=== PATIENT | male | born 1990 ===

== ENCOUNTER 2024-09-23 20:23 | Emergency (ER) | payer MEDICAID, SELFPAY ==
--- NOTE | ~2024-09-23 | CT_ITS ---
EXAMINATION: CT abdomen pelvis w con DATE: 09/24/2024 01:42 INDICATION: Abdominal pain. Nausea and vomiting. TECHNIQUE: Computed tomography (CT) of the abdomen and pelvis was performed with 100 mL Omnipaque 350 intravenous contrast. Automated exposure control and iterative reconstruction technique were employe d. The dose-length product was 392.67 mGy-cm. COMPARISON: None. FINDINGS: The visualized portions of lung bases demonstrate mild atelectasis. No pleural effusion. Th e heart size is normal. No pericardial effusion. There is a small sliding hiatal hernia. The liver, g allbladder, spleen, pancreas, adrenal glands, and kidneys are normal. There are no dilated loops of b owel. The appendix is not visualized. The bones are unremarkable. IMPRESSION: 1. Small sliding hiatal hernia. Reviewed, dictated and finalized at location A. [employer]
[2024-09-23 20:25] VITALS: BP 139/81; PULSE 117; RESP 20; TEMP 36.8; O2SAT 98
--- NOTE | 2024-09-23 23:38 | ED.ABDPAIN ---
HPI - Abdominal Pain General Chief Complaint: Abdominal Pain <DANIEL Morales Last Filed: 09/24/24 02:50> Stated Complaint: abdominal pain, N/V <DANIEL Morales Last Filed: 09/24/24 02:50> Time Seen by Provider: 09/23/24 23:26 <DANIEL Morales Last Filed: 09/24/24 02:50> History of Present Illness HPI narrative: 33-year-old male with reported history of ?cyclic vomiting syndrome? presents to the emergency department for nausea, vomiting and diffuse abdominal pain for 2 days. Patient denies any aggravating or alleviating factors other than ?pain medication. He denies drug use but admits to using marijuana intermittently. Denies alcohol use. No prior abdominal surgeries. Denies diarrhea, dysuria or hematuria. <DANIEL Morales Last Filed: 09/24/24 02:50> Related Data Allergies/Adverse Reactions: Allergies Allergy/AdvReac Type Severity Reaction Status Date / Time No Known Allergies Allergy Verified 09/24/24 00:31 <DANIEL Morales Last Filed: 09/24/24 02:50> Review of Systems Review of Systems: All systems reviewed & are unremarkable except as noted in HPI and below <DANIEL Morales Last Filed: 09/24/24 02:50> Exam Narrative: GENERAL: Tearful, moaning HEAD: Normocephalic, atraumatic. EYES:EOMI. ENT: Nares clear, no rhinorrhea or epistaxis. Mucous membranes moist. NECK: Supple. CHEST: Clear to auscultation. No respiratory distress. HEART: Regular rate and rhythm. No murmur heard. Normal peripheral pulses. ABDOMEN: Soft, nontender, nondistended, normal active bowel sounds. No rebound, guarding rigidity. EXTREMITIES: Normal range of motion. No edema. SKIN: Warm, dry, no rash. NEURO: No focal deficits. Alert and oriented x3 <DANIEL Morales Last Filed: 09/24/24 02:50> Course Vital Signs Vital signs: Vital Signs Temperature 98.2 F 09/23/24 20:25 Pulse Rate 117 H 09/23/24 20:25 Respiratory Rate 20 09/23/24 20:25 Blood Pressure 139/81 09/23/24 20:25 Pulse Oximetry 98 09/23/24 20:25 Temperature 98.4 F 09/23/24 23:41 Pulse Rate 84 09/24/24 05:30 Respiratory Rate 16 09/24/24 05:30 Blood Pressure 126/76 09/24/24 05:15 Pulse Oximetry 96 09/24/24 05:30 <Laura Prabhakar PA-C - Last Filed: 09/24/24 02:50> Vital Signs Temperature 98.2 F 09/23/24 20:25 Pulse Rate 117 H 09/23/24 20:25 Respiratory Rate 20 09/23/24 20:25 Blood Pressure 139/81 09/23/24 20:25 Pulse Oximetry 98 09/23/24 20:25 Temperature 98.4 F 09/23/24 23:41 Pulse Rate 84 09/24/24 05:30 Respiratory Rate 16 09/24/24 05:30 Blood Pressure 126/76 09/24/24 05:15 Pulse Oximetry 96 09/24/24 05:30 <Warren Hernández MD - Last Filed: 09/24/24 05:49> MDM - Abdominal Pain MDM Narrative Medical decision making narrative: 33-year-old male with reported history of cyclic vomiting syndrome presents to the emergency department for nausea, vomiting and diffuse abdominal pain for 2 days. Triage vitals with tachycardia 17 which has since resolved. He is afebrile. Exam is significant for the above. Lab work shows leukocytosis of 15.3. Chemistries with mild elevation in BUN of 25, stable creatinine. Keep magnesium mildly elevated 2.4, likely hemoconcentration. IV fluids ongoing. Urinalysis with 1+ ketones and mildly elevated specific gravity. UDS is positive for cocaine and cannabinoids. Lipase normal at 112. Pending CT abdomen pelvis results at time of sign-out to Dr. Hernández. Patient received IV fluids, Toradol and Haldol in the ED for cyclical vomiting and upon re-evaluation is resting comfortably in the exam bed. <Laura Prabhakar PA-C - Last Filed: 09/24/24 02:50> 33-year-old male with reported history of cyclic vomiting syndrome presents to the emergency department for nausea, vomiting and diffuse abdominal pain for 2 days. Triage vitals with tachycardia 17 which has since resolved. He is afebrile. Exam is significant for the above. Lab work shows leukocytosis of 15.3. Chemistries with mild elevation in BUN of 25, stable creatinine. Keep magnesium mildly elevated 2.4, likely hemoconcentration. IV fluids ongoing. Urinalysis with 1+ ketones and mildly elevated specific gravity. UDS is positive for cocaine and cannabinoids. Lipase normal at 112. Pending CT abdomen pelvis results at time of sign-out to Dr. Hernández. Patient received IV fluids, Toradol and Haldol in the ED for cyclical vomiting and upon re-evaluation is resting comfortably in the exam bed. Edgar: Patient was signed out to me pending CT abdomen pelvis results. CT was obtained and independently interpreted by me revealing questionable thickening of the distal wall of the stomach which is likely infectious/inflammatory, otherwise no acute process. Patient was informed of these findings at bedside. Patient is now resting comfortably and is no longer vomiting. He was instructed that he needs to follow up with his primary care physician within the next 3-5 days and to return to the ED if any new or worsening symptoms develop. A script for Zofran was sent to his pharmacy to use as needed for nausea/vomiting. He was discharged in stable condition. <Warren Hernández MD - Last Filed: 09/24/24 05:49> Lab Data Result diagrams: 09/24/24 00:46 09/24/24 00:46 <Laura Prabhakar PA-C - Last Filed: 09/24/24 02:50> Labs: Lab Results 09/24/24 Range/Units 00:46 WBC 15.3 H (4.5-10.0) K/mm3 RBC 5.70 (4.6-6.20) M/mm3 Hgb 16.9 (14.0-18.0) g/dL Hct 47.8 (42.0-52.0) % MCV 83.9 (80-100) fl MCH 29.6 (26-34) pg MCHC 35.4 (32-36) g/dl RDW 12.6 (11.5-14.5) % Plt Count 362 (150-375) k/mm3 MPV 9.5 (7.4-10.4) fl Immature Gran % (Auto) 0.3 (0-0.5) % Neut % (Auto) 75.2 H (45.5-73.1) % Lymph % (Auto) 15.5 L (18.3-44.2) % [place] % (Auto) 8.7 H (2.6-8.5) % Eos % (Auto) 0.0 (0-4.4) % Baso % (Auto) 0.3 (0.2-1.2) % Lymph # (Auto) 2.37 (0.9-3.2) K/mm3 [place] # (Auto) 1.3 H (0.1-0.6) K/mm3 Eos # (Auto) 0.0 (0-0.3) K/mm3 Baso # (Auto) 0.0 (0.0-0.1) K/mm3 Abs Immat Gran (auto) 0.05 H (0.00-0.031) K/mm3 Absolute Neuts (auto) 11.5 H (1.3-6.7) K/mm3 Absolute Nucleated RBC 0.000 (0.0-0.012) K/mm3 Nucleated RBC % 0.0 (0.0-0.2) % Sodium 136 L (137-145) mmol/L Potassium 3.4 (3.4-5.0) mmol/L Chloride 97 L (98-107) mmol/L Carbon Dioxide 28 (22-30) mmol/L Anion Gap 11 (4-12) mmol/L BUN 25 H (9-20) mg/dL Creatinine 1.00 (0.7-1.3) mg/dL Estim Creat Clear Calc 88 ml/min Estimated GFR > 60 (59 - ) Glucose 100 (65-110) mg/dL Calcium 10.0 (8.4-10.2) mg/dL Magnesium 2.4 H (1.6-2.3) mg/dL Total Bilirubin 1.1 (0.2-1.3) mg/dL AST 33 (17-59) U/L ALT 15 (6-50) U/L Alkaline Phosphatase 75 (38-126) U/L Total Protein 9.0 H (6.3-8.2) g/dL Albumin 5.2 H (3.5-5.1) g/dL Lipase 112 (23-300) U/L Urine Color Dark yellow (Yellow) Urine Appearance Clear (Clear) Urine pH 5.5 (5.0-9.0) Ur Specific [place] 1.036 H (1.001-1.035) Urine Protein 2+ H (Negative) mg/dL Urine Glucose (UA) Negative (Negative) mg/dL Urine Ketones 1+ H (Negative) mg/dL Ur Blood (Man) Trace (Negative) Urine Nitrate Negative (Negative) Urine Bilirubin Negative (Negative) Urine Urobilinogen 1.0 (<2.0) mg/dL Leukocyte Esterase Rfl Negative (Negative) HEBERT/UL Urine RBC 0-2 (0-2) /hpf Urine WBC 0-5 (0-3) /hpf Ur Squamous Epith Cells None seen (Few) /hpf Urine Bacteria None seen /hpf Urine Casts 3-5 Urine Opiates Screen Negative (Negative) Urine Methadone Screen Negative (Negative) Ur Barbiturates Screen Negative (Negative) Ur Phencyclidine Scrn Negative (Negative) Ur Amphetamine Screen Negative (Negative) U Benzodiazepines Scrn Negative (Negative) Urine Cocaine Screen Positive A (Negative) U Cannabinoids Screen Positive A (Negative) <Laura Prabhakar PA-C - Last Filed: 09/24/24 02:50> Lab Results 09/24/24 Range/Units 00:46 WBC 15.3 H (4.5-10.0) K/mm3 RBC 5.70 (4.6-6.20) M/mm3 Hgb 16.9 (14.0-18.0) g/dL Hct 47.8 (42.0-52.0) % MCV 83.9 (80-100) fl MCH 29.6 (26-34) pg MCHC 35.4 (32-36) g/dl RDW 12.6 (11.5-14.5) % Plt Count 362 (150-375) k/mm3 MPV 9.5 (7.4-10.4) fl Immature Gran % (Auto) 0.3 (0-0.5) % Neut % (Auto) 75.2 H (45.5-73.1) % Lymph % (Auto) 15.5 L (18.3-44.2) % [place] % (Auto) 8.7 H (2.6-8.5) % Eos % (Auto) 0.0 (0-4.4) % Baso % (Auto) 0.3 (0.2-1.2) % Lymph # (Auto) 2.37 (0.9-3.2) K/mm3 [place] # (Auto) 1.3 H (0.1-0.6) K/mm3 Eos # (Auto) 0.0 (0-0.3) K/mm3 Baso # (Auto) 0.0 (0.0-0.1) K/mm3 Abs Immat Gran (auto) 0.05 H (0.00-0.031) K/mm3 Absolute Neuts (auto) 11.5 H (1.3-6.7) K/mm3 Absolute Nucleated RBC 0.000 (0.0-0.012) K/mm3 Nucleated RBC % 0.0 (0.0-0.2) % Sodium 136 L (137-145) mmol/L Potassium 3.4 (3.4-5.0) mmol/L Chloride 97 L (98-107) mmol/L Carbon Dioxide 28 (22-30) mmol/L Anion Gap 11 (4-12) mmol/L BUN 25 H (9-20) mg/dL Creatinine 1.00 (0.7-1.3) mg/dL Estim Creat Clear Calc 88 ml/min Estimated GFR > 60 (59 - ) Glucose 100 (65-110) mg/dL Calcium 10.0 (8.4-10.2) mg/dL Magnesium 2.4 H (1.6-2.3) mg/dL Total Bilirubin 1.1 (0.2-1.3) mg/dL AST 33 (17-59) U/L ALT 15 (6-50) U/L Alkaline Phosphatase 75 (38-126) U/L Total Protein 9.0 H (6.3-8.2) g/dL Albumin 5.2 H (3.5-5.1) g/dL Lipase 112 (23-300) U/L Urine Color Dark yellow (Yellow) Urine Appearance Clear (Clear) Urine pH 5.5 (5.0-9.0) Ur Specific [place] 1.036 H (1.001-1.035) Urine Protein 2+ H (Negative) mg/dL Urine Glucose (UA) Negative (Negative) mg/dL Urine Ketones 1+ H (Negative) mg/dL Ur Blood (Man) Trace (Negative) Urine Nitrate Negative (Negative) Urine Bilirubin Negative (Negative) Urine Urobilinogen 1.0 (<2.0) mg/dL Leukocyte Esterase Rfl Negative (Negative) HEBERT/UL Urine RBC 0-2 (0-2) /hpf Urine WBC 0-5 (0-3) /hpf Ur Squamous Epith Cells None seen (Few) /hpf Urine Bacteria None seen /hpf Urine Casts 3-5 Urine Opiates Screen Negative (Negative) Urine Methadone Screen Negative (Negative) Ur Barbiturates Screen Negative (Negative) Ur Phencyclidine Scrn Negative (Negative) Ur Amphetamine Screen Negative (Negative) U Benzodiazepines Scrn Negative (Negative) Urine Cocaine Screen Positive A (Negative) U Cannabinoids Screen Positive A (Negative) <Warren Hernández MD - Last Filed: 09/24/24 05:49> Discharge Plan Discharge Clinical Impression: Cyclical vomiting syndrome, Nausea & vomiting, Polysubstance abuse <Laura Prabhakar PA-C - Last Filed: 09/24/24 02:50> Patient Disposition: Home, Self-Care <DANIEL Morales Last Filed: 09/24/24 02:50> Condition: Improved <DANIEL Morales Last Filed: 09/24/24 02:50> Instructions: Antibiotic Form, Acute Nausea and Vomiting (DC), Abdominal Pain (ED), Cyclic Vomiting Syndrome (ED) <DANIEL Morales Last Filed: 09/24/24 02:50> Additional Instructions: Please follow-up with your family doctor within the next 3-5 days. Return to the emergency department if any new or worsening symptoms develop. Use the prescribed Zofran as needed for nausea/vomiting. <DANIEL Morales Last Filed: 09/24/24 02:50> Patient Language: Brazilian <DANIEL Morales Last Filed: 09/24/24 02:50> Prescriptions: New ondansetron 4 mg tablet,disintegrating 4 mg PO Q8H PRN (Reason: nausea and vomiting) Qty: 10 0RF <Laura Prabhakar PA-C - Last Filed: 09/24/24 02:50> Follow-up/Referrals: Noemí Marino DO [Physician] - 3 Days PHYSICIAN,DIRECTOR OF RESTAURANT OPERATIONS [Primary Care Provider] - <Laura Prabhakar PA-C - Last Filed: 09/24/24 02:50> Time of Disposition: 05:48 <Laura Prabhakar PA-C - Last Filed: 09/24/24 02:50> 05:48 <Warren Hernández MD - Last Filed: 09/24/24 05:49>
[2024-09-23 23:40] VITALS: PULSE 95; RESP 20
[2024-09-23 23:41] VITALS: BP 129/94; BP 130/94; PULSE 105; PULSE 98; RESP 18; RESP 20; TEMP 36.9; O2SAT 100; O2SAT 98
--- NOTE | 2024-09-23 23:42 | ECG_ITS ---
Test Date: 2024-09-23 23:52:32 Measurements Intervals [place] Rate: 85 P: 67 AL: 135 QRS: 58 QRSD: 100 T: 59 QT: 343 QTc: 408 Interpretive Statements SINUS RHYTHM POSSIBLE RIGHT ATRIAL ENLARGEMENT [0.25mV P WAVE] POSSIBLE LEFT ATRIAL ENLARGEMENT [-0.1mV P WAVE IN V1/V2] INDETERMINATE AXIS INCOMPLETE RIGHT BUNDLE BRANCH BLOCK [90+ ms QRS DURATION, TERMINAL R IN V1/V2, 40+ ms S IN I/aVL/V4/V5/V6] No previous ECG available for comparison Electronically Signed On 09-24-2024 14:53:52 PROOFER PREPRESS by Ruth Brizuela M.D.
[2024-09-23 23:45] VITALS: PULSE 97; RESP 26; O2SAT 96
[2024-09-23 23:46] VITALS: BP 124/72; PULSE 96; RESP 26; O2SAT 97
[2024-09-24] VITALS (21 sets, daily range): BP systolic 113–131; BP diastolic 70–79; PULSE 75–107; RESP 13–30; O2SAT 94–97
[2024-09-24] MEDS: HALOPERIDOL LACTATE 5 MG/ML VIAL IM (00:32)
[2024-09-24] MEDS: SODIUM CHLORIDE 0.9% IV 1,000 ML 999 ML IV CONT (00:53)
[2024-09-24] MEDS: Please add drug allergy info to patient profile. 1 EACH XX ×2 (00:53→00:54)
[2024-09-24 01:00] LABS: Basophils Percent Auto 0.3 % (0.2-1.2); Hematocrit 47.8 % (42.0-52.0); Hemoglobin 16.9 g/dL (14.0-18.0); Immature Granulocyte Absolute 0.05 K/mm3 (0.00-0.031); Immature Granulocyte Percent A 0.3 % (0-0.5); Lymphocytes Absolute Auto 2.37 K/mm3 (0.9-3.2); Lymphocytes Percent Auto 15.5 % (18.3-44.2); Mean Corpuscular HGB Conc 35.4 g/dl (32-36); Mean Corpuscular Hemoglobin 29.6 pg (26-34); Mean Corpuscular Volume 83.9 fl (80-100); Mean Platelet Volume 9.5 fl (7.4-10.4); Monocytes Absolute Auto 1.3 K/mm3 (0.1-0.6); Monocytes Percent Auto 8.7 % (2.6-8.5); Neutrophils Absolute Auto 11.5 K/mm3 (1.3-6.7); Neutrophils Percent Auto 75.2 % (45.5-73.1); Platelet Count Result 362 k/mm3 (150-375); Red Cell Distribution Width 12.6 % (11.5-14.5); White Blood Count 15.3 K/mm3 (4.5-10.0)
[2024-09-24 01:06] LABS: Add Urine Microscopic? YES; Appearance Urine Clear (Clear); Bacteria Urine None Seen /hpf; Bilirubin Urine Negative (Negative); Blood Urine Trace (Negative); Color Urine Dark Yellow (Yellow); Glucose Urine UA Negative (Negative); Ketones Urine 1+ mg/dL (Negative); Leukocyte Esterase Ur Negative LEU/UL (Negative); Nitrate Urine Negative (Negative); Protein Urine 2+ mg/dL (Negative); RBC Urine 0-2 /hpf (0-2); Specific Grav Ur 1.036 (1.001-1.035); Squamous Epithelial Cell Urine None Seen /hpf (Few); WBC Urine 0-5 /hpf (0-3); pH Urine 5.5 (5.0-9.0)
[2024-09-24] MEDS: KETOROLAC 15 MG/ML VIAL (*BKC) IV PUSH (01:21)
[2024-09-24 01:22] LABS: Alanine Aminotransferase 15 U/L (6-50); Albumin Level 5.2 g/dL (3.5-5.1); Alkaline Phosphatase 75 U/L (38-126); Anion Gap 11 mmol/L (4-12); Aspartate Amino Transferase 33 U/L (17-59); Bilirubin,Total 1.1 mg/dL (0.2-1.3); Blood Urea Nitrogen 25 mg/dL (9-20); Carbon Dioxide 28 mmol/L (22-30); Chloride 97 mmol/L (98-107); Estimated CRCL calculation 88 ml/min; Estimated Glomerular Filt Rate > 60; Glucose 100 mg/dL (65-110); Lipase 112 U/L (23-300); Magnesium 2.4 mg/dL (1.6-2.3); Potassium 3.4 mmol/L (3.4-5.0); Sodium 136 mmol/L (137-145)
[2024-09-24 01:25] LABS: Amphetamine Screen Urine Negative (Negative); Barbiturate Screen Urine Negative (Negative); Benzodiazepines Screen Urine Negative (Negative); Cannabinoid Screen Urine Positive (Negative); Cocaine Screen Urine Positive (Negative); Methadone Screen Urine Negative (Negative); Opiate Screen Urine Negative (Negative); Phencyclidine Screen Urine Negative (Negative)
== END 2024-09-24 05:58 | disposition home or self-care (01) ==
PROVIDERS: Physician Assistant; Emergency Provider Emergency Medicine
DX: R11.15 Cyclical vomiting syndrome unrelated to migraine (principal); F19.10 Other psychoactive substance abuse, uncomplicated; R94.31 Abnormal electrocardiogram [ECG] [EKG]
CPT/HCPCS: 36415; 74177; 80053; 80307; 81001; 83690; 83735; 85025; 93005; 96361; 96372; 96374; 99284; J1630; J1885; J7030; Q9967

== ENCOUNTER 2024-10-15 17:50 | Emergency (ER) | payer OTHER, SELFPAY ==
[2024-10-15 18:05] VITALS: BP 164/102; PULSE 90; RESP 20; TEMP 36.3; O2SAT 99
--- NOTE | 2024-10-15 20:18 | ED_ITS ---
HPI - Nausea/Vomiting/Diarrhea General Chief complaint: Nausea/Vomiting/Diarrhea Stated complaint: cyclic vomiting Time Seen by Provider: 10/15/24 19:49 Source: patient Mode of arrival: ambulatory Limitations: no limitations History of Present Illness HPI Narrative: Patient presents with report of cyclic vomiting starting today. States he has a history of this occuring every few weeks. Does use marijuana daily including earlier today. History of extensive work up with GI including EGD. States this has been going on for years though. Notes that Haldol and Benadryl sometimes work, with IV fluids. Related Data Allergies Allergy/AdvReac Type Severity Reaction Status Date / Time No Known Allergies Allergy Verified 10/15/24 17:52 PMFSH Past Medical History Medical History Cyclical vomiting Social History Social History (Updated 10/16/24 @ 12:58 by Neli Morin MD) Substance use type: marijuana Other substance usage details: daily Exam 2 Narrative: GENERAL: well-nourished, in mild acute distress; groaning and with emesis bag in lap HEAD: Normocephalic, atraumatic. EYES: Non injected, non icteric, slightly sunken ENT: Nares clear, no rhinorrhea or epistaxis. NECK: Supple. CHEST: Speaking in full sentences. No respiratory distress. HEART: Regular rate and rhythm. . ABDOMEN: Soft, nondistended. EXTREMITIES: Normal range of motion. No lower extremity edema. SKIN: Warm, dry, no rash. NEURO: No focal deficits. Alert and oriented x3. PSYCH: Normal mood and affect. Course Vital Signs Vital signs: Vital Signs Temperature 97.4 F L 10/15/24 18:05 Pulse Rate 90 10/15/24 18:05 Respiratory Rate 20 10/15/24 18:05 Blood Pressure 164/102 H 10/15/24 18:05 Pulse Oximetry 99 10/15/24 18:05 Oxygen Delivery Room Air 10/15/24 18:05 Temperature 97.4 F L 10/15/24 18:05 Pulse Rate 81 10/15/24 22:42 Respiratory Rate 19 10/15/24 22:42 Blood Pressure 157/90 H 10/15/24 22:42 Pulse Oximetry 99 10/15/24 22:42 Oxygen Delivery Room Air 10/15/24 18:05 MDM - Nausea/Vomiting/Diarrhea MDM Narrative Medical decision making narrative: Patient presents with reported cyclic vomiting which he states is chronic. Has previously been worked up by GI including EGD. Does use marijuana daily. In the emergency department he is afebrile with vital signs notable for hypertension. Leukocytosis and thrombocytosis. Possible acute phase / stress response. Mild hyperglycemia with an anion gap; I suspect this to be due to starvation. Patient is symptomatically treated with haloperidol 2.5 mg IV and diphenhydramine 25 mg IV in addition to 1L IV fluids. Patient reassessed at 9:20 p.m.. He is resting comfortably, sleeping. Upon awakening, he states that his symptoms are improving but still present. Re-dosed with additional 2.5 mg. IV haloperidol and 25 mg IV diphenhydramine. Patient reassessed at 22:20. He is sleeping, very somnolent but otherwise protecting his airway. When awoken, he is able to state that his symptoms are resolve. Stable for discharge. Patient is advised and encouraged to attempt cannaibis cessation for resolution of symptoms although he states he has dealt with this his entire life and did trial not using marijuana for awhile. He states he has Zofran at home. Differential Diagnosis Differential diagnosis: Likely food poisoning, drug-induced nausea and vomiting, dehydration and other (cyclic vomiting, hyperemesis cannabinoid syndrome) Lab Data Attestation: I reviewed the patient's lab results. 10/15/24 20:06 10/15/24 20:06 Labs: Lab Results 10/15/24 Range/Units 20:06 WBC 15.4 H (4.5-10.0) K/mm3 RBC 5.60 (4.6-6.20) M/mm3 Hgb 16.5 (14.0-18.0) g/dL Hct 47.4 (42.0-52.0) % MCV 84.6 (80-100) fl MCH 29.5 (26-34) pg MCHC 34.8 (32-36) g/dl RDW 12.2 (11.5-14.5) % Plt Count 378 H (150-375) k/mm3 MPV 9.6 (7.4-10.4) fl Immature Gran % (Auto) 0.4 (0-0.5) % Neut % (Auto) 92.6 H (45.5-73.1) % Lymph % (Auto) 4.4 L (18.3-44.2) % [place] % (Auto) 2.5 L (2.6-8.5) % Eos % (Auto) 0.0 (0-4.4) % Baso % (Auto) 0.1 L (0.2-1.2) % Lymph # (Auto) 0.68 L (0.9-3.2) K/mm3 [place] # (Auto) 0.4 (0.1-0.6) K/mm3 Eos # (Auto) 0.0 (0-0.3) K/mm3 Baso # (Auto) 0.0 (0.0-0.1) K/mm3 Abs Immat Gran (auto) 0.06 H (0.00-0.031) K/mm3 Absolute Neuts (auto) 14.3 H (1.3-6.7) K/mm3 Absolute Nucleated RBC 0.000 (0.0-0.012) K/mm3 Nucleated RBC % 0.0 (0.0-0.2) % Sodium 139 (137-145) mmol/L Potassium 3.8 (3.4-5.0) mmol/L Chloride 98 (98-107) mmol/L Carbon Dioxide 26 (22-30) mmol/L Anion Gap 15 H (4-12) mmol/L BUN 14 D (9-20) mg/dL Creatinine 0.78 (0.7-1.3) mg/dL Estim Creat Clear Calc 126 ml/min Estimated GFR > 60 (59 - ) Glucose 137 H (65-110) mg/dL Calcium 10.0 (8.4-10.2) mg/dL Magnesium 1.8 (1.6-2.3) mg/dL Total Bilirubin 0.7 (0.2-1.3) mg/dL AST 37 (17-59) U/L ALT 20 (6-50) U/L Alkaline Phosphatase 80 (38-126) U/L Total Protein 9.0 H (6.3-8.2) g/dL Albumin 5.2 H (3.5-5.1) g/dL Lipase 134 (23-300) U/L Influenza A (RT-PCR) Negative (Negative) Influenza B (RT-PCR) Negative (Negative) SARS-CoV-2 RNA (RT-PCR) Negative (Negative) Discharge Plan Discharge Clinical Impression: Leukocytosis, Thrombocytosis, Hyperglycemia, Cyclical vomiting, Marijuana use Patient Disposition: Home, Self-Care Condition: Stable Instructions: Antibiotic Form, Leukocytosis (ED), Cannabis Use Disorder (ED), Nondiabetic Hyperglycemia (ED), Cyclic Vomiting Syndrome (ED) Additional Instructions: Follow-up with primary care physician. If you do not have 1 the name of the doctors listed below. As we discussed, trial another period of marijuana cessation to see if your symptoms improve/subside. Cannabinoid hyperemesis syndrome is a real diagnosis and I encourage you to read about it to learn more. Patient Language: New Zealander Prescriptions: No Action ondansetron 4 mg tablet,disintegrating 4 mg PO Q8H PRN (Reason: nausea and vomiting) Qty: 10 0RF Follow-up/Referrals: PHYSICIAN,SWITCHBOARD OPERATOR SUPERVISOR [Primary Care Provider] - Danny Eddy MD [Physician] - (Family practice/internal medicine) Stand Alone Forms: Work/School Release IP Time of Disposition: 22:24
[2024-10-15 20:21] LABS: Basophils Percent Auto 0.1 % (0.2-1.2); Hematocrit 47.4 % (42.0-52.0); Hemoglobin 16.5 g/dL (14.0-18.0); Immature Granulocyte Absolute 0.06 K/mm3 (0.00-0.031); Immature Granulocyte Percent A 0.4 % (0-0.5); Lymphocytes Absolute Auto 0.68 K/mm3 (0.9-3.2); Lymphocytes Percent Auto 4.4 % (18.3-44.2); Mean Corpuscular HGB Conc 34.8 g/dl (32-36); Mean Corpuscular Hemoglobin 29.5 pg (26-34); Mean Corpuscular Volume 84.6 fl (80-100); Mean Platelet Volume 9.6 fl (7.4-10.4); Monocytes Absolute Auto 0.4 K/mm3 (0.1-0.6); Monocytes Percent Auto 2.5 % (2.6-8.5); Neutrophils Absolute Auto 14.3 K/mm3 (1.3-6.7); Neutrophils Percent Auto 92.6 % (45.5-73.1); Platelet Count Result 378 k/mm3 (150-375); Red Cell Distribution Width 12.2 % (11.5-14.5); White Blood Count 15.4 K/mm3 (4.5-10.0)
[2024-10-15] MEDS: SODIUM CHLORIDE 0.9% IV 1,000 ML 999 ML IV CONT (20:46)
[2024-10-15] MEDS: diphenhydrAMINE HCl INJ 50 MG/ML VIAL 25 MG IV PUSH ×2 (20:46→21:34)
[2024-10-15] MEDS: HALOPERIDOL LACTATE 5 MG/ML VIAL 2.5 MG IV PUSH ×2 (20:46→21:33)
[2024-10-15 20:57] LABS: Influenza A QL RT-PCR Negative (Negative); Influenza B QL RT-PCR Negative (Negative); SARS-CoV-2 RNA PCR Negative (Negative)
[2024-10-15 20:59] LABS: Alanine Aminotransferase 20 U/L (6-50); Albumin Level 5.2 g/dL (3.5-5.1); Alkaline Phosphatase 80 U/L (38-126); Anion Gap 15 mmol/L (4-12); Aspartate Amino Transferase 37 U/L (17-59); Bilirubin,Total 0.7 mg/dL (0.2-1.3); Blood Urea Nitrogen 14 mg/dL (9-20); Carbon Dioxide 26 mmol/L (22-30); Chloride 98 mmol/L (98-107); Estimated CRCL calculation 126 ml/min; Estimated Glomerular Filt Rate > 60; Glucose 137 mg/dL (65-110); Potassium 3.8 mmol/L (3.4-5.0); Sodium 139 mmol/L (137-145)
[2024-10-15 21:18] LABS: Lipase 134 U/L (23-300); Magnesium 1.8 mg/dL (1.6-2.3)
[2024-10-15 22:42] VITALS: BP 157/90; PULSE 81; RESP 19; O2SAT 99
== END 2024-10-15 22:42 | disposition home or self-care (01) ==
PROVIDERS: Emergency Provider Student in an Organized Health Care Education/Training Program
DX: D72.829 Elevated white blood cell count, unspecified (principal); D75.839 Thrombocytosis, unspecified; R11.15 Cyclical vomiting syndrome unrelated to migraine; F12.90 Cannabis use, unspecified, uncomplicated; R73.9 Hyperglycemia, unspecified; Z20.822 Contact with and (suspected) exposure to COVID-19
CPT/HCPCS: 36415; 80053; 83690; 83735; 85025; 87636; 96361; 96374; 96375; 96376; 99284; J1200; J1630; J7030

== ENCOUNTER 2024-11-27 18:40 | Emergency (ER) | payer OTHER, SELFPAY ==
--- OUTSIDE RECORDS SUMMARY | 2024-11-27 18:58 | XMS_ITS | Encounter Summary ---
Author Organization [facility] Address [facility] [place] [address] Care Team Providers Care Supervisor Fruit Grading Name Role Phone Rocío Lombardi MD Primary Care Provider + None, Provider Primary Care Provider Claudine schwartz Encounter Details Date Type Department Care Team (Late st Contact Info) Description 10/31/2023 [employer] Message [facility] Family and Sports Medicine - [place] [id number] [place], [facility] Provider Schedule Appointment: Annual Physical Social History Tobacco Use Types Packs/Day Years Used Date Smoking Tobacco: Former Cigarettes Smokeless Tobacco: Never Comments:USED MARIJUANA IN P AST. Cigs off and on. Alcohol Use Standard Drinks/Week Comments Yes 0 (1 standard drink = 0.6 oz pur e alcohol) occassional [facility] Utilities Answer Date Recorded In the past 12 months has e [employer], gas, oil, or water [employer] threatened to shut off services in your home? No 10/03/2023 Humiliation, Afraid, Rape, and Kick questionnair e Answer Date Recorded Within the last year, have y ou been afraid of your partner or ex-partner? No 10/03/2023 Within the last year, have y ou been humiliated or emotionally abused in other ways by your partner or ex-partner? No Within the last year, have y ou been kicked, hit, slapped, or otherwise physically hurt by your partner or ex-partner? No 10/03/2023 Within the last year, have y ou been raped or forced to have any kind of sexual activity by your partner or ex-partner? No 10/03/2023 Overall Financial Resource Strain (CARDIA) Answe r Date Recorded How hard is it for you to pa y for the very basics like food, housing, medical care, and heating? Very hard 10/03/2023 PHQ-2 Answer Date Recorded Patient Health Questionnaire-2 Score 0 10/06/2022 Hunger Vital Sign Answer Date Recorded Within the past 12 months, y ou worried that your food would run out before you got the money to buy more. Never true 10/03/19 24 Within the past 12 months, t he food you bought just didn't last and you didn't have money to get more. Never true 10/03/2023 PRAPARE - Transportation Answer Date Re corded In the past 12 months, has l ack of transportation kept you from medical appointments or from getting medications? No 11/2023 In the past 12 months, has l ack of transportation kept you from meetings, work, or from getting things needed for daily living? No 10/03/2023 Housing Stability Vital Sign Answer Leonardo e Recorded In the last 12 months, was t here a time when you were not able to pay the mortgage or rent on time? Yes 10/03/2023 In the last 12 months, how many places have you lived? 1 10/03/2023 In the last 12 months, was t here a time when you did not have a steady place to sleep or slept in a assisted (including now)? No 10/03/2023 Sex and Gender Information Value Date Recorded Sex Assigned at Male 10/21/2024 2:48 PM OCTAVE BOARD ASSEMBLER Legal Sex Male 7:32 AM CDT Gender Identity Male 09/29/2022 5:25 PM OCTAVE BOARD ASSEMBLER Sexual Orientation Straight 09/29/2022 5: 25 PM OCTAVE BOARD ASSEMBLER documented as of this encounter Functional Status * Are you deaf or do you have serious difficulty hearing Answer Date of Assessment Author Status No 10/03/2023 12:42 PM Effie Tena RN Active * Are you blind or do you have serious difficulty seeing, even when wearing glasses? Answer Date of Assessment Author Status No 10/03/2023 12:42 PM Effie Tena RN Active * Do you have serious difficulty walking or climbing stairs? Answer Date of Assessment Author Status No 10/03/2023 12:42 PM Effie Tena RN Active * Do you have difficulty dressing or bathing? Answer Date of Assessment Author Status No 10/03/2023 12:42 PM Effie Tena RN Active * Because of a physical, mental, or emotional condition, do you have difficulty doing errands alone such as visiting a doctor's office or shopping? Answer Date of Assessment Author Status No 10/03/2023 12:42 PM Effie Tena RN Active documented as of this encounter Mental Status * Because of a physical, mental, or emotional condition, do you have serious difficulty concentrating, remembering, or making decisions? Answer Entry Date Author Status No 10/03/2023 12:42 PM Effie Tena RN Active documented in this encounter Plan of Treatment Not on file documented as of this encounter Goals Goal Patient Goal Type Associated Problems Recent Progress Patient-Stated? Author Patient will return to prior living situation and remain independent in ADLs upon discharge from hospital General No Betty Zelaya, SAVANNA documented as of this encounter Visit Diagnoses Not on filedocumented in this encounter Additional Health Concerns Infection Onset Date Last Indicated Resolved Time COVID-19 Rule Out 04/09/2024 04/09/2024 04/09/2024 11:06 PM CDT Assessment Noted Time PHQ-9 Depression Total Score: 0 09/30/20 22 10:11 AM OCTAVE BOARD ASSEMBLER documented as of this encounter Care Teams Supervisor Fruit Grading Relationship Specialty Start Date End Date Rocío Lombardi MD PCP - General FAMILY PRACTICE 04/08/20 04/09/24 None, Provider, PCP - General UNKNOWN PHYSICIAN SPECIALTY 04/24/24 documented as of this encounter
--- OUTSIDE RECORDS SUMMARY | 2024-11-27 18:58 | XMS_ITS | Encounter Summary ---
Author Organization [facility] Address [facility] [place] [address] Care Team Providers Care Golf Course Designer Name Role Phone Rocío Lombradi MD Primary Care Provider + None, Provider Primary Care Provider Claudine schwartz Encounter Details Date Type Department Care Team (Late st Contact Info) Description 08/29/2022 [place] Message [facility] Family and Sports Medicine - [place] [address] [place], [facility] Provider Schedule Appointment: Annual Physical Due Social History Tobacco Use Types Packs/Day Years Used Date Smoking Tobacco: Never Smokeless Tobacco: Never Comments:USED MARIJUANA IN P AST Alcohol Use Standard Drinks/Week Comments Yes 0 (1 standard drink = 0.6 oz pur e alcohol) occassional Sex and Gender Information Value Date Recorded Sex Assigned at Male 10/21/2024 2:48 PM DIRECTOR LIFE SCIENCES Legal Sex Male 7:32 AM CDT Gender Identity Male 09/29/2022 5:25 PM DIRECTOR LIFE SCIENCES Sexual Orientation Straight 09/29/2022 5: 25 PM DIRECTOR LIFE SCIENCES documented as of this encounter Functional Status * RETIRED Are you deaf or do you have serious difficulty hearing Answer Date of Assessment Author Status No 04/04/2021 4:00 PM CDT Activ e * RETIRED Are you blind or do you have serious difficulty seeing, even when wearing glasses? Answer Date of Assessment Author Status No 04/04/2021 4:00 PM CDT Activ e * Do you have serious difficulty walking or climbing stairs? Answer Date of Assessment Author Status No 04/04/2021 4:00 PM CDT Karlie Burger RN Active * Do you have difficulty dressing or bathing? Answer Date of Assessment Author Status No 04/04/2021 4:00 PM CDT Karlie Burger RN Active * Because of a physical, mental, or emotional condition, do you have difficulty doing errands alone such as visiting a doctor's office or shopping? Answer Date of Assessment Author Status No 04/04/2021 4:00 PM CDT Karlie Burger RN Active documented as of this encounter Mental Status * Because of a physical, mental, or emotional condition, do you have serious difficulty concentrating, remembering, or making decisions? Answer Entry Date Author Status No 04/04/2021 4:00 PM CDT Karlie Burger RN Active documented in this encounter Plan of Treatment Not on file documented as of this encounter Goals Goal Patient Goal Type Associated Problems Recent Progress Patient-Stated? Author Patient will return to prior living situation and remain independent in ADLs upon discharge from hospital [facility] No Betty Zelaya, MANAGER OF ORGANIZATIONAL DEVELOPMENT documented as of this encounter Visit Diagnoses Not on filedocumented in this encounter Additional Health Concerns Infection Onset Date Last Indicated Resolved Time COVID-19 Rule Out 04/09/2024 04/09/2024 04/09/2024 11:06 PM CDT documented as of this encounter Care Teams Golf Course Designer Relationship Specialty Start Date End Date Rocío Lombardi MD PCP - General FAMILY PRACTICE 04/08/20 04/09/24 None, Provider, PCP - General UNKNOWN PHYSICIAN SPECIALTY 04/24/24 documented as of this encounter
--- OUTSIDE RECORDS SUMMARY | 2024-11-27 18:58 | XMS_ITS | CONTINUITY OF CARE DOCUMENT ---
Author Name erin khan Address Unknown Organization [facility] Address [address] [place] [address] Phone [phone] Care Team Providers Care Director Of Services Name Role Phone Slime Garber MD Unavailable [phone] Slime Garber MD Unavailable [phone] INSURANCE PROVIDERS Payer name Policy type / Coverage type [place] red democrat [employer] [facility] Medicaid 3 [id number]
--- OUTSIDE RECORDS SUMMARY | 2024-11-27 18:58 | XMS_ITS | Clinical Summary ---
Author Organization [facility] Address [facility] [place] [address] Care Team Providers Care Floor Layer Tile Name Role Phone None, Provider MD Primary Care Provider Unavaila ble Allergies Active Allergy Reactions Criticality Noted Date Comments Marijuana (Cannabis Sativa) Nausea and Vomiting Low 01/17/2022 Medications DULoxetine (CYMBALTA) 30 MG capsuleIndications: Panic anxiety syndrome Take 1 capsule (30 mg total) by mouth daily. 60 capsule 4 2 Active famotidine (PEPCID) 20 MG tabletIndications:C yclical vomiting, intractable,Superio r mesenteric artery syndrome (CMS/HCC HHS/HCC),Gastroesop hageal reflux disease, unspecified whether esophagitis present Take 1 tablet (20 mg total) by mouth 2 (two) times daily. 180 tablet 3 3 Active dicyclomine (BENTYL) 20 MG tablet Take 1 tablet (20 mg total) by mouth every 6 (six) hours. 120 tablet 3 Active pantoprazole EC (PROTONIX) 40 MG tablet Take 1 tablet (40 mg total) by mouth daily. 3 Active HYDROcodone-acetami nophen (NORCO) 5-325 MG tabletIndications:A cute Pain < 7 Day Supply Take 1 tablet by mouth every 6 (six) hours as needed for Pain. Indications : Acute Pain < 7 Day Supply 12 tablet 4 Active scopolamine (TRANSDERM-SCOP) 1 MG/3DAYS patch Place 1 patch onto the skin every third day. 5 patch 4 Active ondansetron (ZOFRAN-ODT) 4 MG disintegrating tablet Take 1 tablet (4 mg total) by mouth every 8 (eight) hours as needed for Nausea. 20 tablet 4 Active pantoprazole EC (PROTONIX) 40 MG tablet Take 1 tablet (40 mg total) by mouth daily. 30 tablet 4 Active pantoprazole EC (PROTONIX) 40 MG tablet Take 1 tablet (40 mg total) by mouth daily. 30 tablet 5 Active metoclopramide (REGLAN) 5 MG tablet Take 1 tablet (5 mg total) by mouth 4 (four) times daily for 10 days. 40 tablet 5 10/31/19 25 potassium chloride CR (KLOR-CON M) 20 MEQ tablet Take 1 tablet (20 mEq total) by mouth 2 (two) times daily for 7 days. 14 tablet 5 10/28/19 25 Active Problems Problem Noted Date Diagnosed Date Abdominal pain 04/10/2024 Intractable abdominal pain 04/09/2024 Financial difficulty 04/09/2024 Persistent vomiting 10/04/2023 Cyclical vomiting 10/03/2023 Generalized abdominal pain 10/30/2020 Overview (10/30/2020): Added automatically from request for surgery [id number] Panic anxiety syndrome 07/07/2020 Cyclical vomiting, intractable 11/03/2019 Resolved Problems Problem Noted Date Diagnosed Date Resolved Date Intractable nausea and vomiting 05/03/2021 09/30/2022 MARINA (acute kidney injury) 04/04/2021 Nausea and vomiting, intract ability of vomiting not specified, unspecified vomiting type 10/30/2020 09/30/2022 Overview (10/30/2020): Added automatically from request for surgery [id number] Abnormal CT scan, gastrointestinal tract 10/30/2020 09/30/2022 Overview (10/30/2020): Added automatically from request for surgery [id number] Hyponatremia 06/07/2020 09/30/2022 Cyclic vomiting syndrome 03/19/201905/2021 Elevated BP without diagnosis of hypertension 03/22/20 18 09/30/2022 Assessment & Plan (03/22/2018 8:27 AM CDT): Patient with elevated BP since fluid resuscitation Improved overnight but present this AM - giving BB x1 for migraine and BP - Need to check BP when patient sitting upright for 5 minutes as each bp taken either prone and waking patient or immediately after sitting up - possibly new HTN vs 2/2 pain, will continue to monitor Dehydration 03/22/2018 09/30/2022 Hypovolemia dehydration 03/20/2018/ Assessment & Plan (03/22/2018 8:15 AM CDT): Acute, POA resolved Evident by dry membranes, MARINA, lactate 2.1, sinus Tach per EKG which improved with fluids - 2L NS bolus in ER - started D5/LR, resolved after received 3L MARINA (acute kidney injury) 03/20/2018 Assessment & Plan (03/21/2018 8:41 AM CDT): Acute, POA, resolved, Cr near baseline today - baseline Cr < 1, admitted with cr >1.6 - will fluid resuscitate with IV while note tolerating PO - recheck BMP in AM Cyclical vomiting 01/25/2018 10/09/2020 Assessment & Plan (03/24/2018 10:45 AM CDT): Chronic, POA Patient with known history of cyclical vomiting 2/2 cannabis hyperemesis with poor outpatient follow up presented with decreased PO intake over prior 5 days, N,V, abdominal pain. Had reportedly not used marijuana in 2 months, since last discharge, and UDS as negative. Patient was noted to have MARINA and was hypovoluemic. CT abdomen w/contrast (14th on radiology record) was WNL He was fluid resuscitated and provided with antiemetics while admitted including Tigan, zofran, reglan. Patient was also given individual doses of sumatriptan and propranolol with some improvement in headaches but minimal improvements in abdominal pain. On day of discharge, patient had no emesis, but had some mild abdominal pain. - Hx of cannabinoid hyperemesis syndrome - CT abdomen in ER WNL, no sign of gallbladder inflammation, lipase WNL - consider N/V from recent Binge drinking possible exacerbating factor - Exam w/o rebound - stopped cannabis use 2 months prior after last discharge - UDS negative - continue zofran PRN for nausea, Tigan PRN, will add compazine if needed - change to D5 NS @ 100 cc/hr - will likely benefit from elavil but given patient has poor f/u outpatient (after last discharge) will not start - try BB for possible HTN and abdominal migraine as well as sumatriptan today - low fat, reg diet Depression 02/27/2014 09/30/2022 Encounters Date Type Department Care Team Description 10/25/2024 Scan [facility] Scanned, Doc Med Group CT (SCAN) 10/21/2024 2:59 PM HOIST OPERATOR - 10/21/2024 5:16 PM HOIST OPERATOR Emergency [facility] [place] [address] Joe Velasquez PA Vomiting Discharge Disposition: Home or Self Care (Routine Discharge) 10/21/2024 Travel from Last 3 Months Immunizations Name Administration Dates Next Due Fluzone 6 Months+ Quad (0.5 mL Prefilled Syringe ) 10/05/2023 Hepatitis A (Havrix 1440 [address].U) 06/01/2020 Influenza Adult (Generic) 11/08/2017 Family History Medical History Relation Comments No Known Problems Father Cancer Mother Relation Status Comments Father Alive Mother Alive Social History Tobacco Use Types Packs/Day Years Used Date Smoking Tobacco: Some Days Cigarettes Smokeless Tobacco: Never Tobacco Cessation:Ready to Q uit: Not Asked; Counseling Given: Not Answered Comments:USED MARIJUANA IN PAST. Cigs off and on. Alcohol Use Standard Drinks/Week Comments Not Currently 0 (1 standard drink = 0.6 oz pur e alcohol) occassional [facility] Utilities Answer Date Recorded In the past 12 months has e electric, gas, oil, or water company threatened to shut off services in your home? No 04/09/2024 Humiliation, Afraid, Rape, and Kick questionnair e Answer Date Recorded Within the last year, have y ou been afraid of your partner or ex-partner? No 04/09/2024 Within the last year, have y ou been humiliated or emotionally abused in other ways by your partner or ex-partner? No Within the last year, have y ou been kicked, hit, slapped, or otherwise physically hurt by your partner or ex-partner? No 04/09/2024 Within the last year, have y ou been raped or forced to have any kind of sexual activity by your partner or ex-partner? No 04/09/2024 Overall Financial Resource Strain (CARDIA) Answe r Date Recorded How hard is it for you to pa y for the very basics like food, housing, medical care, and heating? Not hard at all 04/09/2024 PHQ-2 Answer Date Recorded Patient Health Questionnaire-2 Score 0 10/06/2022 Hunger Vital Sign Answer Date Recorded Within the past 12 months, y ou worried that your food would run out before you got the money to buy more. Never true 04/09/20 24 Within the past 12 months, t he food you bought just didn't last and you didn't have money to get more. Never true 04/09/2024 PRAPARE - Transportation Answer Date Re corded In the past 12 months, has l ack of transportation kept you from medical appointments or from getting medications? No 06/2024 In the past 12 months, has l ack of transportation kept you from meetings, work, or from getting things needed for daily living? No 04/09/2024 Housing Stability Vital Sign Answer Leonardo e [...] place to sleep or slept in a snf (including now)? No 10/03/2023 Housing Stability Vital Sign Answer Leonardo e Recorded In the last 12 months, was t here a time when you were not able to pay the mortgage or rent on time? No 04/09/2024 In the past 12 months, how m any times have you moved where you were living? 1 04/09/2024 At any time in the past 12 m [facility], were you homeless or living in a snf (including now)? No 04/09/2024 Sex and Gender Information Value Date Recorded Sex Assigned at Male 10/21/2024 2:48 PM HOIST OPERATOR Legal Sex Male 7:32 AM CDT Gender Identity Male 09/29/2022 5:25 PM HOIST OPERATOR Sexual Orientation Straight 09/29/2022 5: 25 PM HOIST OPERATOR Last Filed Vital Signs Vital Sign Reading Time Taken Comments Blood Pressure 168/99 10/21/2024 5:00 PM HOIST OPERATOR Pulse 98 10/21/2024 5:00 PM HOIST OPERATOR Temperature 36.4 C (97.5 F) 10/21/2024 2:41 PM HOIST OPERATOR Respiratory Rate 22 10/21/2024 2:41 PM HOIST OPERATOR Oxygen Saturation 98% 10/21/2024 5:00 PM HOIST OPERATOR Inhaled Oxygen Concentration - - Weight 72.6 kg (160 lb) 10/21/2024 2:41 PM HOIST OPERATOR Height 182.9 cm (6') 10/21/2024 2:41 PM HOIST OPERATOR Body Mass Index 21.7 10/21/2024 2:41 PM HOIST OPERATOR Plan of Treatment Health Maintenance Due Date Last Done Comments Pneumococcal Vaccine: Pediatrics (0 to 5 Years) and At-Risk Patients (6 to 64 Years) (1 of 2 - PCV) 1994 PHQ-2 (Physician [place]) 2000 Hepatitis C 2006 DTaP, Tdap and Td Vaccines ( 1 - Tdap) 12/21/2007 Hepatitis B Vaccines (1 of 3 - 19+ 3-dose series) 12/21/2007 Annual Physical 09/30/2023 09/30/2022 COVID-19 Vaccine (1 - 2023-2 5 season) 2024 Influenza Adult (#1) 2024 10/05/2023, 11/08/2017 PHQ-2 (Physician [employer]) 10/02/2024 HPV Vaccines Aged Out No longer eligi ble based on patient's age to complete this topic Meningococcal B Vaccine Aged Out No l onger eligible based on patient's age to complete this topic Meningococcal Vaccine Aged Out No maria esther kadi eligible based on patient's age to complete this topic RSV Immunizations Under 20 Months Aged Out No longer eligible b ased on patient's age to complete this topic Goals Goal Patient Goal Type Associated Problems Recent Progress Patient-Stated? Author Patient will return to prior living situation and remain independent in ADLs upon discharge from hospital General No Betty Zelaya, TRANSPORT MEDIC Family - family caregiver with be involved in care transitions and discharge planning Lifestyle No Maria R Campos, insulation applicator Procedure Name Priority Date/Time Associated Diagnosis Comments CT GENERIC 10/25/2024 LIPASE STAT 10/21/2024 3:06 PM HOIST OPERATOR COMPREHENSIVE METABOLIC PANEL STAT 10/21/2024 3:06 PM HOIST OPERATOR CBC W/DIFF AUTOMATED STAT 10/21/2024 3:06 PM HOIST OPERATOR from Last 3 Months Results * CT GENERIC (10/25/2024) Anatomical Region Laterality Modality Other 10/25/2024 us [facility] Scanned SCANNING Final Resu lt * (ABNORMAL) COMPREHENSIVE METABOLIC PANEL (10/21/2024 3:06 PM HOIST OPERATOR) GLUCOSE 111(H) 70 - 99 MG/DL 10/21/2024 3:45 PM HOIST OPERATOR [facility] BUN 17 7 - 18 MG/DL 10/21/2024 3:45 PM HOIST OPERATOR [facility] CREATININE S/P/B 1.02 0.7 - 1.3 MG/DL 10/21/2024 3:45 PM HOIST OPERATOR [facility] SODIUM S/P/B 127(L) 136 - 145 MMOL/L 10/21/2024 3:45 PM HOIST OPERATOR [facility] POTASSIUM S/P/B 2.8(LL) 3.5 - 5.1 MMOL/L 10/21/2024 3:45 PM HOIST OPERATOR [facility] Comment: Critical Result(s) Called at: 15:44:29 on 10/21/2024 by: DOMINIK CAMPBELL to and read back by:DORITA DE SANTIAGO CHLORIDE S/P/B 85(L) 97 - 115 MMOL/L 10/21/2024 3:45 PM HOIST OPERATOR [facility] CO2 30.6 21 - 32 MMOL/L 10/21/2024 3:45 PM [facility] CALCIUM S/P/B 10.1 8.5 - 10.1 MG/DL 10/21/2024 3:45 PM [facility] BILIRUBIN TOTAL S/P/B 1.1 0.2 - 1.2 MG/DL 10/21/2024 3:45 PM [facility] Comment: THIS ASSAY IS NOT RECOMMENDED FOR PATIENTS UNDERGOING TREATMENT WITH ELTROMBOPAG DUE TO THE POTENTIAL FOR FALSELY ELEVATED RESULTS. TOTAL PROTEIN S/P/B 8.1 6.4 - 8.2 G/DL 10/21/2024 3:45 PM [facility] ALBUMIN S/P/B 4.1 3.4 - 5.0 G/DL 10/21/2024 3:45 PM [facility] AST 20 15 - 37 U/L 10/21/2024 3:45 PM [facility] ALT 14(L) 16 - 60 U/L 10/21/2024 3:45 PM [facility] ALKALINE PHOSPHATASE S/P/B 62 50 - 136 U/L 10/21/2024 3:45 PM [facility] ANION GAP 11.4(H) 2 - 10 MMOL/L 10/21/2024 3:45 PM [facility] BUN CREATININE RATIO 16.7 6 - 26 10/21/2024 3:45 PM [facility] A/G RATIO 1.0 1.0 - 2.0 RATIO 10/21/2024 3:45 PM [facility] GFR ESTIMATE >90 >90 ML/MIN/1.7 3 M2 10/21/2024 3:45 PM [facility] Comment: NOTE: eGFR is not calculated for patients <18 years of age or gender unknown. This is an estimated GFR calculation using the new CKD EPI creatinine equation without race and so does not require a correction factor for race. This estimated GFR should not be used for calculating drug doses. 10/21/2024 3:06 PM HOIST OPERATOR Tony Chamorro PA-C LABORATORY Final Resul t [facility] [address] [place] [address], * (ABNORMAL) CBC W/DIFF AUTOMATED (10/21/2024 3:06 PM HOIST OPERATOR) WBC 13.70(H) 4.5 - 11.0 x10'3/uL 10/21/2024 3:17 PM HOIST OPERATOR [facility] RBC 5.83 4.70 - 6.10 x10'6/uL 10/21/2024 3:17 PM HOIST OPERATOR [facility] HGB 17.1 14.0 - 18.0 G/DL 10/21/2024 3:17 PM HOIST OPERATOR [facility] HCT 47.0 43.0 - 54.0 % 10/21/2024 3:17 PM [facility] MCV 80.6 80.0 - 94.0 FL 10/21/2024 3:17 PM HOIST OPERATOR [facility] MCH 29.3 27.0 - 31.0 PG 10/21/2024 3:17 PM HOIST OPERATOR [facility] MCHC 36.4(H) 32.0 - 36.0 G/DL 10/21/2024 3:17 PM [facility] RDW 11.7 11.5 - 14.5 % 10/21/2024 3:17 PM HOIST OPERATOR [facility] PLT 378 130 - 400 x10'3/uL 10/21/2024 3:17 PM HOIST OPERATOR [facility] MPV 9.5 9.3 - 12.2 FL 10/21/2024 3:17 PM [facility] DIFFERENTIAL TYPE MANUAL DIFFERENTIAL 10/21/2024 4:32 PM [facility] SEG NEUTROPHILS 92 % 4:32 PM [facility] LYMPHOCYTES 7 % 10/21/2024 4:32 PM [facility] MONOCYTES 1 % 10/21/2024 4:32 PM [facility] ABS. NEUTROPHILS 12.60(H) 1.80 - 7.70 x10'3/uL 10/21/2024 4:32 PM [facility] ABS. LYMPHOCYTES 0.96(L) 1.00 - 4.80 x10'3/uL 10/21/2024 4:32 PM [facility] ABS. MONOCYTES 0.14(L) 0.30 - 0.82 x10'3/uL 10/21/2024 4:32 PM [facility] RBC MORPHOLOGY RBC MORPHOLOGY APPEARS NORMAL. SLIDE REVIEWED. 10/21/2024 4:32 PM [facility] PLT EST. ADEQUATE 10/21/2024 4:32 PM [facility] 10/21/2024 3:06 PM HOIST OPERATOR us Tony Chamorro PA-C LABORATORY Final Resul t [facility] [address] [place] [address], * LIPASE (10/21/2024 3:06 PM HOIST OPERATOR) LIPASE 39 13 - 75 UNITS/L 10/21/2024 3:45 PM [facility] 10/21/2024 3:06 PM HOIST OPERATOR Tony Chamorro PA-C LABORATORY Final Resul t [facility] [address] [place] [address], [place] [phone] from Last 3 Months Insurance [employer] Advance Directives * Full Code (Latest Code Status on File) Date Activated Date Inactivated Comments 04/09/2024 4:22 PM 04/12/2024 3:21 PM * Full Code Date Activated Date Inactivated Comments 10/03/2023 11:17 AM 10/05/2023 3:55 PM * Full Code Date Activated Date Inactivated Comments 05/03/2021 2:54 AM 05/03/2021 6:33 PM * Full Code Date Activated Date Inactivated Comments 04/04/2021 12:39 PM 04/07/2021 12:58 PM * Full Code Date Activated Date Inactivated Comments 06/07/2020 11:15 PM 06/08/2020 9:16 PM Care Teams Floor Layer Tile Relationship Specialty Start Date End Date None, Provider, MD PCP - General UNKNOWN PHYSICIAN SPECIALTY 04/24/24
--- OUTSIDE RECORDS SUMMARY | 2024-11-27 18:58 | XMS_ITS | Referral Summary ---
Author Organization [facility] al Address [address] [place] [address] Care Team Providers Care Reinforced Ironworker Name Role Phone Rocío Lombardi MD Primary Care Provider [phone] Encounters Date Type Department Care Team Description 10/25/2024 1:14 PM HEMODIALYSIS LAB TECHNICIAN - 10/25/2024 3:37 PM [facility] Emergency [facility] Emergency Department [address] [place] [address] Nausea and vomiting, unspecified vomiting type (Primary Dx); Lower abdominal pain, unspecified; Cannabinoid hyperemesis syndrome; Hypokalemia Discharge Disposition: Discharge to home or self care from Last 3 Months Allergies Active Allergy Reactions Criticality Noted Date Comments Marijuana (Cannabis) Nausea & Vomiting Low 01/18/20 22 Medications amitriptyline (ELAVIL) 25 mg tablet Take 1 tablet (25 mg total) by mouth nightly 30 tablet [address] (PROTONIX) 40 mg EC tabletIndications:T reatment of Non-Bleeding Gastric Disorder Take 1 tablet (40 mg total) by mouth nightly 30 tablet 2 Active ondansetron (ZOFRAN) 4 mg tablet Take 1 tablet (4 mg total) by mouth every 4 (four) hours as needed for nausea or vomiting 20 tablet 2 Active scopolamine 1 mg over 3 days patch [address] 1 patch on the skin every third day 3 patch [address] (PROTONIX) 40 mg EC tablet Take 1 tablet (40 mg total) by mouth daily 30 tablet 4 Active ondansetron ODT (ZOFRAN-ODT) 4 mg disintegrating tablet Take 1 tablet (4 mg total) by mouth every 4 (four) hours as needed for nausea or vomiting 30 tablet 5 Active Active Problems Problem Noted Date Diagnosed Date Cyclical vomiting syndrome not associated with m igraine 01/17/2022 Intractable vomiting 01/17/2022 Hx of migraine headaches 01/17/2022 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 01/17/2022 Overview (01/17/2022): Insomnia, depressed mood, loss of motivation and energy Generalized abdominal pain 01/17/2022 Dehydration 01/17/2022 MARINA (acute kidney injury) 01/17/2022 Lactic acidosis 01/17/2022 Hypokalemia due to excessive gastrointestinal loss of potassium Social History Tobacco Use Types Packs/Day Years Used Date Smoking Tobacco: Never Smokeless Tobacco: Never Alcohol Use Standard Drinks/Week Comments Not Currently 0 (1 standard drink = 0.6 oz pur e alcohol) Personal Safety Answer Date Recorded Have you ever been in or are you currently in a harmful physical or emotional relationship or is someone making you feel afraid or unsafe? Denies 10/25/2024 Sex and Gender Information Value Date Recorded Sex Assigned at Not on file Legal Sex Male 4:18 PM HEMODIALYSIS LAB TECHNICIAN Gender Identity Male 07/12/2021 12:07 AM CDT Sexual Orientation Not on file Last Filed Vital Signs Vital Sign Reading Time Taken Comments Blood Pressure 148/90 10/25/2024 3:37 PM HEMODIALYSIS LAB TECHNICIAN Pulse 94 10/25/2024 3:37 PM HEMODIALYSIS LAB TECHNICIAN Temperature 36.7 C (98 F) 10/25/2024 3:37 PM HEMODIALYSIS LAB TECHNICIAN Respiratory Rate 18 10/25/2024 3:37 PM HEMODIALYSIS LAB TECHNICIAN Oxygen Saturation 98% 10/25/2024 3:37 PM HEMODIALYSIS LAB TECHNICIAN Inhaled Oxygen Concentration - - Weight 71.7 kg (158 lb) 10/25/2024 11:07 AM HEMODIALYSIS LAB TECHNICIAN Height 182.9 cm (6') 10/25/2024 11:07 AM HEMODIALYSIS LAB TECHNICIAN Body Mass Index 21.43 10/25/2024 11:07 AM HEMODIALYSIS LAB TECHNICIAN Plan of Treatment Not on file Procedures Procedure Name Priority Date/Time Associated Diagnosis Comments URINALYSIS, MICROSCOPIC ONLY STAT 10/25/2024 2:06 PM HEMODIALYSIS LAB TECHNICIAN DRUGS OF ABUSE SCREEN, URINE WITHOUT CONFIRMATION STAT 10/25/2024 2:06 PM HEMODIALYSIS LAB TECHNICIAN URINALYSIS AND REFLEX TO MICROSCOPIC AND CULTURE STAT 10/25/2024 2:[address] ABDOMEN PELVIS W CONTRAST ED 10/25/2024 1:50 PM HEMODIALYSIS LAB TECHNICIAN EGFR STAT 10/25/2024 11:13 AM HEMODIALYSIS LAB TECHNICIAN DIFFERENTIAL AUTO STAT 10/25/2024 11: 13 AM HEMODIALYSIS LAB TECHNICIAN LIPASE STAT 10/25/2024 11:13 AM HEMODIALYSIS LAB TECHNICIAN COMPREHENSIVE METABOLIC PANEL STAT 10/25/2024 11:13 AM HEMODIALYSIS LAB TECHNICIAN CBC WITH AUTO DIFFERENTIAL STAT 10/25/2024 11:13 AM HEMODIALYSIS LAB TECHNICIAN from Last 3 Months Results * (ABNORMAL) Urinalysis reflex to microscopic and culture Urine (10/25/2024 2:06 PM HEMODIALYSIS LAB TECHNICIAN) Color, ur Yellow Yellow Clarity, ur Clear Clear [facility] Specific gravity, ur >1.030(H) 1.003 - 1.030 [facility] pH, urine 8.5 [facility] Comment: Interpretive Data U rine pH is affected by diet, medications, systemic acid-base disturbances, and renal tubular function. pH may affect urinary stone formation. For example, urine pH below 6.0 may help reduce the tendency for calcium phosphate stones and pH greater than 6.0 may reduce the tendency for uric acid stone formation. Source: [facility] Pure [employer]erals Current Interpretive Data was last revised on 2017 Protein, ur ql 2+(A) Negative [facility] Glucose, ur ql Negative Negative [facility] Ketones, ur Negative Negative [facility] Bilirubin, ur Negative Negative [facility] Blood, ur Negative Negative [facility] Urobilinogen, ur <2.0 <2.0 mg/dL [facility] Nitrite, ur Negative Negative [facility] Leukocyte esterase, ur Negative Negative [facility] UA reflex comment Reflex to microscopic UA will be performed. [facility] Urine 10/25/2024 2:06 PM HEMODIALYSIS LAB TECHNICIAN 10/25/2024 2:20 PM HEMODIALYSIS LAB TECHNICIAN us Ten Cole MD LAB MICROBIOLOGY - GENERAL ORDERABLES Final Result [facility] [address] [facility] Department [place] [address] * (ABNORMAL) Drugs of Abuse Screen, Urine without Confirmation (10/25/2024 2:06 PM HEMODIALYSIS LAB TECHNICIAN) Amphetamine, ur Not Detected [facility] 500ng/mL Comment: Interpretive Data - Amphetamines: Samples containing greater than 500 ng/mL d-methamphetamine or other cross-reacting amphetamine compounds are reported as positive. Amphetamine immunoassays are subject to significant false positive rates due to cross-reactivity of non-amphetamine drugs. Confirmatory testing required for definitive results. Current Interpretive Data was last reviewed 2023. Barbiturates, ur Not Detected CutOff 200ng/mL [facility] Comment: Interpretive Data - Barbiturates: Samples containing greater than 200 ng/mL secobarbital or other cross-reacting barbiturate compounds are reported as positive. False positive and false negative results are possible. Confirmatory testing required for definitive results. Current Interpretive Data was last reviewed 2023. Benzodiazepines, ur Not Detected CutOff 100ng/mL [facility] Comment: Interpretive Data - Benzodiazepines: Samples containing greater than 100 ng/mL nordiazepam or other cross-reacting compounds are reported as positive. False positive and false negative results are possible. Confirmatory testing required for definitive results. Current Interpretive Data was last reviewed 2023. Cannabinoids, ur Screen Positive, presumptive (A) CutOff 50 ng/mL [facility] Comment: Interpretive Data - Cannabinoids: Samples containing greater than 50 ng/mL delta-9 THC -COOH or other cross- reacting compounds are reported as positive. False positive and false negative results are possible. Confirmatory testing required for definitive results. Current Interpretive Data was last reviewed 2023. Cocaine, ur Screen Positive, presumptive (A) CutOff 150ng/mL [facility] Comment: Interpretive Data - Cocaine: Samples containing greater than 150 ng/mL benzoylecgonine or other cross- reacting compounds are reported as positive. False positive and false negative results are possible. Confirmatory testing required for definitive results. Current Interpretive Data was last reviewed 2023. Fentanyl, Ur Not Detected Cutoff 1 ng/mL [facility] Comment: Interpretive Data - Fentanyl: Samples containing greater than 1 ng/mL fentanyl or other cross-reacting fentanyl compounds are reported as positive. False positive and false negative results are possible. Confirmatory testing required for definitive results. Current Interpretive Data was last reviewed 2023. Methadone, ur Not Detected CutOff 300ng/mL [facility] Comment: Interpretive Data - Methadone: Samples containing greater than 300 ng/mL d,l-methadone or other cross-reacting compounds are reported as positive. False positive and false negative results are possible. Confirmatory testing required for definitive results. Current Interpretive Data was last reviewed 2023. Opiates, ur Not Detected CutOff 300ng/mL [facility] Comment: Interpretive Data - Opiates: Samples containing greater than 300 ng/mL morphine or other cross-reacting compounds are reported as positive. False positive and false negative results are possible. Confirmatory testing required for definitive results. Current Interpretive Data was last reviewed 2023. Oxycodone, ur Not Detected CutOff 100ng/mL [facility] Comment: Interpretive Data - Oxycodone: Samples containing greater than 100 ng/mL oxycodone or other cross-reacting compounds are reported as positive. False positive and false negative results are possible. Confirmatory testing required for definitive results. Current Interpretive Data was last reviewed 2023. Phencyclidine, ur Not Detected CutOff 25 ng/mL [facility] Comment: Interpretive Data - Phencyclidine: Samples containing greater than 25 ng/mL phencyclidine or other cross-reacting compounds are reported as positive. False positive and false negative results are possible. Confirmatory testing required for definitive results. Current Interpretive Data was last reviewed 2023. Urine Creatinine 192 mg/dL [facility] Comment: Interpretive Data Urine Creatinine: < 10 mg/dL is extremely dilute = or > 10 but < 20 mg/dL is dilute = or > 20 mg/dL is normal Current Interpretive Data was last revised on 2017. Urine 10/25/2024 2:06 PM HEMODIALYSIS LAB TECHNICIAN 10/25/2024 2:20 PM HEMODIALYSIS LAB TECHNICIAN Narrative [facility] - 10/25/2024 3:46 PM HEMODIALYSIS LAB TECHNICIAN Drug of Abuse screening is performed by immunoassay for medical purposes only. This is not to be used for Pain Management purposes. us [place] [facility] URINE ORDERABLE S Final Result Performing Organization Address [facility] Co de Phone Number [address] [place] [address] * (ABNORMAL) Urinalysis, microscopic only (10/25/2024 2:06 PM HEMODIALYSIS LAB TECHNICIAN) WBC, ur 0-5 0 - 5 /HPF RBC, ur 11-20(A) 0 - 2 /HPF [facility] Epithelial cells, squamous, ur 1-5 0 - 5 /HPF [facility] Mucous, ur Present(A) [facility] Culture Reflex Comment Reflex conditions for urine culture (WBC >10) not met. [facility] Urine 10/25/2024 2:06 PM HEMODIALYSIS LAB TECHNICIAN 10/25/2024 2:20 PM HEMODIALYSIS LAB TECHNICIAN us Ten Cole MD LAB URINE ORDERABLES Final Result Performing Organization Address [facility] de Phone Number [address] [place] [address] * CT Abdomen Pelvis W Contrast (10/25/2024 1:50 PM HEMODIALYSIS LAB TECHNICIAN) Anatomical Region Laterality Modality Body N/A Computed Tomogra phy 10/25/2024 2:05 PM HEMODIALYSIS LAB TECHNICIAN Impressions 10/25/2024 2:05 PM HEMODIALYSIS LAB TECHNICIAN 1. There is a suggestion of a 4 cm lesion in segment 4 of the liver. This may be related to focal sparing with underlying diffuse hepatic steatosis. This could be further characterized in the nonemergent outpatient setting with liver protocol MRI if clinically indicated. 2. There is thickening of the distal esophageal wall. Correlate for esophagitis and consider endoscopy. 3. Urinary bladder is mildly distended. Electronically signed by: Krys Han M.D. Narrative 10/25/2024 2:05 PM HEMODIALYSIS LAB TECHNICIAN EXAMINATION: Computed Tomography of the Abdomen and Pelvis with contrast ER DATE: 10/25/2024 1:30 PM HISTORY: abdominal pain. Abdominal pain for 1.5 weeks. Patient states he smoked marijuana to a few hours ago but states he does not think that this is the cause of vomiting episodes today. COMPARISON: CT of the abdomen and pelvis 02/09/2024 TECHNIQUE: Standard computed tomography of the abdomen and pelvis after 75 mL of Optiray 350 intravenous contrast. FINDINGS: The visualized lung bases and inferior heart are within normal limits. Focal fatty infiltration of the liver adjacent to the falciform ligament. There is a suggestion of a 4 cm lesion in segment 4 of the liver on series 3 image 126. This may be related diffuse hepatic steatosis with focal sparing involving segment 4. No biliary dilatation. The gallbladder, spleen, pancreas, adrenal glands, and kidneys are within normal limits. The abdominal aorta is normal in course and caliber. No periaortic adenopathy. No free air within the abdomen or abnormal fluid collections. There is thickening of the distal esophageal wall. Correlate for esophagitis and consider endoscopy. No bowel obstruction. The appendix was not optimally visualized but appears to be within normal limits. No CT evidence of acute appendicitis. Urinary bladder is distended. The prostate, seminal vesicles, and rectum are within normal limits. Small fat-containing umbilical hernia. No acute suspicious osseous abnormality. Procedure Note Krys Han MD - 10/25/2024 EXAMINATION: Computed Tomography of the Abdomen and Pelvis with contrast ER DATE: 10/25/2024 1:30 PM HISTORY: abdominal pain. Abdominal pain for 1.5 weeks. Patient states he smoked marijuana to a few hours ago but states he does not think that this is the cause of vomiting episodes today. COMPARISON: CT of the abdomen and pelvis 02/09/2024 TECHNIQUE: Standard computed tomography of the abdomen and pelvis after 75 mL of Optiray 350 intravenous contrast. FINDINGS: The visualized lung bases and inferior heart are within normal limits. Focal fatty infiltration of the liver adjacent to the falciform ligament. There is a suggestion of a 4 cm lesion in segment 4 of the liver on series 3 image 126. This may be related diffuse hepatic steatosis with focal sparing involving segment 4. No biliary dilatation. The gallbladder, spleen, pancreas, adrenal glands, and kidneys are within normal limits. The abdominal aorta is normal in course and caliber. No periaortic adenopathy. No free air within the abdomen or abnormal fluid collections. There is thickening of the distal esophageal wall. Correlate for esophagitis and consider endoscopy. No bowel obstruction. The appendix was not optimally visualized but appears to be within normal limits. No CT evidence of acute appendicitis. Urinary bladder is distended. The prostate, seminal vesicles, and rectum are within normal limits. Small fat-containing umbilical hernia. No acute suspicious osseous abnormality. IMPRESSION: 1. There is a suggestion of a 4 cm lesion in segment 4 of the liver. This may be related to focal sparing with underlying diffuse hepatic steatosis. This could be further characterized in the nonemergent outpatient setting with liver protocol MRI if clinically indicated. 2. There is thickening of the distal esophageal wall. Correlate for esophagitis and consider endoscopy. 3. Urinary bladder is mildly distended. Electronically signed by: Krys Han M.D. [place] [facility] PROCEDURES F inal Result * eGFR (10/25/2024 11:13 AM HEMODIALYSIS LAB TECHNICIAN) eGFR >90 >=60 mL/min/1. 73 m2 Comment: Interpretive Data Reference Interval Normal >/= 90 mL/min/1.73m2 Mildly decreased* 60 - 89 mL/min/1.73m2 Mildly to moderately decreased 45 - 59 mL/min/1.73m2 Moderately to severely decreased 30 - 44 mL/min/1.73m2 Severely decreased 15 - 29 mL/min/1.73m2 Kidney Failure < 15 mL/min/1.73m2 *Relative to young adult level Estimated glomerular filtration rate is determined by the 2020 CKD-EPI equation recommended by the National Kidney Foundation (A Unifying Approach to GFR Estimation: Recommendations of the NKF-ASK Task Force on Reassessing the Inclusion of Race in Diagnosing Kidney Disease, JASN 2020). The CKD-EPI equation should not be used for patients with unstable renal function and has not been validated in children and those over 70. Current interpretive data was last reviewed 2021. Blood 10/25/2024 11:1 3 AM HEMODIALYSIS LAB TECHNICIAN 10/25/2024 11:18 AM HEMODIALYSIS LAB TECHNICIAN us Ten Cole MD LAB BLOOD ORDERABLES Final Result [address] Department [place] [address] * (ABNORMAL) Differential, auto (10/25/2024 11:13 AM HEMODIALYSIS LAB TECHNICIAN) Neutrophil abs 8.4(H) 1.5 - 6.5 K/cumm Imm gran abs 0.0 0.0 - 0.1 K/cumm [facility] Lymphocyte abs 1.8 0.8 - 3.3 K/cumm [facility] Monocyte abs 0.9(H) 0.2 - 0.8 K/cumm [facility] Eosinophil abs 0.1 0.0 - 0.5 K/cumm [facility] Basophil abs 0.1 0.0 - 0.1 K/cumm [facility] Neutrophil pct 74.8 % [facility] Comment: Interpretive Data Percent cell count reference ranges are not reported, since discordance with absolute values may lead to misinterpretation of CBC data. Current Interpretive Data was last revised on 2018. Imm gran pct 0.3 % [facility] Comment: Interpretive Data Percent cell count reference ranges are not reported, since discordance with absolute values may lead to misinterpretation of CBC data. Current Interpretive Data was last revised on 2018. Lymphocyte pct 16.1 % [facility] Comment: Interpretive Data Percent cell count reference ranges are not reported, since discordance with absolute values may lead to misinterpretation of CBC data. Current Interpretive Data was last revised on 2018. Monocyte pct 7.9 % [facility] Comment: Interpretive Data Percent cell count reference ranges are not reported, since discordance with absolute values may lead to misinterpretation of CBC data. Current Interpretive Data was last revised on 2018. Eosinophil pct 0.4 % [facility] Comment: Interpretive Data Percent cell count reference ranges are not reported, since discordance with absolute values may lead to misinterpretation of CBC data. Current Interpretive Data was last revised on 2018. Basophil pct 0.5 % [facility] Comment: Interpretive Data Percent cell count reference ranges are not reported, since discordance with absolute values may lead to misinterpretation of CBC data. Current Interpretive Data was last revised on 2018. Blood 10/25/2024 11:1 3 AM HEMODIALYSIS LAB TECHNICIAN 10/25/2024 11:18 AM HEMODIALYSIS LAB TECHNICIAN Ten Cole MD LAB BLOOD ORDERABLES Final Result [facility] [address] [facility] Department [place] [address] * (ABNORMAL) CBC with auto differential (10/25/2024 11:13 AM HEMODIALYSIS LAB TECHNICIAN) WBC 11.2(H) 3.8 - 9.9 K/cumm Hgb 16.0 13.0 - 17.5 g/dL [facility] Hct 44.9 38.9 - 50.3 % [facility] Plt 398 150 - 400 K/cumm [facility] MPV 9.2 9.1 - 12.3 fL [facility] RBC 5.37 4.30 - 5.80 M/cumm [facility] MCV 83.6 81.3 - 96.4 fL [facility] MCH 29.8 27.1 - 33.3 pg [facility] MCHC 35.6 32.3 - 35.7 g/dL [facility] RDW CV 11.7 11.1 - 14.9 % [facility] RDW SD 35.1(L) 35.7 - 48.1 fL [facility] NRBC abs 0.00 0.00 - 0.01 K/cumm [facility] Blood (Blood, Venous) 10/25/2024 11:13 AM HEMODIALYSIS LAB TECHNICIAN 10/25/2024 11:18 AM HEMODIALYSIS LAB TECHNICIAN Ten Cole MD LAB BLOOD ORDERABLES Final Result Performing Organization Address [facility] Co de Phone Number MONICA [address] Department [place] [address] * (ABNORMAL) Lipase (10/25/2024 11:13 AM HEMODIALYSIS LAB TECHNICIAN) Pathologist [facility] Lipase 138(H) 10 - 99 Units/L Blood 10/25/2024 11:1 3 AM HEMODIALYSIS LAB TECHNICIAN 10/25/2024 11:18 AM HEMODIALYSIS LAB TECHNICIAN Ten Cole MD LAB BLOOD ORDERABLES Final Result Performing Organization Address [facility] Phone Number MONICA [address] [place] [address] * (ABNORMAL) Comprehensive metabolic panel (10/25/2024 11:13 AM HEMODIALYSIS LAB TECHNICIAN) Pathologist [facility] Sodium 130(L) 135 - 145 mmol/L Potassium, pl 3.1(L) 3.3 - 4.9 mmol/L [facility] Chloride 84(L) 97 - 110 mmol/L [facility] CO2 35(H) 22 - 32 mmol/L [facility] Anion gap 11 2 - 15 mmol/L [facility] BUN 9 6 - 25 mg/dL [facility] Creatinine 0.98 0.80 - 1.30 mg/dL [facility] Glucose 136 70 - 199 mg/dL [facility] Comment: Interpretive Data Fasting glucose >/= 126 mg/dl is diagnostic for diabetes. Fasting is defined as no caloric intake for at least 8 hours. Fasting glucose between 100 mg/dl to 125 mg/dl is diagnostic of prediabetes. In a patient with classic symptoms of hyperglycemia or hyperglycemic crisis, a random glucose >/= 200 mg/dl is diagnostic for diabetes. In the absence of unequivocal hyperglycemia, results should be confirmed by repeat testing. The classification and Diagnosis of Diabetes Diabetes Care 2021; 46: S19-S40. Current interpretive data was last revised 2022. Calcium 10.3 8.5 - 10.3 mg/dL [facility] Bilirubin, total 0.5 0.1 - 1.2 mg/dL [facility] Protein, pl 7.9 6.5 - 8.5 g/dL [facility] Albumin 4.9 3.5 - 5.0 g/dL [facility] Alk phos 64 40 - 130 Units/L [facility] ALT 10 7 - 55 Units/L [facility] AST 25 10 - 50 Units/L [facility] Blood (Blood, Venous) 10/25/2024 11:13 AM HEMODIALYSIS LAB TECHNICIAN 10/25/2024 11:18 AM HEMODIALYSIS LAB TECHNICIAN us Ten Cole MD LAB BLOOD ORDERABLES Final Result [facility] [address] [facility] Department [place] [address] from Last 3 [place] [address] [facility] Advance Directives For more information, please contact: [phone] * Full Code (Latest Code Status on File) Date Activated Date Inactivated Comments 01/17/2022 10:36 AM 01/19/2022 10:32 PM Care Teams Reinforced Ironworker Relationship Specialty Start Date End Date Rocío Lombardi MD [address] [facility] [address] [place] [address] PCP - General 11/22/19
--- OUTSIDE RECORDS SUMMARY | 2024-11-27 18:58 | XMS_ITS | Encounter Summary ---
Author Organization [facility] Address [facility] [place] [address] Care Team Providers Care Shore Worker Name Role Phone Rocío Lombardi MD Primary Care Provider [phone] None, Provider Primary Care Provider Unavaila ble Encounter Details Date Type Department Care Team (Late st Contact Info) Description 11/09/2020 Prep for Procedure [facility] [place], [place] [id number] Ten Flynn MD 3 [facility] [address] [place], [place] [id number] Social History Tobacco Use Types Packs/Day Years Used Date Smoking Tobacco: Never Smokeless Tobacco: Never Comments:USED MARIJUANA IN P AST Alcohol Use Standard Drinks/Week Comments Yes 0 (1 standard drink = 0.6 oz pur e alcohol) occassional Sex and Gender Information Value Date Recorded Sex Assigned at Male 10/21/2024 2:48 PM DIRECTOR OF STRATEGIC SOURCING Legal Sex Male 7:32 AM CDT Gender Identity Male 09/29/2022 5:25 PM DIRECTOR OF STRATEGIC SOURCING Sexual Orientation Straight 09/29/2022 5: 25 PM DIRECTOR OF STRATEGIC SOURCING COVID-19 Exposure Response Date Recorded In the last month, have you been in contact with someone who was confirmed or suspected to have Coronavirus / COVID-19? No / Unsure 11/06/2020 1:13 PM DIRECTOR OF STRATEGIC SOURCING documented as of this encounter Functional Status * RETIRED Are you deaf or do you have serious difficulty hearing Answer Date of Assessment Author Status No 06/07/2020 9:00 PM CDT Activ e * RETIRED Are you blind or do you have serious difficulty seeing, even when wearing glasses? Answer Date of Assessment Author Status No 06/07/2020 9:00 PM CDT Activ e * Do you have serious difficulty walking or climbing stairs? Answer Date of Assessment Author Status No 06/07/2020 9:00 PM Rajni Price RN Active * Do you have difficulty dressing or bathing? Answer Date of Assessment Author Status No 06/07/2020 9:00 PM Rajni Price RN Active * Because of a physical, mental, or emotional condition, do you have difficulty doing errands alone such as visiting a doctor's office or shopping? Answer Date of Assessment Author Status No 06/07/2020 9:00 PM Rajni Price RN Active documented as of this encounter Mental Status * Because of a physical, mental, or emotional condition, do you have serious difficulty concentrating, remembering, or making decisions? Answer Entry Date Author Status No 06/07/2020 9:00 PM Rajni Price RN Active documented in this encounter Plan of Treatment Not on file documented as of this encounter Results * PRE-SURGICAL/PRE-PROCEDURE CORONAVIRUS (COVID 19) (11/09/2020 11:48 AM DIRECTOR OF STRATEGIC SOURCING) Pathologist [facility] CORONAVIRUS SARS COV 2 PCR (RESP) NOT DETECTED NOT DETECTED 11/10/2020 6:15 PM DIRECTOR OF STRATEGIC SOURCING [facility] Comment: A Not Detected (negative) test result for this test means that SARS- CoV-2 RNA was not present in the specimen above the limit of detection. A negative result does not rule out the possibility of COVID-19 and should not be used as the sole basis for treatment or patient management decisions. If COVID-19 is still suspected, based on exposure history together with other clinical findings, re-testing should be considered in consultation with public health authorities. Laboratory test results should always be considered in the context of clinical observations and epidemiological data in making a final diagnosis and patient management decisions. Please review the Fact Sheets and FDA authorized labeling available for health care providers and patients using the following websites: https://[email or web address]/home/Covid-19/HCP/NAAT/fact-sheet2 https://www.[employer]com/home/Covid-19/Patients/NAAT/ fact-sheet2 This test has been authorized by the FDA under an Emergency Use Authorization (EUA) for use by authorized laboratories. Due to the current public health emergency, [facility] is receiving a high volume of samples from a wide variety of swabs and media for COVID-19 testing. In order to serve patients during this public health crisis, samples from appropriate clinical sources are being tested. Negative test results derived from specimens received in non-commercially manufactured viral collection and transport media, or in media and sample collection kits not yet authorized by FDA for COVID-19 testing should be cautiously evaluated and the patient potentially subjected to extra precautions such as additional clinical monitoring, including collection of an additional specimen. Methodology: Nucleic Acid Amplification Test (NAAT) includes RT-PCR or TMA Additional information about COVID-19 can be found at the [facility] website: www.[employer] [facility]/Covid19. Test performed at [facility] [address] [id number] Director: BAM SMITH DO,MPH FIRST TEST NO 11/09/2020 12:26 PM [facility] EMPLOYED IN HEALTHCARE NO 11/09/2020 12:26 PM [facility] SYMPTOMATIC DEFINED BY CDC NO 11/09/2020 12:26 PM [facility] DATE OF SYMPTOM ONSET NO 11/09/2020 12:34 PM [facility] HOSPITALIZATION STATUS NO 11/09/2020 12:26 PM [facility] PATIENT IN ICU NO 11/09/2020 12:26 PM [facility] RESIDENT OF [facility] NO 11/09/2020 12:26 PM [facility] NO 11/09/2020 12:34 PM [facility] PATIENT'S RACE WHITE OR 11/09/2020 12:26 PM [facility] ETHNICITY NONHISPANIC 11/09/2020 12:26 PM [facility] SOURCE (QST) NASOPHARYNGEAL SWAB 11/09/2020 12:26 PM DIRECTOR OF STRATEGIC SOURCING [facility] NASOPHARYNGEAL SWAB / Unknown 11/09/2020 11:48 AM DIRECTOR OF STRATEGIC SOURCING us Ten Flynn MD MICROBIOLOGY - GENERAL ORDERABLE S Final Result [facility] [address] [facility] [place] [address], [facility] [address] [place] [address], documented in this encounter Visit Diagnoses Diagnosis Abdominal pain- Primary Abdominal pain, unspecified site documented in this encounter Additional Health Concerns Infection Onset Date Last Indicated Resolved Time COVID-19 Rule Out 11/09/2020 11/09/2020 11/10/2020 6:16 PM DIRECTOR OF STRATEGIC SOURCING COVID-19 Rule Out 11/23/2020 11/23/2020 11/24/2020 5:51 PM DIRECTOR OF STRATEGIC SOURCING COVID-19 Rule Out 12/29/2020 12/29/2020 12/29/2020 7:08 PM CDT COVID-19 Rule Out 04/09/2024 04/09/2024 04/09/2024 11:06 PM CDT documented as of this encounter Care Teams Shore Worker Relationship Specialty Start Date End Date Rocío Lombardi MD PCP - General FAMILY PRACTICE 04/08/20 04/09/24 None, Provider, PCP - General UNKNOWN PHYSICIAN SPECIALTY 04/24/24 documented as of this encounter
--- OUTSIDE RECORDS SUMMARY | 2024-11-27 18:58 | XMS_ITS | Encounter Summary ---
Author Organization [facility] Address [facility] [place] [address] Care Team Providers Care Information Security Analyst Name Role Phone None, Provider Primary Care Provider Unavaila ble None, Provider Primary Care Provider Unavaila ble Rocío Lombardi MD Primary Care Provider [phone] None, Provider Primary Care Provider Unavaila ble Encounter Details Date Type Department Care Team (Late st Contact Info) Description 03/09/2019 Abstract [facility] [address] [place] [address] , Generic Conversion, Social History Tobacco Use Types Packs/Day Years Used Date Smoking Tobacco: Never Smokeless Tobacco: Never Comments:USED MARIJUANA IN P AST Alcohol Use Standard Drinks/Week Comments Yes 0 (1 standard drink = 0.6 oz pur e alcohol) occassional Sex and Gender Information Value Date Recorded Sex Assigned at Male 10/21/2024 2:48 PM NAIL PULLER Legal Sex Male 7:32 AM CDT Gender Identity Male 09/29/2022 5:25 PM NAIL PULLER Sexual Orientation Straight 09/29/2022 5: 25 PM NAIL PULLER documented as of this encounter Plan of Treatment Not on file documented as of this encounter Visit Diagnoses Not on filedocumented in this encounter Additional Health Concerns Infection Onset Date Last Indicated Resolved Time COVID-19 Rule Out Comment:TESTED 7.04/13/2020 04/13/2020 04/13/2020 9:19 A M CDT COVID-19 Rule Out 10/02/2020 10/02/2020 10/02/2020 7:28 PM NAIL PULLER COVID-19 Rule Out 11/09/2020 11/09/2020 11/10/2020 6:16 PM NAIL PULLER COVID-19 Rule Out 11/23/2020 11/23/2020 11/24/2020 5:51 PM NAIL PULLER COVID-19 Rule Out 12/29/2020 12/29/2020 12/29/2020 7:08 PM CDT COVID-19 Rule Out 04/09/2024 04/09/2024 04/09/2024 11:06 PM CDT documented as of this encounter Care Teams Information Security Analyst Relationship Specialty Start Date End Date None, Provider, PCP - General 01/16/19 03/18/19 None, ProviderMD PCP - General 03/19/19 04/07/20 Rocío Lombardi MD PCP - General FAMILY PRACTICE 04/08/20 04/09/24 None, ProviderMD PCP - General UNKNOWN PHYSICIAN SPECIALTY 04/24/24 documented as of this encounter
--- OUTSIDE RECORDS SUMMARY | 2024-11-27 18:58 | XMS_ITS | Clinical Summary ---
Author Organization [facility] Address [address] [place] [address] Care Team Providers Care Tip Puncher Name Role Phone Rocío Lombardi MD Primary Care Provider [phone] Allergies Active Allergy Reactions Criticality Noted Date [...] due to excessive gastrointestinal loss of potassium Encounters Date Type Department Care Team Description 10/25/2024 1:14 PM WASTE REDUCTION COORDINATOR - 10/25/2024 3:37 PM WASTE REDUCTION COORDINATOR Emergency [facility] Emergency Department [address] [place] [id number] Nausea and vomiting, unspecified vomiting type (Primary Dx); Lower abdominal pain, unspecified; Cannabinoid hyperemesis syndrome; Hypokalemia Discharge Disposition: Discharge to home or self care from Last 3 Months Medical History Medical History Date Comments Seizures (HCC) Cyclical vomiting Social History Tobacco Use Types Packs/Day Years [...] on file Legal Sex Male 4:18 PM WASTE REDUCTION COORDINATOR Gender Identity Male 07/12/2021 12:07 AM CDT Sexual Orientation Not on file Obstetrics History Last Filed Vital Signs Vital Sign Reading Time Taken Comments Blood Pressure 148/90 10/25/2024 3:37 PM WASTE REDUCTION COORDINATOR Pulse 94 10/25/2024 3:37 PM WASTE REDUCTION COORDINATOR Temperature 36.7 C (98 F) 10/25/2024 3:37 PM WASTE REDUCTION COORDINATOR Respiratory Rate 18 10/25/2024 3:37 PM WASTE REDUCTION COORDINATOR Oxygen Saturation 98% 10/25/2024 3:37 PM WASTE REDUCTION COORDINATOR Inhaled Oxygen Concentration - - Weight 71.7 kg (158 lb) 10/25/2024 11:07 AM WASTE REDUCTION COORDINATOR Height 182.9 cm (6') 10/25/2024 11:07 AM WASTE REDUCTION COORDINATOR Body Mass Index 21.43 10/25/2024 11:07 AM WASTE REDUCTION COORDINATOR Plan of Treatment Health Maintenance Due Date Last Done Comments Depression Screening 1988 Hepatitis C Screening 1988 DTaP/Tdap/Td Vaccine (3 - Tdap) 12/21/1999 03/09/1993, 04/17/1990 Varicella Vaccines (1 of 2 - 13+ 2-dose series) 2001 Hepatitis B Screening 2006 Regular Well Visit/Exam 18-64 2006 Covid-19 Vaccine (3 - 2023- season) 2024 05/24/2021, 04/26/2021 Influenza Vaccine (#1) 2024 , 11/08/2017, 10/29/2016, Additional history exists HPV Vaccines Aged Out No longer eligi ble based on patient's age to complete this topic Pneumococcal vaccine <65 Aged Out No longer eligible based on patient's age to complete this topic Procedures Procedure Name Priority Date/Time Associated Diagnosis Comments URINALYSIS, MICROSCOPIC ONLY STAT 10/25/2024 2:06 PM WASTE REDUCTION COORDINATOR DRUGS OF ABUSE SCREEN, URINE WITHOUT CONFIRMATION STAT 10/25/2024 2:06 PM WASTE REDUCTION COORDINATOR URINALYSIS AND REFLEX TO MICROSCOPIC AND CULTURE STAT 10/25/2024 2:06 [address] ABDOMEN PELVIS W CONTRAST ED 10/25/2024 1:50 PM WASTE REDUCTION COORDINATOR EGFR STAT 10/25/2024 11:13 AM WASTE REDUCTION COORDINATOR DIFFERENTIAL AUTO STAT 10/25/2024 11: 13 AM WASTE REDUCTION COORDINATOR LIPASE STAT 10/25/2024 11:13 AM WASTE REDUCTION COORDINATOR COMPREHENSIVE METABOLIC PANEL STAT 10/25/2024 11:13 AM WASTE REDUCTION COORDINATOR CBC WITH AUTO DIFFERENTIAL STAT 10/25/2024 11:13 AM WASTE REDUCTION COORDINATOR from Last 3 Months Results * (ABNORMAL) Urinalysis reflex to microscopic and culture Urine (10/25/2024 2:06 PM WASTE REDUCTION COORDINATOR) Color, ur Yellow Yellow Clarity, ur Clear Clear [facility] Specific gravity, ur >1.030(H) 1.003 - 1.030 [facility] pH, urine 8.5 [facility] Comment: Interpretive Data U rine pH is affected by diet, medications, systemic acid-base disturbances, and renal tubular function. pH may affect urinary stone formation. For example, urine pH below 6.0 may help reduce the tendency for calcium phosphate stones and pH greater than 6.0 may reduce the tendency for uric acid stone formation. Source: [facility] Current Interpretive Data was last revised on 2017 Protein, ur ql 2+(A) Negative [facility] Glucose, ur ql Negative Negative [facility] Ketones, ur Negative Negative [facility] Bilirubin, ur Negative Negative [facility] Blood, ur Negative Negative [facility] Urobilinogen, ur <2.0 <2.0 mg/dL [facility] Nitrite, ur Negative Negative [facility] Leukocyte esterase, ur Negative Negative [facility] UA reflex comment Reflex to microscopic UA will be performed. [facility] Urine 10/25/2024 2:06 PM WASTE REDUCTION COORDINATOR 10/25/2024 2:20 PM WASTE REDUCTION COORDINATOR Ten Cole MD LAB MICROBIOLOGY - GENERAL ORDERABLES Final Result [facility] [address] [facility] [place] [address] * (ABNORMAL) Drugs of Abuse Screen, Urine without Confirmation (10/25/2024 2:06 PM WASTE REDUCTION COORDINATOR) Amphetamine, ur Not Detected [facility] 500ng/mL Comment: Interpretive Data - Amphetamines: Samples containing greater than 500 ng/mL d-methamphetamine or other cross-reacting amphetamine compounds are reported as positive. Amphetamine immunoassays are subject to significant false positive rates due to cross-reactivity of non-amphetamine drugs. Confirmatory testing required for definitive results. Current Interpretive Data was last reviewed 2023. Barbiturates, ur Not Detected CutOff 200ng/mL [facility] Comment: Interpretive Data - Barbiturates: Samples containing greater than 200 ng/mL secobarbital or other cross-reacting barbiturate compounds are reported as positive. False positive and false negative results are possible. Confirmatory testing required for definitive results. Current Interpretive Data was last reviewed 2023. Benzodiazepines, ur Not Detected CutOff 100ng/mL [facility] Comment: Interpretive Data - Benzodiazepines: Samples containing greater than 100 ng/mL nordiazepam or other cross-reacting compounds are reported as positive. False positive and false negative results are possible. Confirmatory testing required for definitive results. Current Interpretive Data was last reviewed 2023. Cannabinoids, ur Screen Positive, presumptive (A) CutOff 50 ng/mL [facility] Comment: Interpretive Data - Cannabinoids: Samples containing greater than 50 ng/mL delta-9 THC -COOH or other cross- reacting compounds are reported as positive. False positive and false negative results are possible. Confirmatory testing required for definitive results. Current Interpretive Data was last reviewed 2023. Cocaine, ur Screen Positive, presumptive (A) CutOff 150ng/mL [facility] Comment: Interpretive Data - Cocaine: Samples containing greater than 150 ng/mL benzoylecgonine or other cross- reacting compounds are reported as positive. False positive and false negative results are possible. Confirmatory testing required for definitive results. Current Interpretive Data was last reviewed 2023. Fentanyl, Ur Not Detected Cutoff 1 ng/mL [facility] Comment: Interpretive Data - Fentanyl: Samples containing greater than 1 ng/mL fentanyl or other cross-reacting fentanyl compounds are reported as positive. False positive and false negative results are possible. Confirmatory testing required for definitive results. Current Interpretive Data was last reviewed 2023. Methadone, ur Not Detected CutOff 300ng/mL [facility] Comment: Interpretive Data - Methadone: Samples containing greater than 300 ng/mL d,l-methadone or other cross-reacting compounds are reported as positive. False positive and false negative results are possible. Confirmatory testing required for definitive results. Current Interpretive Data was last reviewed 2023. Opiates, ur Not Detected CutOff 300ng/mL [facility] Comment: Interpretive Data - Opiates: Samples containing greater than 300 ng/mL morphine or other cross-reacting compounds are reported as positive. False positive and false negative results are possible. Confirmatory testing required for definitive results. Current Interpretive Data was last reviewed 2023. Oxycodone, ur Not Detected CutOff 100ng/mL [facility] Comment: Interpretive Data - Oxycodone: Samples containing greater than 100 ng/mL oxycodone or other cross-reacting compounds are reported as positive. False positive and false negative results are possible. Confirmatory testing required for definitive results. Current Interpretive Data was last reviewed 2023. Phencyclidine, ur Not Detected CutOff 25 ng/mL [facility] Comment: Interpretive Data - Phencyclidine: Samples containing greater than 25 ng/mL phencyclidine or other cross-reacting compounds are reported as positive. False positive and false negative results are possible. Confirmatory testing required for definitive results. Current Interpretive Data was last reviewed 2023. Urine Creatinine 192 mg/dL [facility] Comment: Interpretive Data Urine Creatinine: < 10 mg/dL is extremely dilute = or > 10 but < 20 mg/dL is dilute = or > 20 mg/dL is normal Current Interpretive Data was last revised on 2017. Urine 10/25/2024 2:06 PM WASTE REDUCTION COORDINATOR 10/25/2024 2:20 PM WASTE REDUCTION COORDINATOR Narrative [facility] - 10/25/2024 3:46 PM WASTE REDUCTION COORDINATOR Drug of Abuse screening is performed by immunoassay for medical purposes only. This is not to be used for Pain Management purposes. us [place] [facility] URINE ORDERABLE S Final Result [address] [place] [address] * (ABNORMAL) Urinalysis, microscopic only (10/25/2024 2:06 PM WASTE REDUCTION COORDINATOR) WBC, ur 0-5 0 - 5 /HPF RBC, ur 11-20(A) 0 - 2 /HPF [facility] Epithelial cells, squamous, ur 1-5 0 - 5 /HPF [facility] Mucous, ur Present(A) [facility] Culture Reflex Comment Reflex conditions for urine culture (WBC >10) not met. [facility] Urine 10/25/2024 2:06 PM WASTE REDUCTION COORDINATOR 10/25/2024 2:20 PM WASTE REDUCTION COORDINATOR us Ten Cole MD LAB URINE ORDERABLES Final Result [facility] [place] [address] * CT Abdomen Pelvis W Contrast (10/25/2024 1:50 PM WASTE REDUCTION COORDINATOR) Anatomical Region Laterality Modality Body N/A Computed Tomogra phy 10/25/2024 2:05 PM WASTE REDUCTION COORDINATOR Impressions 10/25/2024 2:05 PM WASTE REDUCTION COORDINATOR 1. There is a suggestion of a [...] Krys Han M.D. Narrative 10/25/2024 2:05 PM WASTE REDUCTION COORDINATOR EXAMINATION: Computed Tomography of the Abdomen and [...] signed by: Krys Han M.D. [place] [facility] IMG CT PROCEDURES F inal Result * eGFR (10/25/2024 11:13 AM WASTE REDUCTION COORDINATOR) [facility] eGFR >90 >=60 mL/min/1. 73 m2 Comment: [...] reviewed 2021. Blood 10/25/2024 11:1 3 AM WASTE REDUCTION COORDINATOR 10/25/2024 11:18 AM WASTE REDUCTION COORDINATOR Ten Cole MD LAB BLOOD ORDERABLES Final Result [address] Department [place] [address] * (ABNORMAL) Differential, auto (10/25/2024 11:13 AM WASTE REDUCTION COORDINATOR) Pathologist [facility] Neutrophil abs 8.4(H) 1.5 - 6.5 K/cumm Imm gran abs 0.0 0.0 - 0.1 K/cumm [facility] Lymphocyte abs 1.8 0.8 - 3.3 K/cumm [facility] Monocyte abs 0.9(H) 0.2 - 0.8 K/cumm [facility] Eosinophil abs 0.1 0.0 - 0.5 K/cumm [facility] Basophil abs 0.1 0.0 - 0.1 K/cumm [facility] Neutrophil pct 74.8 % [facility] Comment: Interpretive Data Percent cell count reference ranges are not reported, since discordance with absolute values may lead to misinterpretation of CBC data. Current Interpretive Data was last revised on 2018. Imm gran pct 0.3 % [facility] Comment: Interpretive Data Percent cell count reference ranges are not reported, since discordance with absolute values may lead to misinterpretation of CBC data. Current Interpretive Data was last revised on 2018. Lymphocyte pct 16.1 % [facility] Comment: Interpretive Data Percent cell count reference ranges are not reported, since discordance with absolute values may lead to misinterpretation of CBC data. Current Interpretive Data was last revised on 2018. Monocyte pct 7.9 % [facility] Comment: Interpretive Data Percent cell count reference ranges are not reported, since discordance with absolute values may lead to misinterpretation of CBC data. Current Interpretive Data was last revised on 2018. Eosinophil pct 0.4 % [facility] Comment: Interpretive Data Percent cell count reference ranges are not reported, since discordance with absolute values may lead to misinterpretation of CBC data. Current Interpretive Data was last revised on 2018. Basophil pct 0.5 % [facility] Comment: Interpretive Data Percent cell count reference ranges are not reported, since discordance with absolute values may lead to misinterpretation of CBC data. Current Interpretive Data was last revised on 2018. Blood 10/25/2024 11:1 3 AM WASTE REDUCTION COORDINATOR 10/25/2024 11:18 AM WASTE REDUCTION COORDINATOR us Ten Cole MD LAB BLOOD ORDERABLES Final Result [facility] [address] [facility] Department [place] [address] * (ABNORMAL) CBC with auto differential (10/25/2024 11:13 AM WASTE REDUCTION COORDINATOR) WBC 11.2(H) 3.8 - 9.9 K/cumm Hgb 16.0 13.0 - 17.5 g/dL [facility] Hct 44.9 38.9 - 50.3 % [facility] Plt 398 150 - 400 K/cumm [facility] MPV 9.2 9.1 - 12.3 fL [facility] RBC 5.37 4.30 - 5.80 M/cumm [facility] MCV 83.6 81.3 - 96.4 fL [facility] MCH 29.8 27.1 - 33.3 pg [facility] MCHC 35.6 32.3 - 35.7 g/dL [facility] RDW CV 11.7 11.1 - 14.9 % [facility] RDW SD 35.1(L) 35.7 - 48.1 fL [facility] NRBC abs 0.00 0.00 - 0.01 K/cumm [facility] Blood (Blood, Venous) 10/25/2024 11:13 AM WASTE REDUCTION COORDINATOR 10/25/2024 11:18 AM WASTE REDUCTION COORDINATOR Ten Cole MD LAB BLOOD ORDERABLES Final Result Performing Organization Address [facility]/ZIP Co de Phone Number [address] of Laboratories [place], [place] [id number] * (ABNORMAL) Lipase (10/25/2024 11:13 AM WASTE REDUCTION COORDINATOR) [facility] Lipase 138(H) 10 - 99 Units/L Blood 10/25/2024 11:1 3 AM WASTE REDUCTION COORDINATOR 10/25/2024 11:18 AM WASTE REDUCTION COORDINATOR Ten Cole MD LAB BLOOD ORDERABLES Final Result Performing Organization Address City/[facility]/ZIP Co de Phone Number [address] [place] [address] * (ABNORMAL) Comprehensive metabolic panel (10/25/2024 11:13 AM WASTE REDUCTION COORDINATOR) [facility] Sodium 130(L) 135 - 145 mmol/L Potassium, pl 3.1(L) 3.3 - 4.9 mmol/L [facility] Chloride 84(L) 97 - 110 mmol/L [facility] CO2 35(H) 22 - 32 mmol/L [facility] Anion gap 11 2 - 15 mmol/L [facility] BUN 9 6 - 25 mg/dL [facility] Creatinine 0.98 0.80 - 1.30 mg/dL [facility] Glucose 136 70 - 199 mg/dL [facility] Comment: Interpretive Data Fasting glucose >/= 126 [...] classification and Diagnosis of Diabetes Diabetes Care 202; 46: S19-S40. Current interpretive data was last revised 2022. Calcium 10.3 8.5 - 10.3 mg/dL [facility] Bilirubin, total 0.5 0.1 - 1.2 mg/dL [facility] Protein, pl 7.9 6.5 - 8.5 g/dL [facility] Albumin 4.9 3.5 - 5.0 g/dL [facility] Alk phos 64 40 - 130 Units/L [facility] ALT 10 7 - 55 Units/L [facility] AST 25 10 - 50 Units/L [facility] Blood (Blood, Venous) 10/25/2024 11:13 AM WASTE REDUCTION COORDINATOR 10/25/2024 11:18 AM WASTE REDUCTION COORDINATOR us Ten Cole MD LAB BLOOD ORDERABLES Final Result [facility] [address] [facility] [place] [address] from Last 3 Months Insurance IDPA Advance Directives For more information, please contact: [phone] * Full Code (Latest Code Status on File) Date Activated Date Inactivated Comments 01/17/2022 10:36 AM 01/19/2022 10:32 PM Care Teams Tip Puncher Relationship Specialty Start Date End Date Rocío Lombardi MD [address] [facility] [address] [place] [address] PCP - General 11/22/19
--- OUTSIDE RECORDS SUMMARY | 2024-11-27 18:58 | XMS_ITS | Encounter Summary ---
Author Organization [facility] Address [facility] [place] [address] Care Team Providers Care Show Design Supervisor Name Role Phone Rocío Lombardi MD Primary Care Provider [phone] None, Provider Primary Care Provider Unavaila ble Encounter Details Date Type Department Care Team (Late st Contact Info) Description 11/18/2020 Prep for Procedure [facility] [place], [place] [id number] Ten Flynn MD [address] [facility] [address] [place], [place] [id number] Social History Tobacco Use Types Packs/Day Years Used Date Smoking Tobacco: Never Smokeless Tobacco: Never Comments:USED MARIJUANA IN P AST Alcohol Use Standard Drinks/Week Comments Yes 0 (1 standard drink = 0.6 oz pur e alcohol) occassional Sex and Gender Information Value Date Recorded Sex Assigned at Male 10/21/2024 2:48 PM MACHINE HOOP MAKER HELPER Legal Sex Male 7:32 AM CDT Gender Identity Male 09/29/2022 5:25 PM MACHINE HOOP MAKER HELPER Sexual Orientation Straight 09/29/2022 5: 25 PM MACHINE HOOP MAKER HELPER COVID-19 Exposure Response Date Recorded In the last month, have you been in contact with someone who was confirmed or suspected to have Coronavirus / COVID-19? No / Unsure 11/06/2020 1:13 PM MACHINE HOOP MAKER HELPER documented as of this encounter Functional Status [...] encounter Results * PRE-SURGICAL/PRE-PROCEDURE CORONAVIRUS (COVID 19) (11/23/2020 10:45 AM MACHINE HOOP MAKER HELPER) Pathologist [facility] CORONAVIRUS SARS COV 2 PCR (RESP) NOT DETECTED NOT DETECTED 11/24/2020 5:51 PM MACHINE HOOP MAKER HELPER [facility] Comment: A Not Detected (negative) test result [...] providers and patients using the following websites: https://www.[employer].com/home/Covid-19/HCP/[facility]/fact- sheet.html https://www.[employer].com/home/Covid-19/Patients/ [facility]/fact-sheet.html This test has been authorized by the FDA under an Emergency Use Authorization (EUA) for use by authorized laboratories. Due to the current public health emergency, [facility] is receiving a high volume of samples [...] about COVID-19 can be found at the [facility] website: www.[employer]/Covid19. Test performed at [facility] [place] [address] [place] [address] Director: BAM SMITH DO,MPH FIRST TEST NO 11/23/2020 12:30 PM MACHINE HOOP MAKER HELPER [facility] EMPLOYED IN HEALTHCARE NO 11/23/2020 12:30 PM [facility] SYMPTOMATIC DEFINED BY CDC NO 11/23/2020 12:30 PM MACHINE HOOP MAKER HELPER [facility] DATE OF SYMPTOM ONSET NO 11/23/2020 12:43 PM MACHINE HOOP MAKER HELPER [facility] HOSPITALIZATION STATUS NO 11/23/2020 12:30 PM MACHINE HOOP MAKER HELPER [facility] PATIENT IN ICU NO 11/23/2020 12:30 PM MACHINE HOOP MAKER HELPER [facility] RESIDENT OF [facility] CARE NO 11/23/2020 12:30 PM MACHINE HOOP MAKER HELPER [facility] NO 11/23/2020 12:43 PM MACHINE HOOP MAKER HELPER [facility] PATIENT'S RACE WHITE OR 11/23/2020 12:30 PM [facility] ETHNICITY NONHISPANIC 11/23/2020 12:30 PM MACHINE HOOP MAKER HELPER [facility] SOURCE (QST) NASOPHARYNGEAL SWAB 11/23/2020 12:30 PM MACHINE HOOP MAKER HELPER [facility] NASOPHARYNGEAL SWAB / Unknown 11/23/2020 10:45 AM MACHINE HOOP MAKER HELPER us Ten Flynn MD MICROBIOLOGY - GENERAL ORDERABLE S Final Result [facility] [address] [place] [address], [facility] [address] [place] [address], documented in this encounter Visit Diagnoses Diagnosis Vomiting- Primary Vomiting alone documented in this encounter Additional Health Concerns Infection Onset Date Last Indicated Resolved Time COVID-19 Rule Out 11/23/2020 11/23/2020 11/24/2020 5:51 PM MACHINE HOOP MAKER HELPER COVID-19 Rule Out 12/29/2020 12/29/2020 12/29/2020 7:08 PM CDT COVID-19 Rule Out 04/09/2024 04/09/2024 04/09/2024 11:06 PM CDT documented as of this encounter Care Teams Show Design Supervisor Relationship Specialty Start Date End Date Rocío Lombardi MD PCP - General FAMILY PRACTICE 04/08/20 04/09/24 None, Provider, PCP - General UNKNOWN PHYSICIAN SPECIALTY 04/24/24 documented as of this encounter
[2024-11-27 19:32] VITALS: BP 124/87; PULSE 128; RESP 18; TEMP 36.5; O2SAT 97
--- NOTE | 2024-11-27 23:46 | ED.NAVMDI ---
HPI - Nausea/Vomiting/Diarrhea General Chief complaint: Nausea/Vomiting/Diarrhea Stated complaint: i have cyclic vomiting syndrome Time Seen by Provider: 11/27/24 23:40 History of Present Illness HPI Narrative: 33-year-old male with a well-documented history of cyclic vomiting syndrome. Patient is a daily marijuana smoker and continues to smoke even today. He states he has been nauseous and vomiting since Monday. Feels like he has had relief with symptoms before including treatments with Haldol and Benadryl and Zofran. Feels dehydrated with minimal p.o. intake. Endorses no diarrhea. No fever, chills, injuries. States it feels identical to last time he had cyclic vomiting and October. No abdominal surgical history. Related Data Allergies Allergy/AdvReac Type Severity Reaction Status Date / Time No Known Allergies Allergy Verified 10/15/24 17:52 Review of Systems Review of Systems: As reviewed above in HPI PMFSH Past Medical History Medical History Cyclical vomiting Social History Social History Substance use type: marijuana Other substance usage details: daily Exam Narrative: GENERAL: [Well-appearing, well-nourished, and in no acute distress.] HEAD: [Normocephalic, atraumatic.] EYES: [PERRLA and EOMI.] ENT: Nares clear, no rhinorrhea or epistaxis. Mucous membranes dry. NECK: Supple. CHEST: [Clear to auscultation. No respiratory distress.] HEART: Mildly tachycardic heart rate but regular rhythm. No murmur heard. [Normal peripheral pulses.] ABDOMEN: [Soft, nondistended], [nontender], [No rigidity or guarding] EXTREMITIES: Normal range of motion. [No edema.] SKIN: Warm, dry, no rash. NEURO: [No focal deficits]. Alert and oriented [x3.] PSYCH: [Normal mood and affect.] Course Vital Signs Vital signs: Vital Signs Temperature 36.5 C 11/27/24 19:32 Pulse Rate 128 H 11/27/24 19:32 Respiratory Rate 18 11/27/24 19:32 Blood Pressure 124/87 11/27/24 19:32 Pulse Oximetry 97 11/27/24 19:32 Temperature 36.6 C 11/28/24 06:08 Pulse Rate 103 H 11/28/24 06:08 Respiratory Rate 16 11/28/24 06:08 Blood Pressure 163/99 H 11/28/24 06:08 Pulse Oximetry 99 11/28/24 06:08 MDM - Nausea/Vomiting/Diarrhea MDM Narrative Medical decision making narrative: 33-year-old male with a past medical history including cyclic vomiting syndrome presenting to the emergency room with chief complaint of nauseousness and vomiting and feeling dehydrated. Feels identical to last time he had CVS. Still endorses daily marijuana use even though he is counseled on the effects. Denies any abdominal surgical history. Has a soft nontender nondistended abdomen. Mildly tachycardic but no tachypnea, fever or hypoxia. Normal blood pressure. Slightly dry mucous membranes. Considerations presently are for cyclic vomiting syndrome, electrolyte deficiencies, dehydration, low suspicion for other intra-abdominal process causing this such as pancreatitis or appendicitis. No indications for imaging at this time we will treat him symptomatically and re-evaluated. CBC, CMP, and lipase ordered. He was given a fluid bolus, Haldol and Benadryl and re-evaluated after. Patient was re-evaluated improvement. Vital signs are stable. No longer as tachycardic. No fever, hypoxia. Slight leukocytosis of 12.6 which is likely secondary to his vomiting. Initial electrolytes show some hypokalemia which was repleted. Mild anion gap likely secondary to starvation ketosis. Normal renal function. Normal LFTs. Mildly elevated lipase. Repeat BMP was given after D5 drip and fluid boluses. Improved and potassium improved as well as his anion gap closing. Patient is safe and stable for discharge home at this time with prescriptions for Reglan as needed. Medical Records Attestation: I reviewed the patient's medical records. Lab Data Attestation: I reviewed the patient's lab results. 11/28/24 00:18 11/28/24 05:43 Labs: Lab Results 11/28/24 11/28/24 Range/Units 00:18 05:43 WBC 12.6 H (4.5-10.0) K/mm3 RBC 6.04 (4.6-6.20) M/mm3 Hgb 17.6 (14.0-18.0) g/dL Hct 49.2 (42.0-52.0) % MCV 81.5 (80-100) fl MCH 29.1 (26-34) pg MCHC 35.8 (32-36) g/dl RDW 11.6 (11.5-14.5) % Plt Count 427 H (150-375) k/mm3 MPV 9.3 (7.4-10.4) fl Immature Gran % (Auto) 0.4 (0-0.5) % Neut % (Auto) 68.1 (45.5-73.1) % Lymph % (Auto) 16.6 L (18.3-44.2) % [place] % (Auto) 14.5 H (2.6-8.5) % Eos % (Auto) 0.2 (0-4.4) % Baso % (Auto) 0.2 (0.2-1.2) % Lymph # (Auto) 2.10 (0.9-3.2) K/mm3 [place] # (Auto) 1.8 H (0.1-0.6) K/mm3 Eos # (Auto) 0.0 (0-0.3) K/mm3 Baso # (Auto) 0.0 (0.0-0.1) K/mm3 Abs Immat Gran (auto) 0.05 H (0.00-0.031) K/mm3 Absolute Neuts (auto) 8.6 H (1.3-6.7) K/mm3 Absolute Nucleated RBC 0.000 (0.0-0.012) K/mm3 Nucleated RBC % 0.0 (0.0-0.2) % Sodium 124 L 131 L (137-145) mmol/L Potassium 2.9 L 3.3 L (3.4-5.0) mmol/L Chloride 71 L 82 L (98-107) mmol/L Carbon Dioxide 38 H 39 H (22-30) mmol/L Anion Gap 15 H 10 (4-12) mmol/L BUN 31 H D 25 H (9-20) mg/dL Creatinine 1.06 1.01 (0.7-1.3) mg/dL Estim Creat Clear Calc Not Reportable Not Reportable Estimated GFR > 60 > 60 (59 - ) Glucose 101 87 (65-110) mg/dL Calcium 9.8 9.5 (8.4-10.2) mg/dL Total Bilirubin 1.5 H (0.2-1.3) mg/dL AST 31 (17-59) U/L ALT 16 (6-50) U/L Alkaline Phosphatase 73 (38-126) U/L Total Protein 9.0 H (6.3-8.2) g/dL Albumin 5.1 (3.5-5.1) g/dL Lipase 362 H (23-300) U/L Discharge Plan Discharge Clinical Impression: Cyclic vomiting syndrome Patient Disposition: Home, Self-Care Condition: Stable Instructions: Antibiotic Form, Cyclic Vomiting Syndrome (ED) Additional Instructions: Refrain from any marijuana use and your symptoms will improve with time. We will send you with Reglan for nausea and vomiting control. Follow-up with regular doctor. Patient Language: Thai Prescriptions: New metoclopramide HCl [Reglan] 10 mg tablet 10 mg PO Q6H PRN (Reason: nausea and vomiting) Qty: 14 0RF No Action ondansetron 4 mg tablet,disintegrating 4 mg PO Q8H PRN (Reason: nausea and vomiting) Qty: 10 0RF Follow-up/Referrals: PHYSICIAN,VP OF DIGITAL MARKETING [Primary Care Provider] - Time of Disposition: 06:22
[2024-11-27 23:47] VITALS: BP 129/86; PULSE 90; RESP 18; O2SAT 97
--- OUTSIDE RECORDS SUMMARY | 2024-11-27 23:54 | XMS_ITS | Encounter Summary ---
Author Organization [facility] Address formerly [facility] [place] [address] Care Team Providers Care Talend Etl Developer Name Role Phone Rocío Lombardi MD Primary Care Provider + None, Provider Primary Care Provider Claudine schwartz Encounter Details Date Type Department Care Team (Late st Contact Info) Description 10/31/2023 Verified Identity Pass Message [facility]ly [facility] Family and Sports Medicine - [place] [id number] [place], [facility] Provider Schedule Appointment: Annual Physical Social History Tobacco Use Types Packs/Day Years Used Date Smoking Tobacco: Former Cigarettes Smokeless Tobacco: Never Comments:USED MARIJUANA IN P AST. Cigs off and on. Alcohol Use Standard Drinks/Week Comments Yes 0 (1 standard drink = 0.6 oz pur e alcohol) occassional [facility] Utilities Answer Date Recorded In the past 12 months has e [employer], gas, oil, or water [place] threatened to shut off services in your [...] place to sleep or slept in a skilled nursing (including now)? No 10/03/2023 Sex and Gender Information Value Date Recorded Sex Assigned at Male 10/21/2024 2:48 PM SYSTEMS NAVIGATOR Legal Sex Male 7:32 AM CDT Gender Identity Male 09/29/2022 5:25 PM SYSTEMS NAVIGATOR Sexual Orientation Straight 09/29/2022 5: 25 PM SYSTEMS NAVIGATOR documented as of this encounter Functional Status [...] Total Score: 0 09/30/20 22 10:11 AM SYSTEMS NAVIGATOR documented as of this encounter Care Teams Talend Etl Developer Relationship Specialty Start Date End Date Rocío Lombardi MD PCP - General FAMILY PRACTICE 04/08/20 04/09/24 None, Provider, PCP - General UNKNOWN PHYSICIAN SPECIALTY 04/24/24 documented as of this encounter
--- OUTSIDE RECORDS SUMMARY | 2024-11-27 23:54 | XMS_ITS | Clinical Summary ---
Author Organization [facility] Address [facility] [place] [address] Care Team Providers Care Filbert Grower Name Role Phone None, Provider MD Primary [...] (10/30/2020): Added automatically from request for surgery [id number] Panic anxiety syndrome 07/07/2020 Cyclical vomiting, intractable 11/03/2019 Resolved Problems Problem Noted Date Diagnosed Date Resolved Date Intractable nausea and vomiting 05/03/2021 09/30/2022 MARINA (acute kidney injury) 04/04/2021 Nausea and vomiting, intract ability of vomiting not specified, unspecified vomiting type 10/30/2020 09/30/2022 Overview (10/30/2020): Added automatically from request for surgery [id number] Abnormal CT scan, gastrointestinal tract 10/30/2020 09/30/2022 Overview (10/30/2020): Added automatically from request for surgery [id number] Hyponatremia 06/07/2020 09/30/2022 Cyclic vomiting syndrome 03/19/201905/2021 [...] Med Group CT (SCAN) 10/21/2024 2:59 PM NURSING UNIT CLERK - 10/21/2024 5:16 PM NURSING UNIT CLERK Emergency [facility] [place] [address] Joe Velasquez PA Vomiting Discharge Disposition: Home [...] oz pur e alcohol) occassional [facility] Utilities Answer Date Recorded In [...] place to sleep or slept in a long term (including now)? No 10/03/2023 Housing Stability Vital Sign Answer Leonardo e Recorded In the last 12 months, was t here a time when you were not able to pay the mortgage or rent on time? No 04/09/2024 In the past 12 months, how m any times have you moved where you were living? 1 04/09/2024 At any time in the past 12 m [facility], were you homeless or living in a long term (including now)? No 04/09/2024 Sex and Gender Information Value Date Recorded Sex Assigned at Male 10/21/2024 2:48 PM NURSING UNIT CLERK Legal Sex Male 7:32 AM CDT Gender Identity Male 09/29/2022 5:25 PM NURSING UNIT CLERK Sexual Orientation Straight 09/29/2022 5: 25 PM NURSING UNIT CLERK Last Filed Vital Signs Vital Sign Reading Time Taken Comments Blood Pressure 168/99 10/21/2024 5:00 PM NURSING UNIT CLERK Pulse 98 10/21/2024 5:00 PM NURSING UNIT CLERK Temperature 36.4 C (97.5 F) 10/21/2024 2:41 PM NURSING UNIT CLERK Respiratory Rate 22 10/21/2024 2:41 PM NURSING UNIT CLERK Oxygen Saturation 98% 10/21/2024 5:00 PM NURSING UNIT CLERK Inhaled Oxygen Concentration - - Weight 72.6 kg (160 lb) 10/21/2024 2:41 PM NURSING UNIT CLERK Height 182.9 cm (6') 10/21/2024 2:41 PM NURSING UNIT CLERK Body Mass Index 21.7 10/21/2024 2:41 PM NURSING UNIT CLERK Plan of Treatment Health Maintenance Due Date Last Done Comments Pneumococcal Vaccine: Pediatrics (0 to 5 Years) and At-Risk Patients (6 to 64 Years) (1 of 2 - PCV) 1994 PHQ-2 (Physician [place]) 2000 Hepatitis C 2006 DTaP, Tdap and Td Vaccines ( 1 - Tdap) 12/21/2007 Hepatitis B Vaccines (1 of 3 - 19+ 3-dose series) 12/21/2007 Annual Physical 09/30/2023 09/30/2022 COVID-19 Vaccine (1 - 2023-2 5 season) 2024 Influenza Adult (#1) 2024 10/05/2023, 11/08/2017 PHQ-2 (Physician ICONOGRAFICO) 10/02/2024 HPV Vaccines Aged Out No longer [...] discharge from hospital General No Betty Zelaya, SLATE SPLITTER Family - family caregiver with be involved in care transitions and discharge planning Lifestyle No Maria R Campos, bicycle assembler Procedure Name Priority Date/Time Associated Diagnosis Comments CT GENERIC 10/25/2024 LIPASE STAT 10/21/2024 3:06 PM NURSING UNIT CLERK COMPREHENSIVE METABOLIC PANEL STAT 10/21/2024 3:06 PM NURSING UNIT CLERK CBC W/DIFF AUTOMATED STAT 10/21/2024 3:06 PM NURSING UNIT CLERK from Last 3 Months Results * CT GENERIC (10/25/2024) Anatomical Region Laterality Modality Other 10/25/2024 us [facility] Scanned SCANNING Final Resu lt * (ABNORMAL) COMPREHENSIVE METABOLIC PANEL (10/21/2024 3:06 PM NURSING UNIT CLERK) GLUCOSE 111(H) 70 - 99 MG/DL 10/21/2024 3:45 PM NURSING UNIT CLERK [facility] BUN 17 7 - 18 MG/DL 10/21/2024 3:45 PM NURSING UNIT CLERK [facility] CREATININE S/P/B 1.02 0.7 - 1.3 MG/DL 10/21/2024 3:45 PM NURSING UNIT CLERK [facility] SODIUM S/P/B 127(L) 136 - 145 MMOL/L 10/21/2024 3:45 PM NURSING UNIT CLERK [facility] POTASSIUM S/P/B 2.8(LL) 3.5 - 5.1 MMOL/L 10/21/2024 3:45 PM NURSING UNIT CLERK [facility] Comment: Critical Result(s) Called at: 15:44:29 on 10/21/2024 by: DOMINIK CAMPBELL to and read back by:DORITA DE SANTIAGO CHLORIDE S/P/B 85(L) 97 - 115 MMOL/L 10/21/2024 3:45 PM NURSING UNIT CLERK [facility] CO2 30.6 21 - 32 MMOL/L 10/21/2024 3:45 PM [facility] CALCIUM S/P/B 10.1 8.5 - 10.1 MG/DL 10/21/2024 3:45 PM [facility] BILIRUBIN TOTAL S/P/B 1.1 0.2 - 1.2 MG/DL 10/21/2024 3:45 PM [facility] Comment: THIS ASSAY IS NOT RECOMMENDED FOR PATIENTS UNDERGOING TREATMENT WITH ELTROMBOPAG DUE TO THE POTENTIAL FOR FALSELY ELEVATED RESULTS. TOTAL PROTEIN S/P/B 8.1 6.4 - 8.2 G/DL 10/21/2024 3:45 PM [facility] ALBUMIN S/P/B 4.1 3.4 - 5.0 G/DL 10/21/2024 3:45 PM [facility] AST 20 15 - 37 U/L 10/21/2024 3:45 PM [facility] ALT 14(L) 16 - 60 U/L 10/21/2024 3:45 PM [facility] ALKALINE PHOSPHATASE S/P/B 62 50 - 136 U/L 10/21/2024 3:45 PM [facility] ANION GAP 11.4(H) 2 - 10 MMOL/L 10/21/2024 3:45 PM [facility] BUN CREATININE RATIO 16.7 6 - 26 10/21/2024 3:45 PM [facility] A/G RATIO 1.0 1.0 - 2.0 RATIO 10/21/2024 3:45 PM [facility] GFR ESTIMATE >90 >90 ML/MIN/1.7 3 M2 10/21/2024 3:45 PM [facility] Comment: NOTE: eGFR is not calculated for patients <18 years of age or gender unknown. This is an estimated GFR calculation using the new CKD EPI creatinine equation without race and so does not require a correction factor for race. This estimated GFR should not be used for calculating drug doses. 10/21/2024 3:06 PM NURSING UNIT CLERK Tnoy Chamorro PA-C LABORATORY Final Resul t [facility] [address] [place] [address], * (ABNORMAL) CBC W/DIFF AUTOMATED (10/21/2024 3:06 PM NURSING UNIT CLERK) WBC 13.70(H) 4.5 - 11.0 x10'3/uL 10/21/2024 3:17 PM NURSING UNIT CLERK [facility] RBC 5.83 4.70 - 6.10 x10'6/uL 10/21/2024 3:17 PM NURSING UNIT CLERK [facility] HGB 17.1 14.0 - 18.0 G/DL 10/21/2024 3:17 PM NURSING UNIT CLERK [facility] HCT 47.0 43.0 - 54.0 % 10/21/2024 3:17 PM [facility] MCV 80.6 80.0 - 94.0 FL 10/21/2024 3:17 PM NURSING UNIT CLERK [facility] MCH 29.3 27.0 - 31.0 PG 10/21/2024 3:17 PM NURSING UNIT CLERK [facility] MCHC 36.4(H) 32.0 - 36.0 G/DL 10/21/2024 3:17 PM [facility] RDW 11.7 11.5 - 14.5 % 10/21/2024 3:17 PM NURSING UNIT CLERK [facility] PLT 378 130 - 400 x10'3/uL 10/21/2024 3:17 PM NURSING UNIT CLERK [facility] MPV 9.5 9.3 - 12.2 FL 10/21/2024 3:17 PM [facility] DIFFERENTIAL TYPE MANUAL DIFFERENTIAL 10/21/2024 4:32 PM [facility] SEG NEUTROPHILS 92 % 4:32 PM [facility] LYMPHOCYTES 7 % 10/21/2024 4:32 PM [facility] MONOCYTES 1 % 10/21/2024 4:32 PM [facility] ABS. NEUTROPHILS 12.60(H) 1.80 - 7.70 x10'3/uL 10/21/2024 4:32 PM [facility] ABS. LYMPHOCYTES 0.96(L) 1.00 - 4.80 x10'3/uL 10/21/2024 4:32 PM [facility] ABS. MONOCYTES 0.14(L) 0.30 - 0.82 x10'3/uL 10/21/2024 4:32 PM [facility] RBC MORPHOLOGY RBC MORPHOLOGY APPEARS NORMAL. SLIDE REVIEWED. 10/21/2024 4:32 PM [facility] PLT EST. ADEQUATE 10/21/2024 4:32 PM [facility] 10/21/2024 3:06 PM NURSING UNIT CLERK us Tony Chamorro PA-C LABORATORY Final Resul t [facility] [address] [place] [address], * LIPASE (10/21/2024 3:06 PM NURSING UNIT CLERK) LIPASE 39 13 - 75 UNITS/L 10/21/2024 3:45 PM [facility] 10/21/2024 3:06 PM NURSING UNIT CLERK Tony Chamorro PA-C LABORATORY Final Resul t [facility] [address] [place] [address], [place] [phone] from Last 3 Months Insurance [employer] Advance [...] 11:15 PM 06/08/2020 9:16 PM Care Teams Filbert Grower Relationship Specialty Start Date End Date None, Provider, MD PCP - General UNKNOWN PHYSICIAN SPECIALTY 04/24/24
--- OUTSIDE RECORDS SUMMARY | 2024-11-27 23:54 | XMS_ITS | Encounter Summary ---
Author Organization [facility] Address [facility] [place] [address] Care Team Providers Care Optical Laboratory Mechanic Name Role Phone None, Provider Primary Care Provider Unavaila ble None, Provider Primary Care Provider Unavaila ble Rocío Lombardi MD Primary Care Provider [phone] None, Provider Primary Care Provider Unavaila ble Encounter Details Date Type Department Care Team (Late st Contact Info) Description 03/09/2019 Abstract [facility] CONVERSION [address] [place] [address] , Generic Conversion, Social History Tobacco Use Types Packs/Day Years Used Date Smoking Tobacco: Never Smokeless Tobacco: Never Comments:USED MARIJUANA IN P AST Alcohol Use Standard Drinks/Week Comments Yes 0 (1 standard drink = 0.6 oz pur e alcohol) occassional Sex and Gender Information Value Date Recorded Sex Assigned at Male 10/21/2024 2:48 PM IMPROVEMENT ENGINEER Legal Sex Male 7:32 AM CDT Gender Identity Male 09/29/2022 5:25 PM IMPROVEMENT ENGINEER Sexual Orientation Straight 09/29/2022 5: 25 PM IMPROVEMENT ENGINEER documented as of this encounter Plan of Treatment Not on file documented as of this encounter Visit Diagnoses Not on filedocumented in this encounter Additional Health Concerns Infection Onset Date Last Indicated Resolved Time COVID-19 Rule Out Comment:TESTED 7.04/13/2020 04/13/2020 04/13/2020 9:19 A M CDT COVID-19 Rule Out 10/02/2020 10/02/2020 10/02/2020 7:28 PM IMPROVEMENT ENGINEER COVID-19 Rule Out 11/09/2020 11/09/2020 11/10/2020 6:16 PM IMPROVEMENT ENGINEER COVID-19 Rule Out 11/23/2020 11/23/2020 11/24/2020 5:51 PM IMPROVEMENT ENGINEER COVID-19 Rule Out 12/29/2020 12/29/2020 12/29/2020 7:08 PM CDT COVID-19 Rule Out 04/09/2024 04/09/2024 04/09/2024 11:06 PM CDT documented as of this encounter Care Teams Optical Laboratory Mechanic Relationship Specialty Start Date End Date None, Provider, PCP - General 01/16/19 03/18/19 None, ProviderMD PCP - General 03/19/19 04/07/20 Rocío Lombardi MD PCP - General FAMILY PRACTICE 04/08/20 04/09/24 None, ProviderMD PCP - General UNKNOWN PHYSICIAN SPECIALTY 04/24/24 documented as of this encounter
--- OUTSIDE RECORDS SUMMARY | 2024-11-27 23:54 | XMS_ITS | Referral Summary ---
Author Organization [facility] al Address [address] [place] [address] Care Team Providers Care Gas Turbine Powerplant Mechanic Name Role Phone Rocío Lombardi MD Primary Care Provider [phone] Encounters Date Type Department Care Team Description 10/25/2024 1:14 PM REINSURANCE CLERK - 10/25/2024 3:[address] [facility] Emergency [facility] Emergency Department [address] [place] [address] Nausea and vomiting, unspecified vomiting type (Primary [...] on file Legal Sex Male 4:18 PM REINSURANCE CLERK Gender Identity Male 07/12/2021 12:07 AM CDT Sexual Orientation Not on file Last Filed Vital Signs Vital Sign Reading Time Taken Comments Blood Pressure 148/90 10/25/2024 3:37 PM REINSURANCE CLERK Pulse 94 10/25/2024 3:37 PM REINSURANCE CLERK Temperature 36.7 C (98 F) 10/25/2024 3:37 PM REINSURANCE CLERK Respiratory Rate 18 10/25/2024 3:37 PM REINSURANCE CLERK Oxygen Saturation 98% 10/25/2024 3:37 PM REINSURANCE CLERK Inhaled Oxygen Concentration - - Weight 71.7 kg (158 lb) 10/25/2024 11:07 AM REINSURANCE CLERK Height 182.9 cm (6') 10/25/2024 11:07 AM REINSURANCE CLERK Body Mass Index 21.43 10/25/2024 11:07 AM REINSURANCE CLERK Plan of Treatment Not on file Procedures Procedure Name Priority Date/Time Associated Diagnosis Comments URINALYSIS, MICROSCOPIC ONLY STAT 10/25/2024 2:06 PM REINSURANCE CLERK DRUGS OF ABUSE SCREEN, URINE WITHOUT CONFIRMATION STAT 10/25/2024 2:06 PM REINSURANCE CLERK URINALYSIS AND REFLEX TO MICROSCOPIC AND CULTURE STAT 10/25/2024 2:[address] ABDOMEN PELVIS W CONTRAST ED 10/25/2024 1:50 PM REINSURANCE CLERK EGFR STAT 10/25/2024 11:13 AM REINSURANCE CLERK DIFFERENTIAL AUTO STAT 10/25/2024 11: 13 AM REINSURANCE CLERK LIPASE STAT 10/25/2024 11:13 AM REINSURANCE CLERK COMPREHENSIVE METABOLIC PANEL STAT 10/25/2024 11:13 AM REINSURANCE CLERK CBC WITH AUTO DIFFERENTIAL STAT 10/25/2024 11:13 AM REINSURANCE CLERK from Last 3 Months Results * (ABNORMAL) Urinalysis reflex to microscopic and culture Urine (10/25/2024 2:06 PM REINSURANCE CLERK) Color, ur Yellow Yellow Clarity, ur Clear [...] tendency for uric acid stone formation. Source: [facility] Current Interpretive Data was last revised on 2017 Protein, ur ql 2+(A) Negative [facility] Glucose, ur ql Negative Negative [facility] Ketones, ur Negative Negative [facility] Bilirubin, ur Negative Negative [facility] Blood, ur Negative Negative [facility] Urobilinogen, ur <2.0 <2.0 mg/dL [facility] Nitrite, ur Negative Negative [facility] Leukocyte esterase, ur Negative Negative [facility] UA reflex comment Reflex to microscopic UA will be performed. [facility] Urine 10/25/2024 2:06 PM REINSURANCE CLERK 10/25/2024 2:20 PM REINSURANCE CLERK us Ten Cole MD LAB MICROBIOLOGY - GENERAL ORDERABLES Final Result [facility] [address] [facility] Department [place] [address] * (ABNORMAL) Drugs of Abuse Screen, Urine without Confirmation (10/25/2024 2:06 PM REINSURANCE CLERK) Amphetamine, ur Not Detected CutOff 500ng/mL Comment: Interpretive Data - Amphetamines: Samples containing greater than 500 ng/mL d-methamphetamine or other cross-reacting amphetamine compounds are reported as positive. Amphetamine immunoassays are subject to significant false positive rates due to cross-reactivity of non-amphetamine drugs. Confirmatory testing required for definitive results. Current Interpretive Data was last reviewed 2023. Barbiturates, ur Not Detected CutOff 200ng/mL [facility] Comment: Interpretive Data - Barbiturates: Samples containing greater than 200 ng/mL secobarbital or other cross-reacting barbiturate compounds are reported as positive. False positive and false negative results are possible. Confirmatory testing required for definitive results. Current Interpretive Data was last reviewed 2023. Benzodiazepines, ur Not Detected CutOff 100ng/mL [facility] Comment: Interpretive Data - Benzodiazepines: Samples containing greater than 100 ng/mL nordiazepam or other cross-reacting compounds are reported as positive. False positive and false negative results are possible. Confirmatory testing required for definitive results. Current Interpretive Data was last reviewed 2023. Cannabinoids, ur Screen Positive, presumptive (A) CutOff 50 ng/mL [facility] Comment: Interpretive Data - Cannabinoids: Samples containing greater than 50 ng/mL delta-9 THC -COOH or other cross- reacting compounds are reported as positive. False positive and false negative results are possible. Confirmatory testing required for definitive results. Current Interpretive Data was last reviewed 2023. Cocaine, ur Screen Positive, presumptive (A) CutOff 150ng/mL [facility] Comment: Interpretive Data - Cocaine: Samples containing greater than 150 ng/mL benzoylecgonine or other cross- reacting compounds are reported as positive. False positive and false negative results are possible. Confirmatory testing required for definitive results. Current Interpretive Data was last reviewed 2023. Fentanyl, Ur Not Detected Cutoff 1 ng/mL [facility] Comment: Interpretive Data - Fentanyl: Samples containing greater than 1 ng/mL fentanyl or other cross-reacting fentanyl compounds are reported as positive. False positive and false negative results are possible. Confirmatory testing required for definitive results. Current Interpretive Data was last reviewed 2023. Methadone, ur Not Detected CutOff 300ng/mL [facility] Comment: Interpretive Data - Methadone: Samples containing greater than 300 ng/mL d,l-methadone or other cross-reacting compounds are reported as positive. False positive and false negative results are possible. Confirmatory testing required for definitive results. Current Interpretive Data was last reviewed 2023. Opiates, ur Not Detected CutOff 300ng/mL [facility] Comment: Interpretive Data - Opiates: Samples containing greater than 300 ng/mL morphine or other cross-reacting compounds are reported as positive. False positive and false negative results are possible. Confirmatory testing required for definitive results. Current Interpretive Data was last reviewed 2023. Oxycodone, ur Not Detected CutOff 100ng/mL [facility] Comment: Interpretive Data - Oxycodone: Samples containing greater than 100 ng/mL oxycodone or other cross-reacting compounds are reported as positive. False positive and false negative results are possible. Confirmatory testing required for definitive results. Current Interpretive Data was last reviewed 2023. Phencyclidine, ur Not Detected CutOff 25 ng/mL [facility] Comment: Interpretive Data - Phencyclidine: Samples containing greater than 25 ng/mL phencyclidine or other cross-reacting compounds are reported as positive. False positive and false negative results are possible. Confirmatory testing required for definitive results. Current Interpretive Data was last reviewed 2023. Urine Creatinine 192 mg/dL [facility] Comment: Interpretive Data Urine Creatinine: < 10 mg/dL is extremely dilute = or > 10 but < 20 mg/dL is dilute = or > 20 mg/dL is normal Current Interpretive Data was last revised on 2017. Urine 10/25/2024 2:06 PM REINSURANCE CLERK 10/25/2024 2:20 PM REINSURANCE CLERK Narrative [facility] - 10/25/2024 3:46 PM REINSURANCE CLERK Drug of Abuse screening is performed by immunoassay for medical purposes only. This is not to be used for Pain Management purposes. us [place] [facility] URINE ORDERABLE S Final Result Performing Organization Address [facility] Co de Phone Number [address] [place] [address] * (ABNORMAL) Urinalysis, microscopic only (10/25/2024 2:06 PM REINSURANCE CLERK) WBC, ur 0-5 0 - 5 /HPF RBC, ur 11-20(A) 0 - 2 /HPF [facility] Epithelial cells, squamous, ur 1-5 0 - 5 /HPF [facility] Mucous, ur Present(A) [facility] Culture Reflex Comment Reflex conditions for urine culture (WBC >10) not met. [facility] Urine 10/25/2024 2:06 PM REINSURANCE CLERK 10/25/2024 2:20 PM REINSURANCE CLERK us Ten Cole MD LAB URINE ORDERABLES Final Result Performing Organization Address [facility] de Phone Number [address] [place] [address] * CT Abdomen Pelvis W Contrast (10/25/2024 1:50 PM REINSURANCE CLERK) Anatomical Region Laterality Modality Body N/A Computed Tomogra phy 10/25/2024 2:05 PM REINSURANCE CLERK Impressions 10/25/2024 2:05 PM REINSURANCE CLERK 1. There is a suggestion of a [...] Krys Han M.D. Narrative 10/25/2024 2:05 PM REINSURANCE CLERK EXAMINATION: Computed Tomography of the Abdomen and [...] signed by: Krys Han M.D. [place] [facility] CT PROCEDURES F inal Result * eGFR (10/25/2024 11:13 AM REINSURANCE CLERK) eGFR >90 >=60 mL/min/1. 73 m2 Comment: [...] reviewed 2021. Blood 10/25/2024 11:1 3 AM REINSURANCE CLERK 10/25/2024 11:18 AM REINSURANCE CLERK us Ten Cole MD LAB BLOOD ORDERABLES Final Result [address] Department [place] [address] * (ABNORMAL) Differential, auto (10/25/2024 11:13 AM REINSURANCE CLERK) Neutrophil abs 8.4(H) 1.5 - 6.5 K/cumm Imm gran abs 0.0 0.0 - 0.1 K/cumm [facility] Lymphocyte abs 1.8 0.8 - 3.3 K/cumm [facility] Monocyte abs 0.9(H) 0.2 - 0.8 K/cumm [facility] Eosinophil abs 0.1 0.0 - 0.5 K/cumm [facility] Basophil abs 0.1 0.0 - 0.1 K/cumm [facility] Neutrophil pct 74.8 % [facility] Comment: Interpretive Data Percent cell count reference ranges are not reported, since discordance with absolute values may lead to misinterpretation of CBC data. Current Interpretive Data was last revised on 2018. Imm gran pct 0.3 % [facility] Comment: Interpretive Data Percent cell count reference ranges are not reported, since discordance with absolute values may lead to misinterpretation of CBC data. Current Interpretive Data was last revised on 2018. Lymphocyte pct 16.1 % [facility] Comment: Interpretive Data Percent cell count reference ranges are not reported, since discordance with absolute values may lead to misinterpretation of CBC data. Current Interpretive Data was last revised on 2018. Monocyte pct 7.9 % [facility] Comment: Interpretive Data Percent cell count reference ranges are not reported, since discordance with absolute values may lead to misinterpretation of CBC data. Current Interpretive Data was last revised on 2018. Eosinophil pct 0.4 % [facility] Comment: Interpretive Data Percent cell count reference ranges are not reported, since discordance with absolute values may lead to misinterpretation of CBC data. Current Interpretive Data was last revised on 2018. Basophil pct 0.5 % [facility] Comment: Interpretive Data Percent cell count reference ranges are not reported, since discordance with absolute values may lead to misinterpretation of CBC data. Current Interpretive Data was last revised on 2018. Blood 10/25/2024 11:1 3 AM REINSURANCE CLERK 10/25/2024 11:18 AM REINSURANCE CLERK Ten Cole MD LAB BLOOD ORDERABLES Final Result [facility] [address] [facility] Department [place] [address] * (ABNORMAL) CBC with auto differential (10/25/2024 11:13 AM REINSURANCE CLERK) WBC 11.2(H) 3.8 - 9.9 K/cumm Hgb 16.0 13.0 - 17.5 g/dL [facility] Hct 44.9 38.9 - 50.3 % [facility] Plt 398 150 - 400 K/cumm [facility] MPV 9.2 9.1 - 12.3 fL [facility] RBC 5.37 4.30 - 5.80 M/cumm [facility] MCV 83.6 81.3 - 96.4 fL [facility] MCH 29.8 27.1 - 33.3 pg [facility] MCHC 35.6 32.3 - 35.7 g/dL [facility] RDW CV 11.7 11.1 - 14.9 % [facility] RDW SD 35.1(L) 35.7 - 48.1 fL [facility] NRBC abs 0.00 0.00 - 0.01 K/cumm [facility] Blood (Blood, Venous) 10/25/2024 11:13 AM REINSURANCE CLERK 10/25/2024 11:18 AM REINSURANCE CLERK Ten Cole MD LAB BLOOD ORDERABLES Final Result Performing Organization Address [facility] Co de Phone Number MONICA [address] Department [place] [address] * (ABNORMAL) Lipase (10/25/2024 11:13 AM REINSURANCE CLERK) Pathologist [facility] Lipase 138(H) 10 - 99 Units/L Blood 10/25/2024 11:1 3 AM REINSURANCE CLERK 10/25/2024 11:18 AM REINSURANCE CLERK Ten Cole MD LAB BLOOD ORDERABLES Final Result Performing Organization Address [facility] Phone Number MONICA [address] [place] [address] * (ABNORMAL) Comprehensive metabolic panel (10/25/2024 11:13 AM REINSURANCE CLERK) Pathologist [facility] Sodium 130(L) 135 - 145 mmol/L Potassium, pl 3.1(L) 3.3 - 4.9 mmol/L [facility] Chloride 84(L) 97 - 110 mmol/L [facility] CO2 35(H) 22 - 32 mmol/L [facility] Anion gap 11 2 - 15 mmol/L [facility] BUN 9 6 - 25 mg/dL [facility] Creatinine 0.98 0.80 - 1.30 mg/dL [facility] Glucose 136 70 - 199 mg/dL [facility] Comment: Interpretive Data Fasting glucose >/= [...] [facility] Blood (Blood, Venous) 10/25/2024 11:13 AM REINSURANCE CLERK 10/25/2024 11:18 AM REINSURANCE CLERK us Ten Cole MD LAB BLOOD ORDERABLES Final Result [facility] [address] [facility] Department [place] [address] from Last 3 Months Insurance [facility] Advance Directives For more information, please contact: [phone] * Full Code (Latest Code Status on File) Date Activated Date Inactivated Comments 01/17/2022 10:36 AM 01/19/2022 10:32 PM Care Teams Gas Turbine Powerplant Mechanic Relationship Specialty Start Date End Date Rocío Lombardi MD [address] [facility] [address] [place] [address] PCP - General 11/22/19
--- OUTSIDE RECORDS SUMMARY | 2024-11-27 23:54 | XMS_ITS | Encounter Summary ---
Author Organization [facility] Address [facility] [place] [address] Care Team Providers Care Manager Country Name Role Phone Rocío Lombardi MD Primary Care Provider [phone] None, Provider Primary Care Provider Unavaila ble Encounter Details Date Type Department Care Team (Late st Contact Info) Description 11/18/[address] [facility] One Day Services [place], [place] [id number] Ten Flynn MD 3 [facility] [address] [place], [place] [id number] Social History Tobacco Use Types Packs/Day Years Used Date Smoking Tobacco: Never Smokeless Tobacco: Never Comments:USED MARIJUANA IN P AST Alcohol Use Standard Drinks/Week Comments Yes 0 (1 standard drink = 0.6 oz pur e alcohol) occassional Sex and Gender Information Value Date Recorded Sex Assigned at Male 10/21/2024 2:48 PM BRICKLAYER Legal Sex Male 7:32 AM CDT Gender Identity Male 09/29/2022 5:25 PM BRICKLAYER Sexual Orientation Straight 09/29/2022 5: 25 PM BRICKLAYER COVID-19 Exposure Response Date Recorded In the last month, have you been in contact with someone who was confirmed or suspected to have Coronavirus / COVID-19? No / Unsure 11/06/2020 1:13 PM BRICKLAYER documented as of this encounter Functional Status [...] PRE-SURGICAL/PRE-PROCEDURE CORONAVIRUS (COVID 19) (11/23/2020 10:45 AM BRICKLAYER) Pathologist [facility] CORONAVIRUS SARS COV 2 PCR (RESP) NOT DETECTED NOT DETECTED 11/24/2020 5:51 PM BRICKLAYER [facility] Comment: A Not Detected (negative) test [...] providers and patients using the following websites: https://www.[employer].com/home/Covid-19/HCP/QuestIVD/fact- sheet.html https://www.[employer].com/home/Covid-19/Patients/ Quest[employer]/fact-sheet.html This test has been authorized by the FDA under an Emergency Use Authorization (EUA) for use by authorized laboratories. Due to the current public health emergency, [employer] is receiving a high volume of samples [...] about COVID-19 can be found at the [employer] website: www.[employer].Tindie/Covid19. Test performed at [facility] [address] [place] [address] Director: BAM SMITH DO,MPH FIRST TEST NO 11/23/2020 12:30 PM BRICKLAYER [facility] EMPLOYED IN HEALTHCARE NO 11/23/2020 12:30 PM [facility] SYMPTOMATIC DEFINED BY CDC NO 11/23/2020 12:30 PM BRICKLAYER [facility] DATE OF SYMPTOM ONSET NO 11/23/2020 12:43 PM BRICKLAYER [facility] HOSPITALIZATION STATUS NO 11/23/2020 12:30 PM BRICKLAYER [facility] PATIENT IN ICU NO 11/23/2020 12:30 PM BRICKLAYER [facility] RESIDENT OF [facility] NO 11/23/2020 12:30 PM BRICKLAYER [facility] NO 11/23/2020 12:43 PM BRICKLAYER [facility] PATIENT'S RACE WHITE OR 11/23/2020 12:30 PM [facility] ETHNICITY NONHISPANIC 11/23/2020 12:30 PM BRICKLAYER [facility] SOURCE (QST) NASOPHARYNGEAL SWAB 11/23/2020 12:30 PM BRICKLAYER [facility] NASOPHARYNGEAL SWAB / Unknown 11/23/2020 10:45 AM BRICKLAYER us Ten Flynn MD MICROBIOLOGY - GENERAL ORDERABLE S Final Result [facility] [address] [place] [address], [facility] [address] [place] [address], documented in this encounter Visit Diagnoses Diagnosis Vomiting- Primary Vomiting alone documented in this encounter Additional Health Concerns Infection Onset Date Last Indicated Resolved Time COVID-19 Rule Out 11/23/2020 11/23/2020 11/24/2020 5:51 PM BRICKLAYER COVID-19 Rule Out 12/29/2020 12/29/2020 12/29/2020 7:08 PM CDT COVID-19 Rule Out 04/09/2024 04/09/2024 04/09/2024 11:06 PM CDT documented as of this encounter Care Teams Manager Country Relationship Specialty Start Date End Date Rocío Lombardi MD PCP - General FAMILY PRACTICE 04/08/20 04/09/24 None, Provider, PCP - General UNKNOWN PHYSICIAN SPECIALTY 04/24/24 documented as of this encounter
--- OUTSIDE RECORDS SUMMARY | 2024-11-27 23:54 | XMS_ITS | Encounter Summary ---
Author Organization [facility] Address [facility] [place] [address] Care Team Providers Care Logging Operations Inspector Name Role Phone Rocío Lombardi MD Primary Care Provider [phone] None, Provider Primary Care Provider Unavaila ble Encounter Details Date Type Department Care Team (Late st Contact Info) Description 11/09/2020 Prep for Procedure [facility] One Day Services [place], [place] [phone] Ten Flynn MD 3 [facility] [address] [place], [place] [phone] Social History Tobacco Use Types Packs/Day Years Used Date Smoking Tobacco: Never Smokeless Tobacco: Never Comments:USED MARIJUANA IN P AST Alcohol Use Standard Drinks/Week Comments Yes 0 (1 standard drink = 0.6 oz pur e alcohol) occassional Sex and Gender Information Value Date Recorded Sex Assigned at Male 10/21/2024 2:48 PM COST CONSULTANT Legal Sex Male 7:32 AM CDT Gender Identity Male 09/29/2022 5:25 PM COST CONSULTANT Sexual Orientation Straight 09/29/2022 5: 25 PM COST CONSULTANT COVID-19 Exposure Response Date Recorded In the last month, have you been in contact with someone who was confirmed or suspected to have Coronavirus / COVID-19? No / Unsure 11/06/2020 1:13 PM COST CONSULTANT documented as of this encounter Functional Status [...] PRE-SURGICAL/PRE-PROCEDURE CORONAVIRUS (COVID 19) (11/09/2020 11:48 AM COST CONSULTANT) Pathologist [facility] CORONAVIRUS SARS COV 2 PCR (RESP) NOT DETECTED NOT DETECTED 11/10/2020 6:15 PM COST CONSULTANT [facility] Comment: A Not Detected (negative) test result [...] providers and patients using the following websites: https://www.[employer].com/home/Covid-19/HCP/NAAT/fact-sheet2 https://www.[employer].com/home/Covid-19/Patients/NAAT/ fact-sheet2 This test has been authorized by the FDA under an Emergency Use Authorization (EUA) for use by authorized laboratories. Due to the current public health emergency, [employer] is receiving a high volume of samples [...] about COVID-19 can be found at the [employer] website: www.[employer].Hithru/Covid19. Test performed at [facility] [address] [address] Director: BAM SMITH DO,MPH FIRST TEST NO 11/09/2020 12:26 PM [facility] EMPLOYED IN HEALTHCARE NO 11/09/2020 12:26 PM [facility] SYMPTOMATIC DEFINED BY CDC NO 11/09/2020 12:26 PM [facility] DATE OF SYMPTOM ONSET NO 11/09/2020 12:34 PM [facility] HOSPITALIZATION STATUS NO 11/09/2020 12:26 PM [facility] PATIENT IN ICU NO 11/09/2020 12:26 PM [facility] RESIDENT OF [facility] NO 11/09/2020 12:26 PM [facility] NO 11/09/2020 12:34 PM [facility] PATIENT'S RACE WHITE OR 11/09/2020 12:26 PM [facility] ETHNICITY NONHISPANIC 11/09/2020 12:26 PM [facility] SOURCE (QST) NASOPHARYNGEAL SWAB 11/09/2020 12:26 PM COST CONSULTANT [facility] NASOPHARYNGEAL SWAB / Unknown 11/09/2020 11:48 AM COST CONSULTANT us Ten Flynn MD MICROBIOLOGY - GENERAL ORDERABLE S Final Result [facility] [address] [facility] [place] [address], [facility] [address] [place] [address], documented in this encounter Visit Diagnoses Diagnosis Abdominal pain- Primary Abdominal pain, unspecified site documented in this encounter Additional Health Concerns Infection Onset Date Last Indicated Resolved Time COVID-19 Rule Out 11/09/2020 11/09/2020 11/10/2020 6:16 PM COST CONSULTANT COVID-19 Rule Out 11/23/2020 11/23/2020 11/24/2020 5:51 PM COST CONSULTANT COVID-19 Rule Out 12/29/2020 12/29/2020 12/29/2020 7:08 PM CDT COVID-19 Rule Out 04/09/2024 04/09/2024 04/09/2024 11:06 PM CDT documented as of this encounter Care Teams Logging Operations Inspector Relationship Specialty Start Date End Date Rocío Lombardi MD PCP - General FAMILY PRACTICE 04/08/20 04/09/24 None, Provider, PCP - General UNKNOWN PHYSICIAN SPECIALTY 04/24/24 documented as of this encounter
--- OUTSIDE RECORDS SUMMARY | 2024-11-27 23:54 | XMS_ITS | Encounter Summary ---
Author Organization [facility] Address [facility] [place] [address] Care Team Providers Care Shipper And Receiving Name Role Phone Rocío Lombardi MD Primary Care Provider + None, Provider Primary Care Provider Claudine schwartz Encounter Details Date Type Department Care Team (Late st Contact Info) Description 08/29/2022 [employer] Message [facility] Family and Sports Medicine - [place] [address] [place], [facility] Provider Schedule Appointment: Annual Physical Due Social History Tobacco Use Types Packs/Day Years Used Date Smoking Tobacco: Never Smokeless Tobacco: Never Comments:USED MARIJUANA IN P AST Alcohol Use Standard Drinks/Week Comments Yes 0 (1 standard drink = 0.6 oz pur e alcohol) occassional Sex and Gender Information Value Date Recorded Sex Assigned at Male 10/21/2024 2:48 PM BUFFING LINE SET UP WORKER Legal Sex Male 7:32 AM CDT Gender Identity Male 09/29/2022 5:25 PM BUFFING LINE SET UP WORKER Sexual Orientation Straight 09/29/2022 5: 25 PM BUFFING LINE SET UP WORKER documented as of this encounter Functional Status [...] independent in ADLs upon discharge from hospital [facility] No Betty Zelaya, ORGANIZATIONAL CONSULTANT documented as of this encounter Visit Diagnoses Not on filedocumented in this encounter Additional Health Concerns Infection Onset Date Last Indicated Resolved Time COVID-19 Rule Out 04/09/2024 04/09/2024 04/09/2024 11:06 PM CDT documented as of this encounter Care Teams Shipper And Receiving Relationship Specialty Start Date End Date Rocío Lombardi MD PCP - General FAMILY PRACTICE 04/08/20 04/09/24 None, Provider, PCP - General UNKNOWN PHYSICIAN SPECIALTY 04/24/24 documented as of this encounter
--- OUTSIDE RECORDS SUMMARY | 2024-11-27 23:54 | XMS_ITS | Clinical Summary ---
Author Organization [facility] al Address [address] [place] [address] Care Team Providers Care Segment Producer Name Role Phone Rocío Lombardi MD Primary Care Provider [phone] Allergies Active Allergy Reactions Criticality Noted Date [...] Department Care Team Description 10/25/2024 1:14 PM RIVET TESTER - 10/25/2024 3:37 PM RIVET TESTER Emergency [facility] Emergency Department [address] [place] [id number] Nausea and vomiting, unspecified vomiting type (Primary [...] on file Legal Sex Male 4:18 PM RIVET TESTER Gender Identity Male 07/12/2021 12:07 AM CDT Sexual Orientation Not on file Obstetrics History Last Filed Vital Signs Vital Sign Reading Time Taken Comments Blood Pressure 148/90 10/25/2024 3:37 PM RIVET TESTER Pulse 94 10/25/2024 3:37 PM RIVET TESTER Temperature 36.7 C (98 F) 10/25/2024 3:37 PM RIVET TESTER Respiratory Rate 18 10/25/2024 3:37 PM RIVET TESTER Oxygen Saturation 98% 10/25/2024 3:37 PM RIVET TESTER Inhaled Oxygen Concentration - - Weight 71.7 kg (158 lb) 10/25/2024 11:07 AM RIVET TESTER Height 182.9 cm (6') 10/25/2024 11:07 AM RIVET TESTER Body Mass Index 21.43 10/25/2024 11:07 AM RIVET TESTER Plan of Treatment Health Maintenance Due Date [...] URINALYSIS, MICROSCOPIC ONLY STAT 10/25/2024 2:06 PM RIVET TESTER DRUGS OF ABUSE SCREEN, URINE WITHOUT CONFIRMATION STAT 10/25/2024 2:06 PM RIVET TESTER URINALYSIS AND REFLEX TO MICROSCOPIC AND CULTURE STAT 10/25/2024 2:[address] ABDOMEN PELVIS W CONTRAST ED 10/25/2024 1:50 PM RIVET TESTER EGFR STAT 10/25/2024 11:13 AM RIVET TESTER DIFFERENTIAL AUTO STAT 10/25/2024 11: 13 AM RIVET TESTER LIPASE STAT 10/25/2024 11:13 AM RIVET TESTER COMPREHENSIVE METABOLIC PANEL STAT 10/25/2024 11:13 AM RIVET TESTER CBC WITH AUTO DIFFERENTIAL STAT 10/25/2024 11:13 AM RIVET TESTER from Last 3 Months Results * (ABNORMAL) Urinalysis reflex to microscopic and culture Urine (10/25/2024 2:06 PM RIVET TESTER) Color, ur Yellow Yellow Clarity, ur Clear Clear [facility] Specific gravity, ur >1.030(H) 1.003 - 1.030 [facility] pH, urine 8.5 [facility] Comment: Interpretive Data U rine pH is affected by diet, medications, systemic acid-base disturbances, and renal tubular function. pH may affect urinary stone formation. For example, urine pH below 6.0 may help reduce the tendency for calcium phosphate stones and pH greater than 6.0 may reduce the tendency for uric acid stone formation. Source: [facility] Current Interpretive Data was last revised on 2017 Protein, ur ql 2+(A) Negative [facility] Glucose, ur ql Negative Negative [facility] Ketones, ur Negative Negative [facility] Bilirubin, ur Negative Negative [facility] Blood, ur Negative Negative [facility] Urobilinogen, ur <2.0 <2.0 mg/dL [facility] Nitrite, ur Negative Negative [facility] Leukocyte esterase, ur Negative Negative [facility] UA reflex comment Reflex to microscopic UA will be performed. [facility] Urine 10/25/2024 2:06 PM RIVET TESTER 10/25/2024 2:20 PM RIVET TESTER Ten Cole MD LAB MICROBIOLOGY - GENERAL ORDERABLES Final Result [facility] [address] [facility] Department [place] [address] * (ABNORMAL) Drugs of Abuse Screen, Urine without Confirmation (10/25/2024 2:06 PM RIVET TESTER) Amphetamine, ur Not Detected CutOff 500ng/mL Comment: Interpretive Data - Amphetamines: Samples containing greater than 500 ng/mL d-methamphetamine or other cross-reacting amphetamine compounds are reported as positive. Amphetamine immunoassays are subject to significant false positive rates due to cross-reactivity of non-amphetamine drugs. Confirmatory testing required for definitive results. Current Interpretive Data was last reviewed 2023. Barbiturates, ur Not Detected CutOff 200ng/mL [facility] Comment: Interpretive Data - Barbiturates: Samples containing greater than 200 ng/mL secobarbital or other cross-reacting barbiturate compounds are reported as positive. False positive and false negative results are possible. Confirmatory testing required for definitive results. Current Interpretive Data was last reviewed 2023. Benzodiazepines, ur Not Detected CutOff 100ng/mL [facility] Comment: Interpretive Data - Benzodiazepines: Samples [...] Screen Positive, presumptive (A) CutOff 150ng/mL [facility] Comment: Interpretive Data - Cocaine: Samples containing greater than 150 ng/mL benzoylecgonine or other cross- reacting compounds are reported as positive. False positive and false negative results are possible. Confirmatory testing required for definitive results. Current Interpretive Data was last reviewed 2023. Fentanyl, Ur Not Detected Cutoff 1 ng/mL [facility] Comment: Interpretive Data - Fentanyl: Samples containing greater than 1 ng/mL fentanyl or other cross-reacting fentanyl compounds are reported as positive. False positive and false negative results are possible. Confirmatory testing required for definitive results. Current Interpretive Data was last reviewed 2023. Methadone, ur Not Detected CutOff 300ng/mL [facility] Comment: Interpretive Data - Methadone: Samples containing [...] 2023. Oxycodone, ur Not Detected CutOff 100ng/mL [facility] Comment: Interpretive Data - Oxycodone: Samples containing greater than 100 ng/mL oxycodone or other cross-reacting compounds are reported as positive. False positive and false negative results are possible. Confirmatory testing required for definitive results. Current Interpretive Data was last reviewed 2023. Phencyclidine, ur Not Detected CutOff 25 ng/mL [facility] Comment: Interpretive Data - Phencyclidine: Samples containing greater than 25 ng/mL phencyclidine or other cross-reacting compounds are reported as positive. False positive and false negative results are possible. Confirmatory testing required for definitive results. Current Interpretive Data was last reviewed 2023. Urine Creatinine 192 mg/dL [facility] Comment: Interpretive Data Urine Creatinine: < 10 mg/dL is extremely dilute = or > 10 but < 20 mg/dL is dilute = or > 20 mg/dL is normal Current Interpretive Data was last revised on 2017. Urine 10/25/2024 2:06 PM RIVET TESTER 10/25/2024 2:20 PM RIVET TESTER Narrative [facility] - 10/25/2024 3:46 PM RIVET TESTER Drug of Abuse screening is performed by immunoassay for medical purposes only. This is not to be used for Pain Management purposes. us [place] [facility] URINE ORDERABLE S Final Result [address] [place] [address] * (ABNORMAL) Urinalysis, microscopic only (10/25/2024 2:06 PM RIVET TESTER) WBC, ur 0-5 0 - 5 /HPF RBC, ur 11-20(A) 0 - 2 /HPF [facility] Epithelial cells, squamous, ur 1-5 0 - 5 /HPF [facility] Mucous, ur Present(A) [facility] Culture Reflex Comment Reflex conditions for urine culture (WBC >10) not met. [facility] Urine 10/25/2024 2:06 PM RIVET TESTER 10/25/2024 2:20 PM RIVET TESTER us Ten Cole MD LAB URINE ORDERABLES Final Result [facility] [place] [address] * CT Abdomen Pelvis W Contrast (10/25/2024 1:50 PM RIVET TESTER) Anatomical Region Laterality Modality Body N/A Computed Tomogra phy 10/25/2024 2:05 PM RIVET TESTER Impressions 10/25/2024 2:05 PM RIVET TESTER 1. There is a suggestion of a [...] Krys Han M.D. Narrative 10/25/2024 2:05 PM RIVET TESTER EXAMINATION: Computed Tomography of the Abdomen and [...] inal Result * eGFR (10/25/2024 11:13 AM RIVET TESTER) [facility] eGFR >90 >=60 mL/min/1. 73 m2 Comment: [...] reviewed 2021. Blood 10/25/2024 11:1 3 AM RIVET TESTER 10/25/2024 11:18 AM RIVET TESTER Ten Cole MD LAB BLOOD ORDERABLES Final Result [address] [place] [address] * (ABNORMAL) Differential, auto (10/25/2024 11:13 AM RIVET TESTER) Pathologist [facility] Neutrophil abs 8.4(H) 1.5 - 6.5 K/cumm Imm gran abs 0.0 0.0 - 0.1 K/cumm [facility] Lymphocyte abs 1.8 0.8 - 3.3 K/cumm [facility] Monocyte abs 0.9(H) 0.2 - 0.8 K/cumm [facility] Eosinophil abs 0.1 0.0 - 0.5 K/cumm [facility] Basophil abs 0.1 0.0 - 0.1 K/cumm [facility] Neutrophil pct 74.8 % [facility] Comment: Interpretive Data Percent cell count reference ranges are not reported, since discordance with absolute values may lead to misinterpretation of CBC data. Current Interpretive Data was last revised on 2018. Imm gran pct 0.3 % [facility] Comment: Interpretive Data Percent cell count reference ranges are not reported, since discordance with absolute values may lead to misinterpretation of CBC data. Current Interpretive Data was last revised on 2018. Lymphocyte pct 16.1 % [facility] Comment: Interpretive Data Percent cell count reference ranges are not reported, since discordance with absolute values may lead to misinterpretation of CBC data. Current Interpretive Data was last revised on 2018. Monocyte pct 7.9 % [facility] Comment: Interpretive Data Percent cell count reference ranges are not reported, since discordance with absolute values may lead to misinterpretation of CBC data. Current Interpretive Data was last revised on 2018. Eosinophil pct 0.4 % [facility] Comment: Interpretive Data Percent cell count reference ranges are not reported, since discordance with absolute values may lead to misinterpretation of CBC data. Current Interpretive Data was last revised on 2018. Basophil pct 0.5 % [facility] Comment: Interpretive Data Percent cell count reference ranges are not reported, since discordance with absolute values may lead to misinterpretation of CBC data. Current Interpretive Data was last revised on 2018. Blood 10/25/2024 11:1 3 AM RIVET TESTER 10/25/2024 11:18 AM RIVET TESTER us Ten Cole MD LAB BLOOD ORDERABLES Final Result [facility] [address] [facility] Department [place] [address] * (ABNORMAL) CBC with auto differential (10/25/2024 11:13 AM RIVET TESTER) WBC 11.2(H) 3.8 - 9.9 K/cumm Hgb 16.0 13.0 - 17.5 g/dL [facility] Hct 44.9 38.9 - 50.3 % [facility] Plt 398 150 - 400 K/cumm [facility] MPV 9.2 9.1 - 12.3 fL [facility] RBC 5.37 4.30 - 5.80 M/cumm [facility] MCV 83.6 81.3 - 96.4 fL [facility] MCH 29.8 27.1 - 33.3 pg [facility] MCHC 35.6 32.3 - 35.7 g/dL [facility] RDW CV 11.7 11.1 - 14.9 % [facility] RDW SD 35.1(L) 35.7 - 48.1 fL [facility] NRBC abs 0.00 0.00 - 0.01 K/cumm [facility] Blood (Blood, Venous) 10/25/2024 11:13 AM RIVET TESTER 10/25/2024 11:18 AM RIVET TESTER Ten Cole MD LAB BLOOD ORDERABLES Final Result Performing Organization Address [facility]/ZIP Co de Phone Number [address] of Laboratories [place], [place] [id number] * (ABNORMAL) Lipase (10/25/2024 11:13 AM RIVET TESTER) [facility] Lipase 138(H) 10 - 99 Units/L Blood 10/25/2024 11:1 3 AM RIVET TESTER 10/25/2024 11:18 AM RIVET TESTER Ten Cole MD LAB BLOOD ORDERABLES Final Result Performing Organization Address City/[facility]/ZIP Co de Phone Number [address] [place] [address] * (ABNORMAL) Comprehensive metabolic panel (10/25/2024 11:13 AM RIVET TESTER) [facility] Sodium 130(L) 135 - 145 mmol/L Potassium, pl 3.1(L) 3.3 - 4.9 mmol/L [facility] Chloride 84(L) 97 - 110 mmol/L [facility] CO2 35(H) 22 - 32 mmol/L [facility] Anion gap 11 2 - 15 mmol/L [facility] BUN 9 6 - 25 mg/dL [facility] Creatinine 0.98 0.80 - 1.30 mg/dL [facility] Glucose 136 70 - 199 mg/dL [facility] Comment: Interpretive Data Fasting glucose >/= [...] 2022. Calcium 10.3 8.5 - 10.3 mg/dL [facility] Bilirubin, total 0.5 0.1 - 1.2 mg/dL [facility] Protein, pl 7.9 6.5 - 8.5 g/dL [facility] Albumin 4.9 3.5 - 5.0 g/dL [facility] Alk phos 64 40 - 130 Units/L [facility] ALT 10 7 - 55 Units/L [facility] AST 25 10 - 50 Units/L [facility] Blood (Blood, Venous) 10/25/2024 11:13 AM RIVET TESTER 10/25/2024 11:18 AM RIVET TESTER us Ten Cole MD LAB BLOOD ORDERABLES Final Result [facility] [address] [facility] [place] [address] from Last 3 Months Insurance IDPA Advance Directives For more information, please contact: [phone] * Full Code (Latest Code Status on File) Date Activated Date Inactivated Comments 01/17/2022 10:36 AM 01/19/2022 10:32 PM Care Teams Segment Producer Relationship Specialty Start Date End Date Rocío Lombardi MD [address] [facility] [address] [place] [address] PCP - General 11/22/19
--- OUTSIDE RECORDS SUMMARY | 2024-11-27 23:54 | XMS_ITS | CONTINUITY OF CARE DOCUMENT ---
Author Name erin khan Address Unknown Organization [facility] Address [address] [place] [address] Phone [phone] Care Team Providers Care Sewer Maintenance Supervisor Name Role Phone Slime Garber MD Unavailable [phone] Slime Garber MD Unavailable [phone] INSURANCE PROVIDERS Payer name Policy type / Coverage type [employer] HE[employer] AND FAMILY SERVICES Medicaid 3 [id number]
[2024-11-28] MEDS: SODIUM CHLORIDE 0.9% IV 1,000 ML 999 ML IV CONT (00:20)
[2024-11-28] MEDS: diphenhydrAMINE HCl INJ 50 MG/ML VIAL 25 MG IV PUSH (00:20)
[2024-11-28 00:22] VITALS: BP 128/98; PULSE 94; RESP 18; O2SAT 100
[2024-11-28] MEDS: HALOPERIDOL LACTATE 5 MG/ML VIAL IV PUSH (00:22)
[2024-11-28 00:32] LABS: Basophils Percent Auto 0.2 % (0.2-1.2); Eosinophils Percent Auto 0.2 % (0-4.4); Hematocrit 49.2 % (42.0-52.0); Hemoglobin 17.6 g/dL (14.0-18.0); Immature Granulocyte Absolute 0.05 K/mm3 (0.00-0.031); Immature Granulocyte Percent A 0.4 % (0-0.5); Lymphocytes Percent Auto 16.6 % (18.3-44.2); Mean Corpuscular HGB Conc 35.8 g/dl (32-36); Mean Corpuscular Hemoglobin 29.1 pg (26-34); Mean Corpuscular Volume 81.5 fl (80-100); Mean Platelet Volume 9.3 fl (7.4-10.4); Monocytes Absolute Auto 1.8 K/mm3 (0.1-0.6); Monocytes Percent Auto 14.5 % (2.6-8.5); Neutrophils Absolute Auto 8.6 K/mm3 (1.3-6.7); Neutrophils Percent Auto 68.1 % (45.5-73.1); Platelet Count Result 427 k/mm3 (150-375); Red Blood Count 6.04 M/mm3 (4.6-6.20); Red Cell Distribution Width 11.6 % (11.5-14.5); White Blood Count 12.6 K/mm3 (4.5-10.0)
[2024-11-28 00:40] LABS: Alanine Aminotransferase 16 U/L (6-50); Albumin Level 5.1 g/dL (3.5-5.1); Alkaline Phosphatase 73 U/L (38-126); Anion Gap 15 mmol/L (4-12); Aspartate Amino Transferase 31 U/L (17-59); Bilirubin,Total 1.5 mg/dL (0.2-1.3); Blood Urea Nitrogen 31 mg/dL (9-20); Calcium 9.8 mg/dL (8.4-10.2); Carbon Dioxide 38 mmol/L (22-30); Chloride 71 mmol/L (98-107); Estimated Glomerular Filt Rate > 60; Glucose 101 mg/dL (65-110); Lipase 362 U/L (23-300); Potassium 2.9 mmol/L (3.4-5.0); Sodium 124 mmol/L (137-145)
[2024-11-28] MEDS: KCL 20 MEQ/SW 100 ML 100 ML 50 MEQ IVPB (02:25)
[2024-11-28] MEDS: POTASSIUM CHLORIDE 20 MEQ ER TABLET 40 MEQ PO (02:27)
[2024-11-28] MEDS: DEXTROSE 5%/LACTATED RINGERS 1,000 ML 999 ML IV CONT (02:27)
[2024-11-28 02:28] VITALS: BP 120/84; PULSE 112; RESP 18; O2SAT 98
[2024-11-28 03:45] VITALS: BP 129/92; PULSE 97; RESP 15; TEMP 36.8; O2SAT 99
[2024-11-28 06:01] LABS: Anion Gap 10 mmol/L (4-12); Blood Urea Nitrogen 25 mg/dL (9-20); Calcium 9.5 mg/dL (8.4-10.2); Carbon Dioxide 39 mmol/L (22-30); Chloride 82 mmol/L (98-107); Estimated Glomerular Filt Rate > 60; Glucose 87 mg/dL (65-110); Potassium 3.3 mmol/L (3.4-5.0); Sodium 131 mmol/L (137-145)
[2024-11-28 06:08] VITALS: BP 163/99; PULSE 103; RESP 16; TEMP 36.6; O2SAT 99
== END 2024-11-28 06:27 | disposition home or self-care (01) ==
PROVIDERS: Emergency Provider Student in an Organized Health Care Education/Training Program
DX: R11.15 Cyclical vomiting syndrome unrelated to migraine (principal); F12.929 Cannabis use, unspecified with intoxication, unspecified
CPT/HCPCS: 36415; 80048; 80053; 83690; 85025; 96361; 96365; 96366; 96374; 96375; 99284; A9270; J1200; J1630; J3480; J7030; J7121

== ENCOUNTER 2024-12-04 21:24 | Emergency (ER) | payer OTHER, SELFPAY ==
--- OUTSIDE RECORDS SUMMARY | 2024-12-04 21:27 | XMS_ITS | Encounter Summary ---
Author Organization [facility] Address [facility] [place] [address] Care Team Providers Care Regional Training Manager Name Role Phone Rocío Lombardi MD Primary Care Provider + None, Provider Primary Care Provider Claudine schwartz Encounter Details Date Type Department Care Team (Late st Contact Info) Description 10/31/2023 [employer] Message [facility] Family and Sports Medicine - [place] [address] [place], [facility] Provider Schedule Appointment: Annual Physical Social History Tobacco Use Types Packs/Day Years Used Date Smoking Tobacco: Former Cigarettes Smokeless Tobacco: Never Comments:USED MARIJUANA IN P AST. Cigs off and on. Alcohol Use Standard Drinks/Week Comments Yes 0 (1 standard drink = 0.6 oz pur e alcohol) occassional [facility] Utilities Answer Date Recorded In the past 12 months has e [email or web address], gas, oil, or water [employer] threatened to shut off services in your [...] place to sleep or slept in a group home (including now)? No 10/03/2023 Sex and Gender Information Value Date Recorded Sex Assigned at Male 10/21/2024 2:48 PM STORE MERCHANDISER Legal Sex Male 7:32 AM CDT Gender Identity Male 09/29/2022 5:25 PM STORE MERCHANDISER Sexual Orientation Straight 09/29/2022 5: 25 PM STORE MERCHANDISER documented as of this encounter Functional Status [...] Total Score: 0 09/30/20 22 10:11 AM STORE MERCHANDISER documented as of this encounter Care Teams Regional Training Manager Relationship Specialty Start Date End Date Rocío Lombardi MD PCP - General FAMILY PRACTICE 04/08/20 04/09/24 None, Provider, PCP - General UNKNOWN PHYSICIAN SPECIALTY 04/24/24 documented as of this encounter
--- OUTSIDE RECORDS SUMMARY | 2024-12-04 21:27 | XMS_ITS | Encounter Summary ---
Author Organization [facility] Address [facility] [place] [address] Care Team Providers Care Tucking Machine Operator Name Role Phone None, Provider Primary Care Provider Unavaila ble None, Provider Primary Care Provider Unavaila ble Rocío Lombardi MD Primary Care Provider [phone] None, Provider Primary Care Provider Unavaila ble Encounter Details Date Type Department Care Team (Late st Contact Info) Description 03/09/2019 Abstract [facility] CONVERSION [address] [place] [address] , Generic Conversion, Social History Tobacco Use Types Packs/Day Years Used Date Smoking Tobacco: Never Smokeless Tobacco: Never Comments:USED MARIJUANA IN P AST Alcohol Use Standard Drinks/Week Comments Yes 0 (1 standard drink = 0.6 oz pur e alcohol) occassional Sex and Gender Information Value Date Recorded Sex Assigned at Male 10/21/2024 2:48 PM FIELD MECHANIC Legal Sex Male 7:32 AM CDT Gender Identity Male 09/29/2022 5:25 PM FIELD MECHANIC Sexual Orientation Straight 09/29/2022 5: 25 PM FIELD MECHANIC documented as of this encounter Plan of Treatment Not on file documented as of this encounter Visit Diagnoses Not on filedocumented in this encounter Additional Health Concerns Infection Onset Date Last Indicated Resolved Time COVID-19 Rule Out Comment:TESTED 7.1304/13/2020 04/13/2020 04/13/2020 9:19 A M CDT COVID-19 Rule Out 10/02/2020 10/02/2020 10/02/2020 7:28 PM FIELD MECHANIC COVID-19 Rule Out 11/09/2020 11/09/2020 11/10/2020 6:16 PM FIELD MECHANIC COVID-19 Rule Out 11/23/2020 11/23/2020 11/24/2020 5:51 PM FIELD MECHANIC COVID-19 Rule Out 12/29/2020 12/29/2020 12/29/2020 7:08 PM CDT COVID-19 Rule Out 04/09/2024 04/09/2024 04/09/2024 11:06 PM CDT documented as of this encounter Care Teams Tucking Machine Operator Relationship Specialty Start Date End Date None, Provider, PCP - General 01/16/19 03/18/19 None, ProviderMD PCP - General 03/19/19 04/07/20 Rocío Lombardi MD PCP - General FAMILY PRACTICE 04/08/20 04/09/24 None, ProviderMD PCP - General UNKNOWN PHYSICIAN SPECIALTY 04/24/24 documented as of this encounter
--- OUTSIDE RECORDS SUMMARY | 2024-12-04 21:27 | XMS_ITS | Encounter Summary ---
Author Organization [facility] Address Formerly [facility], [id number] [place] [address] Care Team Providers Care Regenerator Operator Name Role Phone Rocío Lombardi MD Primary Care Provider None, Provider Primary Care Provider Unavaila ble Encounter Details Date Type Department Care Team (Late st Contact Info) Description 11/09/2020 Prep for Procedure [facility] One [facility] [place], [place] [id number] Ten Flynn MD 3 [facility] [address] [place], [place] [id number] Social History Tobacco Use Types Packs/Day Years Used Date Smoking Tobacco: Never Smokeless Tobacco: Never Comments:USED MARIJUANA IN P AST Alcohol Use Standard Drinks/Week Comments Yes 0 (1 standard drink = 0.6 oz pur e alcohol) occassional Sex and Gender Information Value Date Recorded Sex Assigned at Male 10/21/2024 2:48 PM SALES AND MARKETING SPECIALIST Legal Sex Male 7:32 AM CDT Gender Identity Male 09/29/2022 5:25 PM SALES AND MARKETING SPECIALIST Sexual Orientation Straight 09/29/2022 5: 25 PM SALES AND MARKETING SPECIALIST COVID-19 Exposure Response Date Recorded In the last month, have you been in contact with someone who was confirmed or suspected to have Coronavirus / COVID-19? No / Unsure 11/06/2020 1:13 PM SALES AND MARKETING SPECIALIST documented as of this encounter Functional Status [...] PRE-SURGICAL/PRE-PROCEDURE CORONAVIRUS (COVID 19) (11/09/2020 11:48 AM SALES AND MARKETING SPECIALIST) Pathologist [facility] CORONAVIRUS SARS COV 2 PCR (RESP) NOT DETECTED NOT DETECTED 11/10/2020 6:15 PM SALES AND MARKETING SPECIALIST [employer] [facility] Comment: A Not Detected (negative) [...] providers and patients using the following websites: https://www.iStorez.com/home/Covid-19/HCP/NAAT/fact-sheet2 https://www.[employer].com/home/Covid-19/Patients/NAAT/ fact-sheet2 This test has been authorized by the FDA under an Emergency Use Authorization (EUA) for use by authorized laboratories. Due to the current public health emergency, [facility] is receiving a high volume of samples [...] about COVID-19 can be found at the [facility] website: www.Lavish Skate.Torrent LoadingSystems/Covid19. Test performed at [facility] [address] [address] Director: BAM SMTIH DO,MPH FIRST TEST NO 11/09/2020 12:26 PM [facility] EMPLOYED IN HEALTHCARE NO 11/09/2020 12:26 PM [facility] SYMPTOMATIC DEFINED BY CDC NO 11/09/2020 12:26 PM [facility] DATE OF SYMPTOM ONSET NO 11/09/2020 12:34 PM [facility] HOSPITALIZATION STATUS NO 11/09/2020 12:26 PM [facility] PATIENT IN ICU NO 11/09/2020 12:26 PM [facility] RESIDENT OF [facility] NO 11/09/2020 12:26 PM [facility] NO 11/09/2020 12:34 PM [facility] PATIENT'S RACE WHITE OR 11/09/2020 12:26 PM [facility] ETHNICITY NONHISPANIC 11/09/2020 12:26 PM [facility] SOURCE (QST) NASOPHARYNGEAL SWAB 11/09/2020 12:26 PM SALES AND MARKETING SPECIALIST [facility] NASOPHARYNGEAL SWAB / Unknown 11/09/2020 11:48 AM SALES AND MARKETING SPECIALIST us Ten Flynn MD MICROBIOLOGY - GENERAL ORDERABLE S Final Result [facility] [address] [facility] [place] [address], [employer] [facility] [address] [place] [address], documented in this encounter Visit Diagnoses Diagnosis Abdominal pain- Primary Abdominal pain, unspecified site documented in this encounter Additional Health Concerns Infection Onset Date Last Indicated Resolved Time COVID-19 Rule Out 11/09/2020 11/09/2020 11/10/2020 6:16 PM SALES AND MARKETING SPECIALIST COVID-19 Rule Out 11/23/2020 11/23/2020 11/24/2020 5:51 PM SALES AND MARKETING SPECIALIST COVID-19 Rule Out 12/29/2020 12/29/2020 12/29/2020 7:08 PM CDT COVID-19 Rule Out 04/09/2024 04/09/2024 04/09/2024 11:06 PM CDT documented as of this encounter Care Teams Regenerator Operator Relationship Specialty Start Date End Date Rocío Lombardi MD PCP - General FAMILY PRACTICE 04/08/20 04/09/24 None, Provider, PCP - General UNKNOWN PHYSICIAN SPECIALTY 04/24/24 documented as of this encounter
--- OUTSIDE RECORDS SUMMARY | 2024-12-04 21:27 | XMS_ITS | Referral Summary ---
Author Organization [facility] Address [address] [place] [address] Care Team Providers Care Pickle Cutter Name Role Phone Rocío Lombardi MD Primary Care Provider [phone] Encounters Date Type Department Care Team Description 10/25/2024 1:14 PM BAKER OPERATOR AUTOMATIC - 10/25/2024 3:37 PM [facility] Emergency Department [address] [place] [address] Nausea and vomiting, unspecified vomiting type (Primary [...] on file Legal Sex Male 4:18 PM BAKER OPERATOR AUTOMATIC Gender Identity Male 07/12/2021 12:07 AM CDT Sexual Orientation Not on file Last Filed Vital Signs Vital Sign Reading Time Taken Comments Blood Pressure 148/90 10/25/2024 3:37 PM BAKER OPERATOR AUTOMATIC Pulse 94 10/25/2024 3:37 PM BAKER OPERATOR AUTOMATIC Temperature 36.7 C (98 F) 10/25/2024 3:37 PM BAKER OPERATOR AUTOMATIC Respiratory Rate 18 10/25/2024 3:37 PM BAKER OPERATOR AUTOMATIC Oxygen Saturation 98% 10/25/2024 3:37 PM BAKER OPERATOR AUTOMATIC Inhaled Oxygen Concentration - - Weight 71.7 kg (158 lb) 10/25/2024 11:07 AM BAKER OPERATOR AUTOMATIC Height 182.9 cm (6') 10/25/2024 11:07 AM BAKER OPERATOR AUTOMATIC Body Mass Index 21.43 10/25/2024 11:07 AM BAKER OPERATOR AUTOMATIC Plan of Treatment Not on file Procedures Procedure Name Priority Date/Time Associated Diagnosis Comments URINALYSIS, MICROSCOPIC ONLY STAT 10/25/2024 2:06 PM BAKER OPERATOR AUTOMATIC DRUGS OF ABUSE SCREEN, URINE WITHOUT CONFIRMATION STAT 10/25/2024 2:06 PM BAKER OPERATOR AUTOMATIC URINALYSIS AND REFLEX TO MICROSCOPIC AND CULTURE STAT 10/25/2024 2:06 [address]OMATIC [address] ABDOMEN PELVIS W CONTRAST ED 10/25/2024 1:50 PM BAKER OPERATOR AUTOMATIC EGFR STAT 10/25/2024 11:13 AM BAKER OPERATOR AUTOMATIC DIFFERENTIAL AUTO STAT 10/25/2024 11: 13 AM BAKER OPERATOR AUTOMATIC LIPASE STAT 10/25/2024 11:13 AM BAKER OPERATOR AUTOMATIC COMPREHENSIVE METABOLIC PANEL STAT 10/25/2024 11:13 AM BAKER OPERATOR AUTOMATIC CBC WITH AUTO DIFFERENTIAL STAT 10/25/2024 11:13 AM BAKER OPERATOR AUTOMATIC from Last 3 Months Results * (ABNORMAL) Urinalysis reflex to microscopic and culture Urine (10/25/2024 2:06 PM BAKER OPERATOR AUTOMATIC) Color, ur Yellow Yellow Clarity, ur Clear [...] tendency for uric acid stone formation. Source: [facility] [employer] Current Interpretive Data was last revised on 2017 Protein, ur ql 2+(A) Negative [facility] Glucose, ur ql Negative Negative [facility] Ketones, ur Negative Negative [facility] Bilirubin, ur Negative Negative [facility] Blood, ur Negative Negative [facility] Urobilinogen, ur <2.0 <2.0 mg/dL [facility] Nitrite, ur Negative Negative [facility] Leukocyte esterase, ur Negative Negative [facility] UA reflex comment Reflex to microscopic UA will be performed. [facility] Urine 10/25/2024 2:06 PM BAKER OPERATOR AUTOMATIC 10/25/2024 2:20 PM BAKER OPERATOR AUTOMATIC us Ten Cole MD LAB MICROBIOLOGY - GENERAL ORDERABLES Final Result [facility] [address] [facility] Department [place] [address] * (ABNORMAL) Drugs of Abuse Screen, Urine without Confirmation (10/25/2024 2:06 PM BAKER OPERATOR AUTOMATIC) Amphetamine, ur Not Detected [facility] 500ng/mL Comment: Interpretive Data - Amphetamines: Samples containing greater than 500 ng/mL d-methamphetamine or other cross-reacting amphetamine compounds are reported as positive. Amphetamine immunoassays are subject to significant false positive rates due to cross-reactivity of non-amphetamine drugs. Confirmatory testing required for definitive results. Current Interpretive Data was last reviewed 2023. Barbiturates, ur Not Detected CutOff 200ng/mL [facility] Comment: Interpretive Data - Barbiturates: Samples containing greater than 200 ng/mL secobarbital or other cross-reacting barbiturate compounds are reported as positive. False positive and false negative results are possible. Confirmatory testing required for definitive results. Current Interpretive Data was last reviewed 2023. Benzodiazepines, ur Not Detected CutOff 100ng/mL [facility] Comment: Interpretive Data - Benzodiazepines: Samples containing greater than 100 ng/mL nordiazepam or other cross-reacting compounds are reported as positive. False positive and false negative results are possible. Confirmatory testing required for definitive results. Current Interpretive Data was last reviewed 2023. Cannabinoids, ur Screen Positive, presumptive (A) CutOff 50 ng/mL [facility] Comment: Interpretive Data - Cannabinoids: Samples containing greater than 50 ng/mL delta-9 THC -COOH or other cross- reacting compounds are reported as positive. False positive and false negative results are possible. Confirmatory testing required for definitive results. Current Interpretive Data was last reviewed 2023. Cocaine, ur Screen Positive, presumptive (A) CutOff 150ng/mL [facility] Comment: Interpretive Data - Cocaine: Samples containing greater than 150 ng/mL benzoylecgonine or other cross- reacting compounds are reported as positive. False positive and false negative results are possible. Confirmatory testing required for definitive results. Current Interpretive Data was last reviewed 2023. Fentanyl, Ur Not Detected Cutoff 1 ng/mL [facility] Comment: Interpretive Data - Fentanyl: Samples containing greater than 1 ng/mL fentanyl or other cross-reacting fentanyl compounds are reported as positive. False positive and false negative results are possible. Confirmatory testing required for definitive results. Current Interpretive Data was last reviewed 2023. Methadone, ur Not Detected CutOff 300ng/mL [facility] Comment: Interpretive Data - Methadone: Samples containing greater than 300 ng/mL d,l-methadone or other cross-reacting compounds are reported as positive. False positive and false negative results are possible. Confirmatory testing required for definitive results. Current Interpretive Data was last reviewed 2023. Opiates, ur Not Detected CutOff 300ng/mL [facility] Comment: Interpretive Data - Opiates: Samples containing greater than 300 ng/mL morphine or other cross-reacting compounds are reported as positive. False positive and false negative results are possible. Confirmatory testing required for definitive results. Current Interpretive Data was last reviewed 2023. Oxycodone, ur Not Detected CutOff 100ng/mL [facility] Comment: Interpretive Data - Oxycodone: Samples containing greater than 100 ng/mL oxycodone or other cross-reacting compounds are reported as positive. False positive and false negative results are possible. Confirmatory testing required for definitive results. Current Interpretive Data was last reviewed 2023. Phencyclidine, ur Not Detected CutOff 25 ng/mL [facility] Comment: Interpretive Data - Phencyclidine: Samples containing greater than 25 ng/mL phencyclidine or other cross-reacting compounds are reported as positive. False positive and false negative results are possible. Confirmatory testing required for definitive results. Current Interpretive Data was last reviewed 2023. Urine Creatinine 192 mg/dL [facility] Comment: Interpretive Data Urine Creatinine: < 10 mg/dL is extremely dilute = or > 10 but < 20 mg/dL is dilute = or > 20 mg/dL is normal Current Interpretive Data was last revised on 2017. Urine 10/25/2024 2:06 PM BAKER OPERATOR AUTOMATIC 10/25/2024 2:20 PM BAKER OPERATOR AUTOMATIC Narrative [facility] - 10/25/2024 3:46 PM BAKER OPERATOR AUTOMATIC Drug of Abuse screening is performed by immunoassay for medical purposes only. This is not to be used for Pain Management purposes. us [place] [facility] URINE ORDERABLE S Final Result Performing Organization Address [facility] Co de Phone Number [address] [place] [address] * (ABNORMAL) Urinalysis, microscopic only (10/25/2024 2:06 PM BAKER OPERATOR AUTOMATIC) WBC, ur 0-5 0 - 5 /HPF RBC, ur 11-20(A) 0 - 2 /HPF [facility] Epithelial cells, squamous, ur 1-5 0 - 5 /HPF [facility] Mucous, ur Present(A) [facility] Culture Reflex Comment Reflex conditions for urine culture (WBC >10) not met. [facility] Urine 10/25/2024 2:06 PM BAKER OPERATOR AUTOMATIC 10/25/2024 2:20 PM BAKER OPERATOR AUTOMATIC us Ten Cole MD LAB URINE ORDERABLES Final Result Performing Organization Address [facility] de Phone Number [address] [place] [address] * CT Abdomen Pelvis W Contrast (10/25/2024 1:50 PM BAKER OPERATOR AUTOMATIC) Anatomical Region Laterality Modality Body N/A Computed Tomogra phy 10/25/2024 2:05 PM BAKER OPERATOR AUTOMATIC Impressions 10/25/2024 2:05 PM BAKER OPERATOR AUTOMATIC 1. There is a suggestion of a [...] Krys Han M.D. Narrative 10/25/2024 2:05 PM BAKER OPERATOR AUTOMATIC EXAMINATION: Computed Tomography of the Abdomen and [...] signed by: Krys Han M.D. [place] [facility] [place]EDURES F inal Result * eGFR (10/25/2024 11:13 AM BAKER OPERATOR AUTOMATIC) eGFR >90 >=60 mL/min/1. 73 m2 Comment: [...] reviewed 2021. Blood 10/25/2024 11:1 3 AM BAKER OPERATOR AUTOMATIC 10/25/2024 11:18 AM BAKER OPERATOR AUTOMATIC us Ten Cole MD LAB BLOOD ORDERABLES Final Result [address] Department [place] [address] * (ABNORMAL) Differential, auto (10/25/2024 11:13 AM BAKER OPERATOR AUTOMATIC) Neutrophil abs 8.4(H) 1.5 - 6.5 K/cumm Imm gran abs 0.0 0.0 - 0.1 K/cumm [facility] Lymphocyte abs 1.8 0.8 - 3.3 K/cumm [facility] Monocyte abs 0.9(H) 0.2 - 0.8 K/cumm [facility] Eosinophil abs 0.1 0.0 - 0.5 K/cumm [facility] Basophil abs 0.1 0.0 - 0.1 K/cumm [facility] Neutrophil pct 74.8 % [facility] Comment: Interpretive Data Percent cell count reference ranges are not reported, since discordance with absolute values may lead to misinterpretation of CBC data. Current Interpretive Data was last revised on 2018. Imm gran pct 0.3 % [facility] Comment: Interpretive Data Percent cell count reference ranges are not reported, since discordance with absolute values may lead to misinterpretation of CBC data. Current Interpretive Data was last revised on 2018. Lymphocyte pct 16.1 % [facility] Comment: Interpretive Data Percent cell count reference ranges are not reported, since discordance with absolute values may lead to misinterpretation of CBC data. Current Interpretive Data was last revised on 2018. Monocyte pct 7.9 % [facility] Comment: Interpretive Data Percent cell count reference ranges are not reported, since discordance with absolute values may lead to misinterpretation of CBC data. Current Interpretive Data was last revised on 2018. Eosinophil pct 0.4 % [facility] Comment: Interpretive Data Percent cell count reference ranges are not reported, since discordance with absolute values may lead to misinterpretation of CBC data. Current Interpretive Data was last revised on 2018. Basophil pct 0.5 % [facility] Comment: Interpretive Data Percent cell count reference ranges are not reported, since discordance with absolute values may lead to misinterpretation of CBC data. Current Interpretive Data was last revised on 2018. Blood 10/25/2024 11:1 3 AM BAKER OPERATOR AUTOMATIC 10/25/2024 11:18 AM BAKER OPERATOR AUTOMATIC Ten Cole MD LAB BLOOD ORDERABLES Final Result [facility] [address] [facility] Department [place] [address] * (ABNORMAL) CBC with auto differential (10/25/2024 11:13 AM BAKER OPERATOR AUTOMATIC) WBC 11.2(H) 3.8 - 9.9 K/cumm Hgb 16.0 13.0 - 17.5 g/dL [facility] Hct 44.9 38.9 - 50.3 % [facility] Plt 398 150 - 400 K/cumm [facility] MPV 9.2 9.1 - 12.3 fL [facility] RBC 5.37 4.30 - 5.80 M/cumm [facility] MCV 83.6 81.3 - 96.4 fL [facility] MCH 29.8 27.1 - 33.3 pg [facility] MCHC 35.6 32.3 - 35.7 g/dL [facility] RDW CV 11.7 11.1 - 14.9 % [facility] RDW SD 35.1(L) 35.7 - 48.1 fL [facility] NRBC abs 0.00 0.00 - 0.01 K/cumm [facility] Blood Venous blood specimen / Unknown 10/25/2024 11:13 AM BAKER OPERATOR AUTOMATIC 10/25/2024 11:18 AM BAKER OPERATOR AUTOMATIC Ten Cole MD LAB BLOOD ORDERABLES Final Result Performing Organization Address [facility] Co de Phone Number MONICA [address] Department [place] [address] * (ABNORMAL) Lipase (10/25/2024 11:13 AM BAKER OPERATOR AUTOMATIC) Pathologist [facility] Lipase 138(H) 10 - 99 Units/L Blood 10/25/2024 11:1 3 AM BAKER OPERATOR AUTOMATIC 10/25/2024 11:18 AM BAKER OPERATOR AUTOMATIC Ten Cole MD LAB BLOOD ORDERABLES Final Result Performing Organization Address [facility] Phone Number MONICA [address] [place] [address] * (ABNORMAL) Comprehensive metabolic panel (10/25/2024 11:13 AM BAKER OPERATOR AUTOMATIC) Pathologist [facility] Sodium 130(L) 135 - 145 mmol/L Potassium, pl 3.1(L) 3.3 - 4.9 mmol/L [facility] Chloride 84(L) 97 - 110 mmol/L [facility] CO2 35(H) 22 - 32 mmol/L [facility] Anion gap 11 2 - 15 mmol/L [facility] BUN 9 6 - 25 mg/dL [facility] Creatinine 0.98 0.80 - 1.30 mg/dL [facility] Glucose 136 70 - 199 mg/dL [facility] Comment: Interpretive Data Fasting glucose >/= 126 [...] total 0.5 0.1 - 1.2 mg/dL [facility] Protein, pl 7.9 6.5 - 8.5 g/dL [facility] Albumin 4.9 3.5 - 5.0 g/dL [facility] Alk phos 64 40 - 130 Units/L [facility] ALT 10 7 - 55 Units/L [facility] AST 25 10 - 50 Units/L [facility] Blood Venous blood specimen / Unknown 10/25/2024 11:13 AM BAKER OPERATOR AUTOMATIC 10/25/2024 11:18 AM BAKER OPERATOR AUTOMATIC us Ten Cole MD LAB BLOOD ORDERABLES Final Result [facility] [address] [facility] [place] [address] from Last [address] [place] [address] [facility] Advance Directives For more information, please contact: [phone] * Full Code (Latest Code Status on File) Date Activated Date Inactivated Comments 01/17/2022 10:36 AM 01/19/2022 10:32 PM Care Teams Pickle Cutter Relationship Specialty Start Date End Date Rocío Lombardi MD [address] [facility] [address] [place] [address] PCP - General 11/22/19
--- OUTSIDE RECORDS SUMMARY | 2024-12-04 21:27 | XMS_ITS | Clinical Summary ---
Author Organization [facility] Address [facility] [place] [address] Care Team Providers Care Yarder Operator Name Role Phone None, Provider MD Primary [...] 6 (six) hours as needed for Pain. Indications: Acute Pain < 7 Day Supply 12 [...] by mouth daily. 30 tablet 5 Active Active Problems Problem Noted Date Diagnosed Date Abdominal pain 04/10/2024 Intractable abdominal pain 04/09/2024 Financial difficulty 04/09/2024 Persistent vomiting 10/04/2023 Cyclical vomiting 10/03/2023 Generalized abdominal pain 10/30/2020 Overview (10/30/2020): Added automatically from request for surgery [id number] Panic anxiety syndrome 07/07/2020 Cyclical vomiting, intractable 11/03/2019 Resolved Problems Problem Noted Date Diagnosed Date Resolved Date Intractable nausea and vomiting 05/03/2021 09/30/2022 MARINA (acute kidney injury) 04/04/2021 Nausea and vomiting, intract ability of vomiting not specified, unspecified vomiting type 10/30/2020 09/30/2022 Overview (10/30/2020): Added automatically from request for surgery [id number] Abnormal CT scan, gastrointestinal tract 10/30/2020 09/30/2022 Overview (10/30/2020): Added automatically from request for surgery [id number] Hyponatremia 06/07/2020 09/30/2022 Cyclic vomiting syndrome 03/19/201905/2021 [...] to monitor Dehydration 03/22/2018 09/30/2022 Hypovolemia dehydration 03/20/201809/032 Assessment & Plan (03/22/2018 8:15 AM CDT): [...] MARINA and was hypovoluemic. CT abdomen w/contrast ( on radiology record) was WNL He was [...] Med Group CT (SCAN) 10/21/2024 2:59 PM ALMOND PASTE MOLDER - 10/21/2024 5:16 PM ALMOND PASTE MOLDER Emergency [facility] [place] [address] Joe Velasquez PA Vomiting Discharge Disposition: Home [...] = 0.6 oz pur e alcohol) occassional [facility] Utilities Answer Date Recorded In the past 12 months has e [employer], gas, oil, or water [employer] threatened to shut off services in your [...] place to sleep or slept in a care home (including now)? No 10/03/2023 Housing Stability Vital Sign Answer Leonardo e Recorded In the last 12 months, was t here a time when you were not able to pay the mortgage or rent on time? No 04/09/2024 In the past 12 months, how m any times have you moved where you were living? 1 04/09/2024 At any time in the past 12 m [facility], were you homeless or living in a care home (including now)? No 04/09/2024 Sex and Gender Information Value Date Recorded Sex Assigned at Male 10/21/2024 2:48 PM ALMOND PASTE MOLDER Legal Sex Male 7:32 AM CDT Gender Identity Male 09/29/2022 5:25 PM ALMOND PASTE MOLDER Sexual Orientation Straight 09/29/2022 5: 25 PM ALMOND PASTE MOLDER Last Filed Vital Signs Vital Sign Reading Time Taken Comments Blood Pressure 168/99 10/21/2024 5:00 PM ALMOND PASTE MOLDER Pulse 98 10/21/2024 5:00 PM ALMOND PASTE MOLDER Temperature 36.4 C (97.5 F) 10/21/2024 2:41 PM ALMOND PASTE MOLDER Respiratory Rate 22 10/21/2024 2:41 PM ALMOND PASTE MOLDER Oxygen Saturation 98% 10/21/2024 5:00 PM ALMOND PASTE MOLDER Inhaled Oxygen Concentration - - Weight 72.6 kg (160 lb) 10/21/2024 2:41 PM ALMOND PASTE MOLDER Height 182.9 cm (6') 10/21/2024 2:41 PM ALMOND PASTE MOLDER Body Mass Index 21.7 10/21/2024 2:41 PM ALMOND PASTE MOLDER Plan of Treatment Health Maintenance Due Date Last Done Comments Pneumococcal Vaccine: Pediatrics (0 to 5 Years) and At-Risk Patients (6 to 64 Years) (1 of 2 - PCV) 1994 PHQ-2 (Physician [place]) 2000 Hepatitis C 2006 DTaP, Tdap and Td Vaccines ( 1 - Tdap) 12/21/2007 Hepatitis B Vaccines (1 of 3 - 19+ 3-dose series) 12/21/2007 Annual Physical 09/30/2023 09/30/2022 COVID-19 Vaccine (1 - 2023-2 5 season) 2024 Influenza Adult (#1) 2024 10/05/2023, 11/08/2017 PHQ-2 (Physician [place]) 10/02/2024 HPV Vaccines Aged Out No longer [...] discharge from hospital General No Betty Zelaya, MACHINING ENGINEER Family - family caregiver with be involved in care transitions and discharge planning Lifestyle No Maria R Campos, sensor technician Procedure Name Priority Date/Time Associated Diagnosis Comments CT GENERIC 10/25/2024 LIPASE STAT 10/21/2024 3:06 PM ALMOND PASTE MOLDER COMPREHENSIVE METABOLIC PANEL STAT 10/21/2024 3:06 PM ALMOND PASTE MOLDER CBC W/DIFF AUTOMATED STAT 10/21/2024 3:06 PM ALMOND PASTE MOLDER from Last 3 Months Results * CT GENERIC (10/25/2024) Anatomical Region Laterality Modality Other 10/25/2024 us Doc Med Group Scanned SCANNING Final Resu lt * (ABNORMAL) COMPREHENSIVE METABOLIC PANEL (10/21/2024 3:06 PM ALMOND PASTE MOLDER) GLUCOSE 111(H) 70 - 99 MG/DL 10/21/2024 3:45 PM ALMOND PASTE MOLDER [facility] BUN 17 7 - 18 MG/DL 10/21/2024 3:45 PM ALMOND PASTE MOLDER [facility] CREATININE S/P/B 1.02 0.7 - 1.3 MG/DL 10/21/2024 3:45 PM ALMOND PASTE MOLDER [facility] SODIUM S/P/B 127(L) 136 - 145 MMOL/L 10/21/2024 3:45 PM ALMOND PASTE MOLDER [facility] POTASSIUM S/P/B 2.8(LL) 3.5 - 5.1 MMOL/L 10/21/2024 3:45 PM ALMOND PASTE MOLDER [facility] Comment: Critical Result(s) Called at: 15:44:29 on 10/21/2024 by: DOMINIK CAMPBELL to and read back by:DORITA DE SANTIAGO CHLORIDE S/P/B 85(L) 97 - 115 MMOL/L 10/21/2024 3:45 PM ALMOND PASTE MOLDER [facility] CO2 30.6 21 - 32 MMOL/L 10/21/2024 3:45 PM ALMOND PASTE MOLDER [facility] CALCIUM S/P/B 10.1 8.5 - 10.1 MG/DL 10/21/2024 3:45 PM ALMOND PASTE MOLDER [facility] BILIRUBIN TOTAL S/P/B 1.1 0.2 - 1.2 MG/DL 10/21/2024 3:45 PM [facility] Comment: THIS ASSAY IS NOT RECOMMENDED FOR PATIENTS UNDERGOING TREATMENT WITH ELTROMBOPAG DUE TO THE POTENTIAL FOR FALSELY ELEVATED RESULTS. TOTAL PROTEIN S/P/B 8.1 6.4 - 8.2 G/DL 10/21/2024 3:45 PM ALMOND PASTE MOLDER [facility] ALBUMIN S/P/B 4.1 3.4 - 5.0 G/DL 10/21/2024 3:45 PM ALMOND PASTE MOLDER [facility] AST 20 15 - 37 U/L 10/21/2024 3:45 PM [facility] ALT 14(L) 16 - 60 U/L 10/21/2024 3:45 PM [facility] ALKALINE PHOSPHATASE S/P/B 62 50 - 136 U/L 10/21/2024 3:45 PM [facility] ANION GAP 11.4(H) 2 - 10 MMOL/L 10/21/2024 3:45 PM ALMOND PASTE MOLDER [facility] BUN CREATININE RATIO 16.7 6 - 26 10/21/2024 3:45 PM [facility] A/G RATIO 1.0 1.0 - 2.0 RATIO 10/21/2024 3:45 PM [facility] GFR ESTIMATE >90 >90 ML/MIN/1.7 3 M2 10/21/2024 3:45 PM [facility] Comment: NOTE: eGFR is not calculated for patients <18 years of age or gender unknown. This is an estimated GFR calculation using the new CKD EPI creatinine equation without race and so does not require a correction factor for race. This estimated GFR should not be used for calculating drug doses. 10/21/2024 3:06 PM ALMOND PASTE MOLDER us Tony Chamorro PA-C LABORATORY Final Resul t [facility] [address] [place] [address], [place] [phone] * (ABNORMAL) CBC W/DIFF AUTOMATED (10/21/2024 3:06 PM ALMOND PASTE MOLDER) [facility] Signature WBC 13.70(H) 4.5 - 11.0 x10'3/uL 10/21/2024 3:17 PM ALMOND PASTE MOLDER [facility] RBC 5.83 4.70 - 6.10 x10'6/uL 10/21/2024 3:17 PM [facility] HGB 17.1 14.0 - 18.0 G/DL 10/21/2024 3:17 PM [facility] HCT 47.0 43.0 - 54.0 % 10/21/2024 3:17 PM [facility] MCV 80.6 80.0 - 94.0 FL 10/21/2024 3:17 PM [facility] MCH 29.3 27.0 - 31.0 PG 10/21/2024 3:17 PM [facility] MCHC 36.4(H) 32.0 - 36.0 G/DL 10/21/2024 3:17 PM [facility] RDW 11.7 11.5 - 14.5 % 10/21/2024 3:17 PM [facility] PLT 378 130 - 400 x10'3/uL 10/21/2024 3:17 PM [facility] MPV 9.5 9.3 - 12.2 FL 10/21/2024 3:17 PM [facility] DIFFERENTIAL TYPE MANUAL DIFFERENTIAL 10/21/2024 4:32 PM [facility] SEG NEUTROPHILS 92 % 4:32 PM [facility] LYMPHOCYTES 7 % 10/21/2024 4:32 PM ALMOND PASTE MOLDER [facility] MONOCYTES 1 % 10/21/2024 4:32 PM ALMOND PASTE MOLDER [facility] ABS. NEUTROPHILS 12.60(H) 1.80 - 7.70 x10'3/uL 10/21/2024 4:32 PM ALMOND PASTE MOLDER [facility] ABS. LYMPHOCYTES 0.96(L) 1.00 - 4.80 x10'3/uL 10/21/2024 4:32 PM ALMOND PASTE MOLDER [facility] ABS. MONOCYTES 0.14(L) 0.30 - 0.82 x10'3/uL 10/21/2024 4:32 PM ALMOND PASTE MOLDER [facility] RBC MORPHOLOGY RBC MORPHOLOGY APPEARS NORMAL. SLIDE REVIEWED. 10/21/2024 4:32 PM ALMOND PASTE MOLDER [facility] PLT EST. ADEQUATE 10/21/2024 4:32 PM ALMOND PASTE MOLDER [facility] 10/21/2024 3:06 PM ALMOND PASTE MOLDER Tony Chamorro PA-C LABORATORY Final Resul t [facility] [address] [place] [address], [place] [phone] * LIPASE (10/21/2024 3:06 PM ALMOND PASTE MOLDER) LIPASE 39 13 - 75 UNITS/L 10/21/2024 3:45 PM ALMOND PASTE MOLDER [facility] 10/21/2024 3:06 PM ALMOND PASTE MOLDER us Tony Chamorro PA-C LABORATORY Final Resul t [facility] [address] [place] [address], [place] [phone] from Last 3 Months Insurance [employer] Advance [...] 11:15 PM 06/08/2020 9:16 PM Care Teams Yarder Operator Relationship Specialty Start Date End Date None, Provider, MD PCP - General UNKNOWN PHYSICIAN SPECIALTY 04/24/24
--- OUTSIDE RECORDS SUMMARY | 2024-12-04 21:27 | XMS_ITS | CONTINUITY OF CARE DOCUMENT ---
Author Name erin khan Address Unknown Organization [facility] Address [address] [place] [address] Phone [phone] Care Team Providers Care Parimutuel Ticket Cashier Name Role Phone Slime Garber MD Unavailable [phone] Slime Garber MD Unavailable [phone] INSURANCE PROVIDERS Payer name Policy type / Coverage type [place] [employer] party ID [facility] [facility] FAMILY [employer] Medicaid 3 [id number]
--- OUTSIDE RECORDS SUMMARY | 2024-12-04 21:27 | XMS_ITS | Encounter Summary ---
Author Organization [facility] Address [facility] [place] [address] Care Team Providers Care Oil Burner Mechanic Name Role Phone Rocío Lombardi MD Primary Care Provider [phone] None, Provider Primary Care Provider Unavaila ble Encounter Details Date Type Department Care Team (Late st Contact Info) Description 11/18/2020 Prep for Procedure [facility] [address] [place], [place] [id number] Ten Flynn MD [address] [facility] [address] [place], [place] [id number] Social History Tobacco Use Types Packs/Day Years Used Date Smoking Tobacco: Never Smokeless Tobacco: Never Comments:USED MARIJUANA IN P AST Alcohol Use Standard Drinks/Week Comments Yes 0 (1 standard drink = 0.6 oz pur e alcohol) occassional Sex and Gender Information Value Date Recorded Sex Assigned at Male 10/21/2024 2:48 PM INNER LAYER SCRUBBER TENDER Legal Sex Male 7:32 AM CDT Gender Identity Male 09/29/2022 5:25 PM INNER LAYER SCRUBBER TENDER Sexual Orientation Straight 09/29/2022 5: 25 PM INNER LAYER SCRUBBER TENDER COVID-19 Exposure Response Date Recorded In the last month, have you been in contact with someone who was confirmed or suspected to have Coronavirus / COVID-19? No / Unsure 11/06/2020 1:13 PM INNER LAYER SCRUBBER TENDER documented as of this encounter Functional Status [...] PRE-SURGICAL/PRE-PROCEDURE CORONAVIRUS (COVID 19) (11/23/2020 10:45 AM INNER LAYER SCRUBBER TENDER) Pathologist [facility] CORONAVIRUS SARS COV 2 PCR (RESP) NOT DETECTED NOT DETECTED 11/24/2020 5:51 PM INNER LAYER SCRUBBER TENDER [facility] Comment: A Not Detected (negative) test result [...] providers and patients using the following websites: https://www.OLX.com/home/Covid-19/HCP/QuestIVD/fact- sheet.html https://www.OLX.com/home/Covid-19/Patients/ Quest[employer]/fact-sheet.html This test has been authorized by the FDA under an Emergency Use Authorization (EUA) for use by authorized laboratories. Due to the current public health emergency, [facility] is receiving a high volume of samples [...] about COVID-19 can be found at the [facility] website: www.Re-vinyl.mTraks/Covid19. Test performed at [facility] [address] [place] [address] Director: BAM SMITH DO,MPH FIRST TEST NO 11/23/2020 12:30 PM INNER LAYER SCRUBBER TENDER [facility] EMPLOYED IN HEALTHCARE NO 11/23/2020 12:30 PM [facility] SYMPTOMATIC DEFINED BY CDC NO 11/23/2020 12:30 PM INNER LAYER SCRUBBER TENDER [facility] DATE OF SYMPTOM ONSET NO 11/23/2020 12:43 PM INNER LAYER SCRUBBER TENDER [facility] HOSPITALIZATION STATUS NO 11/23/2020 12:30 PM INNER LAYER SCRUBBER TENDER [facility] PATIENT IN ICU NO 11/23/2020 12:30 PM INNER LAYER SCRUBBER TENDER [facility] RESIDENT OF [facility] CARE NO 11/23/2020 12:30 PM INNER LAYER SCRUBBER TENDER [facility] NO 11/23/2020 12:43 PM INNER LAYER SCRUBBER TENDER [facility] PATIENT'S RACE WHITE OR 11/23/2020 12:30 PM [facility] ETHNICITY NONHISPANIC 11/23/2020 12:30 PM INNER LAYER SCRUBBER TENDER [facility] SOURCE (QST) NASOPHARYNGEAL SWAB 11/23/2020 12:30 PM INNER LAYER SCRUBBER TENDER [facility] NASOPHARYNGEAL SWAB / Unknown 11/23/2020 10:45 AM INNER LAYER SCRUBBER TENDER us Ten Flynn MD MICROBIOLOGY - GENERAL ORDERABLE S Final Result [facility] [address] [place] [address], [facility] [address] [place] [address], documented in this encounter Visit Diagnoses Diagnosis Vomiting- Primary Vomiting alone documented in this encounter Additional Health Concerns Infection Onset Date Last Indicated Resolved Time COVID-19 Rule Out 11/23/2020 11/23/2020 11/24/2020 5:51 PM INNER LAYER SCRUBBER TENDER COVID-19 Rule Out 12/29/2020 12/29/2020 12/29/2020 7:08 PM CDT COVID-19 Rule Out 04/09/2024 04/09/2024 04/09/2024 11:06 PM CDT documented as of this encounter Care Teams Oil Burner Mechanic Relationship Specialty Start Date End Date Rocío Lombardi MD PCP - General FAMILY PRACTICE 04/08/20 04/09/24 None, Provider, PCP - General UNKNOWN PHYSICIAN SPECIALTY 04/24/24 documented as of this encounter
--- OUTSIDE RECORDS SUMMARY | 2024-12-04 21:27 | XMS_ITS | Encounter Summary ---
Author Organization [facility] Address [facility] [place] [address] Care Team Providers Care Shared Services Representative Name Role Phone Rocío Lombardi MD Primary Care Provider + None, Provider Primary Care Provider Claudine schwartz Encounter Details Date Type Department Care Team (Late st Contact Info) Description 08/29/2022 [employer] Message [facility] Family and Sports Medicine - [address] [id number] [place], [facility] Provider Schedule Appointment: Annual Physical Due Social History Tobacco Use Types Packs/Day Years Used Date Smoking Tobacco: Never Smokeless Tobacco: Never Comments:USED MARIJUANA IN P AST Alcohol Use Standard Drinks/Week Comments Yes 0 (1 standard drink = 0.6 oz pur e alcohol) occassional Sex and Gender Information Value Date Recorded Sex Assigned at Male 10/21/2024 2:48 PM BOOT AND SADDLE REPAIR PERSON Legal Sex Male 7:32 AM CDT Gender Identity Male 09/29/2022 5:25 PM BOOT AND SADDLE REPAIR PERSON Sexual Orientation Straight 09/29/2022 5: 25 PM BOOT AND SADDLE REPAIR PERSON documented as of this encounter Functional Status [...] independent in ADLs upon discharge from hospital [facility] No Betty Zelaya, PRODUCTION ENGINE REPAIRER documented as of this encounter Visit Diagnoses Not on filedocumented in this encounter Additional Health Concerns Infection Onset Date Last Indicated Resolved Time COVID-19 Rule Out 04/09/2024 04/09/2024 04/09/2024 11:06 PM CDT documented as of this encounter Care Teams Shared Services Representative Relationship Specialty Start Date End Date Rocío Lombardi MD PCP - General FAMILY PRACTICE 04/08/20 04/09/24 None, Provider, PCP - General UNKNOWN PHYSICIAN SPECIALTY 04/24/24 documented as of this encounter
--- OUTSIDE RECORDS SUMMARY | 2024-12-04 21:27 | XMS_ITS | Clinical Summary ---
Author Organization [facility] al Address [address] [place] [address] Care Team Providers Care Apparel Sales Associate Name Role Phone Rocío Lombardi MD Primary Care Provider [phone] Allergies Active Allergy Reactions Criticality Noted Date [...] Department Care Team Description 10/25/2024 1:14 PM PLATINUMSMITH - 10/25/2024 3:37 PM PLATINUMSMITH Emergency [facility] Emergency Department [address] [place] [id number] Nausea and vomiting, unspecified vomiting type (Primary [...] on file Legal Sex Male 4:18 PM PLATINUMSMITH Gender Identity Male 07/12/2021 12:07 AM CDT Sexual Orientation Not on file Obstetrics History Last Filed Vital Signs Vital Sign Reading Time Taken Comments Blood Pressure 148/90 10/25/2024 3:37 PM PLATINUMSMITH Pulse 94 10/25/2024 3:37 PM PLATINUMSMITH Temperature 36.7 C (98 F) 10/25/2024 3:37 PM PLATINUMSMITH Respiratory Rate 18 10/25/2024 3:37 PM PLATINUMSMITH Oxygen Saturation 98% 10/25/2024 3:37 PM PLATINUMSMITH Inhaled Oxygen Concentration - - Weight 71.7 kg (158 lb) 10/25/2024 11:07 AM PLATINUMSMITH Height 182.9 cm (6') 10/25/2024 11:07 AM PLATINUMSMITH Body Mass Index 21.43 10/25/2024 11:07 AM PLATINUMSMITH Plan of Treatment Health Maintenance Due Date [...] URINALYSIS, MICROSCOPIC ONLY STAT 10/25/2024 2:06 PM PLATINUMSMITH DRUGS OF ABUSE SCREEN, URINE WITHOUT CONFIRMATION STAT 10/25/2024 2:06 PM PLATINUMSMITH URINALYSIS AND REFLEX TO MICROSCOPIC AND CULTURE STAT 10/25/2024 2:[address] ABDOMEN PELVIS W CONTRAST ED 10/25/2024 1:50 PM PLATINUMSMITH EGFR STAT 10/25/2024 11:13 AM PLATINUMSMITH DIFFERENTIAL AUTO STAT 10/25/2024 11: 13 AM PLATINUMSMITH LIPASE STAT 10/25/2024 11:13 AM PLATINUMSMITH COMPREHENSIVE METABOLIC PANEL STAT 10/25/2024 11:13 AM PLATINUMSMITH CBC WITH AUTO DIFFERENTIAL STAT 10/25/2024 11:13 AM PLATINUMSMITH from Last 3 Months Results * (ABNORMAL) Urinalysis reflex to microscopic and culture Urine (10/25/2024 2:06 PM PLATINUMSMITH) Color, ur Yellow Yellow Clarity, ur Clear Clear [facility] Specific gravity, ur >1.030(H) 1.003 - 1.030 [facility] pH, urine 8.5 [facility] Comment: Interpretive Data U rine pH is affected by diet, medications, systemic acid-base disturbances, and renal tubular function. pH may affect urinary stone formation. For example, urine pH below 6.0 may help reduce the tendency for calcium phosphate stones and pH greater than 6.0 may reduce the tendency for uric acid stone formation. Source: [facility] Current Interpretive Data was last revised on 2017 Protein, ur ql 2+(A) Negative [facility] Glucose, ur ql Negative Negative [facility] Ketones, ur Negative Negative [facility] Bilirubin, ur Negative Negative [facility] Blood, ur Negative Negative [facility] Urobilinogen, ur <2.0 <2.0 mg/dL [facility] Nitrite, ur Negative Negative [facility] Leukocyte esterase, ur Negative Negative [facility] UA reflex comment Reflex to microscopic UA will be performed. [facility] Urine 10/25/2024 2:06 PM PLATINUMSMITH 10/25/2024 2:20 PM PLATINUMSMITH Ten Cole MD LAB MICROBIOLOGY - GENERAL ORDERABLES Final Result [facility] [address] [facility] Department [place] [address] * (ABNORMAL) Drugs of Abuse Screen, Urine without Confirmation (10/25/2024 2:06 PM PLATINUMSMITH) Amphetamine, ur Not Detected [facility] 500ng/mL Comment: Interpretive Data - Amphetamines: Samples containing greater than 500 ng/mL d-methamphetamine or other cross-reacting amphetamine compounds are reported as positive. Amphetamine immunoassays are subject to significant false positive rates due to cross-reactivity of non-amphetamine drugs. Confirmatory testing required for definitive results. Current Interpretive Data was last reviewed 2023. Barbiturates, ur Not Detected CutOff 200ng/mL [facility] Comment: Interpretive Data - Barbiturates: Samples containing greater than 200 ng/mL secobarbital or other cross-reacting barbiturate compounds are reported as positive. False positive and false negative results are possible. Confirmatory testing required for definitive results. Current Interpretive Data was last reviewed 2023. Benzodiazepines, ur Not Detected CutOff 100ng/mL [facility] Comment: Interpretive Data - Benzodiazepines: [...] Screen Positive, presumptive (A) CutOff 150ng/mL [facility] Comment: Interpretive Data - Cocaine: Samples containing greater than 150 ng/mL benzoylecgonine or other cross- reacting compounds are reported as positive. False positive and false negative results are possible. Confirmatory testing required for definitive results. Current Interpretive Data was last reviewed 2023. Fentanyl, Ur Not Detected Cutoff 1 ng/mL [facility] Comment: Interpretive Data - Fentanyl: Samples containing greater than 1 ng/mL fentanyl or other cross-reacting fentanyl compounds are reported as positive. False positive and false negative results are possible. Confirmatory testing required for definitive results. Current Interpretive Data was last reviewed 2023. Methadone, ur Not Detected CutOff 300ng/mL [facility] Comment: Interpretive Data - Methadone: [...] 2023. Oxycodone, ur Not Detected CutOff 100ng/mL [facility] Comment: Interpretive Data - Oxycodone: Samples containing greater than 100 ng/mL oxycodone or other cross-reacting compounds are reported as positive. False positive and false negative results are possible. Confirmatory testing required for definitive results. Current Interpretive Data was last reviewed 2023. Phencyclidine, ur Not Detected CutOff 25 ng/mL [facility] Comment: Interpretive Data - Phencyclidine: Samples containing greater than 25 ng/mL phencyclidine or other cross-reacting compounds are reported as positive. False positive and false negative results are possible. Confirmatory testing required for definitive results. Current Interpretive Data was last reviewed 2023. Urine Creatinine 192 mg/dL [facility] Comment: Interpretive Data Urine Creatinine: < 10 mg/dL is extremely dilute = or > 10 but < 20 mg/dL is dilute = or > 20 mg/dL is normal Current Interpretive Data was last revised on 2017. Urine 10/25/2024 2:06 PM PLATINUMSMITH 10/25/2024 2:20 PM PLATINUMSMITH Narrative [facility] - 10/25/2024 3:46 PM PLATINUMSMITH Drug of Abuse screening is performed by immunoassay for medical purposes only. This is not to be used for Pain Management purposes. us [place] [facility] URINE ORDERABLE S Final Result [address] Department [place] [address] * (ABNORMAL) Urinalysis, microscopic only (10/25/2024 2:06 PM PLATINUMSMITH) WBC, ur 0-5 0 - 5 /HPF RBC, ur 11-20(A) 0 - 2 /HPF [facility] Epithelial cells, squamous, ur 1-5 0 - 5 /HPF [facility] Mucous, ur Present(A) [facility] Culture Reflex Comment Reflex conditions for urine culture (WBC >10) not met. [facility] Urine 10/25/2024 2:06 PM PLATINUMSMITH 10/25/2024 2:20 PM PLATINUMSMITH us Ten Cole MD LAB URINE ORDERABLES Final Result [facility] Department [place] [address] * CT Abdomen Pelvis W Contrast (10/25/2024 1:50 PM PLATINUMSMITH) Anatomical Region Laterality Modality Body N/A Computed Tomogra phy 10/25/2024 2:05 PM PLATINUMSMITH Impressions 10/25/2024 2:05 PM PLATINUMSMITH 1. There is a suggestion of a [...] Krys Han M.D. Narrative 10/25/2024 2:05 PM PLATINUMSMITH EXAMINATION: Computed Tomography of the Abdomen and [...] inal Result * eGFR (10/25/2024 11:13 AM PLATINUMSMITH) [facility] eGFR >90 >=60 mL/min/1. 73 m2 [...] reviewed 2021. Blood 10/25/2024 11:1 3 AM PLATINUMSMITH 10/25/2024 11:18 AM PLATINUMSMITH Ten Cole MD LAB BLOOD ORDERABLES Final Result [address] Department [place] [address] * (ABNORMAL) Differential, auto (10/25/2024 11:13 AM PLATINUMSMITH) Pathologist [facility] Neutrophil abs 8.4(H) 1.5 - 6.5 K/cumm Imm gran abs 0.0 0.0 - 0.1 K/cumm [facility] Lymphocyte abs 1.8 0.8 - 3.3 K/cumm [facility] Monocyte abs 0.9(H) 0.2 - 0.8 K/cumm [facility] Eosinophil abs 0.1 0.0 - 0.5 K/cumm [facility] Basophil abs 0.1 0.0 - 0.1 K/cumm [facility] Neutrophil pct 74.8 % [facility] Comment: Interpretive Data Percent cell count reference ranges are not reported, since discordance with absolute values may lead to misinterpretation of CBC data. Current Interpretive Data was last revised on 2018. Imm gran pct 0.3 % [facility] Comment: Interpretive Data Percent cell count reference ranges are not reported, since discordance with absolute values may lead to misinterpretation of CBC data. Current Interpretive Data was last revised on 2018. Lymphocyte pct 16.1 % [facility] Comment: Interpretive Data Percent cell count reference ranges are not reported, since discordance with absolute values may lead to misinterpretation of CBC data. Current Interpretive Data was last revised on 2018. Monocyte pct 7.9 % [facility] Comment: Interpretive Data Percent cell count reference ranges are not reported, since discordance with absolute values may lead to misinterpretation of CBC data. Current Interpretive Data was last revised on 2018. Eosinophil pct 0.4 % [facility] Comment: Interpretive Data Percent cell count reference ranges are not reported, since discordance with absolute values may lead to misinterpretation of CBC data. Current Interpretive Data was last revised on 2018. Basophil pct 0.5 % [facility] Comment: Interpretive Data Percent cell count reference ranges are not reported, since discordance with absolute values may lead to misinterpretation of CBC data. Current Interpretive Data was last revised on 2018. Blood 10/25/2024 11:1 3 AM PLATINUMSMITH 10/25/2024 11:18 AM PLATINUMSMITH us Ten Cole MD LAB BLOOD ORDERABLES Final Result [facility] [address] [facility] Department [place] [address] * (ABNORMAL) CBC with auto differential (10/25/2024 11:13 AM PLATINUMSMITH) WBC 11.2(H) 3.8 - 9.9 K/cumm Hgb 16.0 13.0 - 17.5 g/dL [facility] Hct 44.9 38.9 - 50.3 % [facility] Plt 398 150 - 400 K/cumm [facility] MPV 9.2 9.1 - 12.3 fL [facility] RBC 5.37 4.30 - 5.80 M/cumm [facility] MCV 83.6 81.3 - 96.4 fL [facility] MCH 29.8 27.1 - 33.3 pg [facility] MCHC 35.6 32.3 - 35.7 g/dL [facility] RDW CV 11.7 11.1 - 14.9 % [facility] RDW SD 35.1(L) 35.7 - 48.1 fL [facility] NRBC abs 0.00 0.00 - 0.01 K/cumm [facility] Blood Venous blood specimen / Unknown 10/25/2024 11:13 AM PLATINUMSMITH 10/25/2024 11:18 AM PLATINUMSMITH Ten Cole MD LAB BLOOD ORDERABLES Final Result Performing Organization Address [facility]/ZIP Co de Phone Number [address] of Laboratories [place], [place] [id number] * (ABNORMAL) Lipase (10/25/2024 11:13 AM PLATINUMSMITH) [facility] Lipase 138(H) 10 - 99 Units/L Blood 10/25/2024 11:1 3 AM PLATINUMSMITH 10/25/2024 11:18 AM PLATINUMSMITH Ten Cole MD LAB BLOOD ORDERABLES Final Result [address] [place] [address] * (ABNORMAL) Comprehensive metabolic panel (10/25/2024 11:13 AM PLATINUMSMITH) [facility] Sodium 130(L) 135 - 145 mmol/L Potassium, pl 3.1(L) 3.3 - 4.9 mmol/L [facility] Chloride 84(L) 97 - 110 mmol/L [facility] CO2 35(H) 22 - 32 mmol/L [facility] Anion gap 11 2 - 15 mmol/L [facility] BUN 9 6 - 25 mg/dL [facility] Creatinine 0.98 0.80 - 1.30 mg/dL [facility] Glucose 136 70 - 199 mg/dL [facility] Comment: Interpretive Data Fasting glucose [...] 2022. Calcium 10.3 8.5 - 10.3 mg/dL [facility] Bilirubin, total 0.5 0.1 - 1.2 mg/dL [facility] Protein, pl 7.9 6.5 - 8.5 g/dL [facility] Albumin 4.9 3.5 - 5.0 g/dL [facility] Alk phos 64 40 - 130 Units/L [facility] ALT 10 7 - 55 Units/L [facility] AST 25 10 - 50 Units/L [facility] Blood Venous blood specimen / Unknown 10/25/2024 11:13 AM PLATINUMSMITH 10/25/2024 11:18 AM PLATINUMSMITH us Ten Cole MD LAB BLOOD ORDERABLES Final Result [facility] [address] [facility] Department [place] [address] from Last 3 Months Insurance [employer] Advance Directives For more information, please contact: [phone] * Full Code (Latest Code Status on File) Date Activated Date Inactivated Comments 01/17/2022 10:36 AM 01/19/2022 10:32 PM Care Teams Apparel Sales Associate Relationship Specialty Start Date End Date Rocío Lombardi MD [address] [facility] [address] [place] [address] PCP - General 11/22/19
[2024-12-04 21:32] VITALS: BP 128/93; PULSE 122; RESP 16; TEMP 36.9; O2SAT 100
[2024-12-04 21:47] VITALS: BP 139/94; PULSE 108; RESP 17; O2SAT 99
[2024-12-04 21:56] LABS: Basophils Percent Auto 0.3 % (0.2-1.2); Eosinophils Percent Auto 0.1 % (0-4.4); Hematocrit 39.9 % (42.0-52.0); Hemoglobin 13.9 g/dL (14.0-18.0); Immature Granulocyte Absolute 0.05 K/mm3 (0.00-0.031); Immature Granulocyte Percent A 0.4 % (0-0.5); Lymphocytes Absolute Auto 1.95 K/mm3 (0.9-3.2); Mean Corpuscular HGB Conc 34.8 g/dl (32-36); Mean Corpuscular Hemoglobin 29.6 pg (26-34); Mean Corpuscular Volume 84.9 fl (80-100); Mean Platelet Volume 9.2 fl (7.4-10.4); Monocytes Absolute Auto 0.9 K/mm3 (0.1-0.6); Monocytes Percent Auto 6.3 % (2.6-8.5); Neutrophils Percent Auto 78.9 % (45.5-73.1); Platelet Count Result 402 k/mm3 (150-375); Red Cell Distribution Width 11.9 % (11.5-14.5); White Blood Count 13.9 K/mm3 (4.5-10.0)
--- OUTSIDE RECORDS SUMMARY | 2024-12-04 22:01 | XMS_ITS | Clinical Summary ---
Author Organization [facility] Address [facility] [place] [address] Care Team Providers Care Adjunct Business Instructor Name Role Phone None, Provider MD Primary [...] (10/30/2020): Added automatically from request for surgery [id number] Panic anxiety syndrome 07/07/2020 Cyclical vomiting, intractable 11/03/2019 Resolved Problems Problem Noted Date Diagnosed Date Resolved Date Intractable nausea and vomiting 05/03/2021 09/30/2022 MARINA (acute kidney injury) 04/04/2021 Nausea and vomiting, intract ability of vomiting not specified, unspecified vomiting type 10/30/2020 09/30/2022 Overview (10/30/2020): Added automatically from request for surgery [id number] Abnormal CT scan, gastrointestinal tract 10/30/2020 09/30/2022 Overview (10/30/2020): Added automatically from request for surgery [id number] Hyponatremia 06/07/2020 09/30/2022 Cyclic vomiting syndrome 03/19/201905/2021 [...] Med Group CT (SCAN) 10/21/2024 2:59 PM FACILITIES MAINTENANCE TECHNICIAN - 10/21/2024 5:16 PM FACILITIES MAINTENANCE TECHNICIAN Emergency [facility] [place] [address] Joe Velasquez PA Vomiting Discharge Disposition: Home [...] = 0.6 oz pur e alcohol) occassional [facility] Utilities Answer Date Recorded In the past 12 months has e [employer], gas, oil, or water [employer] threatened to shut off services in your [...] place to sleep or slept in a alf (including now)? No 10/03/2023 Housing Stability Vital Sign Answer Leonardo e Recorded In the last 12 months, was t here a time when you were not able to pay the mortgage or rent on time? No 04/09/2024 In the past 12 months, how m any times have you moved where you were living? 1 04/09/2024 At any time in the past 12 m [facility], were you homeless or living in a alf (including now)? No 04/09/2024 Sex and Gender Information Value Date Recorded Sex Assigned at Male 10/21/2024 2:48 PM FACILITIES MAINTENANCE TECHNICIAN Legal Sex Male 7:32 AM CDT Gender Identity Male 09/29/2022 5:25 PM FACILITIES MAINTENANCE TECHNICIAN Sexual Orientation Straight 09/29/2022 5: 25 PM FACILITIES MAINTENANCE TECHNICIAN Last Filed Vital Signs Vital Sign Reading Time Taken Comments Blood Pressure 168/99 10/21/2024 5:00 PM FACILITIES MAINTENANCE TECHNICIAN Pulse 98 10/21/2024 5:00 PM FACILITIES MAINTENANCE TECHNICIAN Temperature 36.4 C (97.5 F) 10/21/2024 2:41 PM FACILITIES MAINTENANCE TECHNICIAN Respiratory Rate 22 10/21/2024 2:41 PM FACILITIES MAINTENANCE TECHNICIAN Oxygen Saturation 98% 10/21/2024 5:00 PM FACILITIES MAINTENANCE TECHNICIAN Inhaled Oxygen Concentration - - Weight 72.6 kg (160 lb) 10/21/2024 2:41 PM FACILITIES MAINTENANCE TECHNICIAN Height 182.9 cm (6') 10/21/2024 2:41 PM FACILITIES MAINTENANCE TECHNICIAN Body Mass Index 21.7 10/21/2024 2:41 PM FACILITIES MAINTENANCE TECHNICIAN Plan of Treatment Health Maintenance Due Date Last Done Comments Pneumococcal Vaccine: Pediatrics (0 to 5 Years) and At-Risk Patients (6 to 64 Years) (1 of 2 - PCV) 1994 PHQ-2 (Physician [place]) 2000 Hepatitis C 2006 DTaP, Tdap and Td Vaccines ( 1 - Tdap) 12/21/2007 Hepatitis B Vaccines (1 of 3 - 19+ 3-dose series) 12/21/2007 Annual Physical 09/30/2023 09/30/2022 COVID-19 Vaccine (1 - 2023-2 5 season) 2024 Influenza Adult (#1) 2024 10/05/2023, 11/08/2017 PHQ-2 (Physician [place]) 10/02/2024 HPV Vaccines Aged Out No longer [...] discharge from hospital General No Betty Zelaya, COMPOSITION STONE APPLICATOR Family - family caregiver with be involved in care transitions and discharge planning Lifestyle No Maria R Campos, review coordinator Procedure Name Priority Date/Time Associated Diagnosis Comments CT GENERIC 10/25/2024 LIPASE STAT 10/21/2024 3:06 PM FACILITIES MAINTENANCE TECHNICIAN COMPREHENSIVE METABOLIC PANEL STAT 10/21/2024 3:06 PM FACILITIES MAINTENANCE TECHNICIAN CBC W/DIFF AUTOMATED STAT 10/21/2024 3:06 PM FACILITIES MAINTENANCE TECHNICIAN from Last 3 Months Results * CT GENERIC (10/25/2024) Anatomical Region Laterality Modality Other 10/25/2024 us [facility] Scanned SCANNING Final Resu lt * (ABNORMAL) COMPREHENSIVE METABOLIC PANEL (10/21/2024 3:06 PM FACILITIES MAINTENANCE TECHNICIAN) GLUCOSE 111(H) 70 - 99 MG/DL 10/21/2024 3:45 PM FACILITIES MAINTENANCE TECHNICIAN [facility] BUN 17 7 - 18 MG/DL 10/21/2024 3:45 PM FACILITIES MAINTENANCE TECHNICIAN [facility] CREATININE S/P/B 1.02 0.7 - 1.3 MG/DL 10/21/2024 3:45 PM FACILITIES MAINTENANCE TECHNICIAN [facility] SODIUM S/P/B 127(L) 136 - 145 MMOL/L 10/21/2024 3:45 PM FACILITIES MAINTENANCE TECHNICIAN [facility] POTASSIUM S/P/B 2.8(LL) 3.5 - 5.1 MMOL/L 10/21/2024 3:45 PM FACILITIES MAINTENANCE TECHNICIAN [facility] Comment: Critical Result(s) Called at: 15:44:29 on 10/21/2024 by: DOMINIK CAMPBELL to and read back by:DORITA DE SANTIAGO CHLORIDE S/P/B 85(L) 97 - 115 MMOL/L 10/21/2024 3:45 PM FACILITIES MAINTENANCE TECHNICIAN [facility] CO2 30.6 21 - 32 MMOL/L 10/21/2024 3:45 PM FACILITIES MAINTENANCE TECHNICIAN [facility] CALCIUM S/P/B 10.1 8.5 - 10.1 MG/DL 10/21/2024 3:45 PM FACILITIES MAINTENANCE TECHNICIAN [facility] BILIRUBIN TOTAL S/P/B 1.1 0.2 - 1.2 MG/DL 10/21/2024 3:45 PM [facility] Comment: THIS ASSAY IS NOT RECOMMENDED FOR PATIENTS UNDERGOING TREATMENT WITH ELTROMBOPAG DUE TO THE POTENTIAL FOR FALSELY ELEVATED RESULTS. TOTAL PROTEIN S/P/B 8.1 6.4 - 8.2 G/DL 10/21/2024 3:45 PM FACILITIES MAINTENANCE TECHNICIAN [facility] ALBUMIN S/P/B 4.1 3.4 - 5.0 G/DL 10/21/2024 3:45 PM FACILITIES MAINTENANCE TECHNICIAN [facility] AST 20 15 - 37 U/L 10/21/2024 3:45 PM [facility] ALT 14(L) 16 - 60 U/L 10/21/2024 3:45 PM [facility] ALKALINE PHOSPHATASE S/P/B 62 50 - 136 U/L 10/21/2024 3:45 PM [facility] ANION GAP 11.4(H) 2 - 10 MMOL/L 10/21/2024 3:45 PM FACILITIES MAINTENANCE TECHNICIAN [facility] BUN CREATININE RATIO 16.7 6 - 26 10/21/2024 3:45 PM [facility] A/G RATIO 1.0 1.0 - 2.0 RATIO 10/21/2024 3:45 PM [facility] GFR ESTIMATE >90 >90 ML/MIN/1.7 3 M2 10/21/2024 3:45 PM [facility] Comment: NOTE: eGFR is not calculated for patients <18 years of age or gender unknown. This is an estimated GFR calculation using the new CKD EPI creatinine equation without race and so does not require a correction factor for race. This estimated GFR should not be used for calculating drug doses. 10/21/2024 3:06 PM FACILITIES MAINTENANCE TECHNICIAN us Tony Chamorro PA-C LABORATORY Final Resul t [facility] [address] [place] [address], [place] [phone] * (ABNORMAL) CBC W/DIFF AUTOMATED (10/21/2024 3:06 PM FACILITIES MAINTENANCE TECHNICIAN) [facility] Signature WBC 13.70(H) 4.5 - 11.0 x10'3/uL 10/21/2024 3:17 PM FACILITIES MAINTENANCE TECHNICIAN [facility] RBC 5.83 4.70 - 6.10 x10'6/uL 10/21/2024 3:17 PM [facility] HGB 17.1 14.0 - 18.0 G/DL 10/21/2024 3:17 PM [facility] HCT 47.0 43.0 - 54.0 % 10/21/2024 3:17 PM [facility] MCV 80.6 80.0 - 94.0 FL 10/21/2024 3:17 PM [facility] MCH 29.3 27.0 - 31.0 PG 10/21/2024 3:17 PM [facility] MCHC 36.4(H) 32.0 - 36.0 G/DL 10/21/2024 3:17 PM [facility] RDW 11.7 11.5 - 14.5 % 10/21/2024 3:17 PM [facility] PLT 378 130 - 400 x10'3/uL 10/21/2024 3:17 PM [facility] MPV 9.5 9.3 - 12.2 FL 10/21/2024 3:17 PM [facility] DIFFERENTIAL TYPE MANUAL DIFFERENTIAL 10/21/2024 4:32 PM [facility] SEG NEUTROPHILS 92 % 4:32 PM [facility] LYMPHOCYTES 7 % 10/21/2024 4:32 PM FACILITIES MAINTENANCE TECHNICIAN [facility] MONOCYTES 1 % 10/21/2024 4:32 PM FACILITIES MAINTENANCE TECHNICIAN [facility] ABS. NEUTROPHILS 12.60(H) 1.80 - 7.70 x10'3/uL 10/21/2024 4:32 PM FACILITIES MAINTENANCE TECHNICIAN [facility] ABS. LYMPHOCYTES 0.96(L) 1.00 - 4.80 x10'3/uL 10/21/2024 4:32 PM FACILITIES MAINTENANCE TECHNICIAN [facility] ABS. MONOCYTES 0.14(L) 0.30 - 0.82 x10'3/uL 10/21/2024 4:32 PM FACILITIES MAINTENANCE TECHNICIAN [facility] RBC MORPHOLOGY RBC MORPHOLOGY APPEARS NORMAL. SLIDE REVIEWED. 10/21/2024 4:32 PM FACILITIES MAINTENANCE TECHNICIAN [facility] PLT EST. ADEQUATE 10/21/2024 4:32 PM FACILITIES MAINTENANCE TECHNICIAN [facility] 10/21/2024 3:06 PM FACILITIES MAINTENANCE TECHNICIAN Tony Chamorro PA-C LABORATORY Final Resul t [facility] [address] [place] [address], [place] [phone] * LIPASE (10/21/2024 3:06 PM FACILITIES MAINTENANCE TECHNICIAN) LIPASE 39 13 - 75 UNITS/L 10/21/2024 3:45 PM FACILITIES MAINTENANCE TECHNICIAN [facility] 10/21/2024 3:06 PM FACILITIES MAINTENANCE TECHNICIAN us Tony Chamorro PA-C LABORATORY Final Resul t [facility] [address] [place] [address], [place] [phone] from Last 3 Months Insurance [employer] Advance [...] 11:15 PM 06/08/2020 9:16 PM Care Teams Adjunct Business Instructor Relationship Specialty Start Date End Date None, Provider, MD PCP - General UNKNOWN PHYSICIAN SPECIALTY 04/24/24
--- OUTSIDE RECORDS SUMMARY | 2024-12-04 22:01 | XMS_ITS | Encounter Summary ---
Author Organization [facility] Address [facility] [place] [address] Care Team Providers Care Diagnostic Tech Name Role Phone None, Provider Primary Care Provider Unavaila ble None, Provider Primary Care Provider Unavaila ble Rocío Lombardi MD Primary Care Provider [phone] None, Provider Primary Care Provider Unavaila ble Encounter Details Date Type Department Care Team (Late st Contact Info) Description 03/09/2019 Abstract [facility] CONVERSION [address] [place] [address] , Generic Conversion, Social History Tobacco Use Types Packs/Day Years Used Date Smoking Tobacco: Never Smokeless Tobacco: Never Comments:USED MARIJUANA IN P AST Alcohol Use Standard Drinks/Week Comments Yes 0 (1 standard drink = 0.6 oz pur e alcohol) occassional Sex and Gender Information Value Date Recorded Sex Assigned at Male 10/21/2024 2:48 PM SEISMIC INTERPRETER Legal Sex Male 7:32 AM CDT Gender Identity Male 09/29/2022 5:25 PM SEISMIC INTERPRETER Sexual Orientation Straight 09/29/2022 5: 25 PM SEISMIC INTERPRETER documented as of this encounter Plan of Treatment Not on file documented as of this encounter Visit Diagnoses Not on filedocumented in this encounter Additional Health Concerns Infection Onset Date Last Indicated Resolved Time COVID-19 Rule Out Comment:TESTED 7.1304/13/2020 04/13/2020 04/13/2020 9:19 A M CDT COVID-19 Rule Out 10/02/2020 10/02/2020 10/02/2020 7:28 PM SEISMIC INTERPRETER COVID-19 Rule Out 11/09/2020 11/09/2020 11/10/2020 6:16 PM SEISMIC INTERPRETER COVID-19 Rule Out 11/23/2020 11/23/2020 11/24/2020 5:51 PM SEISMIC INTERPRETER COVID-19 Rule Out 12/29/2020 12/29/2020 12/29/2020 7:08 PM CDT COVID-19 Rule Out 04/09/2024 04/09/2024 04/09/2024 11:06 PM CDT documented as of this encounter Care Teams Diagnostic Tech Relationship Specialty Start Date End Date None, Provider, PCP - General 01/16/19 03/18/19 None, ProviderMD PCP - General 03/19/19 04/07/20 Rocío Lombardi MD PCP - General FAMILY PRACTICE 04/08/20 04/09/24 None, ProviderMD PCP - General UNKNOWN PHYSICIAN SPECIALTY 04/24/24 documented as of this encounter
--- OUTSIDE RECORDS SUMMARY | 2024-12-04 22:01 | XMS_ITS | Encounter Summary ---
Author Organization [facility] Address [facility] [place] [address] Care Team Providers Care Nutrition Club Ambassador Name Role Phone Rocío Lombardi MD Primary Care Provider + None, Provider Primary Care Provider Claudine schwartz Encounter Details Date Type Department Care Team (Late st Contact Info) Description 10/31/2023 InishTech Message [facility] - [place] [address] [place], [facility] Provider Schedule Appointment: Annual Physical Social History Tobacco Use Types Packs/Day Years Used Date Smoking Tobacco: Former Cigarettes Smokeless Tobacco: Never Comments:USED MARIJUANA IN P AST. Cigs off and on. Alcohol Use Standard Drinks/Week Comments Yes 0 (1 standard drink = 0.6 oz pur e alcohol) occassional [facility] Utilities Answer Date Recorded In the past 12 months has e 115 network disks, gas, oil, or water [employer] threatened to shut off services in your [...] place to sleep or slept in a longterm (including now)? No 10/03/2023 Sex and Gender Information Value Date Recorded Sex Assigned at Male 10/21/2024 2:48 PM DOCTOR OF DENTAL SURGERY Legal Sex Male 7:32 AM CDT Gender Identity Male 09/29/2022 5:25 PM DOCTOR OF DENTAL SURGERY Sexual Orientation Straight 09/29/2022 5: 25 PM DOCTOR OF DENTAL SURGERY documented as of this encounter Functional Status [...] Total Score: 0 09/30/20 22 10:11 AM DOCTOR OF DENTAL SURGERY documented as of this encounter Care Teams Nutrition Club Ambassador Relationship Specialty Start Date End Date Rocío Lombardi MD PCP - General FAMILY PRACTICE 04/08/20 04/09/24 None, Provider, PCP - General UNKNOWN PHYSICIAN SPECIALTY 04/24/24 documented as of this encounter
--- OUTSIDE RECORDS SUMMARY | 2024-12-04 22:01 | XMS_ITS | Clinical Summary ---
Author Organization [facility] al Address [address] [place] [address] Care Team Providers Care Medical Records Tech Name Role Phone Rocío Lombadri MD Primary Care Provider [phone] Allergies Active Allergy Reactions Criticality Noted Date [...] Department Care Team Description 10/25/2024 1:14 PM DOCUMENTATION DESIGNER - 10/25/2024 3:37 PM DOCUMENTATION DESIGNER Emergency [facility] Emergency Department [address] [place] [id number] Nausea and vomiting, unspecified vomiting type (Primary [...] on file Legal Sex Male 4:18 PM DOCUMENTATION DESIGNER Gender Identity Male 07/12/2021 12:07 AM CDT Sexual Orientation Not on file Obstetrics History Last Filed Vital Signs Vital Sign Reading Time Taken Comments Blood Pressure 148/90 10/25/2024 3:37 PM DOCUMENTATION DESIGNER Pulse 94 10/25/2024 3:37 PM DOCUMENTATION DESIGNER Temperature 36.7 C (98 F) 10/25/2024 3:37 PM DOCUMENTATION DESIGNER Respiratory Rate 18 10/25/2024 3:37 PM DOCUMENTATION DESIGNER Oxygen Saturation 98% 10/25/2024 3:37 PM DOCUMENTATION DESIGNER Inhaled Oxygen Concentration - - Weight 71.7 kg (158 lb) 10/25/2024 11:07 AM DOCUMENTATION DESIGNER Height 182.9 cm (6') 10/25/2024 11:07 AM DOCUMENTATION DESIGNER Body Mass Index 21.43 10/25/2024 11:07 AM DOCUMENTATION DESIGNER Plan of Treatment Health Maintenance Due Date [...] URINALYSIS, MICROSCOPIC ONLY STAT 10/25/2024 2:06 PM DOCUMENTATION DESIGNER DRUGS OF ABUSE SCREEN, URINE WITHOUT CONFIRMATION STAT 10/25/2024 2:06 PM DOCUMENTATION DESIGNER URINALYSIS AND REFLEX TO MICROSCOPIC AND CULTURE STAT 10/25/2024 2:[address] ABDOMEN PELVIS W CONTRAST ED 10/25/2024 1:50 PM DOCUMENTATION DESIGNER EGFR STAT 10/25/2024 11:13 AM DOCUMENTATION DESIGNER DIFFERENTIAL AUTO STAT 10/25/2024 11: 13 AM DOCUMENTATION DESIGNER LIPASE STAT 10/25/2024 11:13 AM DOCUMENTATION DESIGNER COMPREHENSIVE METABOLIC PANEL STAT 10/25/2024 11:13 AM DOCUMENTATION DESIGNER CBC WITH AUTO DIFFERENTIAL STAT 10/25/2024 11:13 AM DOCUMENTATION DESIGNER from Last 3 Months Results * (ABNORMAL) Urinalysis reflex to microscopic and culture Urine (10/25/2024 2:06 PM DOCUMENTATION DESIGNER) Color, ur Yellow Yellow Clarity, ur Clear Clear [facility] Specific gravity, ur >1.030(H) 1.003 - 1.030 [facility] pH, urine 8.5 [facility] Comment: Interpretive Data U rine pH is affected by diet, medications, systemic acid-base disturbances, and renal tubular function. pH may affect urinary stone formation. For example, urine pH below 6.0 may help reduce the tendency for calcium phosphate stones and pH greater than 6.0 may reduce the tendency for uric acid stone formation. Source: [facility] Current Interpretive Data was last revised on 2017 Protein, ur ql 2+(A) Negative [facility] Glucose, ur ql Negative Negative [facility] Ketones, ur Negative Negative [facility] Bilirubin, ur Negative Negative [facility] Blood, ur Negative Negative [facility] Urobilinogen, ur <2.0 <2.0 mg/dL [facility] Nitrite, ur Negative Negative [facility] Leukocyte esterase, ur Negative Negative [facility] UA reflex comment Reflex to microscopic UA will be performed. [facility] Urine 10/25/2024 2:06 PM DOCUMENTATION DESIGNER 10/25/2024 2:20 PM DOCUMENTATION DESIGNER Ten Cole MD LAB MICROBIOLOGY - GENERAL ORDERABLES Final Result [facility] [address] [facility] Department [place] [address] * (ABNORMAL) Drugs of Abuse Screen, Urine without Confirmation (10/25/2024 2:06 PM DOCUMENTATION DESIGNER) Amphetamine, ur Not Detected CutOff 500ng/mL Comment: Interpretive Data - Amphetamines: Samples containing greater than 500 ng/mL d-methamphetamine or other cross-reacting amphetamine compounds are reported as positive. Amphetamine immunoassays are subject to significant false positive rates due to cross-reactivity of non-amphetamine drugs. Confirmatory testing required for definitive results. Current Interpretive Data was last reviewed 2023. Barbiturates, ur Not Detected CutOff 200ng/mL [facility] Comment: Interpretive Data - Barbiturates: Samples containing greater than 200 ng/mL secobarbital or other cross-reacting barbiturate compounds are reported as positive. False positive and false negative results are possible. Confirmatory testing required for definitive results. Current Interpretive Data was last reviewed 2023. Benzodiazepines, ur Not Detected CutOff 100ng/mL [facility] Comment: Interpretive Data - Benzodiazepines: Samples [...] Screen Positive, presumptive (A) CutOff 150ng/mL [facility] Comment: Interpretive Data - Cocaine: Samples containing greater than 150 ng/mL benzoylecgonine or other cross- reacting compounds are reported as positive. False positive and false negative results are possible. Confirmatory testing required for definitive results. Current Interpretive Data was last reviewed 2023. Fentanyl, Ur Not Detected Cutoff 1 ng/mL [facility] Comment: Interpretive Data - Fentanyl: Samples containing greater than 1 ng/mL fentanyl or other cross-reacting fentanyl compounds are reported as positive. False positive and false negative results are possible. Confirmatory testing required for definitive results. Current Interpretive Data was last reviewed 2023. Methadone, ur Not Detected CutOff 300ng/mL [facility] Comment: Interpretive Data - Methadone: Samples [...] ur Not Detected CutOff 100ng/mL [facility] Comment: Interpretive Data - Oxycodone: Samples containing greater than 100 ng/mL oxycodone or other cross-reacting compounds are reported as positive. False positive and false negative results are possible. Confirmatory testing required for definitive results. Current Interpretive Data was last reviewed 2023. Phencyclidine, ur Not Detected CutOff 25 ng/mL [facility] Comment: Interpretive Data - Phencyclidine: Samples containing greater than 25 ng/mL phencyclidine or other cross-reacting compounds are reported as positive. False positive and false negative results are possible. Confirmatory testing required for definitive results. Current Interpretive Data was last reviewed 2023. Urine Creatinine 192 mg/dL [facility] Comment: Interpretive Data Urine Creatinine: < 10 mg/dL is extremely dilute = or > 10 but < 20 mg/dL is dilute = or > 20 mg/dL is normal Current Interpretive Data was last revised on 2017. Urine 10/25/2024 2:06 PM DOCUMENTATION DESIGNER 10/25/2024 2:20 PM DOCUMENTATION DESIGNER Narrative [facility] - 10/25/2024 3:46 PM DOCUMENTATION DESIGNER Drug of Abuse screening is performed by immunoassay for medical purposes only. This is not to be used for Pain Management purposes. us [place] [facility] LAB URINE ORDERABLE S Final Result [address] [place] [address] * (ABNORMAL) Urinalysis, microscopic only (10/25/2024 2:06 PM DOCUMENTATION DESIGNER) WBC, ur 0-5 0 - 5 /HPF RBC, ur 11-20(A) 0 - 2 /HPF [facility] Epithelial cells, squamous, ur 1-5 0 - 5 /HPF [facility] Mucous, ur Present(A) [facility] Culture Reflex Comment Reflex conditions for urine culture (WBC >10) not met. [facility] Urine 10/25/2024 2:06 PM DOCUMENTATION DESIGNER 10/25/2024 2:20 PM DOCUMENTATION DESIGNER us Ten Cole MD LAB URINE ORDERABLES Final Result [facility] [place] [address] * CT Abdomen Pelvis W Contrast (10/25/2024 1:50 PM DOCUMENTATION DESIGNER) Anatomical Region Laterality Modality Body N/A Computed Tomogra phy 10/25/2024 2:05 PM DOCUMENTATION DESIGNER Impressions 10/25/2024 2:05 PM DOCUMENTATION DESIGNER 1. There is a suggestion of a [...] Krys Han M.D. Narrative 10/25/2024 2:05 PM DOCUMENTATION DESIGNER EXAMINATION: Computed Tomography of the Abdomen and [...] inal Result * eGFR (10/25/2024 11:13 AM DOCUMENTATION DESIGNER) [facility] eGFR >90 >=60 mL/min/1. 73 m2 Comment: [...] reviewed 2021. Blood 10/25/2024 11:1 3 AM DOCUMENTATION DESIGNER 10/25/2024 11:18 AM DOCUMENTATION DESIGNER Ten Cole MD LAB BLOOD ORDERABLES Final Result [address] [place] [address] * (ABNORMAL) Differential, auto (10/25/2024 11:13 AM DOCUMENTATION DESIGNER) Pathologist [facility] Neutrophil abs 8.4(H) 1.5 - 6.5 K/cumm Imm gran abs 0.0 0.0 - 0.1 K/cumm [facility] Lymphocyte abs 1.8 0.8 - 3.3 K/cumm [facility] Monocyte abs 0.9(H) 0.2 - 0.8 K/cumm [facility] Eosinophil abs 0.1 0.0 - 0.5 K/cumm [facility] Basophil abs 0.1 0.0 - 0.1 K/cumm [facility] Neutrophil pct 74.8 % [facility] Comment: Interpretive Data Percent cell count reference ranges are not reported, since discordance with absolute values may lead to misinterpretation of CBC data. Current Interpretive Data was last revised on 2018. Imm gran pct 0.3 % [facility] Comment: Interpretive Data Percent cell count reference ranges are not reported, since discordance with absolute values may lead to misinterpretation of CBC data. Current Interpretive Data was last revised on 2018. Lymphocyte pct 16.1 % [facility] Comment: Interpretive Data Percent cell count reference ranges are not reported, since discordance with absolute values may lead to misinterpretation of CBC data. Current Interpretive Data was last revised on 2018. Monocyte pct 7.9 % [facility] Comment: Interpretive Data Percent cell count reference ranges are not reported, since discordance with absolute values may lead to misinterpretation of CBC data. Current Interpretive Data was last revised on 2018. Eosinophil pct 0.4 % [facility] Comment: Interpretive Data Percent cell count reference ranges are not reported, since discordance with absolute values may lead to misinterpretation of CBC data. Current Interpretive Data was last revised on 2018. Basophil pct 0.5 % [facility] Comment: Interpretive Data Percent cell count reference ranges are not reported, since discordance with absolute values may lead to misinterpretation of CBC data. Current Interpretive Data was last revised on 2018. Blood 10/25/2024 11:1 3 AM DOCUMENTATION DESIGNER 10/25/2024 11:18 AM DOCUMENTATION DESIGNER us Ten Cole MD LAB BLOOD ORDERABLES Final Result [facility] [address] [facility] Department [place] [address] * (ABNORMAL) CBC with auto differential (10/25/2024 11:13 AM DOCUMENTATION DESIGNER) WBC 11.2(H) 3.8 - 9.9 K/cumm Hgb 16.0 13.0 - 17.5 g/dL [facility] Hct 44.9 38.9 - 50.3 % [facility] Plt 398 150 - 400 K/cumm [facility] MPV 9.2 9.1 - 12.3 fL [facility] RBC 5.37 4.30 - 5.80 M/cumm [facility] MCV 83.6 81.3 - 96.4 fL [facility] MCH 29.8 27.1 - 33.3 pg [facility] MCHC 35.6 32.3 - 35.7 g/dL [facility] RDW CV 11.7 11.1 - 14.9 % [facility] RDW SD 35.1(L) 35.7 - 48.1 fL [facility] NRBC abs 0.00 0.00 - 0.01 K/cumm [facility] Blood Venous blood specimen / Unknown 10/25/2024 11:13 AM DOCUMENTATION DESIGNER 10/25/2024 11:18 AM DOCUMENTATION DESIGNER Ten Cole MD LAB BLOOD ORDERABLES Final Result Performing Organization Address [facility]/ZIP Co de Phone Number [address] of Laboratories [place], [place] [address] * (ABNORMAL) Lipase (10/25/2024 11:13 AM DOCUMENTATION DESIGNER) [facility] Lipase 138(H) 10 - 99 Units/L Blood 10/25/2024 11:1 3 AM DOCUMENTATION DESIGNER 10/25/2024 11:18 AM DOCUMENTATION DESIGNER Ten Cole MD LAB BLOOD ORDERABLES Final Result [address] [place] [address] * (ABNORMAL) Comprehensive metabolic panel (10/25/2024 11:13 AM DOCUMENTATION DESIGNER) [facility] Sodium 130(L) 135 - 145 mmol/L Potassium, pl 3.1(L) 3.3 - 4.9 mmol/L [facility] Chloride 84(L) 97 - 110 mmol/L [facility] CO2 35(H) 22 - 32 mmol/L [facility] Anion gap 11 2 - 15 mmol/L [facility] BUN 9 6 - 25 mg/dL [facility] Creatinine 0.98 0.80 - 1.30 mg/dL [facility] Glucose 136 70 - 199 mg/dL [facility] Comment: Interpretive Data Fasting glucose >/= [...] 10.3 8.5 - 10.3 mg/dL [facility] Bilirubin, total 0.5 0.1 - 1.2 mg/dL [facility] Protein, pl 7.9 6.5 - 8.5 g/dL [facility] Albumin 4.9 3.5 - 5.0 g/dL [facility] Alk phos 64 40 - 130 Units/L [facility] ALT 10 7 - 55 Units/L [facility] AST 25 10 - 50 Units/L [facility] Blood Venous blood specimen / Unknown 10/25/2024 11:13 AM DOCUMENTATION DESIGNER 10/25/2024 11:18 AM DOCUMENTATION DESIGNER us Ten Cole MD LAB BLOOD ORDERABLES Final Result [facility] [address] [facility] Department [place] [address] from Last 3 Months Insurance IDPA Advance Directives For more information, please contact: [phone] * Full Code (Latest Code Status on File) Date Activated Date Inactivated Comments 01/17/2022 10:36 AM 01/19/2022 10:32 PM Care Teams Medical Records Tech Relationship Specialty Start Date End Date Rocío Lombardi MD [address] [facility] [address] [place] [address] PCP - General 11/22/19
--- OUTSIDE RECORDS SUMMARY | 2024-12-04 22:01 | XMS_ITS | Encounter Summary ---
Author Organization [facility] Address [facility] [place] [address] Care Team Providers Care Cloth Washer Back Tender Name Role Phone Rocío Lombardi MD Primary Care Provider [phone] None, Provider Primary Care Provider Unavaila ble Encounter Details Date Type Department Care Team (Late st Contact Info) Description 11/18/2020 Prep for Procedure [facility] [place], [place] [id number] Ten Flynn MD [address] [facility] [address] [place], [place] [id number] Social History Tobacco Use Types Packs/Day Years Used Date Smoking Tobacco: Never Smokeless Tobacco: Never Comments:USED MARIJUANA IN P AST Alcohol Use Standard Drinks/Week Comments Yes 0 (1 standard drink = 0.6 oz pur e alcohol) occassional Sex and Gender Information Value Date Recorded Sex Assigned at Male 10/21/2024 2:48 PM BSW Legal Sex Male 7:32 AM CDT Gender Identity Male 09/29/2022 5:25 PM BSW Sexual Orientation Straight 09/29/2022 5: 25 PM BSW COVID-19 Exposure Response Date Recorded In the last month, have you been in contact with someone who was confirmed or suspected to have Coronavirus / COVID-19? No / Unsure 11/06/2020 1:13 PM BSW documented as of this encounter Functional Status [...] PRE-SURGICAL/PRE-PROCEDURE CORONAVIRUS (COVID 19) (11/23/2020 10:45 AM BSW) Pathologist [facility] CORONAVIRUS SARS COV 2 PCR (RESP) NOT DETECTED NOT DETECTED 11/24/2020 5:51 PM BSW [facility] Comment: A Not Detected (negative) [...] providers and patients using the following websites: https://www.[employer].com/home/Covid-19/HCP/QuestIVD/fact- sheet.html https://www.[employer].com/home/Covid-19/Patients/ QuestIVD/fact-sheet.html This test has been authorized by the FDA under an Emergency Use Authorization (EUA) for use by authorized laboratories. Due to the current public health emergency, [facility] is receiving a high volume of samples [...] about COVID-19 can be found at the [employer] website: www.[employer].Mempile/Covid19. Test performed at [facility] [address] [place] [address] Director: BAM SMITH DO,MPH FIRST TEST NO 11/23/2020 12:30 PM BSW [facility] EMPLOYED IN HEALTHCARE NO 11/23/2020 12:30 PM [facility] SYMPTOMATIC DEFINED BY CDC NO 11/23/2020 12:30 PM BSW [facility] DATE OF SYMPTOM ONSET NO 11/23/2020 12:43 PM BSW [facility] HOSPITALIZATION STATUS NO 11/23/2020 12:30 PM BSW [facility] PATIENT IN ICU NO 11/23/2020 12:30 PM BSW [facility] RESIDENT [facility] NO 11/23/2020 12:30 PM BSW [facility] NO 11/23/2020 12:43 PM BSW [facility] PATIENT'S RACE WHITE OR 11/23/2020 12:30 PM [facility] ETHNICITY NONHISPANIC 11/23/2020 12:30 PM BSW [facility] SOURCE (QST) NASOPHARYNGEAL SWAB 11/23/2020 12:30 PM BSW [facility] NASOPHARYNGEAL SWAB / Unknown 11/23/2020 10:45 AM BSW us Ten Flynn MD MICROBIOLOGY - GENERAL ORDERABLE S Final Result [facility] [address] [place] [address], [facility] [address] [place] [address], documented in this encounter Visit Diagnoses Diagnosis Vomiting- Primary Vomiting alone documented in this encounter Additional Health Concerns Infection Onset Date Last Indicated Resolved Time COVID-19 Rule Out 11/23/2020 11/23/2020 11/24/2020 5:51 PM BSW COVID-19 Rule Out 12/29/2020 12/29/2020 12/29/2020 7:08 PM CDT COVID-19 Rule Out 04/09/2024 04/09/2024 04/09/2024 11:06 PM CDT documented as of this encounter Care Teams Cloth Washer Back Tender Relationship Specialty Start Date End Date Rocío Lombardi MD PCP - General FAMILY PRACTICE 04/08/20 04/09/24 None, Provider, PCP - General UNKNOWN PHYSICIAN SPECIALTY 04/24/24 documented as of this encounter
--- OUTSIDE RECORDS SUMMARY | 2024-12-04 22:01 | XMS_ITS | Encounter Summary ---
Author Organization [facility] Address [facility] [place] [address] Care Team Providers Care Linux Admin Engineer Name Role Phone Rocío Lombardi MD Primary Care Provider [phone] None, Provider Primary Care Provider Unavaila ble Encounter Details Date Type Department Care Team (Late st Contact Info) Description 11/09/2020 Prep for Procedure [facility] One Day Services [place], [place] [id number] Ten Flynn MD 3 [facility] [address] [place], [place] [id number] Social History Tobacco Use Types Packs/Day Years Used Date Smoking Tobacco: Never Smokeless Tobacco: Never Comments:USED MARIJUANA IN P AST Alcohol Use Standard Drinks/Week Comments Yes 0 (1 standard drink = 0.6 oz pur e alcohol) occassional Sex and Gender Information Value Date Recorded Sex Assigned at Male 10/21/2024 2:48 PM CNC OPERATOR PROGRAMMER Legal Sex Male 7:32 AM CDT Gender Identity Male 09/29/2022 5:25 PM CNC OPERATOR PROGRAMMER Sexual Orientation Straight 09/29/2022 5: 25 PM CNC OPERATOR PROGRAMMER COVID-19 Exposure Response Date Recorded In the last month, have you been in contact with someone who was confirmed or suspected to have Coronavirus / COVID-19? No / Unsure 11/06/2020 1:13 PM CNC OPERATOR PROGRAMMER documented as of this encounter Functional Status [...] PRE-SURGICAL/PRE-PROCEDURE CORONAVIRUS (COVID 19) (11/09/2020 11:48 AM CNC OPERATOR PROGRAMMER) Pathologist [facility] CORONAVIRUS SARS COV 2 PCR (RESP) NOT DETECTED NOT DETECTED 11/10/2020 6:15 PM CNC OPERATOR PROGRAMMER [facility] Comment: A Not Detected (negative) test [...] providers and patients using the following websites: https://www.[employer].com/home/Covid-19/HCP/NAAT/fact-sheet2 https://www.[employer].com/home/Covid-19/Patients/NAAT/ fact-sheet2 This test has been authorized by the FDA under an Emergency Use Authorization (EUA) for use by authorized laboratories. Due to the current public health emergency, [employer] is receiving a high volume of samples [...] about COVID-19 can be found at the [employer] website: www.Findersfee.App47/Covid19. Test performed at [facility] [employer] [address] [address] Director: BAM SMITH DO,MPH FIRST TEST NO 11/09/2020 12:26 PM [facility] EMPLOYED IN HEALTHCARE NO 11/09/2020 12:26 PM [facility] SYMPTOMATIC DEFINED BY CDC NO 11/09/2020 12:26 PM [facility] DATE OF SYMPTOM ONSET NO 11/09/2020 12:34 PM [facility] HOSPITALIZATION STATUS NO 11/09/2020 12:26 PM [facility] PATIENT IN ICU NO 11/09/2020 12:26 PM [facility] RESIDENT OF [facility] NO 11/09/2020 12:26 PM [facility] NO 11/09/2020 12:34 PM [facility] PATIENT'S RACE WHITE OR 11/09/2020 12:26 PM [facility] ETHNICITY NONHISPANIC 11/09/2020 12:26 PM [facility] SOURCE (QST) NASOPHARYNGEAL SWAB 11/09/2020 12:26 PM CNC OPERATOR PROGRAMMER [facility] NASOPHARYNGEAL SWAB / Unknown 11/09/2020 11:48 AM CNC OPERATOR PROGRAMMER us Ten Flynn MD MICROBIOLOGY - GENERAL ORDERABLE S Final Result [facility] [address] [facility] [place] [address], [facility] [address] [place] [address], documented in this encounter Visit Diagnoses Diagnosis Abdominal pain- Primary Abdominal pain, unspecified site documented in this encounter Additional Health Concerns Infection Onset Date Last Indicated Resolved Time COVID-19 Rule Out 11/09/2020 11/09/2020 11/10/2020 6:16 PM CNC OPERATOR PROGRAMMER COVID-19 Rule Out 11/23/2020 11/23/2020 11/24/2020 5:51 PM CNC OPERATOR PROGRAMMER COVID-19 Rule Out 12/29/2020 12/29/2020 12/29/2020 7:08 PM CDT COVID-19 Rule Out 04/09/2024 04/09/2024 04/09/2024 11:06 PM CDT documented as of this encounter Care Teams Linux Admin Engineer Relationship Specialty Start Date End Date Rocío Lombardi MD PCP - General FAMILY PRACTICE 04/08/20 04/09/24 None, Provider, PCP - General UNKNOWN PHYSICIAN SPECIALTY 04/24/24 documented as of this encounter
--- OUTSIDE RECORDS SUMMARY | 2024-12-04 22:01 | XMS_ITS | Referral Summary ---
Author Organization [facility] al Address [address] [place] [address] Care Team Providers Care Family Educator Name Role Phone Rocío Lombardi MD Primary Care Provider [phone] Encounters Date Type Department Care Team Description 10/25/2024 1:14 PM DAM OPERATOR - 10/25/2024 3:37 PM [facility] Emergency [facility] Emergency Department [address] [place] [address] Nausea and vomiting, unspecified vomiting type (Primary [...] on file Legal Sex Male 4:18 PM DAM OPERATOR Gender Identity Male 07/12/2021 12:07 AM CDT Sexual Orientation Not on file Last Filed Vital Signs Vital Sign Reading Time Taken Comments Blood Pressure 148/90 10/25/2024 3:37 PM DAM OPERATOR Pulse 94 10/25/2024 3:37 PM DAM OPERATOR Temperature 36.7 C (98 F) 10/25/2024 3:37 PM DAM OPERATOR Respiratory Rate 18 10/25/2024 3:37 PM DAM OPERATOR Oxygen Saturation 98% 10/25/2024 3:37 PM DAM OPERATOR Inhaled Oxygen Concentration - - Weight 71.7 kg (158 lb) 10/25/2024 11:07 AM DAM OPERATOR Height 182.9 cm (6') 10/25/2024 11:07 AM DAM OPERATOR Body Mass Index 21.43 10/25/2024 11:07 AM DAM OPERATOR Plan of Treatment Not on file Procedures Procedure Name Priority Date/Time Associated Diagnosis Comments URINALYSIS, MICROSCOPIC ONLY STAT 10/25/2024 2:06 PM DAM OPERATOR DRUGS OF ABUSE SCREEN, URINE WITHOUT CONFIRMATION STAT 10/25/2024 2:06 PM DAM OPERATOR URINALYSIS AND REFLEX TO MICROSCOPIC AND CULTURE STAT 10/25/2024 2:[address] ABDOMEN PELVIS W CONTRAST ED 10/25/2024 1:50 PM DAM OPERATOR EGFR STAT 10/25/2024 11:13 AM DAM OPERATOR DIFFERENTIAL AUTO STAT 10/25/2024 11: 13 AM DAM OPERATOR LIPASE STAT 10/25/2024 11:13 AM DAM OPERATOR COMPREHENSIVE METABOLIC PANEL STAT 10/25/2024 11:13 AM DAM OPERATOR CBC WITH AUTO DIFFERENTIAL STAT 10/25/2024 11:13 AM DAM OPERATOR from Last 3 Months Results * (ABNORMAL) Urinalysis reflex to microscopic and culture Urine (10/25/2024 2:06 PM DAM OPERATOR) Color, ur Yellow Yellow Clarity, ur Clear [...] tendency for uric acid stone formation. Source: [facility] [employer] Current Interpretive Data was last revised on 2017 Protein, ur ql 2+(A) Negative [facility] Glucose, ur ql Negative Negative [facility] Ketones, ur Negative Negative [facility] Bilirubin, ur Negative Negative [facility] Blood, ur Negative Negative [facility] Urobilinogen, ur <2.0 <2.0 mg/dL [facility] Nitrite, ur Negative Negative [facility] Leukocyte esterase, ur Negative Negative [facility] UA reflex comment Reflex to microscopic UA will be performed. [facility] Urine 10/25/2024 2:06 PM DAM OPERATOR 10/25/2024 2:20 PM DAM OPERATOR us Ten Cole MD LAB MICROBIOLOGY - GENERAL ORDERABLES Final Result [facility] [address] [facility] [place] [address] * (ABNORMAL) Drugs of Abuse Screen, Urine without Confirmation (10/25/2024 2:06 PM DAM OPERATOR) Amphetamine, ur Not Detected CutOff 500ng/mL Comment: Interpretive Data - Amphetamines: Samples containing greater than 500 ng/mL d-methamphetamine or other cross-reacting amphetamine compounds are reported as positive. Amphetamine immunoassays are subject to significant false positive rates due to cross-reactivity of non-amphetamine drugs. Confirmatory testing required for definitive results. Current Interpretive Data was last reviewed 2023. Barbiturates, ur Not Detected CutOff 200ng/mL [facility] Comment: Interpretive Data - Barbiturates: Samples containing greater than 200 ng/mL secobarbital or other cross-reacting barbiturate compounds are reported as positive. False positive and false negative results are possible. Confirmatory testing required for definitive results. Current Interpretive Data was last reviewed 2023. Benzodiazepines, ur Not Detected CutOff 100ng/mL [facility] Comment: Interpretive Data - Benzodiazepines: Samples containing greater than 100 ng/mL nordiazepam or other cross-reacting compounds are reported as positive. False positive and false negative results are possible. Confirmatory testing required for definitive results. Current Interpretive Data was last reviewed 2023. Cannabinoids, ur Screen Positive, presumptive (A) CutOff 50 ng/mL [facility] Comment: Interpretive Data - Cannabinoids: Samples containing greater than 50 ng/mL delta-9 THC -COOH or other cross- reacting compounds are reported as positive. False positive and false negative results are possible. Confirmatory testing required for definitive results. Current Interpretive Data was last reviewed 2023. Cocaine, ur Screen Positive, presumptive (A) CutOff 150ng/mL [facility] Comment: Interpretive Data - Cocaine: Samples containing greater than 150 ng/mL benzoylecgonine or other cross- reacting compounds are reported as positive. False positive and false negative results are possible. Confirmatory testing required for definitive results. Current Interpretive Data was last reviewed 2023. Fentanyl, Ur Not Detected Cutoff 1 ng/mL [facility] Comment: Interpretive Data - Fentanyl: Samples containing greater than 1 ng/mL fentanyl or other cross-reacting fentanyl compounds are reported as positive. False positive and false negative results are possible. Confirmatory testing required for definitive results. Current Interpretive Data was last reviewed 2023. Methadone, ur Not Detected CutOff 300ng/mL [facility] Comment: Interpretive Data - Methadone: Samples containing greater than 300 ng/mL d,l-methadone or other cross-reacting compounds are reported as positive. False positive and false negative results are possible. Confirmatory testing required for definitive results. Current Interpretive Data was last reviewed 2023. Opiates, ur Not Detected CutOff 300ng/mL [facility] Comment: Interpretive Data - Opiates: Samples containing greater than 300 ng/mL morphine or other cross-reacting compounds are reported as positive. False positive and false negative results are possible. Confirmatory testing required for definitive results. Current Interpretive Data was last reviewed 2023. Oxycodone, ur Not Detected CutOff 100ng/mL [facility] Comment: Interpretive Data - Oxycodone: Samples containing greater than 100 ng/mL oxycodone or other cross-reacting compounds are reported as positive. False positive and false negative results are possible. Confirmatory testing required for definitive results. Current Interpretive Data was last reviewed 2023. Phencyclidine, ur Not Detected CutOff 25 ng/mL [facility] Comment: Interpretive Data - Phencyclidine: Samples containing greater than 25 ng/mL phencyclidine or other cross-reacting compounds are reported as positive. False positive and false negative results are possible. Confirmatory testing required for definitive results. Current Interpretive Data was last reviewed 2023. Urine Creatinine 192 mg/dL [facility] Comment: Interpretive Data Urine Creatinine: < 10 mg/dL is extremely dilute = or > 10 but < 20 mg/dL is dilute = or > 20 mg/dL is normal Current Interpretive Data was last revised on 2017. Urine 10/25/2024 2:06 PM DAM OPERATOR 10/25/2024 2:20 PM DAM OPERATOR Narrative [facility] - 10/25/2024 3:46 PM DAM OPERATOR Drug of Abuse screening is performed by immunoassay for medical purposes only. This is not to be used for Pain Management purposes. us [place] [facility] URINE ORDERABLE S Final Result Performing Organization Address [facility] Co de Phone Number [address] [place] [address] * (ABNORMAL) Urinalysis, microscopic only (10/25/2024 2:06 PM DAM OPERATOR) WBC, ur 0-5 0 - 5 /HPF RBC, ur 11-20(A) 0 - 2 /HPF [facility] Epithelial cells, squamous, ur 1-5 0 - 5 /HPF [facility] Mucous, ur Present(A) [facility] Culture Reflex Comment Reflex conditions for urine culture (WBC >10) not met. [facility] Urine 10/25/2024 2:06 PM DAM OPERATOR 10/25/2024 2:20 PM DAM OPERATOR us Ten Cole MD LAB URINE ORDERABLES Final Result Performing Organization Address [facility] de Phone Number [address] [place] [address] * CT Abdomen Pelvis W Contrast (10/25/2024 1:50 PM DAM OPERATOR) Anatomical Region Laterality Modality Body N/A Computed Tomogra phy 10/25/2024 2:05 PM DAM OPERATOR Impressions 10/25/2024 2:05 PM DAM OPERATOR 1. There is a suggestion of a [...] Krys Han M.D. Narrative 10/25/2024 2:05 PM DAM OPERATOR EXAMINATION: Computed Tomography of the Abdomen and [...] signed by: Krys Han M.D. [place] [facility] CT PROCEDURES F inal Result * eGFR (10/25/2024 11:13 AM DAM OPERATOR) eGFR >90 >=60 mL/min/1. 73 m2 Comment: [...] reviewed 2021. Blood 10/25/2024 11:1 3 AM DAM OPERATOR 10/25/2024 11:18 AM DAM OPERATOR us Ten Cole MD LAB BLOOD ORDERABLES Final Result [address] [place] [address] * (ABNORMAL) Differential, auto (10/25/2024 11:13 AM DAM OPERATOR) Neutrophil abs 8.4(H) 1.5 - 6.5 K/cumm Imm gran abs 0.0 0.0 - 0.1 K/cumm [facility] Lymphocyte abs 1.8 0.8 - 3.3 K/cumm [facility] Monocyte abs 0.9(H) 0.2 - 0.8 K/cumm [facility] Eosinophil abs 0.1 0.0 - 0.5 K/cumm [facility] Basophil abs 0.1 0.0 - 0.1 K/cumm [facility] Neutrophil pct 74.8 % [facility] Comment: Interpretive Data Percent cell count reference ranges are not reported, since discordance with absolute values may lead to misinterpretation of CBC data. Current Interpretive Data was last revised on 2018. Imm gran pct 0.3 % [facility] Comment: Interpretive Data Percent cell count reference ranges are not reported, since discordance with absolute values may lead to misinterpretation of CBC data. Current Interpretive Data was last revised on 2018. Lymphocyte pct 16.1 % [facility] Comment: Interpretive Data Percent cell count reference ranges are not reported, since discordance with absolute values may lead to misinterpretation of CBC data. Current Interpretive Data was last revised on 2018. Monocyte pct 7.9 % [facility] Comment: Interpretive Data Percent cell count reference ranges are not reported, since discordance with absolute values may lead to misinterpretation of CBC data. Current Interpretive Data was last revised on 2018. Eosinophil pct 0.4 % [facility] Comment: Interpretive Data Percent cell count reference ranges are not reported, since discordance with absolute values may lead to misinterpretation of CBC data. Current Interpretive Data was last revised on 2018. Basophil pct 0.5 % [facility] Comment: Interpretive Data Percent cell count reference ranges are not reported, since discordance with absolute values may lead to misinterpretation of CBC data. Current Interpretive Data was last revised on 2018. Blood 10/25/2024 11:1 3 AM DAM OPERATOR 10/25/2024 11:18 AM DAM OPERATOR Ten Cole MD LAB BLOOD ORDERABLES Final Result [facility] [address] [facility] [place] [address] * (ABNORMAL) CBC with auto differential (10/25/2024 11:13 AM DAM OPERATOR) WBC 11.2(H) 3.8 - 9.9 K/cumm Hgb 16.0 13.0 - 17.5 g/dL [facility] Hct 44.9 38.9 - 50.3 % [facility] Plt 398 150 - 400 K/cumm [facility] MPV 9.2 9.1 - 12.3 fL [facility] RBC 5.37 4.30 - 5.80 M/cumm [facility] MCV 83.6 81.3 - 96.4 fL [facility] MCH 29.8 27.1 - 33.3 pg [facility] MCHC 35.6 32.3 - 35.7 g/dL [facility] RDW CV 11.7 11.1 - 14.9 % [facility] RDW SD 35.1(L) 35.7 - 48.1 fL [facility] NRBC abs 0.00 0.00 - 0.01 K/cumm [facility] Blood Venous blood specimen / Unknown 10/25/2024 11:13 AM DAM OPERATOR 10/25/2024 11:18 AM DAM OPERATOR Ten Cole MD LAB BLOOD ORDERABLES Final Result Performing Organization Address [facility] Co de Phone Number MONICA [address] [place] [address] * (ABNORMAL) Lipase (10/25/2024 11:13 AM DAM OPERATOR) Pathologist [facility] Lipase 138(H) 10 - 99 Units/L Blood 10/25/2024 11:1 3 AM DAM OPERATOR 10/25/2024 11:18 AM DAM OPERATOR Ten Cole MD LAB BLOOD ORDERABLES Final Result Performing Organization Address [facility] Phone Number MONICA [address] [place] [address] * (ABNORMAL) Comprehensive metabolic panel (10/25/2024 11:13 AM DAM OPERATOR) Pathologist [facility] Sodium 130(L) 135 - 145 mmol/L Potassium, pl 3.1(L) 3.3 - 4.9 mmol/L [facility] Chloride 84(L) 97 - 110 mmol/L [facility] CO2 35(H) 22 - 32 mmol/L [facility] Anion gap 11 2 - 15 mmol/L [facility] BUN 9 6 - 25 mg/dL [facility] Creatinine 0.98 0.80 - 1.30 mg/dL [facility] Glucose 136 70 - 199 mg/dL [facility] Comment: Interpretive Data Fasting glucose >/= [...] blood specimen / Unknown 10/25/2024 11:13 AM DAM OPERATOR 10/25/2024 11:18 AM DAM OPERATOR us Ten Cole MD LAB BLOOD ORDERABLES Final Result [facility] [address] [facility] [place] [address] from Last 3 Months Insurance [facility] Advance Directives For more information, please contact: [phone] * Full Code (Latest Code Status on File) Date Activated Date Inactivated Comments 01/17/2022 10:36 AM 01/19/2022 10:32 PM Care Teams Family Educator Relationship Specialty Start Date End Date Rocío Lombardi MD [address] [facility] [address] [place] [address] PCP - General 11/22/19
--- OUTSIDE RECORDS SUMMARY | 2024-12-04 22:01 | XMS_ITS | Encounter Summary ---
Author Organization [facility] Address [facility] [place] [address] Care Team Providers Care Pasteurizer Helper Name Role Phone Rocío Lombardi MD Primary Care Provider + None, Provider Primary Care Provider Claudine schwartz Encounter Details Date Type Department Care Team (Late st Contact Info) Description 08/29/2022 Zeolife Message [facility] Family and Sports Medicine - [place] [address] [place], [facility] Provider Schedule Appointment: Annual Physical Due Social History Tobacco Use Types Packs/Day Years Used Date Smoking Tobacco: Never Smokeless Tobacco: Never Comments:USED MARIJUANA IN P AST Alcohol Use Standard Drinks/Week Comments Yes 0 (1 standard drink = 0.6 oz pur e alcohol) occassional Sex and Gender Information Value Date Recorded Sex Assigned at Male 10/21/2024 2:48 PM CORNER CUTTER MACHINE OPERATOR Legal Sex Male 7:32 AM CDT Gender Identity Male 09/29/2022 5:25 PM CORNER CUTTER MACHINE OPERATOR Sexual Orientation Straight 09/29/2022 5: 25 PM CORNER CUTTER MACHINE OPERATOR documented as of this encounter Functional Status [...] independent in ADLs upon discharge from hospital [facility] No Betty Zelaya, SEISMOGRAPH COMPUTER documented as of this encounter Visit Diagnoses Not on filedocumented in this encounter Additional Health Concerns Infection Onset Date Last Indicated Resolved Time COVID-19 Rule Out 04/09/2024 04/09/2024 04/09/2024 11:06 PM CDT documented as of this encounter Care Teams Pasteurizer Helper Relationship Specialty Start Date End Date Rocío Lombardi MD PCP - General FAMILY PRACTICE 04/08/20 04/09/24 None, Provider, PCP - General UNKNOWN PHYSICIAN SPECIALTY 04/24/24 documented as of this encounter
--- OUTSIDE RECORDS SUMMARY | 2024-12-04 22:01 | XMS_ITS | CONTINUITY OF CARE DOCUMENT ---
Author Name erin khan Address Unknown Organization [facility] Address [address] [facility] [address] [place] [address] Phone [phone] Care Team Providers Care Framing And Hanging Name Role Phone Slime Garber MD Unavailable [phone] Slime Garber MD Unavailable [phone] INSURANCE PROVIDERS Payer name Policy type / Coverage type Parkin red libertarian [employer] [facility] [facility] Medicaid 3 [id number]
[2024-12-04 22:06] LABS: Alanine Aminotransferase 15 U/L (6-50); Albumin Level 4.4 g/dL (3.5-5.1); Alkaline Phosphatase 64 U/L (38-126); Anion Gap 11 mmol/L (4-12); Aspartate Amino Transferase 31 U/L (17-59); Bilirubin,Total 0.4 mg/dL (0.2-1.3); Blood Urea Nitrogen 11 mg/dL (9-20); Calcium 9.8 mg/dL (8.4-10.2); Carbon Dioxide 32 mmol/L (22-30); Chloride 96 mmol/L (98-107); Estimated CRCL calculation 95 ml/min; Estimated Glomerular Filt Rate > 60; Glucose 100 mg/dL (65-110); Lipase 139 U/L (23-300); Potassium 3.4 mmol/L (3.4-5.0); Sodium 139 mmol/L (137-145)
--- NOTE | 2024-12-04 22:41 | ED_ITS ---
HPI - General Adult General Chief complaint: Nausea/Vomiting/Diarrhea Stated complaint: Constant vomiting x all day Time Seen by Provider: 12/04/24 21:55 History of Present Illness HPI narrative: Patient 33-year-old gentleman presents emergency department with chief complaint of nausea vomiting and abdominal pain. The patient reports he has history of cyclic vomiting syndrome reports this is typical type episode and reports that he feels like he needs some fluids and some nausea medication and pain medication Related Data Allergies Allergy/AdvReac Type Severity Reaction Status Date / Time No Known Allergies Allergy Verified 12/04/24 21:25 Review of Systems 2 Review of Systems: A 10 system review of systems was completed on the patient and is negative except for what is stated in the HPI. Nursing and ancillary documentation was reviewed. [facility] Past Medical History Medical History Cyclical vomiting Social History Social History Substance use type: marijuana Other substance usage details: daily Exam 2 Narrative: GENERAL: Well-appearing, well-nourished, and in no acute distress. HEAD: Normocephalic, atraumatic. EYES: PERRLA and EOMI. ENT: Nares clear, no rhinorrhea or epistaxis. Mucous membranes moist. NECK: Supple. CHEST: Clear to auscultation. No respiratory distress. HEART: Regular rate and rhythm. No murmur heard. Normal peripheral pulses. ABDOMEN: Soft, nontender, nondistended, normal active bowel sounds. EXTREMITIES: Normal range of motion. No edema. SKIN: Warm, dry, no rash. NEURO: No focal deficits. Alert and oriented x3. PSYCH: Normal mood and affect. Course Vital Signs Vital signs: Vital Signs Temperature 36.9 C 12/04/24 21:32 Pulse Rate 122 H 12/04/24 21:32 Respiratory Rate 16 12/04/24 21:32 Blood Pressure 128/93 H 12/04/24 21:32 Pulse Oximetry 100 12/04/24 21:32 Temperature 36.9 C 12/04/24 21:32 Pulse Rate 108 H 12/04/24 21:47 Respiratory Rate 17 12/04/24 21:47 Blood Pressure 139/94 H 12/04/24 21:47 Pulse Oximetry 99 12/04/24 21:47 Medical Decision Making MDM Narrative Medical decision making narrative: Differential diagnosis includes dehydration and vomiting syndrome Laboratory studies were obtained patient showed normal CBC with white count 13.9 hemoglobin is 13.9 as well electrolytes showed a CO2 of 32 anion gap was 11 BUN was low creatinine was 0.8 liver enzymes were normal lipase was normal. Patient received IV fluids antiemetics and a dose of pain medications patient be discharged home prescription for Cam Vital Signs Vital Signs: Vital Signs Temperature 36.9 C 12/04/24 21:32 Pulse Rate 122 H 12/04/24 21:32 Respiratory Rate 16 12/04/24 21:32 Blood Pressure 128/93 H 12/04/24 21:32 Pulse Oximetry 100 12/04/24 21:32 Temperature 36.9 C 12/04/24 21:32 Pulse Rate 108 H 12/04/24 21:47 Respiratory Rate 17 12/04/24 21:47 Blood Pressure 139/94 H 12/04/24 21:47 Pulse Oximetry 99 12/04/24 21:47 Lab Data 12/04/24 21:46 12/04/24 21:46 Labs: Lab Results 12/04/24 Range/Units 21:46 WBC 13.9 H (4.5-10.0) K/mm3 RBC 4.70 (4.6-6.20) M/mm3 Hgb 13.9 L D (14.0-18.0) g/dL Hct 39.9 L (42.0-52.0) % MCV 84.9 (80-100) fl MCH 29.6 (26-34) pg MCHC 34.8 (32-36) g/dl RDW 11.9 (11.5-14.5) % Plt Count 402 H (150-375) k/mm3 MPV 9.2 (7.4-10.4) fl Immature Gran % (Auto) 0.4 (0-0.5) % Neut % (Auto) 78.9 H (45.5-73.1) % Lymph % (Auto) 14.0 L (18.3-44.2) % [place] % (Auto) 6.3 (2.6-8.5) % Eos % (Auto) 0.1 (0-4.4) % Baso % (Auto) 0.3 (0.2-1.2) % Lymph # (Auto) 1.95 (0.9-3.2) K/mm3 [place] # (Auto) 0.9 H (0.1-0.6) K/mm3 Eos # (Auto) 0.0 (0-0.3) K/mm3 Baso # (Auto) 0.0 (0.0-0.1) K/mm3 Abs Immat Gran (auto) 0.05 H (0.00-0.031) K/mm3 Absolute Neuts (auto) 11.0 H (1.3-6.7) K/mm3 Absolute Nucleated RBC 0.000 (0.0-0.012) K/mm3 Nucleated RBC % 0.0 (0.0-0.2) % Sodium 139 (137-145) mmol/L Potassium 3.4 (3.4-5.0) mmol/L Chloride 96 L (98-107) mmol/L Carbon Dioxide 32 H (22-30) mmol/L Anion Gap 11 (4-12) mmol/L BUN 11 D (9-20) mg/dL Creatinine 0.85 (0.7-1.3) mg/dL Estim Creat Clear Calc 95 ml/min Estimated GFR > 60 (59 - ) Glucose 100 (65-110) mg/dL Calcium 9.8 (8.4-10.2) mg/dL Total Bilirubin 0.4 (0.2-1.3) mg/dL AST 31 (17-59) U/L ALT 15 (6-50) U/L Alkaline Phosphatase 64 (38-126) U/L Total Protein 7.0 (6.3-8.2) g/dL Albumin 4.4 (3.5-5.1) g/dL Lipase 139 (23-300) U/L Discharge Plan Discharge Clinical Impression: Cyclical vomiting, Abdominal pain, Nausea and vomiting Patient Disposition: Home, Self-Care Condition: Stable Instructions: Antibiotic Form, Acute Nausea and Vomiting (ED), Abdominal Pain (ED) Patient Language: Samoan Prescriptions: New ondansetron 4 mg tablet,disintegrating 4 mg PO Q8H PRN (Reason: nausea and vomiting) Qty: 10 0RF No Action ondansetron 4 mg tablet,disintegrating 4 mg PO Q8H PRN (Reason: nausea and vomiting) Qty: 10 0RF metoclopramide HCl [Reglan] 10 mg tablet 10 mg PO Q6H PRN (Reason: nausea and vomiting) Qty: 14 0RF Follow-up/Referrals: Danny Eddy MD [Physician] - UNKNOWN,DOCTOR [Primary Care Provider] - Time of Disposition: 23:45
[2024-12-04] MEDS: MORPHINE SULFATE (*CRX) 4 MG/ML INJ IV PUSH (22:52)
[2024-12-04] MEDS: PROCHLORPERAZINE EDISYLATE 10 MG/2 ML VIAL IV PUSH (22:52)
[2024-12-04] MEDS: diphenhydrAMINE HCl INJ 50 MG/ML VIAL IV PUSH (22:52)
[2024-12-04] MEDS: SODIUM CHLORIDE 0.9% IV 1,000 ML 999 ML IV CONT (22:52)
--- NOTE | 2024-12-04 22:58 | PC.NURSE ---
Patient was asked for a urine sample at this time and stated he is unable to. Pt advised that straight cath will be needed and patient stated Absolutely not. I refuse.
[2024-12-05 00:02] VITALS: BP 113/76; PULSE 90; RESP 13; O2SAT 97
== END 2024-12-05 00:15 | disposition home or self-care (01) ==
PROVIDERS: Emergency Medicine; Emergency Provider Emergency Medicine
DX: R11.15 Cyclical vomiting syndrome unrelated to migraine (principal); R10.9 Unspecified abdominal pain
CPT/HCPCS: 36415; 80053; 83690; 85025; 96361; 96374; 96375; 99284; J0780; J1200; J2270; J7030

== ENCOUNTER 2025-01-16 18:12 | Emergency (ER) | payer OTHER, SELFPAY ==
[2025-01-16] VITALS (16 sets, daily range): BP systolic 135–173; BP diastolic 95–103; PULSE 83–95; RESP 13–18; TEMP 36.4; O2SAT 96–100
--- NOTE | ~2025-01-16 | CT_ITS ---
CT of the Abdomen and Pelvis: Indication: Abdominal pain Technique: 2.5 mm axial scans were obtained through the abdomen and pelvis following intravenous adm inistration of 100 cc of Omnipaque 350. Dose reduction technique was used on this scan by utilizing a utomated exposure control and iterative reconstruction technique. The dose-length product (DLP) was 3 18.91 mGy-cm. COMPARISON: 09/24/2024 Findings: Scans through the lung bases are unremarkable. The liver, spleen, pancreas, gallbladder, adrenals and kidneys are within normal limits. No evidence of aortic aneurysm. No lymphadenopathy. No bowel obstruction or bowel wall thickening. There is no evidence to suggest acute appendicitis. Images through the pelvis were performed. Urinary bladder unremarkable. No pelvic mass seen. No ascit es. Impression: No significant abnormalities seen. Reviewed, dictated and finalized at [facility]. Impression: No significant abnormalities seen.
--- OUTSIDE RECORDS SUMMARY | 2025-01-16 18:14 | XMS_ITS | Encounter Summary ---
Author Organization [facility] Address [facility] [place] [address] Care Team Providers Care Refining Still Operator Name Role Phone None, Provider Primary Care Provider Unavaila ble None, Provider Primary Care Provider Unavaila ble Rocío Lombardi MD Primary Care Provider [phone] None, Provider Primary Care Provider Unavaila ble Encounter Details Date Type Department Care Team (Late st Contact Info) Description 03/09/2019 Abstract [facility] CONVERSION [address] [place] [address] , Generic Conversion, Social History Tobacco Use Types Packs/Day Years Used Date Smoking Tobacco: Never Smokeless Tobacco: Never Comments:USED MARIJUANA IN P AST Alcohol Use Standard Drinks/Week Comments Yes 0 (1 standard drink = 0.6 oz pur e alcohol) occassional Sex and Gender Information Value Date Recorded Sex Assigned at Male 10/21/2024 2:48 PM SAND CUTTER Legal Sex Male 7:32 AM CDT Gender Identity Male 09/29/2022 5:25 PM SAND CUTTER Sexual Orientation Straight 09/29/2022 5: 25 PM SAND CUTTER documented as of this encounter Plan of Treatment Not on file documented as of this encounter Visit Diagnoses Not on filedocumented in this encounter Additional Health Concerns Infection Onset Date Last Indicated Resolved Time COVID-19 Rule Out Comment:TESTED 7.04/13/2020 04/13/2020 04/13/2020 9:19 AM CDT COVID-19 Rule Out 10/02/2020 10/02/2020 10/02/2020 7:28 PM SAND CUTTER COVID-19 Rule Out 11/09/2020 11/09/2020 11/10/2020 6:16 PM SAND CUTTER COVID-19 Rule Out 11/23/2020 11/23/2020 11/24/2020 5:51 PM SAND CUTTER COVID-19 Rule Out 12/29/2020 12/29/2020 12/29/2020 7:08 PM CDT COVID-19 Rule Out 04/09/2024 04/09/2024 04/09/2024 11:06 PM CDT documented as of this encounter Care Teams Refining Still Operator Relationship Specialty Start Date End Date None, Provider, PCP - General 01/16/19 03/18/19 None, ProviderMD PCP - General 03/19/19 04/07/20 Rocío Lombardi MD PCP - General FAMILY PRACTICE 04/08/20 04/09/24 None, ProviderMD PCP - General UNKNOWN PHYSICIAN SPECIALTY 04/24/24 documented as of this encounter
--- OUTSIDE RECORDS SUMMARY | 2025-01-16 18:14 | XMS_ITS | Encounter Summary ---
Author Organization [facility] Address [facility] [place] [address] Care Team Providers Care Valuation Manager Name Role Phone Rocío Lombardi MD Primary Care Provider + None, Provider Primary Care Provider Claudine schwartz Encounter Details Date Type Department Care Team (Late st Contact Info) Description 10/31/2023 Metaps Message [facility] Family and Sports Medicine - [place] [address] [place] Provider Schedule Appointment: Annual Physical Social History Tobacco Use Types Packs/Day Years Used Date Smoking Tobacco: Former Cigarettes Smokeless Tobacco: Never Comments:USED MARIJUANA IN P AST. Cigs off and on. Alcohol Use Standard Drinks/Week Comments Yes 0 (1 standard drink = 0.6 oz pur e alcohol) occassional [facility] Utilities Answer Date Recorded In the past 12 months has e [place], gas, oil, or water [employer] threatened to shut off services in your [...] place to sleep or slept in a custodial (including now)? No 10/03/2023 Sex and Gender Information Value Date Recorded Sex Assigned at Male 10/21/2024 2:48 PM MUSIC THEORY PROFESSOR Legal Sex Male 7:32 AM CDT Gender Identity Male 09/29/2022 5:25 PM MUSIC THEORY PROFESSOR Sexual Orientation Straight 09/29/2022 5: 25 PM MUSIC THEORY PROFESSOR documented as of this encounter Functional Status [...] Total Score: 0 09/30/20 22 10:11 AM MUSIC THEORY PROFESSOR documented as of this encounter Care Teams Valuation Manager Relationship Specialty Start Date End Date Rocío Lombardi MD PCP - General FAMILY PRACTICE 04/08/20 04/09/24 None, Provider, PCP - General UNKNOWN PHYSICIAN SPECIALTY 04/24/24 documented as of this encounter
--- OUTSIDE RECORDS SUMMARY | 2025-01-16 18:14 | XMS_ITS | Encounter Summary ---
Author Organization [facility] Address [facility] [place] [address] Care Team Providers Care Dye Line Operator Name Role Phone Rocío Lombardi MD Primary Care Provider [phone] None, Provider Primary Care Provider Unavaila ble Encounter Details Date Type Department Care Team (Late st Contact Info) Description 11/18/2020 Prep for Procedure [facility] [place], [place] [id number] Ten Flynn MD [address] [facility] [address] [place], [place] [id number] Social History Tobacco Use Types Packs/Day Years Used Date Smoking Tobacco: Never Smokeless Tobacco: Never Comments:USED MARIJUANA IN P AST Alcohol Use Standard Drinks/Week Comments Yes 0 (1 standard drink = 0.6 oz pur e alcohol) occassional Sex and Gender Information Value Date Recorded Sex Assigned at Male 10/21/2024 2:48 PM SENIOR NAVAL PARACHUTIST Legal Sex Male 7:32 AM CDT Gender Identity Male 09/29/2022 5:25 PM SENIOR NAVAL PARACHUTIST Sexual Orientation Straight 09/29/2022 5: 25 PM SENIOR NAVAL PARACHUTIST COVID-19 Exposure Response Date Recorded In the last month, have you been in contact with someone who was confirmed or suspected to have Coronavirus / COVID-19? No / Unsure 11/06/2020 1:13 PM SENIOR NAVAL PARACHUTIST documented as of this encounter Functional Status [...] PRE-SURGICAL/PRE-PROCEDURE CORONAVIRUS (COVID 19) (11/23/2020 10:45 AM SENIOR NAVAL PARACHUTIST) Pathologist [facility] CORONAVIRUS SARS COV 2 PCR (RESP) NOT DETECTED NOT DETECTED 11/24/2020 5:51 PM SENIOR NAVAL PARACHUTIST [facility] Comment: A Not Detected (negative) [...] providers and patients using the following websites: https://www.[employer].com/home/Covid-19/HCP/Quest[facility]/fact- sheet.html https://www.[employer].com/home/Covid-19/Patients/ QuestIVD/fact-sheet.html This test has been authorized by the FDA under an Emergency Use Authorization (EUA) for use by authorized laboratories. Due to the current public health emergency, [facility] is receiving a high volume of samples [...] about COVID-19 can be found at the [facility] website: www.[employer].PlayMob/Covid19. Test performed at [facility] [address] [place] [address] Director: BAM SMITH DO,MPH FIRST TEST NO 11/23/2020 12:30 PM SENIOR NAVAL PARACHUTIST [facility] EMPLOYED IN HEALTHCARE NO 11/23/2020 12:30 PM [facility] SYMPTOMATIC DEFINED BY CDC NO 11/23/2020 12:30 PM SENIOR NAVAL PARACHUTIST [facility] DATE OF SYMPTOM ONSET NO 11/23/2020 12:43 PM SENIOR NAVAL PARACHUTIST [facility] HOSPITALIZATION STATUS NO 11/23/2020 12:30 PM SENIOR NAVAL PARACHUTIST [facility] PATIENT IN ICU NO 11/23/2020 12:30 PM SENIOR NAVAL PARACHUTIST [facility] RESIDENT OF [facility] CARE NO 11/23/2020 12:30 PM SENIOR NAVAL PARACHUTIST [facility] NO 11/23/2020 12:43 PM SENIOR NAVAL PARACHUTIST [facility] PATIENT'S RACE WHITE OR 11/23/2020 12:30 PM [facility] ETHNICITY NONHISPANIC 11/23/2020 12:30 PM SENIOR NAVAL PARACHUTIST [facility] SOURCE (QST) NASOPHARYNGEAL SWAB 11/23/2020 12:30 PM SENIOR NAVAL PARACHUTIST [facility] NASOPHARYNGEAL SWAB / Unknown 11/23/2020 10:45 AM SENIOR NAVAL PARACHUTIST us Ten Flynn MD MICROBIOLOGY - GENERAL ORDERABLE S Final Result [facility] [address] [place] [address], [facility] [address] [place] [address], documented in this encounter Visit Diagnoses Diagnosis Vomiting- Primary Vomiting alone documented in this encounter Additional Health Concerns Infection Onset Date Last Indicated Resolved Time COVID-19 Rule Out 11/23/2020 11/23/2020 11/24/2020 5:51 PM SENIOR NAVAL PARACHUTIST COVID-19 Rule Out 12/29/2020 12/29/2020 12/29/2020 7:08 PM CDT COVID-19 Rule Out 04/09/2024 04/09/2024 04/09/2024 11:06 PM CDT documented as of this encounter Care Teams Dye Line Operator Relationship Specialty Start Date End Date Rocío Lombardi MD PCP - General FAMILY PRACTICE 04/08/20 04/09/24 None, Provider, PCP - General UNKNOWN PHYSICIAN SPECIALTY 04/24/24 documented as of this encounter
--- OUTSIDE RECORDS SUMMARY | 2025-01-16 18:14 | XMS_ITS | Encounter Summary ---
Author Organization [facility] Address [facility] [place] [address] Care Team Providers Care Car Top Bolter Name Role Phone Rocío Lombardi MD Primary Care Provider + None, Provider Primary Care Provider Claudine schwartz Encounter Details Date Type Department Care Team (Late st Contact Info) Description 08/29/2022 Chtiogen Message [facility] Family and Sports Medicine - [place] [address] [place], [facility] Provider Schedule Appointment: Annual Physical Due Social History Tobacco Use Types Packs/Day Years Used Date Smoking Tobacco: Never Smokeless Tobacco: Never Comments:USED MARIJUANA IN P AST Alcohol Use Standard Drinks/Week Comments Yes 0 (1 standard drink = 0.6 oz pur e alcohol) occassional Sex and Gender Information Value Date Recorded Sex Assigned at Male 10/21/2024 2:48 PM DIELECTRIC TESTING MACHINE OPERATOR Legal Sex Male 7:32 AM CDT Gender Identity Male 09/29/2022 5:25 PM DIELECTRIC TESTING MACHINE OPERATOR Sexual Orientation Straight 09/29/2022 5: 25 PM DIELECTRIC TESTING MACHINE OPERATOR documented as of this encounter [...] independent in ADLs upon discharge from hospital [facility] No Betty Zelaya, MAT CUTTER documented as of this encounter Visit Diagnoses Not on filedocumented in this encounter Additional Health Concerns Infection Onset Date Last Indicated Resolved Time COVID-19 Rule Out 04/09/2024 04/09/2024 04/09/2024 11:06 PM CDT documented as of this encounter Care Teams Car Top Bolter Relationship Specialty Start Date End Date Rocío Lombardi MD PCP - General FAMILY PRACTICE 04/08/20 04/09/24 None, Provider, PCP - General UNKNOWN PHYSICIAN SPECIALTY 04/24/24 documented as of this encounter
--- OUTSIDE RECORDS SUMMARY | 2025-01-16 18:14 | XMS_ITS | Referral Summary ---
Author Organization [facility] al Address [address] [place] [address] Care Team Providers Care Solutions Development Analyst Name Role Phone Rocío Lombardi MD Primary Care Provider [phone] Encounters Date Type Department Care Team Description 10/25/2024 1:14 PM SHELLFISH PROCESSING LABORER - 10/25/2024 3:37 PM [facility] Emergency [facility] Emergency Department [address] [place] [address] Nausea and vomiting, unspecified vomiting type (Primary [...] on file Legal Sex Male 4:18 PM SHELLFISH PROCESSING LABORER Gender Identity Male 07/12/2021 12:07 AM CDT Sexual Orientation Not on file Last Filed Vital Signs Vital Sign Reading Time Taken Comments Blood Pressure 148/90 10/25/2024 3:37 PM SHELLFISH PROCESSING LABORER Pulse 94 10/25/2024 3:37 PM SHELLFISH PROCESSING LABORER Temperature 36.7 C (98 F) 10/25/2024 3:37 PM SHELLFISH PROCESSING LABORER Respiratory Rate 18 10/25/2024 3:37 PM SHELLFISH PROCESSING LABORER Oxygen Saturation 98% 10/25/2024 3:37 PM SHELLFISH PROCESSING LABORER Inhaled Oxygen Concentration - - Weight 71.7 kg (158 lb) 10/25/2024 11:07 AM SHELLFISH PROCESSING LABORER Height 182.9 cm (6') 10/25/2024 11:07 AM SHELLFISH PROCESSING LABORER Body Mass Index 21.43 10/25/2024 11:07 AM SHELLFISH PROCESSING LABORER Plan of Treatment Not on file Procedures Procedure Name Priority Date/Time Associated Diagnosis Comments URINALYSIS, MICROSCOPIC ONLY STAT 10/25/2024 2:06 PM SHELLFISH PROCESSING LABORER DRUGS OF ABUSE SCREEN, URINE WITHOUT CONFIRMATION STAT 10/25/2024 2:06 PM SHELLFISH PROCESSING LABORER URINALYSIS AND REFLEX TO MICROSCOPIC AND CULTURE STAT 10/25/2024 2:[address] [address] ABDOMEN PELVIS W CONTRAST ED 10/25/2024 1:50 PM SHELLFISH PROCESSING LABORER EGFR STAT 10/25/2024 11:13 AM SHELLFISH PROCESSING LABORER DIFFERENTIAL AUTO STAT 10/25/2024 11: 13 AM SHELLFISH PROCESSING LABORER LIPASE STAT 10/25/2024 11:13 AM SHELLFISH PROCESSING LABORER COMPREHENSIVE METABOLIC PANEL STAT 10/25/2024 11:13 AM SHELLFISH PROCESSING LABORER CBC WITH AUTO DIFFERENTIAL STAT 10/25/2024 11:13 AM SHELLFISH PROCESSING LABORER from Last 3 Months Results * (ABNORMAL) Urinalysis reflex to microscopic and culture Urine (10/25/2024 2:06 PM SHELLFISH PROCESSING LABORER) Color, ur Yellow Yellow Clarity, ur Clear [...] tendency for uric acid stone formation. Source: [facility] Current Interpretive Data was last revised on 2017 Protein, ur ql 2+(A) Negative [facility] Glucose, ur ql Negative Negative [facility] Ketones, ur Negative Negative [facility] Bilirubin, ur Negative Negative [facility] Blood, ur Negative Negative [facility] Urobilinogen, ur <2.0 <2.0 mg/dL [facility] Nitrite, ur Negative Negative [facility] Leukocyte esterase, ur Negative Negative [facility] UA reflex comment Reflex to microscopic UA will be performed. [facility] Urine 10/25/2024 2:06 PM SHELLFISH PROCESSING LABORER 10/25/2024 2:20 PM SHELLFISH PROCESSING LABORER us Ten Cole MD LAB MICROBIOLOGY - GENERAL ORDERABLES Final Result [facility] [address] [facility] Department [place] [address] * (ABNORMAL) Drugs of Abuse Screen, Urine without Confirmation (10/25/2024 2:06 PM SHELLFISH PROCESSING LABORER) Amphetamine, ur Not Detected CutOff 500ng/mL Comment: Interpretive Data - Amphetamines: Samples containing greater than 500 ng/mL d-methamphetamine or other cross-reacting amphetamine compounds are reported as positive. Amphetamine immunoassays are subject to significant false positive rates due to cross-reactivity of non-amphetamine drugs. Confirmatory testing required for definitive results. Current Interpretive Data was last reviewed 2023. Barbiturates, ur Not Detected CutOff 200ng/mL [facility] Comment: Interpretive Data - Barbiturates: Samples containing greater than 200 ng/mL secobarbital or other cross-reacting barbiturate compounds are reported as positive. False positive and false negative results are possible. Confirmatory testing required for definitive results. Current Interpretive Data was last reviewed 2023. Benzodiazepines, ur Not Detected CutOff 100ng/mL [facility] Comment: Interpretive Data - Benzodiazepines: Samples containing greater than 100 ng/mL nordiazepam or other cross-reacting compounds are reported as positive. False positive and false negative results are possible. Confirmatory testing required for definitive results. Current Interpretive Data was last reviewed 2023. Cannabinoids, ur Screen Positive, presumptive (A) CutOff 50 ng/mL [facility] Comment: Interpretive Data - Cannabinoids: Samples containing greater than 50 ng/mL delta-9 THC -COOH or other cross- reacting compounds are reported as positive. False positive and false negative results are possible. Confirmatory testing required for definitive results. Current Interpretive Data was last reviewed 2023. Cocaine, ur Screen Positive, presumptive (A) CutOff 150ng/mL [facility] Comment: Interpretive Data - Cocaine: Samples containing greater than 150 ng/mL benzoylecgonine or other cross- reacting compounds are reported as positive. False positive and false negative results are possible. Confirmatory testing required for definitive results. Current Interpretive Data was last reviewed 2023. Fentanyl, Ur Not Detected Cutoff 1 ng/mL [facility] Comment: Interpretive Data - Fentanyl: Samples containing greater than 1 ng/mL fentanyl or other cross-reacting fentanyl compounds are reported as positive. False positive and false negative results are possible. Confirmatory testing required for definitive results. Current Interpretive Data was last reviewed 2023. Methadone, ur Not Detected CutOff 300ng/mL [facility] Comment: Interpretive Data - Methadone: Samples containing greater than 300 ng/mL d,l-methadone or other cross-reacting compounds are reported as positive. False positive and false negative results are possible. Confirmatory testing required for definitive results. Current Interpretive Data was last reviewed 2023. Opiates, ur Not Detected CutOff 300ng/mL [facility] Comment: Interpretive Data - Opiates: Samples containing greater than 300 ng/mL morphine or other cross-reacting compounds are reported as positive. False positive and false negative results are possible. Confirmatory testing required for definitive results. Current Interpretive Data was last reviewed 2023. Oxycodone, ur Not Detected CutOff 100ng/mL [facility] Comment: Interpretive Data - Oxycodone: Samples containing greater than 100 ng/mL oxycodone or other cross-reacting compounds are reported as positive. False positive and false negative results are possible. Confirmatory testing required for definitive results. Current Interpretive Data was last reviewed 2023. Phencyclidine, ur Not Detected CutOff 25 ng/mL [facility] Comment: Interpretive Data - Phencyclidine: Samples containing greater than 25 ng/mL phencyclidine or other cross-reacting compounds are reported as positive. False positive and false negative results are possible. Confirmatory testing required for definitive results. Current Interpretive Data was last reviewed 2023. Urine Creatinine 192 mg/dL [facility] Comment: Interpretive Data Urine Creatinine: < 10 mg/dL is extremely dilute = or > 10 but < 20 mg/dL is dilute = or > 20 mg/dL is normal Current Interpretive Data was last revised on 2017. Urine 10/25/2024 2:06 PM SHELLFISH PROCESSING LABORER 10/25/2024 2:20 PM SHELLFISH PROCESSING LABORER Narrative [facility] - 10/25/2024 3:46 PM SHELLFISH PROCESSING LABORER Drug of Abuse screening is performed by immunoassay for medical purposes only. This is not to be used for Pain Management purposes. us [place] [facility] URINE ORDERABLE S Final Result Performing Organization Address [facility] [[email or web address]] Co de Phone Number [address] [place] [address] * (ABNORMAL) Urinalysis, microscopic only (10/25/2024 2:06 PM SHELLFISH PROCESSING LABORER) WBC, ur 0-5 0 - 5 /HPF RBC, ur 11-20(A) 0 - 2 /HPF [facility] Epithelial cells, squamous, ur 1-5 0 - 5 /HPF [facility] Mucous, ur Present(A) [facility] Culture Reflex Comment Reflex conditions for urine culture (WBC >10) not met. [facility] Urine 10/25/2024 2:06 PM SHELLFISH PROCESSING LABORER 10/25/2024 2:20 PM SHELLFISH PROCESSING LABORER us Ten Cole MD LAB URINE ORDERABLES Final Result Performing Organization Address [facility] de Phone Number [address] [place] [address] * CT Abdomen Pelvis W Contrast (10/25/2024 1:50 PM SHELLFISH PROCESSING LABORER) Anatomical Region Laterality Modality Body N/A Computed Tomogra phy 10/25/2024 2:05 PM SHELLFISH PROCESSING LABORER Impressions 10/25/2024 2:05 PM SHELLFISH PROCESSING LABORER 1. There is a suggestion of a [...] Krys Han M.D. Narrative 10/25/2024 2:05 PM SHELLFISH PROCESSING LABORER EXAMINATION: Computed Tomography of the Abdomen and [...] signed by: Krys Han M.D. [place] [facility] PROCEDURES F inal Result * eGFR (10/25/2024 11:13 AM SHELLFISH PROCESSING LABORER) eGFR >90 >=60 mL/min/1. 73 m2 Comment: [...] reviewed 2021. Blood 10/25/2024 11:1 3 AM SHELLFISH PROCESSING LABORER 10/25/2024 11:18 AM SHELLFISH PROCESSING LABORER us Ten Cole MD LAB BLOOD ORDERABLES Final Result [address] Department [place] [address] * (ABNORMAL) Differential, auto (10/25/2024 11:13 AM SHELLFISH PROCESSING LABORER) Neutrophil abs 8.4(H) 1.5 - 6.5 K/cumm Imm gran abs 0.0 0.0 - 0.1 K/cumm [facility] Lymphocyte abs 1.8 0.8 - 3.3 K/cumm [facility] Monocyte abs 0.9(H) 0.2 - 0.8 K/cumm [facility] Eosinophil abs 0.1 0.0 - 0.5 K/cumm [facility] Basophil abs 0.1 0.0 - 0.1 K/cumm [facility] Neutrophil pct 74.8 % [facility] Comment: Interpretive Data Percent cell count reference ranges are not reported, since discordance with absolute values may lead to misinterpretation of CBC data. Current Interpretive Data was last revised on 2018. Imm gran pct 0.3 % [facility] Comment: Interpretive Data Percent cell count reference ranges are not reported, since discordance with absolute values may lead to misinterpretation of CBC data. Current Interpretive Data was last revised on 2018. Lymphocyte pct 16.1 % [facility] Comment: Interpretive Data Percent cell count reference ranges are not reported, since discordance with absolute values may lead to misinterpretation of CBC data. Current Interpretive Data was last revised on 2018. Monocyte pct 7.9 % [facility] Comment: Interpretive Data Percent cell count reference ranges are not reported, since discordance with absolute values may lead to misinterpretation of CBC data. Current Interpretive Data was last revised on 2018. Eosinophil pct 0.4 % [facility] Comment: Interpretive Data Percent cell count reference ranges are not reported, since discordance with absolute values may lead to misinterpretation of CBC data. Current Interpretive Data was last revised on 2018. Basophil pct 0.5 % [facility] Comment: Interpretive Data Percent cell count reference ranges are not reported, since discordance with absolute values may lead to misinterpretation of CBC data. Current Interpretive Data was last revised on 2018. Blood 10/25/2024 11:1 3 AM SHELLFISH PROCESSING LABORER 10/25/2024 11:18 AM SHELLFISH PROCESSING LABORER Ten Cole MD LAB BLOOD ORDERABLES Final Result [facility] [address] [facility] Department [place] [address] * (ABNORMAL) CBC with auto differential (10/25/2024 11:13 AM SHELLFISH PROCESSING LABORER) WBC 11.2(H) 3.8 - 9.9 K/cumm Hgb 16.0 13.0 - 17.5 g/dL [facility] Hct 44.9 38.9 - 50.3 % [facility] Plt 398 150 - 400 K/cumm [facility] MPV 9.2 9.1 - 12.3 fL [facility] RBC 5.37 4.30 - 5.80 M/cumm [facility] MCV 83.6 81.3 - 96.4 fL [facility] MCH 29.8 27.1 - 33.3 pg [facility] MCHC 35.6 32.3 - 35.7 g/dL [facility] RDW CV 11.7 11.1 - 14.9 % [facility] RDW SD 35.1(L) 35.7 - 48.1 fL [facility] NRBC abs 0.00 0.00 - 0.01 K/cumm [facility] Blood Venous blood specimen / Unknown 10/25/2024 11:13 AM SHELLFISH PROCESSING LABORER 10/25/2024 11:18 AM SHELLFISH PROCESSING LABORER Ten Cole MD LAB BLOOD ORDERABLES Final Result Performing Organization Address [facility] [[email or web address]] Co de Phone Number MONICA [address] Department [place] [address] * (ABNORMAL) Lipase (10/25/2024 11:13 AM SHELLFISH PROCESSING LABORER) Pathologist [facility] Lipase 138(H) 10 - 99 Units/L Blood 10/25/2024 11:1 3 AM SHELLFISH PROCESSING LABORER 10/25/2024 11:18 AM SHELLFISH PROCESSING LABORER Ten Cole MD LAB BLOOD ORDERABLES Final Result Performing Organization Address [facility] Phone Number MONICA [address] [place] [address] * (ABNORMAL) Comprehensive metabolic panel (10/25/2024 11:13 AM SHELLFISH PROCESSING LABORER) Pathologist [facility] Sodium 130(L) 135 - 145 mmol/L Potassium, pl 3.1(L) 3.3 - 4.9 mmol/L [facility] Chloride 84(L) 97 - 110 mmol/L [facility] CO2 35(H) 22 - 32 mmol/L [facility] Anion gap 11 2 - 15 mmol/L [facility] BUN 9 6 - 25 mg/dL [facility] Creatinine 0.98 0.80 - 1.30 mg/dL [facility] Glucose 136 70 - 199 mg/dL [facility] Comment: Interpretive Data Fasting glucose >/= [...] blood specimen / Unknown 10/25/2024 11:13 AM SHELLFISH PROCESSING LABORER 10/25/2024 11:18 AM SHELLFISH PROCESSING LABORER us Ten Cole MD LAB BLOOD ORDERABLES Final Result [facility] [address] [facility] Department [place] [address] from Last 3 Months Insurance [facility] Advance Directives For more information, please contact: [phone] * Full Code (Latest Code Status on File) Date Activated Date Inactivated Comments 01/17/2022 10:36 AM 01/19/2022 10:32 PM Care Teams Solutions Development Analyst Relationship Specialty Start Date End Date Rocío Lombardi MD [address] [facility] [address] [place] [address] PCP - General 11/22/19
--- OUTSIDE RECORDS SUMMARY | 2025-01-16 18:14 | XMS_ITS | Encounter Summary ---
Author Organization [facility] Address [facility] [place] [address] Care Team Providers Care Renal Nurse Name Role Phone Rcoío Lombardi MD Primary Care Provider [phone] None, Provider Primary Care Provider Unavaila ble Encounter Details Date Type Department Care Team (Late st Contact Info) Description 11/09/2020 Prep for Procedure [facility] [place], [place] [id number] Ten Flynn MD [address] [facility] [address] [place], [place] [id number] Social History Tobacco Use Types Packs/Day Years Used Date Smoking Tobacco: Never Smokeless Tobacco: Never Comments:USED MARIJUANA IN P AST Alcohol Use Standard Drinks/Week Comments Yes 0 (1 standard drink = 0.6 oz pur e alcohol) occassional Sex and Gender Information Value Date Recorded Sex Assigned at Male 10/21/2024 2:48 PM GLASS MECHANIC Legal Sex Male 7:32 AM CDT Gender Identity Male 09/29/2022 5:25 PM GLASS MECHANIC Sexual Orientation Straight 09/29/2022 5: 25 PM GLASS MECHANIC COVID-19 Exposure Response Date Recorded In the last month, have you been in contact with someone who was confirmed or suspected to have Coronavirus / COVID-19? No / Unsure 11/06/2020 1:13 PM GLASS MECHANIC documented as of this encounter Functional Status [...] PRE-SURGICAL/PRE-PROCEDURE CORONAVIRUS (COVID 19) (11/09/2020 11:48 AM GLASS MECHANIC) Pathologist [facility] CORONAVIRUS SARS COV 2 PCR (RESP) NOT DETECTED NOT DETECTED 11/10/2020 6:15 PM GLASS MECHANIC [employer] [facility] Comment: A Not Detected (negative) test [...] providers and patients using the following websites: https://www.[employer].com/home/Covid-19/HCP/NAAT/fact-sheet2 https://www.[employer].com/home/Covid-19/Patients/NAAT/ fact-sheet2 This test has been authorized by the FDA under an Emergency Use Authorization (EUA) for use by authorized laboratories. Due to the current public health emergency, [facility] is receiving a high volume of samples [...] about COVID-19 can be found at the [employer] website: www.[employer]Leaf/Covid19. Test performed at [email or web address] [address] [address] Director: BAM SMITH DO,MPH FIRST TEST NO 11/09/2020 12:26 PM [facility] EMPLOYED IN HEALTHCARE NO 11/09/2020 12:26 PM [facility] SYMPTOMATIC DEFINED BY CDC NO 11/09/2020 12:26 PM [facility] DATE OF SYMPTOM ONSET NO 11/09/2020 12:34 PM [facility] HOSPITALIZATION STATUS NO 11/09/2020 12:26 PM [facility] PATIENT IN ICU NO 11/09/2020 12:26 PM [facility] RESIDENT OF [facility] NO 11/09/2020 12:26 PM [facility] NO 11/09/2020 12:34 PM [facility] PATIENT'S RACE WHITE OR 11/09/2020 12:26 PM [facility] ETHNICITY NONHISPANIC 11/09/2020 12:26 PM [facility] SOURCE (QST) NASOPHARYNGEAL SWAB 11/09/2020 12:26 PM GLASS MECHANIC [facility] NASOPHARYNGEAL SWAB / Unknown 11/09/2020 11:48 AM GLASS MECHANIC us Ten Flynn MD MICROBIOLOGY - GENERAL ORDERABLE S Final Result [facility] [address] [facility] [place] [address], [employer] [facility] [address] [place] [address], documented in this encounter Visit Diagnoses Diagnosis Abdominal pain- Primary Abdominal pain, unspecified site documented in this encounter Additional Health Concerns Infection Onset Date Last Indicated Resolved Time COVID-19 Rule Out 11/09/2020 11/09/2020 11/10/2020 6:16 PM GLASS MECHANIC COVID-19 Rule Out 11/23/2020 11/23/2020 11/24/2020 5:51 PM GLASS MECHANIC COVID-19 Rule Out 12/29/2020 12/29/2020 12/29/2020 7:08 PM CDT COVID-19 Rule Out 04/09/2024 04/09/2024 04/09/2024 11:06 PM CDT documented as of this encounter Care Teams Renal Nurse Relationship Specialty Start Date End Date Rocío Lombardi MD PCP - General FAMILY PRACTICE 04/08/20 04/09/24 None, Provider, PCP - General UNKNOWN PHYSICIAN SPECIALTY 04/24/24 documented as of this encounter
--- OUTSIDE RECORDS SUMMARY | 2025-01-16 18:14 | XMS_ITS | CONTINUITY OF CARE DOCUMENT ---
Author Name erin khan Address Unknown Organization [facility] Address [address] [facility] [address] [place] [address] Phone [phone] Care Team Providers Care Woods Rider Name Role Phone Slime Garber MD Unavailable [phone] Slime Garber MD Unavailable [phone] INSURANCE PROVIDERS Payer name Policy type / Coverage type [place] [employer] party ID [facility] [facility] Medicaid 3 [id number]
--- OUTSIDE RECORDS SUMMARY | 2025-01-16 18:14 | XMS_ITS | Clinical Summary ---
Author Organization [facility] Address [facility] [place] [address] Care Team Providers Care Dross Skimmer Name Role Phone None, Provider MD Primary Care Provider Unavaila ble Allergies Active Allergy Reactions Criticality Noted Date Comments Marijuana (Cannabis Sativa) Nausea and Vomiting Low 01/17/2022 Medications DULoxetine (CYMBALTA) 30 MG capsuleIndications: Panic anxiety syndrome Take 1 capsule (30 mg total) by mouth daily. 60 capsule 4 2 Active famotidine (PEPCID) 20 MG tabletIndications:C yclical vomiting, intractable,Superio r mesenteric artery syndrome (HHS/HCC),Gastroeso phageal reflux disease, unspecified whether esophagitis present Take [...] (10/30/2020): Added automatically from request for surgery [id number] Panic anxiety syndrome 07/07/2020 Cyclical vomiting, intractable 11/03/2019 Resolved Problems Problem Noted Date Diagnosed Date Resolved Date Intractable nausea and vomiting 05/03/2021 09/30/2022 MARIAN (acute kidney injury) 04/04/2021 Nausea and vomiting, intract ability of vomiting not specified, unspecified vomiting type 10/30/2020 09/30/2022 Overview (10/30/2020): Added automatically from request for surgery [id number] Abnormal CT scan, gastrointestinal tract 10/30/2020 09/30/2022 Overview (10/30/2020): Added automatically from request for surgery [id number] Hyponatremia 06/07/2020 09/30/2022 Cyclic vomiting syndrome 03/19/201905/2021 [...] to monitor Dehydration 03/22/2018 09/30/2022 Hypovolemia dehydration 03/20/201809/03 Assessment & Plan (03/22/2018 8:15 AM CDT): [...] MARINA and was hypovoluemic. CT abdomen w/contrast (14 on radiology record) was WNL He was [...] Encounters Date Type Department Care Team Description 12/19/2024 9:55 PM CDT - 2024 5:00 AM CDT [facility] [place] [address] Dada Mcdowell MD,PHD Vomiting Discharge Disposition: Home or Self Care (Routine Discharge) 12/19/2024 Travel 10/25/2024 Scan [facility] Scanned, [facility] CT (SCAN) 10/21/2024 2:59 PM BABBITTER - 10/21/2024 5:16 PM BABBITTER [facility] [place] [address] Joe Velasquez PA Vomiting Discharge Disposition: Home or Self Care (Routine Discharge) 10/21/2024 Travel from Last 3 Months Immunizations Immunization Administration Dates Next Due Fluzone 6 Months+ [...] = 0.6 oz pur e alcohol) occassional [facility] Utilities Answer Date Recorded In the past 12 months has th e [employer], gas, oil, or water [employer] threatened to shut off services in your [...] in a longterm (including now)? No 10/03/2023 Housing Stability Vital Sign Answer Leonardo e Recorded In the last 12 months, was t here a time when you were not able to pay the mortgage or rent on time? No 04/09/2024 In the past 12 months, how m any times have you moved where you were living? 1 04/09/2024 At any time in the past 12 m [facility], were you homeless or living in a longterm (including now)? No 04/09/2024 Sex and Gender Information Value Date Recorded Sex Assigned at Male 10/21/2024 2:48 PM BABBITTER Legal Sex Male 7:32 AM CDT Gender Identity Male 09/29/2022 5:25 PM BABBITTER Sexual Orientation Straight 09/29/2022 5: 25 PM BABBITTER Last Filed Vital Signs Vital Sign Reading Time Taken Comments Blood Pressure 146/91 2024 4:00 AM CDT Pulse 95 2024 4:00 AM CDT Temperature 36.6 C (97.8 F) 12/19/2024 8:33 PM CDT Respiratory Rate 18 2024 4:00 AM CDT Oxygen Saturation 98% 2024 4:00 AM CDT Inhaled Oxygen Concentration - - Weight 72.6 kg (160 lb) 12/19/2024 8:33 PM CDT Height 182.9 cm (6') 12/19/2024 8:33 PM CDT Body Mass Index 21.7 12/19/2024 8:33 PM CDT Plan of Treatment Health Maintenance Due Date Last Done Comments Hepatitis C 2006 DTaP, Tdap and Td Vaccines ( 1 - Tdap) 12/21/2007 Hepatitis B Vaccines (1 of 3 - 19+ 3-dose series) 12/21/2007 Pneumococcal Vaccine: Pediat rics (0 to 5 Years) and At-Risk Patients (6 to 49 Years) (1 of 2 - PCV) 12/21/2007 Annual Physical 09/30/2023 09/30/2022 COVID-19 Vaccine ( - 2023-2 5 season) 2024 PHQ-2 (Physician [place]) 10/02/2024 HPV Vaccines Aged Out No longer eligi ble based on patient's age to complete this topic Meningococcal B Vaccine Aged Out No l onger eligible based on patient's age to complete this topic Meningococcal Vaccine Aged Out No maria esther kadi eligible based on patient's age to complete this topic RSV Immunizations Under 20 Months Aged Out No longer eligible based on patient's age to complete this topic Goals Goal Patient Goal Type Associated Problems Recent Progress Patient-Stated? Author Patient will return to prior living situation and remain independent in ADLs upon discharge from hospital General No Betty Zelaya LCSW Family - family caregiver with be involved in care transitions and discharge planning Lifestyle No Maria R Campos, construction worker Procedure Name Priority Date/Time Associated Diagnosis Comments ECG 12-LEAD STAT 12/19/2024 10:29 PM CDT LIPASE STAT 12/19/2024 10:05 PM CDT COMPREHENSIVE METABOLIC PANEL STAT 12/19/2024 10:05 PM CDT CBC W/DIFF AUTOMATED STAT 12/19/2024 10:[address] GENERIC 10/25/2024 LIPASE STAT 10/21/2024 3:06 PM BABBITTER COMPREHENSIVE METABOLIC PANEL STAT 10/21/2024 3:06 PM BABBITTER CBC W/DIFF AUTOMATED STAT 10/21/2024 3:06 PM BABBITTER from Last 3 Months Results * ECG 12 lead (12/19/2024 10:29 PM CDT) 12/19/2024 10:2 9 PM CDT Narrative [facility] (NORM) RAD - 12/21/2024 2:30 PM CDT [place] [address] Test Date: 2024-12-19 Pat Name: JOVANNY BUSTOS Department: 41 Room: [facility] Gender: 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1990 Requested By: DADA MCDOWELL Order Number: [id number] Reading MD: Kobe Tanner Measurements Intervals Odin Rate: 118 P: 78 MT: 104 QRS: 69 QRSD: 87 T: 64 QT: 318 QTc: 447 Interpretive Statements SINUS TACHYCARDIA WITH SHORT MT INTERVAL RIGHT ATRIAL ENLARGEMENT [0.3mV P WAVE] INDETERMINATE AXIS Compared to ECG 04/09/2024 12:05:48 Short MT interval now present Indeterminate axis now present Sinus rhythm no longer present Procedure Note Kobe Tanner MD - 12/21/[address] Test Date: 2024-12-19 Pat Name: JOVANNY BUSTOS Department: 41 Room: [facility] Gender: 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1990 Requested By: DADA MCDOWELL Order Number: [id number] Reading MD: Kobe Tanner Measurements Intervals Odin Rate: 118 P: 78 MT: 104 QRS: 69 QRSD: 87 T: 64 QT: 318 QTc: 447 Interpretive Statements SINUS TACHYCARDIA WITH SHORT MT INTERVAL RIGHT ATRIAL ENLARGEMENT [0.3mV P WAVE] INDETERMINATE AXIS Compared to ECG 04/09/2024 12:05:48 Short MT interval now present Indeterminate axis now present Sinus rhythm no longer present us Dada Mcdowell MD,PHD ECG ORDERABLES Final Resu lt [facility] (NORM) RAD * (ABNORMAL) COMPREHENSIVE METABOLIC PANEL (12/19/2024 10:05 PM CDT) Only the most recent of2 resultswithin the time period is included. GLUCOSE 133(H) 70 - 99 MG/DL 12/19/2024 10:48 PM CDT [facility] BUN 15 7 - 18 MG/DL 12/19/2024 10:48 PM CDT [facility] CREATININE S/P/B 1.39(H) 0.7 - 1.3 MG/DL 12/19/2024 10:48 PM CDT [facility] SODIUM S/P/B 134(L) 136 - 145 MMOL/L 12/19/2024 10:48 PM CDT [facility] POTASSIUM S/P/B 3.7 3.5 - 5.1 MMOL/L 12/19/2024 10:48 PM CDT [facility] CHLORIDE S/P/B 99 97 - 115 MMOL/L 12/19/2024 10:48 PM CDT [facility] CO2 26.7 21 - 32 MMOL/L 12/19/2024 10:48 PM CDT [facility] CALCIUM S/P/B 10.6(H) 8.5 - 10.1 MG/DL 12/19/2024 10:48 PM CDT [facility] BILIRUBIN TOTAL S/P/B 1.1 0.2 - 1.2 MG/DL 12/19/2024 10:48 PM CDT [facility] Comment: THIS ASSAY IS NOT RECOMMENDED FOR PATIENTS UNDERGOING TREATMENT WITH ELTROMBOPAG DUE TO THE POTENTIAL FOR FALSELY ELEVATED RESULTS. TOTAL PROTEIN S/P/B 9.3(H) 6.4 - 8.2 G/DL 12/19/2024 10:48 PM CDT [facility] ALBUMIN S/P/B 4.7 3.4 - 5.0 G/DL 12/19/2024 10:48 PM CDT [facility] AST 22 15 - 37 U/L 12/19/2024 10:48 PM CDT [facility] ALT 20 16 - 60 U/L 12/19/2024 10:48 PM CDT [facility] ALKALINE PHOSPHATASE S/P/B 62 50 - 136 U/L 12/19/2024 10:48 PM CDT [facility] ANION GAP 8.3 2 - 10 MMOL/L 12/19/2024 10:48 PM CDT [facility] BUN CREATININE RATIO 10.8 6 - 26 12/19/2024 10:48 PM CDT [facility] A/G RATIO 1.0 1.0 - 2.0 RATIO 12/19/2024 10:48 PM CDT [facility] GFR ESTIMATE 68(L) >90 ML/MIN/1.7 3 M2 12/19/2024 10:48 PM CDT [facility] Comment: NOTE: eGFR is not calculated for patients <18 years of age or gender unknown. This is an estimated GFR calculation using the new CKD EPI creatinine equation without race and so does not require a correction factor for race. This estimated GFR should not be used for calculating drug doses. 12/19/2024 10:0 5 PM CDT [facility] Final Result [facility] [address] [place] [address], * (ABNORMAL) CBC W/DIFF AUTOMATED (12/19/2024 10:05 PM CDT) Only the most recent of2 resultswithin the time period is included. WBC 16.94(H) 4.5 - 11.0 x10'3/uL 12/19/2024 10:23 PM CDT [facility] RBC 5.45 4.70 - 6.10 x10'6/uL 12/19/2024 10:23 PM CDT [facility] HGB 16.0 14.0 - 18.0 G/DL 12/19/2024 10:23 PM CDT [facility] HCT 45.7 43.0 - 54.0 % 12/19/2024 10:23 PM CDT [facility] MCV 83.9 80.0 - 94.0 FL 12/19/2024 10:23 PM CDT [facility] MCH 29.4 27.0 - 31.0 PG 12/19/2024 10:23 PM CDT [facility] MCHC 35.0 32.0 - 36.0 G/DL 12/19/2024 10:23 PM CDT [facility] RDW 12.8 11.5 - 14.5 % 12/19/2024 10:23 PM CDT [facility] PLT 386 130 - 400 x10'3/uL 12/19/2024 10:23 PM CDT [facility] MPV 9.0(L) 9.3 - 12.2 FL 12/19/2024 10:23 PM CDT [facility] DIFFERENTIAL TYPE AUTOMATED DIFFERENTIAL 12/19/2024 10:23 PM CDT [facility] NEUTROPHILS % 90.2 % 12/19/2024 10:23 PM CDT [facility] LYMPHOCYTES % 4.8 % 12/19/2024 10:23 PM CDT [facility] MONOCYTES % 4.4 % 12/19/2024 10:23 PM CDT [facility] EOSINOPHILS 0.0 % 12/19/2024 10:23 PM CDT [facility] BASOPHILS 0.1 % 12/19/2024 10:23 PM CDT [facility] IMMATURE GRANS % 0.5 % 12/20/19 10:23 PM CDT [facility] ABS. NEUTROPHILS 15.28(H) 1.80 - 7.70 x10'3/uL 12/19/2024 10:23 PM CDT [facility] ABS. LYMPHOCYTES 0.81(L) 1.00 - 4.80 x10'3/uL 12/19/2024 10:23 PM CDT [facility] ABS. MONOCYTES 0.75 0.30 - 0.82 x10'3/uL 12/19/2024 10:23 PM CDT [facility] ABS. EOSINOPHILS 0.00(L) 0.04 - 0.54 x10'3/uL 12/19/2024 10:23 PM CDT [facility] ABS. BASOPHILS 0.02 0.01 - 0.08 x10'3/uL 12/19/2024 10:23 PM CDT [facility] ABS. IMMATURE GRANULOCYTES 0.08 0.00 - 0.49 x10'3/uL 12/19/2024 10:23 PM CDT [facility] 12/19/2024 10:0 5 PM CDT [facility] Final Result Performing Organization Address City/[facility]/ZIP Co de Phone Number [facility] [address] [place] [phone], [place] [phone] * LIPASE (12/19/2024 10:05 PM CDT) Only the most recent of2 resultswithin the time period is included. LIPASE 40 13 - 75 UNITS/L 12/19/2024 10:48 PM CDT [facility] 12/19/2024 10:0 5 PM CDT [facility] Final Result Performing Organization Address City/[facility]/ZIP Co de Phone Number [facility] [address] [place] [address], [place] [phone] * CT GENERIC (10/25/2024) Anatomical Region Laterality Modality Other 10/25/2024 [facility] Scanned SCANNING Final Resu lt from Last 3 Months Insurance [employer] Advance Directives * Full Code (Latest Code [...] 11:15 PM 06/08/2020 9:16 PM Care Teams Dross Skimmer Relationship Specialty Start Date End Date None, Provider, MD PCP - General UNKNOWN PHYSICIAN SPECIALTY 04/24/24
--- OUTSIDE RECORDS SUMMARY | 2025-01-16 18:14 | XMS_ITS | Clinical Summary ---
Author Organization [facility] al Address [address] [place] [address] Care Team Providers Care Residential Leasing Manager Name Role Phone Rocío Lombardi MD Primary Care Provider [phone] Allergies Active Allergy Reactions Criticality Noted Date [...] Department Care Team Description 10/25/2024 1:14 PM CHIP BIN CONVEYOR TENDER - 10/25/2024 3:37 PM CHIP BIN CONVEYOR TENDER Emergency [facility] Emergency Department [address] [place] [id number] Nausea and vomiting, unspecified vomiting type (Primary [...] on file Legal Sex Male 4:18 PM CHIP BIN CONVEYOR TENDER Gender Identity Male 07/12/2021 12:07 AM CDT Sexual Orientation Not on file Obstetrics History Last Filed Vital Signs Vital Sign Reading Time Taken Comments Blood Pressure 148/90 10/25/2024 3:37 PM CHIP BIN CONVEYOR TENDER Pulse 94 10/25/2024 3:37 PM CHIP BIN CONVEYOR TENDER Temperature 36.7 C (98 F) 10/25/2024 3:37 PM CHIP BIN CONVEYOR TENDER Respiratory Rate 18 10/25/2024 3:37 PM CHIP BIN CONVEYOR TENDER Oxygen Saturation 98% 10/25/2024 3:37 PM CHIP BIN CONVEYOR TENDER Inhaled Oxygen Concentration - - Weight 71.7 kg (158 lb) 10/25/2024 11:07 AM CHIP BIN CONVEYOR TENDER Height 182.9 cm (6') 10/25/2024 11:07 AM CHIP BIN CONVEYOR TENDER Body Mass Index 21.43 10/25/2024 11:07 AM CHIP BIN CONVEYOR TENDER Plan of Treatment Health Maintenance Due Date Last Done Comments Depression Screening 1988 Hepatitis C Screening 1988 DTaP/Tdap/Td Vaccine (3 - Tdap) 12/21/1999 03/09/1993, 04/17/1990 Varicella Vaccines (1 of 2 - 13+ 2-dose series) 2001 Hepatitis B Screening 2006 Regular Well Visit/Exam 18-64 2006 Covid-19 Vaccine (3 - 2023- season) 2024 05/24/2021, 04/26/2021 Influenza Vaccine (Season Ended) 2025 10/05/2023, 11/08/2017, 10/29/2016, Additional history exists HPV Vaccines Aged Out No longer eligi ble based on patient's age to complete this topic Pneumococcal vaccine <65 Aged Out No longer eligible based on patient's age to complete this topic Procedures Procedure Name Priority Date/Time Associated Diagnosis Comments URINALYSIS, MICROSCOPIC ONLY STAT 10/25/2024 2:06 PM CHIP BIN CONVEYOR TENDER DRUGS OF ABUSE SCREEN, URINE WITHOUT CONFIRMATION STAT 10/25/2024 2:06 PM CHIP BIN CONVEYOR TENDER URINALYSIS AND REFLEX TO MICROSCOPIC AND CULTURE STAT 10/25/2024 2:06 PM CHIP BIN CONVEYOR TENDER CT ABDOMEN PELVIS W CONTRAST ED 10/25/2024 1:50 PM CHIP BIN CONVEYOR TENDER EGFR STAT 10/25/2024 11:13 AM CHIP BIN CONVEYOR TENDER DIFFERENTIAL AUTO STAT 10/25/2024 11: 13 AM CHIP BIN CONVEYOR TENDER LIPASE STAT 10/25/2024 11:13 AM CHIP BIN CONVEYOR TENDER COMPREHENSIVE METABOLIC PANEL STAT 10/25/2024 11:13 AM CHIP BIN CONVEYOR TENDER CBC WITH AUTO DIFFERENTIAL STAT 10/25/2024 11:13 AM CHIP BIN CONVEYOR TENDER from Last 3 Months Results * (ABNORMAL) Urinalysis reflex to microscopic and culture Urine (10/25/2024 2:06 PM CHIP BIN CONVEYOR TENDER) Color, ur Yellow Yellow Clarity, ur Clear Clear [facility] Specific gravity, ur >1.030(H) 1.003 - 1.030 [facility] pH, urine 8.5 [facility] Comment: Interpretive Data U rine pH is affected by diet, medications, systemic acid-base disturbances, and renal tubular function. pH may affect urinary stone formation. For example, urine pH below 6.0 may help reduce the tendency for calcium phosphate stones and pH greater than 6.0 may reduce the tendency for uric acid stone formation. Source: [facility] Current Interpretive Data was last revised on 2017 Protein, ur ql 2+(A) Negative [facility] Glucose, ur ql Negative Negative [facility] Ketones, ur Negative Negative [facility] Bilirubin, ur Negative Negative [facility] Blood, ur Negative Negative [facility] Urobilinogen, ur <2.0 <2.0 mg/dL [facility] Nitrite, ur Negative Negative [facility] Leukocyte esterase, ur Negative Negative [facility] UA reflex comment Reflex to microscopic UA will be performed. [facility] Urine 10/25/2024 2:06 PM CHIP BIN CONVEYOR TENDER 10/25/2024 2:20 PM CHIP BIN CONVEYOR TENDER Ten Cole MD LAB MICROBIOLOGY - GENERAL ORDERABLES Final Result [facility] [address] [facility] Department [place] [address] * (ABNORMAL) Drugs of Abuse Screen, Urine without Confirmation (10/25/2024 2:06 PM CHIP BIN CONVEYOR TENDER) Amphetamine, ur Not Detected [facility] 500ng/mL Comment: Interpretive Data - Amphetamines: Samples containing greater than 500 ng/mL d-methamphetamine or other cross-reacting amphetamine compounds are reported as positive. Amphetamine immunoassays are subject to significant false positive rates due to cross-reactivity of non-amphetamine drugs. Confirmatory testing required for definitive results. Current Interpretive Data was last reviewed 2023. Barbiturates, ur Not Detected CutOff 200ng/mL [facility] Comment: Interpretive Data - Barbiturates: Samples containing greater than 200 ng/mL secobarbital or other cross-reacting barbiturate compounds are reported as positive. False positive and false negative results are possible. Confirmatory testing required for definitive results. Current Interpretive Data was last reviewed 2023. Benzodiazepines, ur Not Detected CutOff 100ng/mL [facility] Comment: Interpretive Data - Benzodiazepines: Samples [...] Screen Positive, presumptive (A) CutOff 150ng/mL [facility] Comment: Interpretive Data - Cocaine: Samples containing greater than 150 ng/mL benzoylecgonine or other cross- reacting compounds are reported as positive. False positive and false negative results are possible. Confirmatory testing required for definitive results. Current Interpretive Data was last reviewed 2023. Fentanyl, Ur Not Detected Cutoff 1 ng/mL [facility] Comment: Interpretive Data - Fentanyl: Samples containing greater than 1 ng/mL fentanyl or other cross-reacting fentanyl compounds are reported as positive. False positive and false negative results are possible. Confirmatory testing required for definitive results. Current Interpretive Data was last reviewed 2023. Methadone, ur Not Detected CutOff 300ng/mL [facility] Comment: Interpretive Data - Methadone: Samples [...] 2023. Oxycodone, ur Not Detected CutOff 100ng/mL [facility] Comment: Interpretive Data - Oxycodone: Samples containing greater than 100 ng/mL oxycodone or other cross-reacting compounds are reported as positive. False positive and false negative results are possible. Confirmatory testing required for definitive results. Current Interpretive Data was last reviewed 2023. Phencyclidine, ur Not Detected CutOff 25 ng/mL [facility] Comment: Interpretive Data - Phencyclidine: Samples containing greater than 25 ng/mL phencyclidine or other cross-reacting compounds are reported as positive. False positive and false negative results are possible. Confirmatory testing required for definitive results. Current Interpretive Data was last reviewed 2023. Urine Creatinine 192 mg/dL [facility] Comment: Interpretive Data Urine Creatinine: < 10 mg/dL is extremely dilute = or > 10 but < 20 mg/dL is dilute = or > 20 mg/dL is normal Current Interpretive Data was last revised on 2017. Urine 10/25/2024 2:06 PM CHIP BIN CONVEYOR TENDER 10/25/2024 2:20 PM CHIP BIN CONVEYOR TENDER Narrative [facility] - 10/25/2024 3:46 PM CHIP BIN CONVEYOR TENDER Drug of Abuse screening is performed by immunoassay for medical purposes only. This is not to be used for Pain Management purposes. us [place] [facility] URINE ORDERABLE S Final Result [address] [place] [address] * (ABNORMAL) Urinalysis, microscopic only (10/25/2024 2:06 PM CHIP BIN CONVEYOR TENDER) WBC, ur 0-5 0 - 5 /HPF RBC, ur 11-20(A) 0 - 2 /HPF [facility] Epithelial cells, squamous, ur 1-5 0 - 5 /HPF [facility] Mucous, ur Present(A) [facility] Culture Reflex Comment Reflex conditions for urine culture (WBC >10) not met. [facility] Urine 10/25/2024 2:06 PM CHIP BIN CONVEYOR TENDER 10/25/2024 2:20 PM CHIP BIN CONVEYOR TENDER us Ten Cole MD LAB URINE ORDERABLES Final Result [facility] [place] [address] * CT Abdomen Pelvis W Contrast (10/25/2024 1:50 PM CHIP BIN CONVEYOR TENDER) Anatomical Region Laterality Modality Body N/A Computed Tomogra phy 10/25/2024 2:05 PM CHIP BIN CONVEYOR TENDER Impressions 10/25/2024 2:05 PM CHIP BIN CONVEYOR TENDER 1. There is a suggestion of a [...] Krys Han M.D. Narrative 10/25/2024 2:05 PM CHIP BIN CONVEYOR TENDER EXAMINATION: Computed Tomography of the Abdomen and [...] inal Result * eGFR (10/25/2024 11:13 AM CHIP BIN CONVEYOR TENDER) [facility] eGFR >90 >=60 mL/min/1. 73 m2 [...] reviewed 2021. Blood 10/25/2024 11:1 3 AM CHIP BIN CONVEYOR TENDER 10/25/2024 11:18 AM CHIP BIN CONVEYOR TENDER Ten Cole MD LAB BLOOD ORDERABLES Final Result [address] [place] [address] * (ABNORMAL) Differential, auto (10/25/2024 11:13 AM CHIP BIN CONVEYOR TENDER) Pathologist [facility] Neutrophil abs 8.4(H) 1.5 - 6.5 K/cumm Imm gran abs 0.0 0.0 - 0.1 K/cumm [facility] Lymphocyte abs 1.8 0.8 - 3.3 K/cumm [facility] Monocyte abs 0.9(H) 0.2 - 0.8 K/cumm [facility] Eosinophil abs 0.1 0.0 - 0.5 K/cumm [facility] Basophil abs 0.1 0.0 - 0.1 K/cumm [facility] Neutrophil pct 74.8 % [facility] Comment: Interpretive Data Percent cell count reference ranges are not reported, since discordance with absolute values may lead to misinterpretation of CBC data. Current Interpretive Data was last revised on 2018. Imm gran pct 0.3 % [facility] Comment: Interpretive Data Percent cell count reference ranges are not reported, since discordance with absolute values may lead to misinterpretation of CBC data. Current Interpretive Data was last revised on 2018. Lymphocyte pct 16.1 % [facility] Comment: Interpretive Data Percent cell count reference ranges are not reported, since discordance with absolute values may lead to misinterpretation of CBC data. Current Interpretive Data was last revised on 2018. Monocyte pct 7.9 % [facility] Comment: Interpretive Data Percent cell count reference ranges are not reported, since discordance with absolute values may lead to misinterpretation of CBC data. Current Interpretive Data was last revised on 2018. Eosinophil pct 0.4 % [facility] Comment: Interpretive Data Percent cell count reference ranges are not reported, since discordance with absolute values may lead to misinterpretation of CBC data. Current Interpretive Data was last revised on 2018. Basophil pct 0.5 % [facility] Comment: Interpretive Data Percent cell count reference ranges are not reported, since discordance with absolute values may lead to misinterpretation of CBC data. Current Interpretive Data was last revised on 2018. Blood 10/25/2024 11:1 3 AM CHIP BIN CONVEYOR TENDER 10/25/2024 11:18 AM CHIP BIN CONVEYOR TENDER us Ten Cole MD LAB BLOOD ORDERABLES Final Result [facility] [address] [facility] Department [place] [address] * (ABNORMAL) CBC with auto differential (10/25/2024 11:13 AM CHIP BIN CONVEYOR TENDER) WBC 11.2(H) 3.8 - 9.9 K/cumm Hgb 16.0 13.0 - 17.5 g/dL [facility] Hct 44.9 38.9 - 50.3 % [facility] Plt 398 150 - 400 K/cumm [facility] MPV 9.2 9.1 - 12.3 fL [facility] RBC 5.37 4.30 - 5.80 M/cumm [facility] MCV 83.6 81.3 - 96.4 fL [facility] MCH 29.8 27.1 - 33.3 pg [facility] MCHC 35.6 32.3 - 35.7 g/dL [facility] RDW CV 11.7 11.1 - 14.9 % [facility] RDW SD 35.1(L) 35.7 - 48.1 fL [facility] NRBC abs 0.00 0.00 - 0.01 K/cumm [facility] Blood Venous blood specimen / Unknown 10/25/2024 11:13 AM CHIP BIN CONVEYOR TENDER 10/25/2024 11:18 AM CHIP BIN CONVEYOR TENDER Ten Cole MD LAB BLOOD ORDERABLES Final Result Performing Organization Address [facility]/ZIP Co de Phone Number [address] of Laboratories [place], [place] [id number] * (ABNORMAL) Lipase (10/25/2024 11:13 AM CHIP BIN CONVEYOR TENDER) [facility] Lipase 138(H) 10 - 99 Units/L Blood 10/25/2024 11:1 3 AM CHIP BIN CONVEYOR TENDER 10/25/2024 11:18 AM CHIP BIN CONVEYOR TENDER Ten Cole MD LAB BLOOD ORDERABLES Final Result [address] [place] [address] * (ABNORMAL) Comprehensive metabolic panel (10/25/2024 11:13 AM CHIP BIN CONVEYOR TENDER) [facility] Sodium 130(L) 135 - 145 mmol/L Potassium, pl 3.1(L) 3.3 - 4.9 mmol/L [facility] Chloride 84(L) 97 - 110 mmol/L [facility] CO2 35(H) 22 - 32 mmol/L [facility] Anion gap 11 2 - 15 mmol/L [facility] BUN 9 6 - 25 mg/dL [facility] Creatinine 0.98 0.80 - 1.30 mg/dL [facility] Glucose 136 70 - 199 mg/dL [facility] Comment: Interpretive Data Fasting glucose >/= [...] 2022. Calcium 10.3 8.5 - 10.3 mg/dL [facility] Bilirubin, total 0.5 0.1 - 1.2 mg/dL [facility] Protein, pl 7.9 6.5 - 8.5 g/dL [facility] Albumin 4.9 3.5 - 5.0 g/dL [facility] Alk phos 64 40 - 130 Units/L [facility] ALT 10 7 - 55 Units/L [facility] AST 25 10 - 50 Units/L [facility] Blood Venous blood specimen / Unknown 10/25/2024 11:13 AM CHIP BIN CONVEYOR TENDER 10/25/2024 11:18 AM CHIP BIN CONVEYOR TENDER us Ten Cole MD LAB BLOOD ORDERABLES Final Result [facility] [address] [facility] Department [place] [address] from Last 3 Months Insurance IDPA Advance Directives For more information, please contact: [phone] * Full Code (Latest Code Status on File) Date Activated Date Inactivated Comments 01/17/2022 10:36 AM 01/19/2022 10:32 PM Care Teams Residential Leasing Manager Relationship Specialty Start Date End Date Rocío Lombardi MD [address] [facility] [address] [place] [address] PCP - General 11/22/19
--- NOTE | 2025-01-16 18:24 | ED.NAVMDI ---
HPI - Nausea/Vomiting/Diarrhea General Chief complaint: Nausea/Vomiting/Diarrhea <Laura Prabhakar PA-C - Last Filed: 01/16/25 18:26> Stated complaint: cyclic vomiting <Laura Prabhakar PA-C - Last Filed: 01/16/25 18:26> Time Seen by Provider: 01/16/25 21:18 <DANIEL Morales Last Filed: 01/16/25 18:26> Focused HPI: 34-year-old male presents emergency department for ?cyclic vomiting syndrome. Patient states he has had nausea, vomiting and abdominal cramping for 1 week. He is attempting does stop using marijuana, his last use was 3 days ago. Also admits to cocaine use. Denies EtOH use, dysuria hematuria, fevers. GENERAL: Tearful HEAD: Normocephalic, atraumatic. CHEST: Clear to auscultation. ?No respiratory distress. ABD: Soft, nontender, no rebound, no guarding or rigidity HEART: Regular rate and rhythm.? NEURO: ?Alert and oriented x3. Patient screened in triage and initial orders placed.? ?Additional care and disposition to be based upon?diagnostic testing and treatment. <Laura Prabhakar PA-C - Last Filed: 01/16/25 18:26> Focused HPI: 34-year-old male presents emergency department for ?cyclic vomiting syndrome. Patient states he has had nausea, vomiting and abdominal cramping for 1 week. He is attempting does stop using marijuana, his last use was 3 days ago. Also admits to cocaine use. Denies EtOH use, dysuria hematuria, fevers. GENERAL: Tearful HEAD: Normocephalic, atraumatic. CHEST: Clear to auscultation. ?No respiratory distress. ABD: Soft, nontender, no rebound, no guarding or rigidity HEART: Regular rate and rhythm.? NEURO: ?Alert and oriented x3. Patient screened in triage and initial orders placed.? ?Additional care and disposition to be based upon?diagnostic testing and treatment. <Jenniffer Angel PA-C - Last Filed: 01/18/25 23:59> Source: patient <DANIEL Stahl Last Filed: 01/18/25 23:59> Mode of arrival: ambulatory <Jenniffer Angel PA-C - Last Filed: 01/18/25 23:59> Limitations: no limitations <Jenniffer Angel PA-C - Last Filed: 01/18/25 23:59> History of Present Illness HPI Narrative: Agree with above HPI. Reports lower abd pain. Denies diarrhea/constipation, fevers. Last BM yesterday. <Jenniffer Angel PA-C - Last Filed: 01/18/25 23:59> Related Data Allergies/Adverse reactions: Allergies Allergy/AdvReac Type Severity Reaction Status Date / Time No Known Allergies Allergy Verified 12/04/24 21:25 <Laura Prabhakar PA-C - Last Filed: 01/16/25 18:26> Review of Systems Review of Systems: All systems reviewed & are unremarkable except as noted in HPI. <Jenniffer Angel PA-C - Last Filed: 01/18/25 23:59> All systems reviewed & are unremarkable except as noted in HPI and below <Jenniffer Angel PA-C - Last Filed: 01/18/25 23:59> PMFSH Past Medical History Medical History: Medical History Cyclical vomiting <Laura Prabhakar PA-C - Last Filed: 01/16/25 18:26> Social History Social History: Social History Substance use type: marijuana Other substance usage details: daily <Laura Prabhakar PA-C - Last Filed: 01/16/25 18:26> Exam Narrative: GENERAL: Well appearing, well-nourished, non-toxic, in no acute distress. HEAD: Normocephalic, atraumatic. RESPIRATORY: Airway patent, respirations nonlabored. Clear to auscultation bilaterally, no rales, rhonchi, wheezing. CARDIOVASCULAR: Regular rate and rhythm without murmurs, rubs, or gallops. ABDOMINAL: Soft, mild diffuse tenderness throughout lower abdomen, nondistended. Normoactive BS. MUSCULOSKELETAL: Moves all extremities. No gross deformities. SKIN: Warm, dry, normal color. NEURO: A&O X3. Speech clear. PSYCHIATRIC: Appropriate mood and affect. Normal interaction. <Jenniffer Angel PA-C - Last Filed: 01/18/25 23:59> Course Vital Signs Vital signs: Vital Signs Temperature 97.6 F 01/16/25 18:14 Pulse Rate 88 01/16/25 18:14 Respiratory Rate 18 01/16/25 18:14 Blood Pressure 173/102 H 01/16/25 18:14 Pulse Oximetry 97 01/16/25 18:14 Oxygen Delivery Room Air 01/16/25 18:14 Temperature 97.9 F 01/17/25 05:25 Pulse Rate 75 01/17/25 05:25 Respiratory Rate 13 01/17/25 05:25 Blood Pressure 128/94 H 01/17/25 05:25 Pulse Oximetry 98 01/17/25 05:25 Oxygen Delivery Room Air 01/16/25 21:41 <DANIEL Morales Last Filed: 01/16/25 18:26> Vital Signs Temperature 97.6 F 01/16/25 18:14 Pulse Rate 88 01/16/25 18:14 Respiratory Rate 18 01/16/25 18:14 Blood Pressure 173/102 H 01/16/25 18:14 Pulse Oximetry 97 01/16/25 18:14 Oxygen Delivery Room Air 01/16/25 18:14 Temperature 97.9 F 01/17/25 05:25 Pulse Rate 75 01/17/25 05:25 Respiratory Rate 13 01/17/25 05:25 Blood Pressure 128/94 H 01/17/25 05:25 Pulse Oximetry 98 01/17/25 05:25 Oxygen Delivery Room Air 01/16/25 21:41 <DANIEL Stahl Last Filed: 01/18/25 23:59> MDM - Nausea/Vomiting/Diarrhea MDM Narrative Medical decision making narrative: Patient presented to ED with recurrent episode of cyclic vomiting syndrome. History of previous. States symptoms began on Monday. Vital signs are stable upon arrival. Patient is in no acute distress. He was given Toradol, Haldol, Zofran in triage and does report feeling improved by the time of my evaluation, still reporting slight nausea. Will start fluids, given Reglan and Benadryl. CBC with white blood cell count of 12.8. CMP with sodium 135, anion gap of 14. Stable kidney function. Blood glucose 120. Normal LFTs and lipase. UA ordered, however patient never provided sample. CT of abdomen/pelvis was obtained and w/o acute findings. Patient feeling improved with supportive therapy. Able to tolerate p.o. intake. Feel he is safe for discharge home at this time. Will discharge with Zofran for home use, refer to GI for further evaluation. Given return precautions. He agrees with plan. Discharged in stable condition. <Jenniffer Angel PA-C - Last Filed: 01/18/25 23:59> Medical Records Attestation: I reviewed the patient's medical records. <DANIEL Stahl Last Filed: 01/18/25 23:59> Lab Data Attestation: I reviewed the patient's lab results. <DANIEL Stahl Last Filed: 01/18/25 23:59> Result diagrams: 01/16/25 18:50 01/16/25 18:50 <DANIEL Morales Last Filed: 01/16/25 18:26> Labs: Lab Results 01/16/25 Range/Units 18:50 WBC 12.8 H (4.5-10.0) K/mm3 RBC 5.67 (4.6-6.20) M/mm3 Hgb 16.6 (14.0-18.0) g/dL Hct 47.3 (42.0-52.0) % MCV 83.4 (80-100) fl MCH 29.3 (26-34) pg MCHC 35.1 (32-36) g/dl RDW 12.1 (11.5-14.5) % Plt Count 365 (150-375) k/mm3 MPV 9.2 (7.4-10.4) fl Immature Gran % (Auto) 0.2 (0-0.5) % Neut % (Auto) 79.7 H (45.5-73.1) % Lymph % (Auto) 14.1 L (18.3-44.2) % [place] % (Auto) 5.8 (2.6-8.5) % Eos % (Auto) 0.0 (0-4.4) % Baso % (Auto) 0.2 (0.2-1.2) % Lymph # (Auto) 1.80 (0.9-3.2) K/mm3 [place] # (Auto) 0.7 H (0.1-0.6) K/mm3 Eos # (Auto) 0.0 (0-0.3) K/mm3 Baso # (Auto) 0.0 (0.0-0.1) K/mm3 Abs Immat Gran (auto) 0.03 (0.00-0.031) K/mm3 Absolute Neuts (auto) 10.2 H (1.3-6.7) K/mm3 Absolute Nucleated RBC 0.000 (0.0-0.012) K/mm3 Nucleated RBC % 0.0 (0.0-0.2) % Sodium 135 L (137-145) mmol/L Potassium 3.6 (3.4-5.0) mmol/L Chloride 94 L (98-107) mmol/L Carbon Dioxide 27 (22-30) mmol/L Anion Gap 14 H (4-12) mmol/L BUN 10 (9-20) mg/dL Creatinine 0.93 (0.7-1.3) mg/dL Estim Creat Clear Calc 104 ml/min Estimated GFR > 60 (59 - ) Glucose 120 H (65-110) mg/dL Calcium 10.0 (8.4-10.2) mg/dL Total Bilirubin 0.9 (0.2-1.3) mg/dL AST 25 (17-59) U/L ALT 13 (6-50) U/L Alkaline Phosphatase 61 (38-126) U/L Total Protein 9.0 H (6.3-8.2) g/dL Albumin 5.0 (3.5-5.1) g/dL Lipase 99 (23-300) U/L <Laura Prabhakar PA-C - Last Filed: 01/16/25 18:26> Lab Results 01/16/25 Range/Units 18:50 WBC 12.8 H (4.5-10.0) K/mm3 RBC 5.67 (4.6-6.20) M/mm3 Hgb 16.6 (14.0-18.0) g/dL Hct 47.3 (42.0-52.0) % MCV 83.4 (80-100) fl MCH 29.3 (26-34) pg MCHC 35.1 (32-36) g/dl RDW 12.1 (11.5-14.5) % Plt Count 365 (150-375) k/mm3 MPV 9.2 (7.4-10.4) fl Immature Gran % (Auto) 0.2 (0-0.5) % Neut % (Auto) 79.7 H (45.5-73.1) % Lymph % (Auto) 14.1 L (18.3-44.2) % [place] % (Auto) 5.8 (2.6-8.5) % Eos % (Auto) 0.0 (0-4.4) % Baso % (Auto) 0.2 (0.2-1.2) % Lymph # (Auto) 1.80 (0.9-3.2) K/mm3 [place] # (Auto) 0.7 H (0.1-0.6) K/mm3 Eos # (Auto) 0.0 (0-0.3) K/mm3 Baso # (Auto) 0.0 (0.0-0.1) K/mm3 Abs Immat Gran (auto) 0.03 (0.00-0.031) K/mm3 Absolute Neuts (auto) 10.2 H (1.3-6.7) K/mm3 Absolute Nucleated RBC 0.000 (0.0-0.012) K/mm3 Nucleated RBC % 0.0 (0.0-0.2) % Sodium 135 L (137-145) mmol/L Potassium 3.6 (3.4-5.0) mmol/L Chloride 94 L (98-107) mmol/L Carbon Dioxide 27 (22-30) mmol/L Anion Gap 14 H (4-12) mmol/L BUN 10 (9-20) mg/dL Creatinine 0.93 (0.7-1.3) mg/dL Estim Creat Clear Calc 104 ml/min Estimated GFR > 60 (59 - ) Glucose 120 H (65-110) mg/dL Calcium 10.0 (8.4-10.2) mg/dL Total Bilirubin 0.9 (0.2-1.3) mg/dL AST 25 (17-59) U/L ALT 13 (6-50) U/L Alkaline Phosphatase 61 (38-126) U/L Total Protein 9.0 H (6.3-8.2) g/dL Albumin 5.0 (3.5-5.1) g/dL Lipase 99 (23-300) U/L <DANIEL Stahl Last Filed: 01/18/25 23:59> Imaging Data Attestation: I personally reviewed and interpreted this imaging study as follows: <DANIEL Stahl Last Filed: 01/18/25 23:59> Radiologist's impression: STAT RAD CT abd/pelvis: Impression: The solid organs are within normal limits. No bowel obstruction. No evidence of acute appendicitis. No fracture. No incidental findings. <DANIEL Stahl Last Filed: 01/18/25 23:59> Discharge Plan Discharge Clinical Impression: Cyclic vomiting syndrome <DANIEL Morales Last Filed: 01/16/25 18:26> Patient Disposition: Home <DANIEL Morales Filed: 01/16/25 18:26> Condition: Stable <DANIEL Morales Last Filed: 01/16/25 18:26> Instructions: Antibiotic Form <DANIEL Morales Filed: 01/16/25 18:26> Patient Language: Venezuelan <DANIEL Morales Last Filed: 01/16/25 18:26> Prescriptions: No Action ondansetron 4 mg tablet,disintegrating 4 mg PO Q8H PRN (Reason: nausea and vomiting) Qty: 10 0RF ondansetron 4 mg tablet,disintegrating 4 mg PO Q8H PRN (Reason: nausea and vomiting) Qty: 10 0RF metoclopramide HCl [Reglan] 10 mg tablet 10 mg PO Q6H PRN (Reason: nausea and vomiting) Qty: 14 0RF <Laura Prabhakar PA-C - Last Filed: 01/16/25 18:26> Follow-up/Referrals: PHYSICIAN,ENVIRONMENTAL FIELD TEAM MEMBER [Primary Care Provider] - <Laura Prabhakar PA-C - Last Filed: 01/16/25 18:26>
[2025-01-16] MEDS: HALOPERIDOL LACTATE 5 MG/ML VIAL IM (18:47)
[2025-01-16] MEDS: KETOROLAC 30 MG/ML VIAL (*BKC) IM (18:48)
[2025-01-16] MEDS: ONDANSETRON INJ 4 MG/2 ML VIAL IV PUSH (18:48)
[2025-01-16 18:56] LABS: Basophils Percent Auto 0.2 % (0.2-1.2); Hematocrit 47.3 % (42.0-52.0); Hemoglobin 16.6 g/dL (14.0-18.0); Immature Granulocyte Absolute 0.03 K/mm3 (0.00-0.031); Immature Granulocyte Percent A 0.2 % (0-0.5); Lymphocytes Percent Auto 14.1 % (18.3-44.2); Mean Corpuscular HGB Conc 35.1 g/dl (32-36); Mean Corpuscular Hemoglobin 29.3 pg (26-34); Mean Corpuscular Volume 83.4 fl (80-100); Mean Platelet Volume 9.2 fl (7.4-10.4); Monocytes Absolute Auto 0.7 K/mm3 (0.1-0.6); Monocytes Percent Auto 5.8 % (2.6-8.5); Neutrophils Absolute Auto 10.2 K/mm3 (1.3-6.7); Neutrophils Percent Auto 79.7 % (45.5-73.1); Platelet Count Result 365 k/mm3 (150-375); Red Blood Count 5.67 M/mm3 (4.6-6.20); Red Cell Distribution Width 12.1 % (11.5-14.5); White Blood Count 12.8 K/mm3 (4.5-10.0)
[2025-01-16 19:06] LABS: Alanine Aminotransferase 13 U/L (6-50); Alkaline Phosphatase 61 U/L (38-126); Anion Gap 14 mmol/L (4-12); Aspartate Amino Transferase 25 U/L (17-59); Bilirubin,Total 0.9 mg/dL (0.2-1.3); Blood Urea Nitrogen 10 mg/dL (9-20); Carbon Dioxide 27 mmol/L (22-30); Chloride 94 mmol/L (98-107); Estimated CRCL calculation 104 ml/min; Estimated Glomerular Filt Rate > 60; Glucose 120 mg/dL (65-110); Lipase 99 U/L (23-300); Potassium 3.6 mmol/L (3.4-5.0); Sodium 135 mmol/L (137-145)
--- OUTSIDE RECORDS SUMMARY | 2025-01-16 22:07 | XMS_ITS | Clinical Summary ---
Author Organization [facility] al Address [address] [place] [address] Care Team Providers Care Sheet Sewer Name Role Phone Rocío Lombardi MD Primary Care Provider [phone] Allergies Active Allergy Reactions Criticality Noted Date [...] Department Care Team Description 10/25/2024 1:14 PM COMPLIANCE MONITOR - 10/25/2024 3:37 PM COMPLIANCE MONITOR Emergency [facility] Emergency Department [address] [place] [id number] Nausea and vomiting, unspecified vomiting type (Primary [...] on file Legal Sex Male 4:18 PM COMPLIANCE MONITOR Gender Identity Male 07/12/2021 12:07 AM CDT Sexual Orientation Not on file Obstetrics History Last Filed Vital Signs Vital Sign Reading Time Taken Comments Blood Pressure 148/90 10/25/2024 3:37 PM COMPLIANCE MONITOR Pulse 94 10/25/2024 3:37 PM COMPLIANCE MONITOR Temperature 36.7 C (98 F) 10/25/2024 3:37 PM COMPLIANCE MONITOR Respiratory Rate 18 10/25/2024 3:37 PM COMPLIANCE MONITOR Oxygen Saturation 98% 10/25/2024 3:37 PM COMPLIANCE MONITOR Inhaled Oxygen Concentration - - Weight 71.7 kg (158 lb) 10/25/2024 11:07 AM COMPLIANCE MONITOR Height 182.9 cm (6') 10/25/2024 11:07 AM COMPLIANCE MONITOR Body Mass Index 21.43 10/25/2024 11:07 AM COMPLIANCE MONITOR Plan of Treatment Health Maintenance Due Date [...] URINALYSIS, MICROSCOPIC ONLY STAT 10/25/2024 2:06 PM COMPLIANCE MONITOR DRUGS OF ABUSE SCREEN, URINE WITHOUT CONFIRMATION STAT 10/25/2024 2:06 PM COMPLIANCE MONITOR URINALYSIS AND REFLEX TO MICROSCOPIC AND CULTURE STAT 10/25/2024 2:[address] ABDOMEN PELVIS W CONTRAST ED 10/25/2024 1:50 PM COMPLIANCE MONITOR EGFR STAT 10/25/2024 11:13 AM COMPLIANCE MONITOR DIFFERENTIAL AUTO STAT 10/25/2024 11: 13 AM COMPLIANCE MONITOR LIPASE STAT 10/25/2024 11:13 AM COMPLIANCE MONITOR COMPREHENSIVE METABOLIC PANEL STAT 10/25/2024 11:13 AM COMPLIANCE MONITOR CBC WITH AUTO DIFFERENTIAL STAT 10/25/2024 11:13 AM COMPLIANCE MONITOR from Last 3 Months Results * (ABNORMAL) Urinalysis reflex to microscopic and culture Urine (10/25/2024 2:06 PM COMPLIANCE MONITOR) Color, ur Yellow Yellow Clarity, ur Clear [...] tendency for uric acid stone formation. Source: [facility] Current Interpretive Data was last revised on 2017 Protein, ur ql 2+(A) Negative [facility] Glucose, ur ql Negative Negative [facility] Ketones, ur Negative Negative [facility] Bilirubin, ur Negative Negative [facility] Blood, ur Negative Negative [facility] Urobilinogen, ur <2.0 <2.0 mg/dL [facility] Nitrite, ur Negative Negative [facility] Leukocyte esterase, ur Negative Negative [facility] UA reflex comment Reflex to microscopic UA will be performed. [facility] Urine 10/25/2024 2:06 PM COMPLIANCE MONITOR 10/25/2024 2:20 PM COMPLIANCE MONITOR Ten Cole MD LAB MICROBIOLOGY - GENERAL ORDERABLES Final Result [facility] [address] [facility] Department [place] [address] * (ABNORMAL) Drugs of Abuse Screen, Urine without Confirmation (10/25/2024 2:06 PM COMPLIANCE MONITOR) Amphetamine, ur Not Detected CutOff 500ng/mL Comment: [...] Benzodiazepines, ur Not Detected CutOff 100ng/mL [facility] Comment: Interpretive Data - Benzodiazepines: Samples containing [...] Screen Positive, presumptive (A) CutOff 150ng/mL [facility] Comment: Interpretive Data - Cocaine: Samples containing greater than 150 ng/mL benzoylecgonine or other cross- reacting compounds are reported as positive. False positive and false negative results are possible. Confirmatory testing required for definitive results. Current Interpretive Data was last reviewed 2023. Fentanyl, Ur Not Detected Cutoff 1 ng/mL [facility] Comment: Interpretive Data - Fentanyl: Samples containing greater than 1 ng/mL fentanyl or other cross-reacting fentanyl compounds are reported as positive. False positive and false negative results are possible. Confirmatory testing required for definitive results. Current Interpretive Data was last reviewed 2023. Methadone, ur Not Detected CutOff 300ng/mL [facility] Comment: Interpretive Data - Methadone: Samples containing [...] revised on 2017. Urine 10/25/2024 2:06 PM COMPLIANCE MONITOR 10/25/2024 2:20 PM COMPLIANCE MONITOR Narrative [facility] - 10/25/2024 3:46 PM COMPLIANCE MONITOR Drug of Abuse screening is performed by immunoassay for medical purposes only. This is not to be used for Pain Management purposes. us [place] [facility] URINE ORDERABLE S Final Result [address] Department [place] [address] * (ABNORMAL) Urinalysis, microscopic only (10/25/2024 2:06 PM COMPLIANCE MONITOR) WBC, ur 0-5 0 - 5 /HPF [...] [facility] Urine 10/25/2024 2:06 PM COMPLIANCE MONITOR 10/25/2024 2:20 PM COMPLIANCE MONITOR us Ten Cole MD LAB URINE ORDERABLES Final Result [facility] Department [place] [address] * CT Abdomen Pelvis W Contrast (10/25/2024 1:50 PM COMPLIANCE MONITOR) Anatomical Region Laterality Modality Body N/A Computed Tomogra phy 10/25/2024 2:05 PM COMPLIANCE MONITOR Impressions 10/25/2024 2:05 PM COMPLIANCE MONITOR 1. There is a suggestion of a [...] Krys Han M.D. Narrative 10/25/2024 2:05 PM COMPLIANCE MONITOR EXAMINATION: Computed Tomography of the Abdomen and [...] inal Result * eGFR (10/25/2024 11:13 AM COMPLIANCE MONITOR) [facility] eGFR >90 >=60 mL/min/1. 73 m2 [...] reviewed 2021. Blood 10/25/2024 11:1 3 AM COMPLIANCE MONITOR 10/25/2024 11:18 AM COMPLIANCE MONITOR Ten Cole MD LAB BLOOD ORDERABLES Final Result [address] Department [place] [address] * (ABNORMAL) Differential, auto (10/25/2024 11:13 AM COMPLIANCE MONITOR) Pathologist [facility] Neutrophil abs 8.4(H) 1.5 - 6.5 K/cumm Imm gran abs 0.0 0.0 - 0.1 K/cumm [facility] Lymphocyte abs 1.8 0.8 - 3.3 K/cumm [facility] Monocyte abs 0.9(H) 0.2 - 0.8 K/cumm [facility] Eosinophil abs 0.1 0.0 - 0.5 K/cumm [facility] Basophil abs 0.1 0.0 - 0.1 K/cumm [facility] Neutrophil pct 74.8 % [facility] [...] on 2018. Blood 10/25/2024 11:1 3 AM COMPLIANCE MONITOR 10/25/2024 11:18 AM COMPLIANCE MONITOR us Ten Cole MD LAB BLOOD ORDERABLES Final Result [facility] [address] [facility] Department [place] [address] * (ABNORMAL) CBC with auto differential (10/25/2024 11:13 AM COMPLIANCE MONITOR) WBC 11.2(H) 3.8 - 9.9 K/cumm Hgb [...] [facility] Blood Venous blood specimen / Unknown 10/25/2024 11:13 AM COMPLIANCE MONITOR 10/25/2024 11:18 AM COMPLIANCE MONITOR Ten Cole MD LAB BLOOD ORDERABLES Final Result Performing Organization Address [facility]/ZIP Co de Phone Number [address] of Laboratories [place], [place] [id number] * (ABNORMAL) Lipase (10/25/2024 11:13 AM COMPLIANCE MONITOR) [facility] Lipase 138(H) 10 - 99 Units/L Blood 10/25/2024 11:1 3 AM COMPLIANCE MONITOR 10/25/2024 11:18 AM COMPLIANCE MONITOR Ten Cole MD LAB BLOOD ORDERABLES Final Result [address] [place] [address] * (ABNORMAL) Comprehensive metabolic panel (10/25/2024 11:13 AM COMPLIANCE MONITOR) [facility] Sodium 130(L) 135 - 145 mmol/L [...] [facility] Blood Venous blood specimen / Unknown 10/25/2024 11:13 AM COMPLIANCE MONITOR 10/25/2024 11:18 AM COMPLIANCE MONITOR us Ten Cole MD LAB BLOOD ORDERABLES Final Result [facility] [address] [facility] Department [place] [address] from Last 3 Months Insurance IDPA Advance Directives For more information, please contact: [phone] * Full Code (Latest Code Status on File) Date Activated Date Inactivated Comments 01/17/2022 10:36 AM 01/19/2022 10:32 PM Care Teams Sheet Sewer Relationship Specialty Start Date End Date Rocío Lombardi MD [address] [facility] [address] [place] [address] PCP - General 11/22/19
--- OUTSIDE RECORDS SUMMARY | 2025-01-16 22:07 | XMS_ITS | Encounter Summary ---
Author Organization [facility] Address [facility] [place] [address] Care Team Providers Care Manager Of Marketing Name Role Phone Rocío Lombardi MD Primary Care Provider + None, Provider Primary Care Provider Claudine schwartz Encounter Details Date Type Department Care Team (Late st Contact Info) Description 08/29/2022 Kohort Message [facility] Family and Sports Medicine - [place] [phone] [place], [facility] Provider Schedule Appointment: Annual Physical Due Social History Tobacco Use Types Packs/Day Years Used Date Smoking Tobacco: Never Smokeless Tobacco: Never Comments:USED MARIJUANA IN P AST Alcohol Use Standard Drinks/Week Comments Yes 0 (1 standard drink = 0.6 oz pur e alcohol) occassional Sex and Gender Information Value Date Recorded Sex Assigned at Male 10/21/2024 2:48 PM ASH WORKER Legal Sex Male 7:32 AM CDT Gender Identity Male 09/29/2022 5:25 PM ASH WORKER Sexual Orientation Straight 09/29/2022 5: 25 PM ASH WORKER documented as of this encounter Functional [...] independent in ADLs upon discharge from hospital [facility] No Betty Zelaya, HOUSING SPECIALIST documented as of this encounter Visit Diagnoses Not on filedocumented in this encounter Additional Health Concerns Infection Onset Date Last Indicated Resolved Time COVID-19 Rule Out 04/09/2024 04/09/2024 04/09/2024 11:06 PM CDT documented as of this encounter Care Teams Manager Of Marketing Relationship Specialty Start Date End Date Rocío Lombardi MD PCP - General FAMILY PRACTICE 04/08/20 04/09/24 None, Provider, PCP - General UNKNOWN PHYSICIAN SPECIALTY 04/24/24 documented as of this encounter
--- OUTSIDE RECORDS SUMMARY | 2025-01-16 22:07 | XMS_ITS | Encounter Summary ---
Author Organization [facility] Address [facility] [place] [address] Care Team Providers Care Mems Process Engineer Name Role Phone Rocío Lombardi MD Primary Care Provider [phone] None, Provider Primary Care Provider Unavaila ble Encounter Details Date Type Department Care Team (Late st Contact Info) Description 11/09/2020 Prep for Procedure [facility] One Day Services [address] [place], [place] [id number] Ten Flynn MD 3 [facility] [address] [place], [place] [id number] Social History Tobacco Use Types Packs/Day Years Used Date Smoking Tobacco: Never Smokeless Tobacco: Never Comments:USED MARIJUANA IN P AST Alcohol Use Standard Drinks/Week Comments Yes 0 (1 standard drink = 0.6 oz pur e alcohol) occassional Sex and Gender Information Value Date Recorded Sex Assigned at Male 10/21/2024 2:48 PM MINING TEACHER Legal Sex Male 7:32 AM CDT Gender Identity Male 09/29/2022 5:25 PM MINING TEACHER Sexual Orientation Straight 09/29/2022 5: 25 PM MINING TEACHER COVID-19 Exposure Response Date Recorded In the last month, have you been in contact with someone who was confirmed or suspected to have Coronavirus / COVID-19? No / Unsure 11/06/2020 1:13 PM MINING TEACHER documented as of this encounter Functional Status [...] PRE-SURGICAL/PRE-PROCEDURE CORONAVIRUS (COVID 19) (11/09/2020 11:48 AM MINING TEACHER) Pathologist [facility] CORONAVIRUS SARS COV 2 PCR (RESP) NOT DETECTED NOT DETECTED 11/10/2020 6:15 PM MINING TEACHER [facility] Comment: A Not Detected (negative) test result [...] providers and patients using the following websites: https://www.Landscape Mobile.com/home/Covid-19/HCP/NAAT/fact-sheet2 https://www.[employer].com/home/Covid-19/Patients/NAAT/ fact-sheet2 This test has been authorized by the FDA under an Emergency Use Authorization (EUA) for use by authorized laboratories. Due to the current public health emergency, [employer] is receiving a high volume of samples [...] about COVID-19 can be found at the [employer] website: www.mParticle.BlockAvenue/Covid19. Test performed at [facility] [address] [address] Director: BAM SMITH DO,MPH FIRST TEST NO 11/09/2020 12:26 PM [facility] EMPLOYED IN HEALTHCARE NO 11/09/2020 12:26 PM [facility] SYMPTOMATIC DEFINED BY CDC NO 11/09/2020 12:26 PM [facility] DATE OF SYMPTOM ONSET NO 11/09/2020 12:34 PM [facility] HOSPITALIZATION STATUS NO 11/09/2020 12:26 PM [facility] PATIENT IN ICU NO 11/09/2020 12:26 PM [facility] RESIDENT OF [facility] NO 11/09/2020 12:26 PM [facility] NO 11/09/2020 12:34 PM [facility] PATIENT'S RACE WHITE OR 11/09/2020 12:26 PM [facility] ETHNICITY NONHISPANIC 11/09/2020 12:26 PM [facility] SOURCE (QST) NASOPHARYNGEAL SWAB 11/09/2020 12:26 PM MINING TEACHER [facility] NASOPHARYNGEAL SWAB / Unknown 11/09/2020 11:48 AM MINING TEACHER us Ten Flynn MD MICROBIOLOGY - GENERAL ORDERABLE S Final Result [facility] [address] [facility] [place] [address], [facility] [address] [place] [address], documented in this encounter Visit Diagnoses Diagnosis Abdominal pain- Primary Abdominal pain, unspecified site documented in this encounter Additional Health Concerns Infection Onset Date Last Indicated Resolved Time COVID-19 Rule Out 11/09/2020 11/09/2020 11/10/2020 6:16 PM MINING TEACHER COVID-19 Rule Out 11/23/2020 11/23/2020 11/24/2020 5:51 PM MINING TEACHER COVID-19 Rule Out 12/29/2020 12/29/2020 12/29/2020 7:08 PM CDT COVID-19 Rule Out 04/09/2024 04/09/2024 04/09/2024 11:06 PM CDT documented as of this encounter Care Teams Mems Process Engineer Relationship Specialty Start Date End Date Rocío Lombardi MD PCP - General FAMILY PRACTICE 04/08/20 04/09/24 None, Provider, PCP - General UNKNOWN PHYSICIAN SPECIALTY 04/24/24 documented as of this encounter
--- OUTSIDE RECORDS SUMMARY | 2025-01-16 22:07 | XMS_ITS | Encounter Summary ---
Author Organization [facility] Address [facility] [place] [address] Care Team Providers Care Purchasing Specialist Name Role Phone Rocío Lombardi MD Primary Care Provider [phone] None, Provider Primary Care Provider Unavaila ble Encounter Details Date Type Department Care Team (Late st Contact Info) Description 11/18/[address] [facility] One Day Services ONE [place], [place] [id number] Ten Flynn MD 3 [facility] [address] [place], [place] [id number] Social History Tobacco Use Types Packs/Day Years Used Date Smoking Tobacco: Never Smokeless Tobacco: Never Comments:USED MARIJUANA IN P AST Alcohol Use Standard Drinks/Week Comments Yes 0 (1 standard drink = 0.6 oz pur e alcohol) occassional Sex and Gender Information Value Date Recorded Sex Assigned at Male 10/21/2024 2:48 PM AGENCY SALES DIRECTOR Legal Sex Male 7:32 AM CDT Gender Identity Male 09/29/2022 5:25 PM AGENCY SALES DIRECTOR Sexual Orientation Straight 09/29/2022 5: 25 PM AGENCY SALES DIRECTOR COVID-19 Exposure Response Date Recorded In the last month, have you been in contact with someone who was confirmed or suspected to have Coronavirus / COVID-19? No / Unsure 11/06/2020 1:13 PM AGENCY SALES DIRECTOR documented as of this encounter Functional Status [...] PRE-SURGICAL/PRE-PROCEDURE CORONAVIRUS (COVID 19) (11/23/2020 10:45 AM AGENCY SALES DIRECTOR) Pathologist [facility] CORONAVIRUS SARS COV 2 PCR (RESP) NOT DETECTED NOT DETECTED 11/24/2020 5:51 PM AGENCY SALES DIRECTOR [facility] Comment: A Not Detected (negative) [...] providers and patients using the following websites: https://www.HeadCase Humanufacturing.com/home/Covid-19/HCP/QuestIVD/fact- sheet.html https://www.[employer].com/home/Covid-19/Patients/ QuestIVD/fact-sheet.html This test has been authorized by the FDA under an Emergency Use Authorization (EUA) for use by authorized laboratories. Due to the current public health emergency, [employer] is receiving a high volume of [...] about COVID-19 can be found at the [employer] website: www.Simplificare.NIN Ventures/Covid19. Test performed at [facility] [place] [address] [place] [address] Director: BAM SMITH DO,MPH FIRST TEST NO 11/23/2020 12:30 PM AGENCY SALES DIRECTOR [facility] EMPLOYED IN HEALTHCARE NO 11/23/2020 12:30 PM [facility] SYMPTOMATIC DEFINED BY CDC NO 11/23/2020 12:30 PM AGENCY SALES DIRECTOR [facility] DATE OF SYMPTOM ONSET NO 11/23/2020 12:43 PM AGENCY SALES DIRECTOR [facility] HOSPITALIZATION STATUS NO 11/23/2020 12:30 PM AGENCY SALES DIRECTOR [facility] PATIENT IN ICU NO 11/23/2020 12:30 PM AGENCY SALES DIRECTOR [facility] RESIDENT OF [facility] CARE NO 11/23/2020 12:30 PM AGENCY SALES DIRECTOR [facility] NO 11/23/2020 12:43 PM AGENCY SALES DIRECTOR [facility] PATIENT'S RACE WHITE OR 11/23/2020 12:30 PM [facility] ETHNICITY NONHISPANIC 11/23/2020 12:30 PM AGENCY SALES DIRECTOR [facility] SOURCE (QST) NASOPHARYNGEAL SWAB 11/23/2020 12:30 PM AGENCY SALES DIRECTOR [facility] NASOPHARYNGEAL SWAB / Unknown 11/23/2020 10:45 AM AGENCY SALES DIRECTOR us Ten Flynn MD MICROBIOLOGY - GENERAL ORDERABLE S Final Result [facility] [address] [place] [address], [facility] [address] [place] [address], documented in this encounter Visit Diagnoses Diagnosis Vomiting- Primary Vomiting alone documented in this encounter Additional Health Concerns Infection Onset Date Last Indicated Resolved Time COVID-19 Rule Out 11/23/2020 11/23/2020 11/24/2020 5:51 PM AGENCY SALES DIRECTOR COVID-19 Rule Out 12/29/2020 12/29/2020 12/29/2020 7:08 PM CDT COVID-19 Rule Out 04/09/2024 04/09/2024 04/09/2024 11:06 PM CDT documented as of this encounter Care Teams Purchasing Specialist Relationship Specialty Start Date End Date Rocío Lombardi MD PCP - General FAMILY PRACTICE 04/08/20 04/09/24 None, Provider, PCP - General UNKNOWN PHYSICIAN SPECIALTY 04/24/24 documented as of this encounter
--- OUTSIDE RECORDS SUMMARY | 2025-01-16 22:08 | XMS_ITS | Encounter Summary ---
Author Organization [facility] Address [facility] [place] [address] Care Team Providers Care Systems Support Officer Name Role Phone Rocío Lombardi MD Primary Care Provider + None, Provider Primary Care Provider Claudine schwartz Encounter Details Date Type Department Care Team (Late st Contact Info) Description 10/31/2023 [employer] Message [facility] Family and Sports Medicine - [address] [phone] [place], [facility] Provider Schedule Appointment: Annual Physical Social History Tobacco Use Types Packs/Day Years Used Date Smoking Tobacco: Former Cigarettes Smokeless Tobacco: Never Comments:USED MARIJUANA IN P AST. Cigs off and on. Alcohol Use Standard Drinks/Week Comments Yes 0 (1 standard drink = 0.6 oz pur e alcohol) occassional [facility] Utilities Answer Date Recorded In the past 12 months has e [employer], gas, oil, or water [employer] threatened to shut off services in your [...] place to sleep or slept in a jail (including now)? No 10/03/2023 Sex and Gender Information Value Date Recorded Sex Assigned at Male 10/21/2024 2:48 PM RN CORRECTIONAL Legal Sex Male 7:32 AM CDT Gender Identity Male 09/29/2022 5:25 PM RN CORRECTIONAL Sexual Orientation Straight 09/29/2022 5: 25 PM RN CORRECTIONAL documented as of this encounter Functional Status [...] Total Score: 0 09/30/20 22 10:11 AM RN CORRECTIONAL documented as of this encounter Care Teams Systems Support Officer Relationship Specialty Start Date End Date Rocío Lombardi MD PCP - General FAMILY PRACTICE 04/08/20 04/09/24 None, Provider, PCP - General UNKNOWN PHYSICIAN SPECIALTY 04/24/24 documented as of this encounter
--- OUTSIDE RECORDS SUMMARY | 2025-01-16 22:08 | XMS_ITS | Encounter Summary ---
Author Organization [facility] Address [facility] [place] [address] Care Team Providers Care Volleyball Assembler Name Role Phone None, Provider Primary Care Provider Unavaila ble None, Provider Primary Care Provider Unavaila ble Rocío Lombardi MD Primary Care Provider [phone] None, Provider Primary Care Provider Unavaila ble Encounter Details Date Type Department Care Team (Late st Contact Info) Description 03/09/2019 Abstract [facility] [address] [place] [address] , Generic Conversion, Social History Tobacco Use Types Packs/Day Years Used Date Smoking Tobacco: Never Smokeless Tobacco: Never Comments:USED MARIJUANA IN P AST Alcohol Use Standard Drinks/Week Comments Yes 0 (1 standard drink = 0.6 oz pur e alcohol) occassional Sex and Gender Information Value Date Recorded Sex Assigned at Male 10/21/2024 2:48 PM STOCKROOM SELECTOR Legal Sex Male 7:32 AM CDT Gender Identity Male 09/29/2022 5:25 PM STOCKROOM SELECTOR Sexual Orientation Straight 09/29/2022 5: 25 PM STOCKROOM SELECTOR documented as of this encounter Plan of Treatment Not on file documented as of this encounter Visit Diagnoses Not on filedocumented in this encounter Additional Health Concerns Infection Onset Date Last Indicated Resolved Time COVID-19 Rule Out Comment:TESTED 7.04/13/2020 04/13/2020 04/13/2020 9:19 AM CDT COVID-19 Rule Out 10/02/2020 10/02/2020 10/02/2020 7:28 PM STOCKROOM SELECTOR COVID-19 Rule Out 11/09/2020 11/09/2020 11/10/2020 6:16 PM STOCKROOM SELECTOR COVID-19 Rule Out 11/23/2020 11/23/2020 11/24/2020 5:51 PM STOCKROOM SELECTOR COVID-19 Rule Out 12/29/2020 12/29/2020 12/29/2020 7:08 PM CDT COVID-19 Rule Out 04/09/2024 04/09/2024 04/09/2024 11:06 PM CDT documented as of this encounter Care Teams Volleyball Assembler Relationship Specialty Start Date End Date None, Provider, PCP - General 01/16/19 03/18/19 None, ProviderMD PCP - General 03/19/19 04/07/20 Rocío Lombardi MD PCP - General FAMILY PRACTICE 04/08/20 04/09/24 None, ProviderMD PCP - General UNKNOWN PHYSICIAN SPECIALTY 04/24/24 documented as of this encounter
--- OUTSIDE RECORDS SUMMARY | 2025-01-16 22:08 | XMS_ITS | CONTINUITY OF CARE DOCUMENT ---
Author Name erin khan Address Unknown Organization [facility] Address [address] [facility] [address] [place] [address] Phone [phone] Care Team Providers Care Honing Machine Operator Production Name Role Phone Slime Garber MD Unavailable [phone] Slime Garber MD Unavailable [phone] INSURANCE PROVIDERS Payer name Policy type / Coverage type [place] [employer] [place] [facility] Medicaid 3 [id number]
--- OUTSIDE RECORDS SUMMARY | 2025-01-16 22:08 | XMS_ITS | Clinical Summary ---
Author Organization [facility] Address [facility] [place] [address] Care Team Providers Care Oracle Dba Name Role Phone None, Provider MD Primary [...] (10/30/2020): Added automatically from request for surgery [id number] Panic anxiety syndrome 07/07/2020 Cyclical vomiting, intractable 11/03/2019 Resolved Problems Problem Noted Date Diagnosed Date Resolved Date Intractable nausea and vomiting 05/03/2021 09/30/2022 MARINA (acute kidney injury) 04/04/2021 Nausea and vomiting, intract ability of vomiting not specified, unspecified vomiting type 10/30/2020 09/30/2022 Overview (10/30/2020): Added automatically from request for surgery [id number] Abnormal CT scan, gastrointestinal tract 10/30/2020 09/30/2022 Overview (10/30/2020): Added automatically from request for surgery [id number] Hyponatremia 06/07/2020 09/30/2022 Cyclic vomiting syndrome 03/19/201905/2021 [...] CDT - 2024 5:00 AM CDT Emergency [facility] [place] [address] [place] [address] Dada Mcdowell MD,PHD Vomiting Discharge Disposition: Home or Self Care (Routine Discharge) 12/19/2024 Travel 10/25/2024 Scan [facility] SRVCS Scanned, [facility] CT (SCAN) 10/21/2024 2:59 PM UNIVERSAL WORKER ASSISTED LIVING - 10/21/2024 5:16 PM UNIVERSAL WORKER ASSISTED LIVING Emergency [facility] [place] [address] [place] [address] Joe Velasquez PA Vomiting Discharge Disposition: Home [...] = 0.6 oz pur e alcohol) occassional [facility] Utilities Answer Date Recorded In the past 12 months has th e [employer], gas, oil, or water [employer] threatened to shut off services in your [...] place to sleep or slept in a halfway (including now)? No 10/03/2023 Housing Stability Vital Sign Answer Leonardo e Recorded In the last 12 months, was t here a time when you were not able to pay the mortgage or rent on time? No 04/09/2024 In the past 12 months, how m any times have you moved where you were living? 1 04/09/2024 At any time in the past 12 m [facility], were you homeless or living in a halfway (including now)? No 04/09/2024 Sex and Gender Information Value Date Recorded Sex Assigned at Male 10/21/2024 2:48 PM UNIVERSAL WORKER ASSISTED LIVING Legal Sex Male 7:32 AM CDT Gender Identity Male 09/29/2022 5:25 PM UNIVERSAL WORKER ASSISTED LIVING Sexual Orientation Straight 09/29/2022 5: 25 PM UNIVERSAL WORKER ASSISTED LIVING Last Filed Vital Signs Vital Sign Reading [...] - 2023-2 5 season) 2024 PHQ-2 (Physician [place]) 10/02/2024 HPV Vaccines Aged Out No longer [...] discharge planning Lifestyle No Maria R Campos, lacing operator Procedure Name Priority Date/Time Associated Diagnosis Comments ECG 12-LEAD STAT 12/19/2024 10:29 PM CDT LIPASE STAT 12/19/2024 10:05 PM CDT COMPREHENSIVE METABOLIC PANEL STAT 12/19/2024 10:05 PM CDT CBC W/DIFF AUTOMATED STAT 12/19/2024 10:[address] GENERIC 10/25/2024 LIPASE STAT 10/21/2024 3:06 PM [facility] COMPREHENSIVE METABOLIC PANEL STAT 10/21/2024 3:06 PM [facility] LIVING CBC W/DIFF AUTOMATED STAT 10/21/2024 3:06 PM UNIVERSAL WORKER ASSISTED LIVING from Last 3 Months Results * ECG 12 lead (12/19/2024 10:29 PM CDT) 12/19/2024 10:2 9 PM CDT Narrative [facility] (NORM) RAD - 12/21/2024 2:30 PM CDT [facility] [address] Test Date: 2024-12-19 Pat Name: JOVANNY BUSTOS Department: 41 Room: [facility] Gender: Male Stonemason Apprentice: Darius : 1990 Requested By: DADA MCDOWELL Order Number: [id number] Reading MD: Kobe Tanner Measurements Intervals Nunez Rate: 118 P: 78 RI: 104 QRS: 69 QRSD: 87 T: 64 QT: 318 QTc: 447 Interpretive Statements SINUS TACHYCARDIA WITH SHORT RI INTERVAL RIGHT ATRIAL ENLARGEMENT [0.3mV P WAVE] INDETERMINATE AXIS Compared to ECG 04/09/2024 12:05:48 Short RI interval now present Indeterminate axis now present Sinus rhythm no longer present Procedure Note Kobe Tanner MD - 12/21/[address] Test Date: 2024-12-19 Pat Name: JOVANNY BUSTOS Department: 41 Room: [facility] Gender: Male Stonemason Apprentice: Darius : 1990 Requested By: DADA MCDOWELL Order Number: [id number] Reading MD: Kobe Tanner Measurements Intervals Nunez Rate: 118 P: 78 RI: 104 QRS: 69 QRSD: 87 T: 64 QT: 318 QTc: 447 Interpretive Statements SINUS TACHYCARDIA WITH SHORT RI INTERVAL RIGHT ATRIAL ENLARGEMENT [0.3mV P WAVE] INDETERMINATE AXIS Compared to ECG 04/09/2024 12:05:48 Short RI interval now present Indeterminate axis now present Sinus rhythm no longer present us Dada Mcdowell MD,PHD ECG ORDERABLES Final Resu lt [facility] (NORM) RAD * (ABNORMAL) COMPREHENSIVE METABOLIC PANEL (12/19/2024 10:05 PM CDT) Only the most recent of2 resultswithin the time period is included. GLUCOSE 133(H) 70 - 99 MG/DL 12/19/2024 10:48 PM CDT [facility] BUN 15 7 - 18 MG/DL 12/19/2024 10:48 PM CDT [facility] CREATININE S/P/B 1.39(H) 0.7 - 1.3 MG/DL 12/19/2024 10:48 PM CDT [facility] SODIUM S/P/B 134(L) 136 - 145 MMOL/L 12/19/2024 10:48 PM CDT [facility] POTASSIUM S/P/B 3.7 3.5 - 5.1 MMOL/L 12/19/2024 10:48 PM CDT [facility] CHLORIDE S/P/B 99 97 - 115 MMOL/L 12/19/2024 10:48 PM CDT [facility] CO2 26.7 21 - 32 MMOL/L 12/19/2024 10:48 PM CDT [facility] CALCIUM S/P/B 10.6(H) 8.5 - 10.1 MG/DL 12/19/2024 10:48 PM CDT [facility] BILIRUBIN TOTAL S/P/B 1.1 0.2 - 1.2 MG/DL 12/19/2024 10:48 PM CDT [facility] Comment: THIS ASSAY IS NOT RECOMMENDED FOR PATIENTS UNDERGOING TREATMENT WITH ELTROMBOPAG DUE TO THE POTENTIAL FOR FALSELY ELEVATED RESULTS. TOTAL PROTEIN S/P/B 9.3(H) 6.4 - 8.2 G/DL 12/19/2024 10:48 PM CDT [facility] ALBUMIN S/P/B 4.7 3.4 - 5.0 G/DL 12/19/2024 10:48 PM CDT [facility] AST 22 15 - 37 U/L 12/19/2024 10:48 PM CDT [facility] ALT 20 16 - 60 U/L 12/19/2024 10:48 PM CDT [facility] ALKALINE PHOSPHATASE S/P/B 62 50 - 136 U/L 12/19/2024 10:48 PM CDT [facility] ANION GAP 8.3 2 - 10 MMOL/L 12/19/2024 10:48 PM CDT [facility] BUN CREATININE RATIO 10.8 6 - 26 12/19/2024 10:48 PM CDT [facility] A/G RATIO 1.0 1.0 - 2.0 RATIO 12/19/2024 10:48 PM CDT [facility] GFR ESTIMATE 68(L) >90 ML/MIN/1.7 3 M2 12/19/2024 10:48 PM CDT [facility] Comment: NOTE: eGFR is [...] PM CDT [facility] Final Result [facility] [address] [place] [address], * (ABNORMAL) CBC W/DIFF AUTOMATED (12/19/2024 10:05 PM CDT) Only the most recent of2 resultswithin the time period is included. WBC 16.94(H) 4.5 - 11.0 x10'3/uL 12/19/2024 10:23 PM CDT [facility] RBC 5.45 4.70 - 6.10 x10'6/uL 12/19/2024 10:23 PM CDT [facility] HGB 16.0 14.0 - 18.0 G/DL 12/19/2024 10:23 PM CDT [facility] HCT 45.7 43.0 - 54.0 % 12/19/2024 10:23 PM CDT [facility] MCV 83.9 80.0 - 94.0 FL 12/19/2024 10:23 PM CDT [facility] MCH 29.4 27.0 - 31.0 PG 12/19/2024 10:23 PM CDT [facility] MCHC 35.0 32.0 - 36.0 G/DL 12/19/2024 10:23 PM CDT [facility] RDW 12.8 11.5 - 14.5 % 12/19/2024 10:23 PM CDT [facility] PLT 386 130 - 400 x10'3/uL 12/19/2024 10:23 PM CDT [facility] MPV 9.0(L) 9.3 - 12.2 FL 12/19/2024 10:23 PM CDT [facility] DIFFERENTIAL TYPE AUTOMATED DIFFERENTIAL 12/19/2024 10:23 PM CDT [facility] NEUTROPHILS % 90.2 % 12/19/2024 10:23 PM CDT [facility] LYMPHOCYTES % 4.8 % 12/19/2024 10:23 PM CDT [facility] MONOCYTES % 4.4 % 12/19/2024 10:23 PM CDT [facility] EOSINOPHILS 0.0 % 12/19/2024 10:23 PM CDT [facility] BASOPHILS 0.1 % 12/19/2024 10:23 PM CDT [facility] IMMATURE GRANS % 0.5 % 12/20/19 10:23 PM CDT [facility] ABS. NEUTROPHILS 15.28(H) 1.80 - 7.70 x10'3/uL 12/19/2024 10:23 PM CDT [facility] ABS. LYMPHOCYTES 0.81(L) 1.00 - 4.80 x10'3/uL 12/19/2024 10:23 PM CDT [facility] ABS. MONOCYTES 0.75 0.30 - 0.82 x10'3/uL 12/19/2024 10:23 PM CDT [facility] ABS. EOSINOPHILS 0.00(L) 0.04 - 0.54 x10'3/uL 12/19/2024 10:23 PM CDT [facility] ABS. BASOPHILS 0.02 0.01 - 0.08 x10'3/uL 12/19/2024 10:23 PM CDT [facility] ABS. IMMATURE GRANULOCYTES 0.08 0.00 - 0.49 x10'3/uL 12/19/2024 10:23 PM CDT [facility] 12/19/2024 10:0 5 PM CDT [facility] Final Result Performing Organization Address City/[facility]/ZIP Co de Phone Number [facility] [address] [place] [address], [place] [phone] * LIPASE (12/19/2024 10:05 PM CDT) Only the most recent of2 resultswithin the time period is included. LIPASE 40 13 - 75 UNITS/L 12/19/2024 10:48 PM CDT [facility] 12/19/2024 10:0 5 PM CDT [facility] Final Result Performing Organization Address City/[facility]/ZIP Co de Phone Number [facility] [address] [place] [address], [place] [phone] * CT GENERIC (10/25/2024) Anatomical Region Laterality Modality Other 10/25/2024 [facility] Scanned SCANNING Final Resu lt from Last 3 Months Insurance EMPIRE Advance Directives * Full Code (Latest Code [...] 11:15 PM 06/08/2020 9:16 PM Care Teams Oracle Dba Relationship Specialty Start Date End Date None, Provider, MD PCP - General UNKNOWN PHYSICIAN SPECIALTY 04/24/24
--- OUTSIDE RECORDS SUMMARY | 2025-01-16 22:08 | XMS_ITS | Referral Summary ---
Author Organization [facility] al Address [address] [place] [address] Care Team Providers Care Electronics Scale Tester Name Role Phone Rocío Lombardi MD Primary Care Provider Encounters Date Type Department Care Team Description 10/25/2024 1:14 PM LENS ASSORTER - 10/25/2024 3:37 PM [facility] Emergency [facility] Emergency Department [address] [place] [address] Nausea and vomiting, unspecified vomiting type (Primary [...] on file Legal Sex Male 4:18 PM LENS ASSORTER Gender Identity Male 07/12/2021 12:07 AM CDT Sexual Orientation Not on file Last Filed Vital Signs Vital Sign Reading Time Taken Comments Blood Pressure 148/90 10/25/2024 3:37 PM LENS ASSORTER Pulse 94 10/25/2024 3:37 PM LENS ASSORTER Temperature 36.7 C (98 F) 10/25/2024 3:37 PM LENS ASSORTER Respiratory Rate 18 10/25/2024 3:37 PM LENS ASSORTER Oxygen Saturation 98% 10/25/2024 3:37 PM LENS ASSORTER Inhaled Oxygen Concentration - - Weight 71.7 kg (158 lb) 10/25/2024 11:07 AM LENS ASSORTER Height 182.9 cm (6') 10/25/2024 11:07 AM LENS ASSORTER Body Mass Index 21.43 10/25/2024 11:07 AM LENS ASSORTER Plan of Treatment Not on file Procedures Procedure Name Priority Date/Time Associated Diagnosis Comments URINALYSIS, MICROSCOPIC ONLY STAT 10/25/2024 2:06 PM LENS ASSORTER DRUGS OF ABUSE SCREEN, URINE WITHOUT CONFIRMATION STAT 10/25/2024 2:06 PM LENS ASSORTER URINALYSIS AND REFLEX TO MICROSCOPIC AND CULTURE STAT 10/25/2024 2:[address] ABDOMEN PELVIS W CONTRAST ED 10/25/2024 1:50 PM LENS ASSORTER EGFR STAT 10/25/2024 11:13 AM LENS ASSORTER DIFFERENTIAL AUTO STAT 10/25/2024 11: 13 AM LENS ASSORTER LIPASE STAT 10/25/2024 11:13 AM LENS ASSORTER COMPREHENSIVE METABOLIC PANEL STAT 10/25/2024 11:13 AM LENS ASSORTER CBC WITH AUTO DIFFERENTIAL STAT 10/25/2024 11:13 AM LENS ASSORTER from Last 3 Months Results * (ABNORMAL) Urinalysis reflex to microscopic and culture Urine (10/25/2024 2:06 PM LENS ASSORTER) Color, ur Yellow Yellow Clarity, ur Clear [...] tendency for uric acid stone formation. Source: [facility] [employer] Current Interpretive Data was last revised on 2017 Protein, ur ql 2+(A) Negative [facility] Glucose, ur ql Negative Negative [facility] Ketones, ur Negative Negative [facility] Bilirubin, ur Negative Negative [facility] Blood, ur Negative Negative [facility] Urobilinogen, ur <2.0 <2.0 mg/dL [facility] Nitrite, ur Negative Negative [facility] Leukocyte esterase, ur Negative Negative [facility] UA reflex comment Reflex to microscopic UA will be performed. [facility] Urine 10/25/2024 2:06 PM LENS ASSORTER 10/25/2024 2:20 PM LENS ASSORTER us Ten Cole MD LAB MICROBIOLOGY - GENERAL ORDERABLES Final Result [facility] [address] [facility] Department [place] [address] * (ABNORMAL) Drugs of Abuse Screen, Urine without Confirmation (10/25/2024 2:06 PM LENS ASSORTER) Amphetamine, ur Not Detected CutOff 500ng/mL Comment: Interpretive Data - Amphetamines: Samples containing greater than 500 ng/mL d-methamphetamine or other cross-reacting amphetamine compounds are reported as positive. Amphetamine immunoassays are subject to significant false positive rates due to cross-reactivity of non-amphetamine drugs. Confirmatory testing required for definitive results. Current Interpretive Data was last reviewed 2023. Barbiturates, ur Not Detected CutOff 200ng/mL [facility] Comment: Interpretive Data - Barbiturates: Samples containing greater than 200 ng/mL secobarbital or other cross-reacting barbiturate compounds are reported as positive. False positive and false negative results are possible. Confirmatory testing required for definitive results. Current Interpretive Data was last reviewed 2023. Benzodiazepines, ur Not Detected CutOff 100ng/mL [facility] Comment: Interpretive Data - Benzodiazepines: Samples containing greater than 100 ng/mL nordiazepam or other cross-reacting compounds are reported as positive. False positive and false negative results are possible. Confirmatory testing required for definitive results. Current Interpretive Data was last reviewed 2023. Cannabinoids, ur Screen Positive, presumptive (A) CutOff 50 ng/mL [facility] Comment: Interpretive Data - Cannabinoids: Samples containing greater than 50 ng/mL delta-9 THC -COOH or other cross- reacting compounds are reported as positive. False positive and false negative results are possible. Confirmatory testing required for definitive results. Current Interpretive Data was last reviewed 2023. Cocaine, ur Screen Positive, presumptive (A) CutOff 150ng/mL [facility] Comment: Interpretive Data - Cocaine: Samples containing greater than 150 ng/mL benzoylecgonine or other cross- reacting compounds are reported as positive. False positive and false negative results are possible. Confirmatory testing required for definitive results. Current Interpretive Data was last reviewed 2023. Fentanyl, Ur Not Detected Cutoff 1 ng/mL [facility] Comment: Interpretive Data - Fentanyl: Samples containing greater than 1 ng/mL fentanyl or other cross-reacting fentanyl compounds are reported as positive. False positive and false negative results are possible. Confirmatory testing required for definitive results. Current Interpretive Data was last reviewed 2023. Methadone, ur Not Detected CutOff 300ng/mL [facility] Comment: Interpretive Data - Methadone: Samples containing greater than 300 ng/mL d,l-methadone or other cross-reacting compounds are reported as positive. False positive and false negative results are possible. Confirmatory testing required for definitive results. Current Interpretive Data was last reviewed 2023. Opiates, ur Not Detected CutOff 300ng/mL [facility] Comment: Interpretive Data - Opiates: Samples containing greater than 300 ng/mL morphine or other cross-reacting compounds are reported as positive. False positive and false negative results are possible. Confirmatory testing required for definitive results. Current Interpretive Data was last reviewed 2023. Oxycodone, ur Not Detected CutOff 100ng/mL [facility] Comment: Interpretive Data - Oxycodone: Samples containing greater than 100 ng/mL oxycodone or other cross-reacting compounds are reported as positive. False positive and false negative results are possible. Confirmatory testing required for definitive results. Current Interpretive Data was last reviewed 2023. Phencyclidine, ur Not Detected CutOff 25 ng/mL [facility] Comment: Interpretive Data - Phencyclidine: Samples containing greater than 25 ng/mL phencyclidine or other cross-reacting compounds are reported as positive. False positive and false negative results are possible. Confirmatory testing required for definitive results. Current Interpretive Data was last reviewed 2023. Urine Creatinine 192 mg/dL [facility] Comment: Interpretive Data Urine Creatinine: < 10 mg/dL is extremely dilute = or > 10 but < 20 mg/dL is dilute = or > 20 mg/dL is normal Current Interpretive Data was last revised on 2017. Urine 10/25/2024 2:06 PM LENS ASSORTER 10/25/2024 2:20 PM LENS ASSORTER Narrative [facility] - 10/25/2024 3:46 PM LENS ASSORTER Drug of Abuse screening is performed by immunoassay for medical purposes only. This is not to be used for Pain Management purposes. us [place] [facility] URINE ORDERABLE S Final Result Performing Organization Address [facility] Co de Phone Number [address] [place] [address] * (ABNORMAL) Urinalysis, microscopic only (10/25/2024 2:06 PM LENS ASSORTER) WBC, ur 0-5 0 - 5 /HPF RBC, ur 11-20(A) 0 - 2 /HPF [facility] Epithelial cells, squamous, ur 1-5 0 - 5 /HPF [facility] Mucous, ur Present(A) [facility] Culture Reflex Comment Reflex conditions for urine culture (WBC >10) not met. [facility] Urine 10/25/2024 2:06 PM LENS ASSORTER 10/25/2024 2:20 PM LENS ASSORTER us Ten Cole MD LAB URINE ORDERABLES Final Result Performing Organization Address [facility] de Phone Number [address] [place] [address] * CT Abdomen Pelvis W Contrast (10/25/2024 1:50 PM LENS ASSORTER) Anatomical Region Laterality Modality Body N/A Computed Tomogra phy 10/25/2024 2:05 PM LENS ASSORTER Impressions 10/25/2024 2:05 PM LENS ASSORTER 1. There is a suggestion of a [...] Krys Han M.D. Narrative 10/25/2024 2:05 PM LENS ASSORTER EXAMINATION: Computed Tomography of the Abdomen and [...] signed by: Krys Han M.D. [place] [facility] [place] PROCEDURES F inal Result * eGFR (10/25/2024 11:13 AM LENS ASSORTER) eGFR >90 >=60 mL/min/1. 73 m2 Comment: [...] reviewed 2021. Blood 10/25/2024 11:1 3 AM LENS ASSORTER 10/25/2024 11:18 AM LENS ASSORTER us Ten Cole MD LAB BLOOD ORDERABLES Final Result [address] Department [place] [address] * (ABNORMAL) Differential, auto (10/25/2024 11:13 AM LENS ASSORTER) Neutrophil abs 8.4(H) 1.5 - 6.5 K/cumm Imm gran abs 0.0 0.0 - 0.1 K/cumm [facility] Lymphocyte abs 1.8 0.8 - 3.3 K/cumm [facility] Monocyte abs 0.9(H) 0.2 - 0.8 K/cumm [facility] Eosinophil abs 0.1 0.0 - 0.5 K/cumm [facility] Basophil abs 0.1 0.0 - 0.1 K/cumm [facility] Neutrophil pct 74.8 % [facility] Comment: Interpretive Data Percent cell count reference ranges are not reported, since discordance with absolute values may lead to misinterpretation of CBC data. Current Interpretive Data was last revised on 2018. Imm gran pct 0.3 % [facility] Comment: Interpretive Data Percent cell count reference ranges are not reported, since discordance with absolute values may lead to misinterpretation of CBC data. Current Interpretive Data was last revised on 2018. Lymphocyte pct 16.1 % [facility] Comment: Interpretive Data Percent cell count reference ranges are not reported, since discordance with absolute values may lead to misinterpretation of CBC data. Current Interpretive Data was last revised on 2018. Monocyte pct 7.9 % [facility] Comment: Interpretive Data Percent cell count reference ranges are not reported, since discordance with absolute values may lead to misinterpretation of CBC data. Current Interpretive Data was last revised on 2018. Eosinophil pct 0.4 % [facility] Comment: Interpretive Data Percent cell count reference ranges are not reported, since discordance with absolute values may lead to misinterpretation of CBC data. Current Interpretive Data was last revised on 2018. Basophil pct 0.5 % [facility] Comment: Interpretive Data Percent cell count reference ranges are not reported, since discordance with absolute values may lead to misinterpretation of CBC data. Current Interpretive Data was last revised on 2018. Blood 10/25/2024 11:1 3 AM LENS ASSORTER 10/25/2024 11:18 AM LENS ASSORTER Ten Cole MD LAB BLOOD ORDERABLES Final Result [facility] [address] [facility] Department [place] [address] * (ABNORMAL) CBC with auto differential (10/25/2024 11:13 AM LENS ASSORTER) WBC 11.2(H) 3.8 - 9.9 K/cumm Hgb 16.0 13.0 - 17.5 g/dL [facility] Hct 44.9 38.9 - 50.3 % [facility] Plt 398 150 - 400 K/cumm [facility] MPV 9.2 9.1 - 12.3 fL [facility] RBC 5.37 4.30 - 5.80 M/cumm [facility] MCV 83.6 81.3 - 96.4 fL [facility] MCH 29.8 27.1 - 33.3 pg [facility] MCHC 35.6 32.3 - 35.7 g/dL [facility] RDW CV 11.7 11.1 - 14.9 % [facility] RDW SD 35.1(L) 35.7 - 48.1 fL [facility] NRBC abs 0.00 0.00 - 0.01 K/cumm [facility] Blood Venous blood specimen / Unknown 10/25/2024 11:13 AM LENS ASSORTER 10/25/2024 11:18 AM LENS ASSORTER Ten Cole MD LAB BLOOD ORDERABLES Final Result Performing Organization Address [facility] Co de Phone Number [place] [address] Department [place] [address] * (ABNORMAL) Lipase (10/25/2024 11:13 AM LENS ASSORTER) Pathologist [facility] Lipase 138(H) 10 - 99 Units/L Blood 10/25/2024 11:1 3 AM LENS ASSORTER 10/25/2024 11:18 AM LENS ASSORTER Ten Cole MD LAB BLOOD ORDERABLES Final Result Performing Organization Address [facility] Phone Number [facility]ICA [address] [place] [address] * (ABNORMAL) Comprehensive metabolic panel (10/25/2024 11:13 AM LENS ASSORTER) Pathologist [facility] Sodium 130(L) 135 - 145 mmol/L Potassium, pl 3.1(L) 3.3 - 4.9 mmol/L [facility] Chloride 84(L) 97 - 110 mmol/L [facility] CO2 35(H) 22 - 32 mmol/L [facility] Anion gap 11 2 - 15 mmol/L [facility] BUN 9 6 - 25 mg/dL [facility] Creatinine 0.98 0.80 - 1.30 mg/dL [facility] Glucose 136 70 - 199 mg/dL [facility] Comment: Interpretive Data Fasting glucose >/= [...] blood specimen / Unknown 10/25/2024 11:13 AM LENS ASSORTER 10/25/2024 11:18 AM LENS ASSORTER us Ten Cole MD LAB BLOOD ORDERABLES Final Result [facility] [address] [facility] Department [place] [address] from Last 3 Months Insurance [facility] Advance Directives For more information, please contact: [phone] * Full Code (Latest Code Status on File) Date Activated Date Inactivated Comments 01/17/2022 10:36 AM 01/19/2022 10:32 PM Care Teams Electronics Scale Tester Relationship Specialty Start Date End Date Rocío Lombardi MD [address] [facility] [address] [place] [address] PCP - General 11/22/19
[2025-01-16] MEDS: SODIUM CHLORIDE 0.9% IV 1,000 ML 999 ML IV CONT (22:26)
[2025-01-16] MEDS: diphenhydrAMINE HCl INJ 50 MG/ML VIAL 25 MG IV PUSH (22:26)
[2025-01-16] MEDS: METOCLOPRAMIDE HCL INJ 10 MG/2 ML VIAL IV PUSH (22:26)
[2025-01-17] VITALS (9 sets, daily range): BP systolic 128–142; BP diastolic 94–96; PULSE 75–91; RESP 11–14; TEMP 36.6; O2SAT 97–99
== END 2025-01-17 03:10 | disposition home or self-care (01) ==
LOC: ANHED 22:05
PROVIDERS: Physician Assistant; Emergency Provider Physician Assistant
DX: R11.15 Cyclical vomiting syndrome unrelated to migraine (principal)
CPT/HCPCS: 36415; 74177; 80053; 83690; 85025; 96361; 96372; 96374; 96375; 99284; J1200; J1630; J1885; J2405; J2765; J7030; Q9967

== ENCOUNTER 2025-03-27 21:05 | Emergency (ER) | payer SELFPAY ==
[2025-03-27 21:19] VITALS: BP 95/71; PULSE 122; RESP 14; TEMP 36.7; O2SAT 98
[2025-03-28] VITALS (19 sets, daily range): BP systolic 159–169; BP diastolic 92–108; PULSE 71–86; RESP 14–23; TEMP 36.6; O2SAT 94–100
[2025-03-28] MEDS: SODIUM CHLORIDE 0.9% IV 1,000 ML 999 ML IV CONT ×2 (00:10→00:55)
[2025-03-28 00:16] LABS: Basophils Absolute Auto 0.1 K/mm3 (0.0-0.1); Basophils Percent Auto 0.4 % (0.2-1.2); Hematocrit 48.2 % (42.0-52.0); Hemoglobin 16.5 g/dL (14.0-18.0); Immature Granulocyte Absolute 0.03 K/mm3 (0.00-0.031); Immature Granulocyte Percent A 0.2 % (0-0.5); Lymphocytes Absolute Auto 1.72 K/mm3 (0.9-3.2); Mean Corpuscular HGB Conc 34.2 g/dl (32-36); Mean Corpuscular Hemoglobin 28.4 pg (26-34); Mean Platelet Volume 9.2 fl (7.4-10.4); Monocytes Absolute Auto 1.4 K/mm3 (0.1-0.6); Monocytes Percent Auto 11.1 % (2.6-8.5); Neutrophils Absolute Auto 9.1 K/mm3 (1.3-6.7); Neutrophils Percent Auto 74.3 % (45.5-73.1); Platelet Count Result 323 k/mm3 (150-375); Red Blood Count 5.81 M/mm3 (4.6-6.20); Red Cell Distribution Width 12.1 % (11.5-14.5); White Blood Count 12.3 K/mm3 (4.5-10.0)
[2025-03-28] MEDS: SODIUM CHLORIDE 0.9% IV 100 ML 999 ML (00:18)
[2025-03-28] MEDS: HALOPERIDOL LACTATE 5 MG/ML VIAL IM (00:18)
[2025-03-28] MEDS: FAMOTIDINE 20 MG/2 ML VIAL IV PUSH (00:19)
[2025-03-28] MEDS: diphenhydrAMINE HCl INJ 50 MG/ML VIAL 25 MG IV PUSH (00:19)
[2025-03-28 00:26] LABS: Alanine Aminotransferase 17 U/L (6-50); Albumin Level 5.1 g/dL (3.5-5.1); Alkaline Phosphatase 57 U/L (38-126); Anion Gap 15 mmol/L (4-12); Aspartate Amino Transferase 39 U/L (17-59); Blood Urea Nitrogen 17 mg/dL (9-20); Calcium 10.3 mg/dL (8.4-10.2); Carbon Dioxide 29 mmol/L (22-30); Chloride 92 mmol/L (98-107); Estimated CRCL calculation 84 ml/min; Estimated Glomerular Filt Rate > 60; Glucose 118 mg/dL (65-110); Lipase 89 U/L (23-300); Magnesium 2.1 mg/dL (1.6-2.3); Potassium 3.2 mmol/L (3.4-5.0); Sodium 136 mmol/L (137-145)
--- NOTE | 2025-03-28 00:54 | ED.NAVMDI ---
HPI - Nausea/Vomiting/Diarrhea General Chief complaint: Nausea/Vomiting/Diarrhea Stated complaint: cyclic vomiting syndrome Time Seen by Provider: 03/27/25 23:45 Source: patient and old records reviewed Mode of arrival: ambulatory Limitations: no limitations History of Present Illness HPI Narrative: Patient is a 34 y/o male who presents to the ED with c/o cyclic vomiting syndrome. Patient has hx of cyclic vomiting syndrome/cannabinoid hyperemesis syndrome. States he has been trying to cut back on his marijuana use, but has not stopped completely. C/o N/V, diffuse abd pain, hot/cold sensation since Monday. Consistent with his previous episodes. Denies diarrhea, constipation, known fevers. Related Data Allergies Allergy/AdvReac Type Severity Reaction Status Date / Time No Known Allergies Allergy Verified 03/27/25 21:19 Review of Systems Review of Systems: All systems reviewed & are unremarkable except as noted in HPI. All systems reviewed & are unremarkable except as noted in HPI and below PMFSH Past Medical History Medical History Cyclical vomiting Social History Social History Substance use type: marijuana Other substance usage details: daily Exam Narrative: GENERAL: Anxious/tearful appearing, well-nourished, non-toxic, in no acute distress. HEAD: Normocephalic, atraumatic. RESPIRATORY: Airway patent, respirations nonlabored. Clear to auscultation bilaterally, no rales, rhonchi, wheezing. CARDIOVASCULAR: Borderline tachycardic with regular rhythm without murmurs, rubs, or gallops. ABDOMINAL: Soft, diffuse nonfocal tenderness, nondistended. Normoactive BS. MUSCULOSKELETAL: Moves all extremities. No gross deformities. SKIN: Warm, dry, normal color. NEURO: A&O X3. Speech clear. Cranial nerves II-XII grossly intact. Steady gait. No ataxic movements. PSYCHIATRIC: Anxious, tearful. Normal interaction. Course Vital Signs Vital signs: Vital Signs Temperature 98.1 F 03/27/25 21:19 Pulse Rate 122 H 03/27/25 21:19 Respiratory Rate 14 03/27/25 21:19 Blood Pressure 95/71 L 03/27/25 21:19 Pulse Oximetry 98 06/26/25 21:19 Oxygen Delivery Room Air 03/27/25 21:19 Temperature 98.1 F 03/27/25 21:19 Pulse Rate 79 03/28/25 01:04 Respiratory Rate 14 03/28/25 01:04 Blood Pressure 159/97 H 03/28/25 00:46 Pulse Oximetry 99 03/28/25 01:04 Oxygen Delivery Room Air 03/27/25 21:19 MDM - Nausea/Vomiting/Diarrhea MDM Narrative Medical decision making narrative: Patient presented to ED with nausea, vomiting, abdominal pain, consistent with cyclic vomiting syndrome. Patient borderline hypotensive, tachycardic upon. Fluids were initiated. Afebrile here. Cbc with white blood cell count of 12.3. Likely reactive. CMP with potassium at 3.2. Chloride 92. Mild anion gap of 15. Creatinine stable, fairly consistent with previous records. Magnesium within normal range. Normal LFTs and lipase. Fluids are ongoing. UA and UDS was ordered, however patient did not give sample. Denies urinary complaints. Patient given 2 L of fluid in the ED, Pepcid, Haldol, Benadryl. He has tolerated these medications in the past. Also given IV KCl 20 mEq. On re-evaluation, patient is feeling significantly improved. Denies any further abdominal pain. No signs of surgical abdomen on repeat examinations. No indication for imaging at this time. Consistent with previous cyclic vomiting episodes. Patient able to tolerate p.o. intake. Will be discharged with course of Zofran. Advised to discontinue marijuana use. Given return precautions. Discharged in stable condition. Medical Records Attestation: I reviewed the patient's medical records. Lab Data Attestation: I reviewed the patient's lab results. 03/28/25 00:10 03/28/25 00:10 Labs: Lab Results 03/28/25 Range/Units 00:10 WBC 12.3 H (4.5-10.0) K/mm3 RBC 5.81 (4.6-6.20) M/mm3 Hgb 16.5 (14.0-18.0) g/dL Hct 48.2 (42.0-52.0) % MCV 83.0 (80-100) fl MCH 28.4 (26-34) pg MCHC 34.2 (32-36) g/dl RDW 12.1 (11.5-14.5) % Plt Count 323 (150-375) k/mm3 MPV 9.2 (7.4-10.4) fl Immature Gran % (Auto) 0.2 (0-0.5) % Neut % (Auto) 74.3 H (45.5-73.1) % Lymph % (Auto) 14.0 L (18.3-44.2) % Valley % (Auto) 11.1 H (2.6-8.5) % Eos % (Auto) 0.0 (0-4.4) % Baso % (Auto) 0.4 (0.2-1.2) % Lymph # (Auto) 1.72 (0.9-3.2) K/mm3 Valley # (Auto) 1.4 H (0.1-0.6) K/mm3 Eos # (Auto) 0.0 (0-0.3) K/mm3 Baso # (Auto) 0.1 (0.0-0.1) K/mm3 Abs Immat Gran (auto) 0.03 (0.00-0.031) K/mm3 Absolute Neuts (auto) 9.1 H (1.3-6.7) K/mm3 Absolute Nucleated RBC 0.000 (0.0-0.012) K/mm3 Nucleated RBC % 0.0 (0.0-0.2) % Sodium 136 L (137-145) mmol/L Potassium 3.2 L (3.4-5.0) mmol/L Chloride 92 L (98-107) mmol/L Carbon Dioxide 29 (22-30) mmol/L Anion Gap 15 H (4-12) mmol/L BUN 17 (9-20) mg/dL Creatinine 1.14 (0.7-1.3) mg/dL Estim Creat Clear Calc 84 ml/min Estimated GFR > 60 (59 - ) Glucose 118 H (65-110) mg/dL Calcium 10.3 H (8.4-10.2) mg/dL Magnesium 2.1 (1.6-2.3) mg/dL Total Bilirubin 1.0 (0.2-1.3) mg/dL AST 39 (17-59) U/L ALT 17 (6-50) U/L Alkaline Phosphatase 57 (38-126) U/L Total Protein 9.0 H (6.3-8.2) g/dL Albumin 5.1 (3.5-5.1) g/dL Lipase 89 (23-300) U/L Discharge Plan Discharge Clinical Impression: Cyclic vomiting syndrome Patient Disposition: Home Condition: Stable Instructions: Antibiotic Form, Clear Liquid Diet (ED), Cyclic Vomiting Syndrome (ED) Additional Instructions: Avoid marijuana use. Utilize zofran as needed for further nausea. Increase fluid intake. Recommend electrolyte rich fluids, gatorade, pedialyte, body armour. Recommend clear liquids or bland diet until symptoms improve, such as bananas, rice, applesauce, toast, or crackers. Follow up with your primary care doctor for further evaluation. Return to the ED if you experience worsening or severe symptoms, unable to keep down food or drink, severe pain, fevers, rectal bleeding, vomiting blood, or any other symptoms of concern. Patient Language: Kiswahili Prescriptions: New ondansetron 4 mg tablet,disintegrating 4 mg PO Q8H PRN (Reason: nausea and vomiting) Qty: 15 0RF No Action ondansetron 4 mg tablet,disintegrating 4 mg PO Q8H PRN (Reason: nausea and vomiting) Qty: 10 0RF ondansetron 4 mg tablet,disintegrating 4 mg PO Q8H PRN (Reason: nausea and vomiting) Qty: 10 0RF metoclopramide HCl [Reglan] 10 mg tablet 10 mg PO Q6H PRN (Reason: nausea and vomiting) Qty: 14 0RF Follow-up/Referrals: Jayjay Manzano MD [Physician] - (PRIMARY CARE) PHYSICIAN,PAYROLL COORDINATOR [Primary Care Provider] - Time of Disposition: 02:07
[2025-03-28] MEDS: KCL 20 MEQ/SW 100 ML 100 ML 50 MEQ IVPB (00:55)
[2025-03-28] MEDS: POTASSIUM CHLORIDE 20 MEQ ER TABLET PO (02:09)
--- NOTE | 2025-03-28 02:27 | PC.NURSE ---
ok to not finish iv potassium per edp henrique. pt is given po instead so he may d/c home.
== END 2025-03-28 02:29 | disposition home or self-care (01) ==
PROVIDERS: Emergency Provider Physician Assistant
DX: R11.15 Cyclical vomiting syndrome unrelated to migraine (principal)
CPT/HCPCS: 36415; 80053; 83690; 83735; 85025; 96361; 96365; 96372; 96375; 99284; A9270; J1200; J1630; J3480; J7030

== ENCOUNTER 2025-08-16 06:55 | Emergency (ER) | payer SELFPAY ==
[2025-08-16] VITALS (27 sets, daily range): BP systolic 146–181; BP diastolic 99–126; PULSE 87–116; RESP 16–21; TEMP 36.8; O2SAT 98–100
--- OUTSIDE RECORDS SUMMARY | 2025-08-16 06:58 | XMS_ITS | Clinical Summary ---
Author Organization [facility] Address [address] [place] [address] Care Team Providers Care Information Systems Architect Name Role Phone Rocío Lombardi MD Primary Care Provider [phone] Allergies Active Allergy Reactions Criticality Noted Date Comments Marijuana (Cannabis) Nausea & Vomiting Low 01/18/20 22 Medications amitriptyline (ELAVIL) 25 mg tablet Take 1 tablet (25 mg total) by mouth nightly 30 tablet [address] (PROTONIX) 40 mg EC tabletIndications: Treatment of Non-Bleeding Gastric Disorder Take 1 tablet (40 mg total) by mouth nightly 30 tablet [address] (PROTONIX) 40 mg EC tablet Take 1 tablet (40 mg total) by mouth daily 30 tablet 4 Active traMADoL (ULTRAM) 50 mg tablet Take 1 tablet (50 mg total) by mouth every 6 (six) hours as needed for pain 12 tablet 5 Active ketorolac (TORADOL) 10 mg tablet Take 1 tablet (10 mg total) by mouth every 6 (six) hours as needed for pain 20 tablet 5 Active ondansetron (ZOFRAN) 4 mg tablet Take 1 tablet (4 mg total) by mouth every 6 (six) hours 12 tablet 5 Active ondansetron ODT (ZOFRAN-ODT) 4 mg disintegrating tablet Take 1 tablet (4 mg total) by mouth every 8 (eight) hours as needed for nausea or vomiting 20 tablet 5 Active dicyclomine (BENTYL) 20 mg tablet Take 1 tablet (20 mg total) by mouth 3 (three) times a day as needed (abdominal pain) 20 tablet 5 Active scopolamine 1 mg over 3 days patch [address] 1 patch on the skin every third day for 72 hours 3 patch 5 Active prochlorperazine (COMPAZINE) 10 mg tablet Take 1 tablet (10 mg total) by mouth 2 (two) times a day as needed for nausea or vomiting 10 tablet 5 Active metoclopramide (REGLAN) 10 mg tablet Take 1 tablet (10 mg total) by mouth every 6 (six) hours as needed (nausea and vomiting) 20 tablet 5 Active diphenhydrAMINE 25 mg capsule Take 1 tablet/capsu le (25 mg total) by mouth every 6 (six) hours as needed for other (Take witih Reglan) 20 capsule 5 Active metoclopramide (REGLAN) 10 mg tablet Take 1 tablet (10 mg total) by mouth every 6 (six) hours 20 tablet 5 025 Discontin ued(Thera py completed ) Active Problems Problem Noted Date Diagnosed Date [...] Encounters Date Type Department Care Team Description 08/13/2025 8:19 AM MANUFACTURING ENGINEERING INTERN - 08/13/2025 1:03 PM MANUFACTURING ENGINEERING INTERN Emergency [facility] Emergency Department [address] [place] [id number] Cannabinoid hyperemesis syndrome (Primary Dx); Abdominal pain, unspecified abdominal location Discharge Disposition: Discharge to home or self care 07/25/2025 8:45 AM CDT - 07/25/2025 2:06 PM CDT Emergency [facility] Emergency Department [address] [place] [address] Cannabis hyperemesis syndrome concurrent with and due to cannabis abuse (Primary Dx) Discharge Disposition: Discharge to home or self care 05/20/2025 11:09 AM CDT - 05/20/2025 4:16 PM CDT Emergency [facility] Department [address] [place] [id number] Frances Green MD Nausea and vomiting, unspecified vomiting type (Primary Dx); Cannabis hyperemesis syndrome concurrent with and due to cannabis abuse (HCC) Discharge Disposition: Discharge to home or self [...] making you feel afraid or unsafe? Denies 08/13/2025 Sex and Gender Information Value Date Recorded Sex Assigned at Not on file Legal Sex Male 4:18 PM MANUFACTURING ENGINEERING INTERN Gender Identity Male 07/12/2021 12:07 AM CDT Sexual Orientation Not on file Last Filed Vital Signs Vital Sign Reading Time Taken Comments Blood Pressure 122/84 08/13/2025 12:40 PM MANUFACTURING ENGINEERING INTERN Pulse 89 08/13/2025 12:40 PM MANUFACTURING ENGINEERING INTERN Temperature 36.6 C (97.9 F) 08/13/2025 8:21 AM MANUFACTURING ENGINEERING INTERN Respiratory Rate 22 08/13/2025 12:20 PM MANUFACTURING ENGINEERING INTERN Oxygen Saturation 97% 08/13/2025 12:40 PM MANUFACTURING ENGINEERING INTERN Inhaled Oxygen Concentration - - Weight 74.8 kg (165 lb) 08/13/2025 8:21 AM MANUFACTURING ENGINEERING INTERN Height 182.9 cm (6') 08/13/2025 8:21 AM MANUFACTURING ENGINEERING INTERN Body Mass Index 22.38 08/13/2025 8:21 AM MANUFACTURING ENGINEERING INTERN Plan of Treatment Health Maintenance Due Date Last Done Comments Depression Screening 1988 Hepatitis C Screening 1988 DTaP/Tdap/Td Vaccine (3 - Tdap) 12/21/1999 03/09/1993, 04/17/1990 Varicella Vaccines (1 of 2 - 13+ 2-dose series) 2001 Hepatitis B Screening 2006 Regular Well Visit/Exam 18-64 2006 HPV Vaccines (1 - 3-dose SCDM series) 12/21/2015 Covid-19 Vaccine ( - season) 2025 05/24/2021, 04/26/2021 Influenza Vaccine (#1) 2025 , 11/08/2017, 10/29/2016, Additional history exists Pneumococcal vaccine <65 Aged Out No longer eligible based on patient's age to complete this topic Procedures Procedure Name Priority Date/Time Associated Diagnosis Comments CT ABDOMEN PELVIS W CONTRAST ED 08/13/2025 11:09 AM MANUFACTURING ENGINEERING INTERN EGFR STAT 08/13/2025 8:32 AM MANUFACTURING ENGINEERING INTERN DIFFERENTIAL AUTO STAT 08/13/2025 8:3 2 AM MANUFACTURING ENGINEERING INTERN LIPASE STAT 08/13/2025 8:32 AM MANUFACTURING ENGINEERING INTERN COMPREHENSIVE METABOLIC PANEL STAT 08/13/2025 8:32 AM MANUFACTURING ENGINEERING INTERN CBC WITH AUTO DIFFERENTIAL STAT 08/13/2025 8:32 AM MANUFACTURING ENGINEERING INTERN POCT RAPID HIV ANTIBODY COMMUNITY SCREENING-INNA ELIGIBLE Routine 07/25/2025 1:49 PM CDT EGFR STAT 07/25/2025 8:31 AM CDT DIFFERENTIAL AUTO STAT 07/25/2025 8:3 1 AM CDT LIPASE STAT 07/25/2025 8:31 AM CDT COMPREHENSIVE METABOLIC PANEL STAT 07/25/2025 8:31 AM CDT CBC WITH AUTO DIFFERENTIAL STAT 07/25/2025 8:31 AM CDT EGFR STAT 05/20/2025 11:27 AM CDT LIPASE Add-On 05/20/2025 11:27 AM CDT DIFFERENTIAL AUTO STAT 05/20/2025 11: 27 AM CDT COMPREHENSIVE METABOLIC PANEL STAT 05/20/2025 11:27 AM CDT CBC WITH AUTO DIFFERENTIAL STAT 05/20/2025 11:27 AM CDT from Last 3 Months Results * CT Abdomen Pelvis W Contrast (08/13/2025 11:09 AM MANUFACTURING ENGINEERING INTERN) Anatomical Region Laterality Modality Body N/A Computed Tomogra phy 08/13/2025 11:2 6 AM MANUFACTURING ENGINEERING INTERN Impressions 08/13/2025 11:26 AM MANUFACTURING ENGINEERING INTERN 1. Somewhat limited exam as the majority of contrast leaked out of the patient's IV during the injection, and there is minimal opacification of vasculature. 2. No acute findings in the abdomen or pelvis. 3. Persistent, very ill-defined area of enhancement in segment 4 of the liver, similar to prior exam and suboptimally evaluated due to low amounts of contrast. Again, this could be further evaluated with hepatic protocol MRI with and without contrast if clinically indicated. 4. Hyperdensity of the bilateral renal medulla, which can be seen with medullary nephrocalcinosis. Electronically signed by: Tony Rodrigez M.D. Narrative 08/13/2025 11:26 AM MANUFACTURING ENGINEERING INTERN EXAMINATION: Computed tomography of the abdomen and pelvis with intravenous contrast HISTORY: 34 years-old Male with abdominal pain TECHNIQUE: Transaxial computed tomographic images of the abdomen and pelvis were obtained with intravenous contrast according to the standard protocol after the uneventful administration of 75 mL Opti-Ray 350 intravenous contrast. COMPARISON: CT abdomen pelvis 10/25/2024, 02/09/2024 FINDINGS: During contrast injection, the majority of the contrast leaked outside the patient, and there is only minimal opacification. Lower chest: There is a small hiatal hernia Hepatobiliary: There is a poorly evaluated subtle area of rounded enhancement in segment 4 of the liver, similar to prior exam and measuring up to 4 cm. There is focal fatty infiltration of the liver adjacent to falciform ligament. The gallbladder is normal. There is no intra-extra hepatic biliary ductal dilatation. Spleen: The spleen is normal. Pancreas: The pancreas is normal. There is no ductal dilatation. Adrenal glands: The adrenal glands are normal. Genitourinary: There is hyperdensity in the bilateral renal medulla. The kidneys are otherwise normal. There is no collecting system dilatation. The bladder is incompletely distended. Vasculature: The abdominal aorta is normal in course and caliber. Major abdominal vasculature is normal. There are no atherosclerotic calcifications. Lymph nodes: There is no lymphadenopathy. Enteric: The colon is normal. The appendix is not well visualized in its entirety, but visualized portions appear normal. The small bowel is normal. The stomach is normal. Bones/soft tissues: Bony and soft tissues are normal. Procedure Note Tony Rodrigez III, MD - 08/13/2025 EXAMINATION: Computed tomography of the abdomen and pelvis with intravenous contrast HISTORY: 34 years-old Male with abdominal pain TECHNIQUE: Transaxial computed tomographic images of the abdomen and pelvis were obtained with intravenous contrast according to the standard protocol after the uneventful administration of 75 mL Opti-Ray 350 intravenous contrast. COMPARISON: CT abdomen pelvis 10/25/2024, 02/09/2024 FINDINGS: During contrast injection, the majority of the contrast leaked outside the patient, and there is only minimal opacification. Lower chest: There is a small hiatal hernia Hepatobiliary: There is a poorly evaluated subtle area of rounded enhancement in segment 4 of the liver, similar to prior exam and measuring up to 4 cm. There is focal fatty infiltration of the liver adjacent to falciform ligament. The gallbladder is normal. There is no intra-extra hepatic biliary ductal dilatation. Spleen: The spleen is normal. Pancreas: The pancreas is normal. There is no ductal dilatation. Adrenal glands: The adrenal glands are normal. Genitourinary: There is hyperdensity in the bilateral renal medulla. The kidneys are otherwise normal. There is no collecting system dilatation. The bladder is incompletely distended. Vasculature: The abdominal aorta is normal in course and caliber. Major abdominal vasculature is normal. There are no atherosclerotic calcifications. Lymph nodes: There is no lymphadenopathy. Enteric: The colon is normal. The appendix is not well visualized in its entirety, but visualized portions appear normal. The small bowel is normal. The stomach is normal. Bones/soft tissues: Bony and soft tissues are normal. IMPRESSION: 1. Somewhat limited exam as the majority of contrast leaked out of the patient's IV during the injection, and there is minimal opacification of vasculature. 2. No acute findings in the abdomen or pelvis. 3. Persistent, very ill-defined area of enhancement in segment 4 of the liver, similar to prior exam and suboptimally evaluated due to low amounts of contrast. Again, this could be further evaluated with hepatic protocol MRI with and without contrast if clinically indicated. 4. Hyperdensity of the bilateral renal medulla, which can be seen with medullary nephrocalcinosis. Electronically signed by: Tony Rodrigez M.D. us [place] [facility] IM[facility] CT PROCEDURES F inal Result * eGFR (08/13/2025 8:32 AM MANUFACTURING ENGINEERING INTERN) eGFR >90 >=60 mL/min/1. 73 m2 Comment: [...] interpretive data was last reviewed 2021. Blood 08/13/2025 8:32 AM MANUFACTURING ENGINEERING INTERN 08/13/2025 8:35 AM MANUFACTURING ENGINEERING INTERN us Dm Deluca MD LAB BLOOD ORDERABLES Marlyn norton Result [facility] [address] [facility] Department [place] [address] * (ABNORMAL) Differential, auto (08/13/2025 8:32 AM MANUFACTURING ENGINEERING INTERN) Neutrophil abs 13.11(H) 1.50 - 6.50 K/cumm Imm gran abs 0.05 0.00 - 0.10 K/cumm [facility] Lymphocyte abs 0.85 0.80 - 3.30 K/cumm [facility] Monocyte abs 1.14(H) 0.20 - 0.80 K/cumm [facility] Eosinophil abs 0.00 0.00 - 0.50 K/cumm [facility] Basophil abs 0.02 0.00 - 0.10 K/cumm [facility] Neutrophil pct 86.5 % [facility] Comment: Interpretive Data Percent cell count reference ranges are not reported, since discordance with absolute values may lead to misinterpretation of CBC data. Current Interpretive Data was last revised on 2018. Imm gran pct 0.3 % [facility] Comment: Interpretive Data Percent cell count reference ranges are not reported, since discordance with absolute values may lead to misinterpretation of CBC data. Current Interpretive Data was last revised on 2018. Lymphocyte pct 5.6 % [facility] Comment: Interpretive Data Percent cell count reference ranges are not reported, since discordance with absolute values may lead to misinterpretation of CBC data. Current Interpretive Data was last revised on 2018. Monocyte pct 7.5 % [facility] Comment: Interpretive Data Percent cell count reference ranges are not reported, since discordance with absolute values may lead to misinterpretation of CBC data. Current Interpretive Data was last revised on 2018. Eosinophil pct 0.0 % [facility] Comment: Interpretive Data Percent cell count reference ranges are not reported, since discordance with absolute values may lead to misinterpretation of CBC data. Current Interpretive Data was last revised on 2018. Basophil pct 0.1 % [facility] Comment: Interpretive Data Percent cell count reference ranges are not reported, since discordance with absolute values may lead to misinterpretation of CBC data. Current Interpretive Data was last revised on 2018. Blood 08/13/2025 8:32 AM MANUFACTURING ENGINEERING INTERN 08/13/2025 8:35 AM MANUFACTURING ENGINEERING INTERN Dm Deluca MD LAB BLOOD ORDERABLES Marlyn l Result Performing Organization Address [facility] Co de Phone Number [address] [place] [address] * (ABNORMAL) CBC with auto differential (08/13/2025 8:32 AM MANUFACTURING ENGINEERING INTERN) Pathologist [facility] WBC 15.17(H) 3.80 - 9.90 K/cumm Hgb 16.5 13.0 - 17.5 g/dL [facility] Hct 47.2 38.9 - 50.3 % [facility] Plt 367 150 - 400 K/cumm [facility] MPV 9.5 9.1 - 12.3 fL [facility] RBC 5.70 4.30 - 5.80 M/cumm [facility] MCV 82.8 81.3 - 96.4 fL [facility] MCH 28.9 27.1 - 33.3 pg [facility] MCHC 35.0 32.3 - 35.7 g/dL [facility] RDW CV 12.8 11.1 - 14.9 % [facility] RDW SD 38.1 35.7 - 48.1 fL [facility] NRBC abs 0.00 0.00 - 0.01 K/cumm [facility] Blood 08/13/2025 8:32 AM MANUFACTURING ENGINEERING INTERN 08/13/2025 8:35 AM MANUFACTURING ENGINEERING INTERN Dm Deluca MD LAB BLOOD ORDERABLES Marlyn l Result Performing Organization Address City/[facility]/ZIP Co de Phone Number [address] [place] [address] * Lipase (08/13/2025 8:32 AM MANUFACTURING ENGINEERING INTERN) Pathologist [facility] Lipase 25 10 - 99 Units/L Blood 08/13/2025 8:32 AM MANUFACTURING ENGINEERING INTERN 08/13/2025 8:35 AM MANUFACTURING ENGINEERING INTERN us Dm Deluca MD LAB BLOOD ORDERABLES Marlyn norton Result [facility] [address] [facility] Department [place] [address] * (ABNORMAL) Comprehensive metabolic panel (08/13/2025 8:32 AM MANUFACTURING ENGINEERING INTERN) Pathologist [facility] Sodium 137 135 - 145 mmol/L Potassium, pl 4.2 3.3 - 4.9 mmol/L [facility] Chloride 94(L) 97 - 110 mmol/L [facility] CO2 26 22 - 32 mmol/L [facility] Anion gap 17(H) 2 - 15 mmol/L [facility] BUN 22 6 - 25 mg/dL [facility] Creatinine 1.05 0.80 - 1.30 mg/dL [facility] Glucose 118 70 - 199 mg/dL [facility] Comment: Interpretive Data Fasting glucose >/= [...] interpretive data was last revised 2022. Calcium 10.8(H) 8.5 - 10.3 mg/dL [facility] Bilirubin, total 0.6 0.1 - 1.2 mg/dL [facility] Protein, pl 8.7(H) 6.5 - 8.5 g/dL [facility] Albumin 5.2(H) 3.5 - 5.0 g/dL [facility] Alk phos 69 40 - 130 Units/L [facility] ALT 10 7 - 55 Units/L [facility] AST 27 10 - 50 Units/L [facility] Blood 08/13/2025 8:32 AM MANUFACTURING ENGINEERING INTERN 08/13/2025 8:35 AM MANUFACTURING ENGINEERING INTERN Dm Deluca MD LAB BLOOD ORDERABLES Marlyn l Result [facility] [address] [facility] Department [place] [address] * POCT Rapid HIV Antibody Community Screening-Inna Eligible (07/25/2025 1:49 PM CDT) Pathologist [facility] Rapid HIV, POC Negative Negative Lot Number [id number] QC Control Line Acceptable Blood 07/25/2025 1:49 PM CDT Dm Deluca MD POINT OF CARE TEST ORDERA BLES Final Result * eGFR (07/25/2025 8:31 AM CDT) Pathologist [facility] eGFR >90 >=60 mL/min/1. 73 m2 Comment: [...] of Race in Diagnosing Kidney Disease, JASN 202). The CKD-EPI equation should not be used for patients with unstable renal function and has not been validated in children and those over 70. Current interpretive data was last reviewed 2021. Blood 07/25/2025 8:31 AM CDT 07/25/2025 8:36 AM CDT Dm Deluca MD LAB BLOOD ORDERABLES Marlyn norton Result [facility] [address] [facility] Department of Laboratories [place], [place] [id number] * (ABNORMAL) Differential, auto (07/25/2025 8:31 AM CDT) Neutrophil abs 9.42(H) 1.50 - 6.50 K/cumm Imm gran abs 0.05 0.00 - 0.10 K/cumm [facility] Lymphocyte abs 1.17 0.80 - 3.30 K/cumm [facility] Monocyte abs 0.71 0.20 - 0.80 K/cumm [facility] Eosinophil abs 0.04 0.00 - 0.50 K/cumm [facility] Basophil abs 0.04 0.00 - 0.10 K/cumm [facility] Neutrophil pct 82.6 % [facility] Comment: Interpretive Data Percent cell count reference ranges are not reported, since discordance with absolute values may lead to misinterpretation of CBC data. Current Interpretive Data was last revised on 2018. Imm gran pct 0.4 % [facility] Comment: Interpretive Data Percent cell count reference ranges are not reported, since discordance with absolute values may lead to misinterpretation of CBC data. Current Interpretive Data was last revised on 2018. Lymphocyte pct 10.2 % [facility] Comment: Interpretive Data Percent cell count reference ranges are not reported, since discordance with absolute values may lead to misinterpretation of CBC data. Current Interpretive Data was last revised on 2018. Monocyte pct 6.2 % [facility] Comment: Interpretive Data Percent cell count reference ranges are not reported, since discordance with absolute values may lead to misinterpretation of CBC data. Current Interpretive Data was last revised on 2018. Eosinophil pct 0.3 % [facility] Comment: Interpretive Data Percent cell count reference ranges are not reported, since discordance with absolute values may lead to misinterpretation of CBC data. Current Interpretive Data was last revised on 2018. Basophil pct 0.3 % [facility] Comment: Interpretive Data Percent cell count reference ranges are not reported, since discordance with absolute values may lead to misinterpretation of CBC data. Current Interpretive Data was last revised on 2018. Blood 07/25/2025 8:31 AM CDT 07/25/2025 8:36 AM CDT Dm Deluca MD LAB BLOOD ORDERABLES Marlyn l Result Performing Organization Address City/[facility]/ZIP Co de Phone Number [address] [place] [address] * (ABNORMAL) CBC with auto differential (07/25/2025 8:31 AM CDT) WBC 11.43(H) 3.80 - 9.90 K/cumm Hgb 15.4 13.0 - 17.5 g/dL [facility] Hct 42.5 38.9 - 50.3 % [facility] Plt 349 150 - 400 K/cumm [facility] MPV 9.2 9.1 - 12.3 fL [facility] RBC 5.23 4.30 - 5.80 M/cumm [facility] MCV 81.3 81.3 - 96.4 fL [facility] MCH 29.4 27.1 - 33.3 pg [facility] MCHC 36.2(H) 32.3 - 35.7 g/dL [facility] RDW CV 12.2 11.1 - 14.9 % [facility] RDW SD 35.9 35.7 - 48.1 fL [facility] NRBC abs 0.00 0.00 - 0.01 K/cumm [facility] Blood Venous blood specimen / Unknown 07/25/2025 8:31 AM CDT 07/25/2025 8:36 AM CDT Dm Deluca MD LAB BLOOD ORDERABLES Marlyn l Result Performing Organization Address City/[facility]/ZIP Co de Phone Number [address] [employer] [place], [place] [id number] * Lipase (07/25/2025 8:31 AM CDT) Lipase 60 10 - 99 Units/L Blood Venous blood specimen / Unknown 07/25/2025 8:31 AM CDT 07/25/2025 8:36 AM CDT us Dm Deluca MD LAB BLOOD ORDERABLES Marlyn l Result [facility] [address] [facility] Department [place] [address] * (ABNORMAL) Comprehensive metabolic panel (07/25/2025 8:31 AM CDT) Sodium 133(L) 135 - 145 mmol/L Potassium, pl 3.6 3.3 - 4.9 mmol/L [facility] Chloride 97 97 - 110 mmol/L [facility] CO2 21(L) 22 - 32 mmol/L [facility] Anion gap 15 2 - 15 mmol/L [facility] BUN 8 6 - 25 mg/dL [facility] Creatinine 0.93 0.80 - 1.30 mg/dL [facility] Glucose 132 70 - 199 mg/dL [facility] Comment: Interpretive Data Fasting glucose >/= [...] interpretive data was last revised 2022. Calcium 9.8 8.5 - 10.3 mg/dL [facility] Bilirubin, total 0.4 0.1 - 1.2 mg/dL [facility] Protein, pl 7.5 6.5 - 8.5 g/dL [facility] Albumin 4.5 3.5 - 5.0 g/dL [facility] Alk phos 57 40 - 130 Units/L [facility] ALT 5(L) 7 - 55 Units/L [facility] AST 18 10 - 50 Units/L [facility] Blood 07/25/2025 8:31 AM CDT 07/25/2025 8:36 AM CDT us Dm Deluca MD LAB BLOOD ORDERABLES Marlyn l Result [facility] [address] [facility] Department [place] [address] * eGFR (05/20/2025 11:27 AM CDT) eGFR >90 >=60 mL/min/1. 73 m2 Comment: [...] interpretive data was last reviewed 2021. Blood 05/20/2025 11:2 7 AM CDT 05/20/2025 11:28 AM CDT us Frances Green MD LAB BLOOD ORDERA BLES Final Result Performing Organization Address City/[facility]/ZIP Co de Phone Number [facility] [address] Department of Laboratories [place], [place] [id number] * (ABNORMAL) Differential, auto (05/20/2025 11:27 AM CDT) Neutrophil abs 7.46(H) 1.50 - 6.50 K/cumm Imm gran abs 0.02 0.00 - 0.10 K/cumm [facility] Lymphocyte abs 1.25 0.80 - 3.30 K/cumm [facility] Monocyte abs 0.79 0.20 - 0.80 K/cumm [facility] Eosinophil abs 0.00 0.00 - 0.50 K/cumm [facility] Basophil abs 0.03 0.00 - 0.10 K/cumm [facility] Neutrophil pct 78.1 % [facility] Comment: Interpretive Data Percent cell count reference ranges are not reported, since discordance with absolute values may lead to misinterpretation of CBC data. Current Interpretive Data was last revised on 2018. Imm gran pct 0.2 % [facility] Comment: Interpretive Data Percent cell count reference ranges are not reported, since discordance with absolute values may lead to misinterpretation of CBC data. Current Interpretive Data was last revised on 2018. Lymphocyte pct 13.1 % [facility] Comment: Interpretive Data Percent cell count reference ranges are not reported, since discordance with absolute values may lead to misinterpretation of CBC data. Current Interpretive Data was last revised on 2018. Monocyte pct 8.3 % [facility] Comment: Interpretive Data Percent cell count reference ranges are not reported, since discordance with absolute values may lead to misinterpretation of CBC data. Current Interpretive Data was last revised on 2018. Eosinophil pct 0.0 % [facility] Comment: Interpretive Data Percent cell count reference ranges are not reported, since discordance with absolute values may lead to misinterpretation of CBC data. Current Interpretive Data was last revised on 2018. Basophil pct 0.3 % [facility] Comment: Interpretive Data Percent cell count reference ranges are not reported, since discordance with absolute values may lead to misinterpretation of CBC data. Current Interpretive Data was last revised on 2018. Blood 05/20/2025 11:2 7 AM CDT 05/20/2025 11:28 AM CDT Frances Green MD LAB BLOOD ORDERA BLES Final Result MONICA OLMOS [address] [facility] [place] [address] * (ABNORMAL) CBC with auto differential (05/20/2025 11:27 AM CDT) Pathologist [facility] WBC 9.55 3.80 - 9.90 K/cumm Hgb 14.7 13.0 - 17.5 g/dL [facility] Hct 40.8 38.9 - 50.3 % [facility] Plt 298 150 - 400 K/cumm [facility] MPV 9.1 9.1 - 12.3 fL [facility] RBC 4.91 4.30 - 5.80 M/cumm [facility] MCV 83.1 81.3 - 96.4 fL [facility] MCH 29.9 27.1 - 33.3 pg [facility] MCHC 36.0(H) 32.3 - 35.7 g/dL [facility] RDW CV 11.8 11.1 - 14.9 % [facility] RDW SD 35.3(L) 35.7 - 48.1 fL [facility] Blood Venous blood specimen / Unknown 05/20/2025 11:27 AM CDT 05/20/2025 11:28 AM CDT Frances Green MD LAB BLOOD ORDERA BLES Final Result [facility]ICA [facility] [address] [facility] [place] [address] * Lipase (05/20/2025 11:27 AM CDT) Pathologist [facility] Lipase 48 10 - 99 Units/L Blood 05/20/2025 11:2 7 AM CDT 05/20/2025 11:37 AM CDT Frances Green MD LAB BLOOD ORDERA BLES Final Result [facility] [address] Department of Laboratories [place], [place] [id number] * (ABNORMAL) Comprehensive metabolic panel (05/20/2025 11:27 AM CDT) Sodium 127(L) 135 - 145 mmol/L Potassium, pl 3.3 3.3 - 4.9 mmol/L [facility] Chloride 90(L) 97 - 110 mmol/L [facility] CO2 26 22 - 32 mmol/L [facility] Anion gap 11 2 - 15 mmol/L [facility] BUN 11 6 - 25 mg/dL [facility] Creatinine 0.90 0.80 - 1.30 mg/dL [facility] Glucose 108 70 - 199 mg/dL [facility] Comment: Interpretive Data Fasting glucose >/= 126 [...] interpretive data was last revised 2022. Calcium 9.1 8.5 - 10.3 mg/dL [facility] Bilirubin, total 0.9 0.1 - 1.2 mg/dL [facility] Protein, pl 7.2 6.5 - 8.5 g/dL [facility] Albumin 4.3 3.5 - 5.0 g/dL [facility] Alk phos 45 40 - 130 Units/L [facility] ALT 7 7 - 55 Units/L [facility] AST 17 10 - 50 Units/L [facility] Blood Venous blood specimen / Unknown 05/20/2025 11:27 AM CDT 05/20/2025 11:28 AM CDT Frances Green MD LAB BLOOD ORDERA BLES Final Result [facility] [address] [place] [address] from Last 3 Months Insurance IDPA Advance Directives For more information, please contact: [phone] * Full Code (Latest Code Status on File) Date Activated Date Inactivated Comments 01/17/2022 10:36 AM 01/19/2022 10:32 PM Care Teams Information Systems Architect Relationship Specialty Start Date End Date Rocío Lombardi MD [address] [facility] [address] [place] [address] PCP - General 11/22/19
--- OUTSIDE RECORDS SUMMARY | 2025-08-16 06:58 | XMS_ITS | Encounter Summary ---
Author Organization [facility] Address [facility] [place] [address] Care Team Providers Care Civil Engineering Assistant Name Role Phone Rocío Lombardi MD Primary Care Provider [phone] None, Provider Primary Care Provider Unavaila ble Encounter Details Date Type Department Care Team (Late st Contact Info) Description 11/09/2020 Prep for Procedure [facility] [place], [place] [id number] Ten Flynn MD [address] [facility] [address] [place], [place] [id number] Social History Tobacco Use Types Packs/Day Years Used Date Smoking Tobacco: Never Smokeless Tobacco: Never Comments:USED MARIJUANA IN P AST Alcohol Use Standard Drinks/Week Comments Yes 0 (1 standard drink = 0.6 oz pur e alcohol) occassional Sex and Gender Information Value Date Recorded Sex Assigned at Male 10/21/2024 2:48 PM REFINED SYRUP OPERATOR Legal Sex Male 7:32 AM CDT Gender Identity Male 09/29/2022 5:25 PM REFINED SYRUP OPERATOR Sexual Orientation Straight 09/29/2022 5: 25 PM REFINED SYRUP OPERATOR COVID-19 Exposure Response Date Recorded In the last month, have you been in contact with someone who was confirmed or suspected to have Coronavirus / COVID-19? No / Unsure 11/06/2020 1:13 PM REFINED SYRUP OPERATOR documented as of this encounter Functional [...] Assessment Author Status No 06/07/2020 9:00 PM VELT Rajni Pace RN Active * Do you have difficulty [...] PRE-SURGICAL/PRE-PROCEDURE CORONAVIRUS (COVID 19) (11/09/2020 11:48 AM REFINED SYRUP OPERATOR) Pathologist [facility] CORONAVIRUS SARS COV 2 PCR (RESP) NOT DETECTED NOT DETECTED 11/10/2020 6:15 PM REFINED SYRUP OPERATOR [facility] Comment: A Not Detected (negative) test result [...] providers and patients using the following websites: https://www.[employer].com/home/Covid-19/HCP/NAAT/fact-sheet2 https://www.[employer] Hat.[employer]/home/Covid-19/Patients/NAAT/ fact-sheet2 This test has been authorized by the FDA under an Emergency Use Authorization (EUA) for use by authorized laboratories. Due to the current public health emergency, [facility] is receiving a high volume of samples [...] about COVID-19 can be found at the [facility] website: www.[employer].Bioquimica/Covid19. Test performed at [facility] [place] [address] [place] [address] Director: BAM SMITH DO,MPH FIRST TEST NO 11/09/2020 12:26 PM [facility] EMPLOYED IN HEALTHCARE NO 11/09/2020 12:26 PM [facility] SYMPTOMATIC DEFINED BY CDC NO 11/09/2020 12:26 PM [facility] DATE OF SYMPTOM ONSET NO 11/09/2020 12:34 PM [facility] HOSPITALIZATION STATUS NO 11/09/2020 12:26 PM [facility] PATIENT IN ICU NO 11/09/2020 12:26 PM [facility] RESIDENT OF [facility] NO 11/09/2020 12:26 PM [facility] NO 11/09/2020 12:34 PM [facility] PATIENT'S RACE WHITE OR 11/09/2020 12:26 PM [facility] ETHNICITY NONHISPANIC 11/09/2020 12:26 PM REFINED SYRUP OPERATOR [facility] SOURCE (QST) NASOPHARYNGEAL SWAB 11/09/2020 12:26 PM REFINED SYRUP OPERATOR [facility] NASOPHARYNGEAL SWAB / Unknown 11/09/2020 11:48 AM REFINED SYRUP OPERATOR us Ten Flynn MD MICROBIOLOGY - GENERAL ORDERABLE S Final Result [facility] [address] [place] [address], [facility] [address] [place] [address], documented in this encounter Visit Diagnoses Diagnosis Abdominal pain- Primary Abdominal pain, unspecified site documented in this encounter Additional Health Concerns Infection Onset Date Last Indicated Resolved Time COVID-19 Rule Out 11/09/2020 11/09/2020 11/10/2020 6:16 PM REFINED SYRUP OPERATOR COVID-19 Rule Out 11/23/2020 11/23/2020 11/24/2020 5:51 PM REFINED SYRUP OPERATOR COVID-19 Rule Out 12/29/2020 12/29/2020 12/29/2020 7:08 PM CDT COVID-19 Rule Out 04/09/2024 04/09/2024 04/09/2024 11:06 PM CDT documented as of this encounter Care Teams Civil Engineering Assistant Relationship Specialty Start Date End Date Rocío Lomabrdi MD PCP - General FAMILY PRACTICE 04/08/20 04/09/24 None, Provider, PCP - General UNKNOWN PHYSICIAN SPECIALTY 04/24/24 documented as of this encounter
--- OUTSIDE RECORDS SUMMARY | 2025-08-16 06:58 | XMS_ITS | Encounter Summary ---
Author Organization [facility] Address [facility], [facility] [place] [address] Care Team Providers Care Industrial Methods Consultant Name Role Phone Rocío Lombardi MD Primary Care Provider + None, Provider Primary Care Provider Kodaka lana Encounter Details Date Type Department Care Team (Late st Contact Info) Description 08/29/2022 [facility] Message [facility] Family and Sports Medicine - [place] [phone] [place], [facility] Provider Schedule Appointment: Annual Physical Due Social History Tobacco Use Types Packs/Day Years Used Date Smoking Tobacco: Never Smokeless Tobacco: Never Comments:USED MARIJUANA IN P AST Alcohol Use Standard Drinks/Week Comments Yes 0 (1 standard drink = 0.6 oz pur e alcohol) occassional Sex and Gender Information Value Date Recorded Sex Assigned at Male 10/21/2024 2:48 PM RECREATIONAL VEHICLE RESORT MANAGER Legal Sex Male 7:32 AM CDT Gender Identity Male 09/29/2022 5:25 PM RECREATIONAL VEHICLE RESORT MANAGER Sexual Orientation Straight 09/29/2022 5: 25 PM RECREATIONAL VEHICLE RESORT MANAGER documented as of this encounter Functional Status [...] independent in ADLs upon discharge from hospital [facility] No Betty Zelaya, GIRLS TENNIS COACH documented as of this encounter Visit Diagnoses Not on filedocumented in this encounter Additional Health Concerns Infection Onset Date Last Indicated Resolved Time COVID-19 Rule Out 04/09/2024 04/09/2024 04/09/2024 11:06 PM CDT documented as of this encounter Care Teams Industrial Methods Consultant Relationship Specialty Start Date End Date Rocío Lombardi MD PCP - General FAMILY PRACTICE 04/08/20 04/09/24 None, Provider, PCP - General UNKNOWN PHYSICIAN SPECIALTY 04/24/24 documented as of this encounter
--- OUTSIDE RECORDS SUMMARY | 2025-08-16 06:58 | XMS_ITS | Clinical Summary ---
Author Organization [facility] Address [facility] [place] [address] Care Team Providers Care Brigadier Name Role Phone None, Provider MD Primary Care Provider Unavaila ble Allergies Active Allergy Reactions Criticality Noted Date Comments Marijuana (Cannabis Sativa) Nausea and Vomiting Low 01/17/2022 Medications DULoxetine (CYMBALTA) 30 MG capsuleIndications :Panic anxiety syndrome Take 1 capsule (30 mg total) by mouth daily. 60 capsule 4 2 Active famotidine (PEPCID) 20 MG tabletIndications: Cyclical vomiting, intractable,Superi or mesenteric artery syndrome (HHS/HCC),Gastroes ophageal reflux disease, unspecified whether esophagitis present Take 1 tablet (20 mg total) by mouth 2 (two) times daily. 180 tablet 3 3 Active dicyclomine (BENTYL) 20 MG tablet Take 1 tablet (20 mg total) by mouth every 6 (six) hours. 120 tablet 3 Active pantoprazole EC (PROTONIX) 40 MG tablet Take 1 tablet (40 mg total) by mouth daily. 3 Active HYDROcodone-acetam inophen (NORCO) 5-325 MG tabletIndications: Acute Pain < 7 Day Supply Take 1 tablet by mouth every 6 (six) hours as needed for Pain. Indications : Acute Pain < 7 Day Supply 12 tablet 4 Active scopolamine (TRANSDERM-SCOP) 1 MG/3DAYS patch Place 1 patch onto the skin every third day. 5 patch 4 Active pantoprazole EC (PROTONIX) 40 MG tablet Take 1 tablet (40 mg total) by mouth daily. 30 tablet 4 Active pantoprazole EC (PROTONIX) 40 MG tablet Take 1 tablet (40 mg total) by mouth daily. 30 tablet 5 Active ondansetron (ZOFRAN-ODT) 4 MG disintegrating tablet Take 1 tablet (4 mg total) by mouth every 8 (eight) hours as needed. 15 tablet 5 025 Discontinu ed(Therapy completed) ondansetron (ZOFRAN-ODT) 4 MG disintegrating tablet Take 1 tablet (4 mg total) by mouth every 8 (eight) hours as needed. 20 tablet 5 025 Active Problems Problem Noted Date Diagnosed Date Abdominal pain 04/10/2024 Intractable abdominal pain 04/09/2024 Financial difficulty 04/09/2024 Persistent vomiting 10/04/2023 Cyclical vomiting 10/03/2023 Generalized abdominal pain 10/30/2020 Overview (10/30/2020): Added automatically from request for surgery [id number] Panic anxiety syndrome 07/07/2020 Cyclical vomiting, intractable 11/03/2019 Resolved Problems Problem Noted Date Diagnosed Date Resolved Date Intractable nausea and vomiting 05/03/2021 09/30/2022 MARINA (acute kidney injury) 04/04/2021 Nausea and vomiting, intract ability of vomiting not specified, unspecified vomiting type 10/30/2020 09/30/2022 Overview (10/30/2020): Added automatically from request for surgery [id number] Abnormal CT scan, gastrointestinal tract 10/30/2020 09/30/2022 Overview (10/30/2020): Added automatically from request for surgery [id number] Hyponatremia 06/07/2020 09/30/2022 Cyclic vomiting syndrome 03/19/201905/2021 [...] Encounters Date Type Department Care Team Description 07/25/2025 Scan [facility] Scanned, [facility] 07/20/2025 8:49 AM CDT - 07/20/2025 11:33 AM CDT [facility] [place] [address] Jose Gudino MD Sanders, Heather N, PA Vomiting Discharge Disposition: Home or Self Care (Routine Discharge) 07/20/2025 Travel 06/24/2025 8:38 AM CDT - 06/24/2025 11:30 AM CDT [facility] [place] [address] Dana Martinez PA Vomiting Discharge Disposition: Left Against Medical Advice 06/24/2025 Travel 06/05/2025 5:23 PM CDT - 06/05/2025 10:35 PM CDT [facility] [place] [address] Beverly Segundo PA Vomiting Discharge Disposition: Home or Self Care (Routine Discharge) 06/05/2025 Travel 05/20/2025 Scan [facility] INFO [facility]VCS Scanned, [facility] 05/19/2025 7:20 PM CDT - 05/20/2025 2:50 AM CDT [facility] [place] [address] Beverly Segundo PA Vomiting; Abdominal Pain Discharge Disposition: Home or Self Care (Routine Discharge) 05/19/2025 Travel from Last 3 Months Immunizations Immunization [...] = 0.6 oz pur e alcohol) occassional [facility] Utilities Answer Date Recorded In the past 12 months has e [employer], gas, oil, or water [employer] threatened to shut off services in your [...] in a custodial (including now)? No 10/03/2023 Housing Stability Vital Sign Answer Leonardo e Recorded In the last 12 months, was t here a time when you were not able to pay the mortgage or rent on time? No 04/09/2024 In the past 12 months, how m any times have you moved where you were living? 1 04/09/2024 At any time in the past 12 m [facility], were you homeless or living in a custodial (including now)? No 04/09/2024 Sex and Gender Information Value Date Recorded Sex Assigned at Male 10/21/2024 2:48 PM HUMANITIES TEACHER Legal Sex Male 7:32 AM CDT Gender Identity Male 09/29/2022 5:25 PM HUMANITIES TEACHER Sexual Orientation Straight 09/29/2022 5: 25 PM HUMANITIES TEACHER Last Filed Vital Signs Vital Sign Reading Time Taken Comments Blood Pressure 125/83 07/20/2025 11:00 AM CDT Pulse 89 07/20/2025 11:00 AM CDT Temperature 37.5 C (99.5 F) 07/20/2025 8:43 AM CDT Respiratory Rate 18 07/20/2025 11:0 0 AM CDT Oxygen Saturation 98% 07/20/2025 11: 00 AM CDT Inhaled Oxygen Concentration - - Weight 77.5 kg (170 lb 13.7 oz) 07/20/2025 8:43 AM CDT Height 182.9 cm (6') 07/20/2025 8:43 AM CDT Body Mass Index 23.17 07/20/2025 8:43 AM CDT Plan of Treatment Health Maintenance Due Date Last Done Comments Hepatitis C 2006 DTaP, Tdap and Td Vaccines ( 1 - Tdap) 12/21/2007 Hepatitis B Vaccines (1 of 3 - 19+ 3-dose series) 12/21/2007 Pneumococcal Vaccine: Pediatrics (0 to 5 Years) and At-Risk Patients (6 to 49 Years) (1 of 2 - PCV) 12/21/2007 HPV Vaccines (1 - 3-dose SCD M series) 12/21/2015 Annual Physical 09/30/2023 09/30/2022 PHQ-2 (Physician [place]) 10/02/2024 COVID-19 Vaccine (1 - 2024-2 6 season) 2025 Influenza Adult (#1) 2025 10/05/2023, 11/08/2017 Hepatitis A Vaccines Aged Out 06/01/2020, 01/10/2019 No longer eligible based on patient's age [...] discharge from hospital General No Betty Zelaya, TRADITIONAL CHINESE HERBALIST Family - family caregiver with be involved in care transitions and discharge planning Lifestyle No Maria R Campos, boatbuilder supervisor Procedure Name Priority Date/Time Associated Diagnosis Comments CT ABD+PEL W CON STAT 07/20/2025 10:3 8 AM CDT LACTIC ACID W REFLEX (SEPSIS) STAT 07/20/2025 10:23 AM CDT HC LIPASE STAT 07/20/2025 9:06 AM CDT HC COMPREHENSIVE METABOLIC PANEL STAT 07/20/2025 9:06 AM CDT HC CBC AUTO W/AUTO DIFF STAT 07/20/2025 9:06 AM CDT HC MAGNESIUM STAT 06/24/2025 9:49 AM CDT HC LIPASE STAT 06/24/2025 9:49 AM CDT HC COMPREHENSIVE METABOLIC PANEL STAT 06/24/2025 9:49 AM CDT HC CBC AUTO W/AUTO DIFF STAT 06/24/2025 9:49 AM CDT XR ABD KUB STAT 06/24/2025 8:47 AM CDT HC MAGNESIUM STAT 06/05/2025 5:30 PM CDT LACTIC ACID W REFLEX (SEPSIS) STAT 06/05/2025 5:30 PM CDT HC COMPREHENSIVE METABOLIC PANEL STAT 06/05/2025 5:30 PM CDT HC CBC AUTO W/AUTO DIFF STAT 06/05/2025 5:30 PM CDT DRUG SCREEN RAPID STAT 05/19/2025 11: 05 PM CDT HC URINALYSIS AUTO W/O MICRO STAT 05/19/2025 11:05 PM CDT LACTIC ACID W REFLEX (SEPSIS) STAT 05/19/2025 7:34 PM CDT HC MAGNESIUM STAT 05/19/2025 7:34 PM CDT HC COMPREHENSIVE METABOLIC PANEL STAT 05/19/2025 7:34 PM CDT HC CBC AUTO W/AUTO DIFF STAT 05/19/2025 7:34 PM CDT BLOOD GAS, VENOUS STAT 05/19/2025 7:3 2 PM CDT from Last 3 Months Results * CT ABD+PEL W IV CON ONLY (07/20/2025 10:38 AM CDT) Anatomical Region Laterality Modality Abdomen Computed Tomogra phy 07/20/2025 10:3 7 AM CDT Impressions 07/20/2025 10:38 AM CDT IMPRESSION: 1. No acute findings Ordered By: SARAH CRAWFORD Interpreted By: Cayetano Arroyo MD, 07/20/2025 10:37 AM Narrative 07/20/2025 10:38 AM CDT [facility] [address] [place], [place] [address] CT ABDOMEN AND PELVIS WITH CONTRAST Exam date:07/20/2025 10:24 AM Clinical history: Vomiting. Technique: Dynamic helical images of the abdomen and pelvis were obtained. The patient received approximately 100 mL of Isovue 370 nonionic intravenous contrast through an IV in the right antecubital fossa. A dose lowering technique was used for this procedure, which may include, but is not limited to, dose reduction technique, automated exposure control, the use of iterative reconstruction, and ALARA (As Low As Reasonably Achievable) / Image Gently techniques. Comparison: April 26, 2024. FINDINGS: Images of the lower thorax demonstrate the visualized portion of the heart to appear normal. The lung bases are clear. Images of the abdomen demonstrate the overall size and morphology of the liver to be within normal limits. No hepatic lesions are observed. No ascites is seen. The gallbladder is present and normally distended. No stones are observed within its lumen and there is no evidence of cholecystitis or biliary obstruction. The pancreas, spleen, and adrenal glands appear grossly normal. The kidneys are normal in size bilaterally. There is normal symmetric enhancement after the administration of contrast. No stones or hydronephrosis is apparent. Both ureters follow normal expected course through the retroperitoneum. Images of the pelvis demonstrate the urinary bladder to appear normal. The prostate is normal in size. The stomach and small bowel have a normal overall appearance. There is no evidence of obstruction. The appendix appears normal. The colon is within normal limits. Procedure Note Cayetano Arroyo MD - 07/20/2025 [facility] [address] [address] ABDOMEN AND PELVIS WITH CONTRAST Exam date:07/20/2025 10:24 AM Clinical history: Vomiting. Technique: Dynamic helical images of the abdomen and pelvis were obtained.The patient received approximately 100 mL of Isovue 370 nonionicintravenous contrast through an IV in the right antecubital fossa. A doselowering technique was used for this procedure, which may include, but isnot limited to, dose reduction technique, automated exposure control, theuse of iterative reconstruction, and ALARA (As Low As ReasonablyAchievable) / Image Gently techniques. Comparison: April 26, 2024. FINDINGS: Images of the lower thorax demonstrate the visualized portion of the heartto appear normal. The lung bases are clear. Images of the abdomen demonstrate the overall size and morphology of theliver to be within normal limits. No hepatic lesions are observed. Noascites is seen. The gallbladder is present and normally distended. Nostones are observed within its lumen and there is no evidence ofcholecystitis or biliary obstruction. The pancreas, spleen, and adrenalglands appear grossly normal. The kidneys are normal in size bilaterally.There is normal symmetric enhancement after the administration ofcontrast. No stones or hydronephrosis is apparent. Both ureters follownormal expected course through the retroperitoneum. Images of the pelvis demonstrate the urinary bladder to appear normal. Theprostate is normal in size. The stomach and small bowel have a normal overall appearance. There is noevidence of obstruction. The appendix appears normal. The colon is withinnormal limits. IMPRESSION: 1. No acute findings Ordered By: SARAH CRAWFORD Interpreted By: Cayetano Arroyo MD, 07/20/2025 10:[address] Final Resul t * LACTIC ACID W REFLEX (SEPSIS) (07/20/2025 10:23 AM CDT) Only the most recent of3 resultswithin the time period is included. LACTIC ACID VENOUS 1.1 0.4 - 2.0 MMOL/L 07/20/2025 11:00 AM CDT [facility] 07/20/2025 10:2 3 AM CDT [facility] Final Resul t [facility] [address] [place] [address], * (ABNORMAL) COMPREHENSIVE METABOLIC PANEL (07/20/2025 9:06 AM CDT) Only the most recent of4 resultswithin the time period is included. GLUCOSE 113(H) 70 - 99 MG/DL 07/20/2025 10:13 AM CDT [facility] BUN 14 7 - 18 MG/DL 07/20/2025 10:13 AM CDT [facility] CREATININE S/P/B 1.14 0.7 - 1.3 MG/DL 07/20/2025 10:13 AM CDT [facility] SODIUM S/P/B 138 136 - 145 MMOL/L 07/20/2025 10:13 AM CDT [facility] POTASSIUM S/P/B 3.6 3.5 - 5.1 MMOL/L 07/20/2025 10:13 AM CDT [facility] CHLORIDE S/P/B 104 97 - 115 MMOL/L 07/20/2025 10:13 AM CDT [facility] CO2 27.4 21 - 32 MMOL/L 07/20/2025 10:13 AM CDT [facility] CALCIUM S/P/B 9.9 8.5 - 10.1 MG/DL 07/20/2025 10:13 AM CDT [facility] BILIRUBIN TOTAL S/P/B 0.6 0.2 - 1.2 MG/DL 07/20/2025 10:13 AM CDT [facility] Comment: THIS ASSAY IS NOT RECOMMENDED FOR PATIENTS UNDERGOING TREATMENT WITH ELTROMBOPAG DUE TO THE POTENTIAL FOR FALSELY ELEVATED RESULTS. TOTAL PROTEIN S/P/B 8.0 6.4 - 8.2 G/DL 07/20/2025 10:13 AM CDT [facility] ALBUMIN S/P/B 4.3 3.4 - 5.0 G/DL 07/20/2025 10:13 AM CDT [facility] AST 20 15 - 37 U/L 07/20/2025 10:13 AM CDT [facility] ALT 22 16 - 60 U/L 07/20/2025 10:13 AM CDT [facility] ALKALINE PHOSPHATASE S/P/B 55 50 - 136 U/L 07/20/2025 10:13 AM T [facility] ANION GAP 6.6 2 - 10 MMOL/L 07/20/2025 10:13 AM T [facility] BUN CREATININE RATIO 12.3 6 - 26 07/20/2025 10:13 AM T [facility] A/G RATIO 1.2 1.0 - 2.0 RATIO 07/20/2025 10:13 AM T [facility] GFR ESTIMATE 85(L) >90 ML/MIN/1.7 3 M2 07/20/2025 10:13 AM T [facility] Comment: NOTE: eGFR is not calculated for patients <18 years of age or gender unknown. This is an estimated GFR calculation using the new CKD EPI creatinine equation without race and so does not require a correction factor for race. This estimated GFR should not be used for calculating drug doses. 07/20/2025 9:06 AM CDT us [facility] Final Resul t [facility] [address] [place] [address], [place] [phone] * (ABNORMAL) CBC W/DIFF AUTOMATED (07/20/2025 9:06 AM CDT) Only the most recent of4 resultswithin the time period is included. WBC 15.49(H) 4.5 - 11.0 x10'3/uL 07/20/2025 9:42 AM CDT [facility] RBC 5.50 4.70 - 6.10 x10'6/uL 07/20/2025 9:42 AM CDT [facility] HGB 16.1 14.0 - 18.0 G/DL 07/20/2025 9:42 AM CDT [facility] HCT 45.9 43.0 - 54.0 % 07/20/2025 9:42 AM CDT [facility] MCV 83.5 80.0 - 94.0 FL 07/20/2025 9:42 AM CDT [facility] MCH 29.3 27.0 - 31.0 PG 07/20/2025 9:42 AM CDT [facility] MCHC 35.1 32.0 - 36.0 G/DL 07/20/2025 9:42 AM CDT [facility] RDW 12.8 11.5 - 14.5 % 07/20/2025 9:42 AM CDT [facility] PLT 364 130 - 400 x10'3/uL 07/20/2025 9:42 AM CDT [facility] MPV 9.7 9.3 - 12.2 FL 07/20/2025 9:42 AM CDT [facility] DIFFERENTIAL TYPE AUTOMATED DIFFERENTIAL 07/20/2025 9:42 AM CDT [facility] NEUTROPHILS % 91.3 % 07/20/2025 9:42 AM CDT [facility] LYMPHOCYTES % 4.3 % 07/20/2025 9:42 AM CDT [facility] MONOCYTES % 3.8 % 07/20/2025 9:42 AM CDT [facility] EOSINOPHILS 0.0 % 07/20/2025 9:42 AM CDT [facility] BASOPHILS 0.2 % 07/20/2025 9:42 AM CDT [facility] IMMATURE GRANS % 0.4 % 07/20/20 9:42 AM CDT [facility] ABS. NEUTROPHILS 14.15(H) 1.80 - 7.70 x10'3/uL 07/20/2025 9:42 AM CDT [facility] ABS. LYMPHOCYTES 0.66(L) 1.00 - 4.80 x10'3/uL 07/20/2025 9:42 AM CDT [facility] ABS. MONOCYTES 0.59 0.30 - 0.82 x10'3/uL 07/20/2025 9:42 AM CDT [facility] ABS. EOSINOPHILS 0.00(L) 0.04 - 0.54 x10'3/uL 07/20/2025 9:42 AM CDT [facility] ABS. BASOPHILS 0.03 0.01 - 0.08 x10'3/uL 07/20/2025 9:42 AM CDT [facility] ABS. IMMATURE GRANULOCYTES 0.06 0.00 - 0.49 x10'3/uL 07/20/2025 9:42 AM CDT [facility] 07/20/2025 9:06 AM CDT us [facility] Final Resul t [facility] [address] [place] [id number], * LIPASE (07/20/2025 9:06 AM CDT) Only the most recent of2 resultswithin the time period is included. LIPASE 38 13 - 75 UNITS/L 07/20/2025 10:13 AM CDT [facility] 07/20/2025 9:06 AM CDT [facility] Final Resul t Performing Organization Address [facility] Co de Phone Number [address] [address], * (ABNORMAL) MAGNESIUM (06/24/2025 9:49 AM CDT) Only the most recent of3 resultswithin the time period is included. MAGNESIUM 2.5(H) 1.8 - 2.4 MG/DL 06/24/2025 10:25 AM CDT [facility] 06/24/2025 9:49 AM CDT [facility] Final Result [address] [address], * XR ABD KUB (06/24/2025 8:47 AM CDT) Anatomical Region Laterality Modality Abdomen Radiographic Bettina ging 06/24/2025 8:52 AM CDT Impressions 06/24/2025 8:54 AM CDT IMPRESSION: Normal bowel gas pattern with no evidence of bowel obstruction. Ordered By: DANA MARTINEZ Interpreted By: Mookie Chapman MD, 06/24/2025 8:52 AM Narrative 06/24/2025 8:54 AM CDT [address] [address] 06/24/2025, 8:39 AM. HISTORY: Abdominal pain and vomiting for the last 2 days. Similar symptoms about a week ago. EXAM: KUB utilizing 2 images per one view. Correlation to imaging 11/22/2013 normal bowel gas pattern with no evidence of bowel distention nor bowel obstruction. No enlargement of the liver spleen. The renal outlines or not well seen. No abnormal calcification. No gross bone destruction. The lung bases are clear of active infiltrates. The heart size is within normal limits. There is a ovoid density projected over the neck of the right femur, not seen on the prior study which may be extrinsic to the patient. Procedure Note Mookie Chapman MD - 06/24/[address] [address] 06/24/2025, 8:39 AM. HISTORY: Abdominal pain and vomiting for the last 2 days. Similar symptomsabout a week ago. EXAM: KUB utilizing 2 images per one view. Correlation to imaging11/22/2013 normal bowel gas pattern with no evidence of bowel distentionnor bowel obstruction. No enlargement of the liver spleen. The renaloutlines or not well seen. No abnormal calcification. No gross bonedestruction. The lung bases are clear of active infiltrates. The heart size is withinnormal limits. There is a ovoid density projected over the neck of the right femur, notseen on the prior study which may be extrinsic to the patient. IMPRESSION: Normal bowel gas pattern with no evidence of bowel obstruction. Ordered By: DANA MARTINEZ Interpreted By: Mookie Chapman MD, 06/24/2025 8:52 AM Dana Martinez PA GENERAL IMAGING Final Result * (ABNORMAL) DRUG SCREEN RAPID (05/19/2025 11:05 PM CDT) AMPHETAMINE (U) NEGATIVE NEGATIVE 11:31 PM CDT [facility] BARBITURATES SCREEN (U) NEGATIVE NEGATIVE 05/19/2025 11:31 PM CDT [facility] BENZODIAZEPINES SCREEN (U) NEGATIVE NEGATIVE 05/19/2025 11:31 PM CDT [facility] CANNABINOIDS SCREEN (U) POSITIVE(A) NEGATIVE 05/19/2025 11:31 PM CDT [facility] COCAINE METABOLITES (U) NEGATIVE NEGATIVE 05/19/2025 11:31 PM CDT [facility] METHADONE (U) NEGATIVE NEGATIVE 05/19/2025 11:31 PM CDT [facility] OPIATE SCREEN (U) POSITIVE(A) NEGATIVE 2024 11:31 PM CDT [facility] PHENCYCLIDINE PCP (U) NEGATIVE NEGATIVE 05/19/2025 11:31 PM CDT [facility] Comment: NOTE: RESULTS OF THIS DRUG SCREEN SHOULD BE USED FOR MEDICAL PURPOSES ONLY AND NOT FOR LEGAL OR EMPLOYMENT PURPOSES. POSITIVE RESULTS ARE NOT CONFIRMED. MEDICATIONS CONTAINING EPHEDRINE MAY CAUSE FALSE POSITIVE AMPHETAMINE CALL [phone], LAB, TO REQUEST CONFIRMATION TESTING. IF CREATININE IS <40 mg/dL. RECOLLECTION IS SUGGESTED. AMPHETAMINE- 500 NG/ML BARBITURATE- 200 NG/ML BENZODIAZEPINES- 200 NG/ML THC- 50 NG/ML COCAINE- 150 NG/ML METHADONE- 300 NG/ML OPIATE- 300 MG/ML PCP- 25 NG/ML CREATININE (U) >400.0(H) 39 - 259 MG/DL 05/19/2025 11:31 PM CDT [facility] URINE SPECIMEN / Unknown 05/19/2025 11:05 PM CDT us Beverly [facility] URINE ORDERABLES Final Result [facility] [address] [place] [address], [place] [phone] * (ABNORMAL) URINALYSIS (05/19/2025 11:05 PM CDT) SPECIMEN TYPE URINE CLEAN CATCH 05/19/2025 11:05 PM CDT [facility] COLOR (U) YELLOW 05/19/2025 11:24 PM CDT [facility] TRANSPARENCY CLEAR 05/19/2025 11:24 PM CDT [facility] SPECIFIC GRAVITY (U) 1.029 1.001 - 1.030 05/19/2025 11:24 PM CDT [facility] U PH 5.5 5.0 - 9.0 05/19/2025 11:24 PM CDT [facility] LEUKOCYTES (U) NEGATIVE NEGATIVE 05/19/2025 11:24 PM CDT [facility] NITRITES NEGATIVE NEGATIVE 05/19/2025 11:24 PM CDT [facility] PROTEIN RANDOM (U) 20 <30 MG/DL 05/19/2025 11:24 PM CDT [facility] GLUCOSE (U) NORMAL NORMAL MG/DL 05/19/2025 11:24 PM CDT [facility] KETONES MG/DL (U) 10(A) NEGATIVE MG/DL 05/19/2025 11:24 PM CDT [facility] UROBILINOGEN NORMAL NORMAL MG/DL 05/19/2025 11:24 PM CDT [facility] BILIRUBIN (U) NEGATIVE NEGATIVE MG/DL 05/19/2025 11:24 PM CDT [facility] BLOOD (U) 1+(A) NEGATIVE 05/19/2025 11:24 PM CDT [facility] MUCUS MODERATE /LPF 05/19/2025 11:24 PM CDT [facility] WBC/HPF 1 <6 /HPF 05/19/2025 11:24 PM CDT [facility] RBC/HPF 4 <6 /HPF 05/19/2025 11:24 PM CDT [facility] URINE SPECIMEN OBTAINED BY CLEAN CATCH PROCEDURE / Unknown 05/19/2025 11:05 PM CDT Beverly [facility] URINE ORDERABLES Final Result [facility] [address] [place] [address], * (ABNORMAL) Blood gas, venous (05/19/2025 7:32 PM CDT) PH VENOUS 7.62(HH) 7.32 - 7.43 05/19/2025 7:36 PM CDT [facility] Comment: Successful Call: [facility] called 05/19/2025 07:37 PM to BEVERLY SEGUNDO PA ( /BEVERLY SEGUNDO PA) by [id number]. PCO2 VENOUS 35.0 MMHG 05/19/2025 7:36 PM CDT [facility] Comment:NO REFERENCE RANGE H BEEN ESTABLISHED PO2 VENOUS 65.0 MM HG 05/19/2025 7:36 PM CDT [facility] Comment:NO REFERENCE RANGE H BEEN ESTABLISHED TOTAL CO2 VENOUS 37.1(H) 22.0 - 26.0 MMOL/L 05/19/2025 7:36 PM CDT [facility] VENOUS BASE EXCESS 13.9 MMOL/L 05/19/2025 7:36 PM CDT [facility] Comment:NO REFERENCE RANGE H BEEN ESTABLISHED O2 SAT VENOUS 96 % 05/19/2025 7:36 PM CDT [facility] Comment:NO REFERENCE RANGE H BEEN ESTABLISHED BICARB VENOUS 36.0(H) 22.0 - 29.0 MMOL/L 05/19/2025 7:36 PM CDT [facility] O2 ADMIN VENOUS 21 7:33 PM CDT [facility] 05/19/2025 7:32 PM CDT [facility] Final Result [facility] [address] [place] [address], from Last 3 Months Advance Directives * Full Code (Latest Code [...] 11:15 PM 06/08/2020 9:16 PM Care Teams Brigadier Relationship Specialty Start Date End Date None, Provider, MD PCP - General UNKNOWN PHYSICIAN SPECIALTY 04/24/24
--- OUTSIDE RECORDS SUMMARY | 2025-08-16 06:58 | XMS_ITS | Encounter Summary ---
Author Organization [facility] Address Formerly [facility], [facility] [place] [address] Care Team Providers Care Brokerage Manager Name Role Phone None, Provider Primary Care Provider Unavaila ble None, Provider Primary Care Provider Unavaila ble Rocío Lombardi MD Primary Care Provider [phone] None, Provider Primary Care Provider Unavaila ble Encounter Details Date Type Department Care Team (Late st Contact Info) Description 03/09/2019 Abstract [facility] CONVERSION [address] [place] [address] , Generic Conversion, Social History Tobacco Use Types Packs/Day Years Used Date Smoking Tobacco: Never Smokeless Tobacco: Never Comments:USED MARIJUANA IN P AST Alcohol Use Standard Drinks/Week Comments Yes 0 (1 standard drink = 0.6 oz pur e alcohol) occassional Sex and Gender Information Value Date Recorded Sex Assigned at Male 10/21/2024 2:48 PM CLINICAL PSYCHIATRIST Legal Sex Male 7:32 AM CDT Gender Identity Male 09/29/2022 5:25 PM CLINICAL PSYCHIATRIST Sexual Orientation Straight 09/29/2022 5: 25 PM CLINICAL PSYCHIATRIST documented as of this encounter Plan of Treatment Not on file documented as of this encounter Visit Diagnoses Not on filedocumented in this encounter Additional Health Concerns Infection Onset Date Last Indicated Resolved Time COVID-19 Rule Out Comment:TESTED 7.13.04/13/2020 04/13/2020 04/13/2020 9:19 A M CDT COVID-19 Rule Out 10/02/2020 10/02/2020 10/02/2020 7:28 PM CLINICAL PSYCHIATRIST COVID-19 Rule Out 11/09/2020 11/09/2020 11/10/2020 6:16 PM CLINICAL PSYCHIATRIST COVID-19 Rule Out 11/23/2020 11/23/2020 11/24/2020 5:51 PM CLINICAL PSYCHIATRIST COVID-19 Rule Out 12/29/2020 12/29/2020 12/29/2020 7:08 PM CDT COVID-19 Rule Out 04/09/2024 04/09/2024 04/09/2024 11:06 PM CDT documented as of this encounter Care Teams Brokerage Manager Relationship Specialty Start Date End Date None, Provider, PCP - General 01/16/19 03/18/19 None, ProviderMD PCP - General 03/19/19 04/07/20 Rocío Lombardi MD PCP - General FAMILY PRACTICE 04/08/20 04/09/24 None, ProviderMD PCP - General UNKNOWN PHYSICIAN SPECIALTY 04/24/24 documented as of this encounter
--- OUTSIDE RECORDS SUMMARY | 2025-08-16 06:58 | XMS_ITS | Encounter Summary ---
Author Organization [facility] Address Formerly [facility] [place] [address] Care Team Providers Care Outreach Analyst Name Role Phone Rocío Lombardi MD Primary Care Provider None, Provider Primary Care Provider Unavaila ble Encounter Details Date Type Department Care Team (Late st Contact Info) Description 11/18/2020 Prep for Procedure [facility] [place], [place] [address] Ten Flynn MD [address] [facility] [address] [place], [place] [id number] Social History Tobacco Use Types Packs/Day Years Used Date Smoking Tobacco: Never Smokeless Tobacco: Never Comments:USED MARIJUANA IN P AST Alcohol Use Standard Drinks/Week Comments Yes 0 (1 standard drink = 0.6 oz pur e alcohol) occassional Sex and Gender Information Value Date Recorded Sex Assigned at Male 10/21/2024 2:48 PM NEWSPAPER COLUMNIST Legal Sex Male 7:32 AM CDT Gender Identity Male 09/29/2022 5:25 PM NEWSPAPER COLUMNIST Sexual Orientation Straight 09/29/2022 5: 25 PM NEWSPAPER COLUMNIST COVID-19 Exposure Response Date Recorded In the last month, have you been in contact with someone who was confirmed or suspected to have Coronavirus / COVID-19? No / Unsure 11/06/2020 1:13 PM NEWSPAPER COLUMNIST documented as of this encounter Functional Status [...] PRE-SURGICAL/PRE-PROCEDURE CORONAVIRUS (COVID 19) (11/23/2020 10:45 AM NEWSPAPER COLUMNIST) Pathologist [facility] CORONAVIRUS SARS COV 2 PCR (RESP) NOT DETECTED NOT DETECTED 11/24/2020 5:51 PM NEWSPAPER COLUMNIST App Partner [facility] Comment: A Not Detected (negative) test [...] providers and patients using the following websites: https://www.[employer].com/home/Covid-19/HCP/[facility]/fact- sheet.html https://www.[employer].com/home/Covid-19/Patients/ [employer]/fact-sheet.html This test has been authorized by the FDA under an Emergency Use Authorization (EUA) for use by authorized laboratories. Due to the current public health emergency, [facility] is receiving a high volume of samples [...] about COVID-19 can be found at the [facility] website: www.[employer]/Covid19. Test performed at [facility] [address] [place] [address] Director: BAM SMITH DO,MPH FIRST TEST NO 11/23/2020 12:30 PM [facility] EMPLOYED IN HEALTHCARE NO 11/23/2020 12:30 PM NEWSPAPER COLUMNIST [facility] SYMPTOMATIC DEFINED BY CDC NO 11/23/2020 12:30 PM NEWSPAPER COLUMNIST [facility] DATE OF SYMPTOM ONSET NO 11/23/2020 12:43 PM NEWSPAPER COLUMNIST [facility] HOSPITALIZATION STATUS NO 11/23/2020 12:30 PM NEWSPAPER COLUMNIST [facility] PATIENT IN ICU NO 11/23/2020 12:30 PM NEWSPAPER COLUMNIST [facility] RESIDENT OF [facility] CARE NO 11/23/2020 12:30 PM NEWSPAPER COLUMNIST [facility] NO 11/23/2020 12:43 PM NEWSPAPER COLUMNIST [facility] PATIENT'S RACE WHITE OR 11/23/2020 12:30 PM [facility] ETHNICITY NONHISPANIC 11/23/2020 12:30 PM NEWSPAPER COLUMNIST [facility] SOURCE (QST) NASOPHARYNGEAL SWAB 11/23/2020 12:30 PM NEWSPAPER COLUMNIST [facility] NASOPHARYNGEAL SWAB / Unknown 11/23/2020 10:45 AM NEWSPAPER COLUMNIST us Ten Flynn MD MICROBIOLOGY - GENERAL ORDERABLE S Final Result [facility] [address] [facility] [place] [address], App Partner [facility] [address] [place] [address], documented in this encounter Visit Diagnoses Diagnosis Vomiting- Primary Vomiting alone documented in this encounter Additional Health Concerns Infection Onset Date Last Indicated Resolved Time COVID-19 Rule Out 11/23/2020 11/23/2020 11/24/2020 5:51 PM NEWSPAPER COLUMNIST COVID-19 Rule Out 12/29/2020 12/29/2020 12/29/2020 7:08 PM CDT COVID-19 Rule Out 04/09/2024 04/09/2024 04/09/2024 11:06 PM CDT documented as of this encounter Care Teams Outreach Analyst Relationship Specialty Start Date End Date Rocío Lombardi MD PCP - General FAMILY PRACTICE 04/08/20 04/09/24 None, Provider, PCP - General UNKNOWN PHYSICIAN SPECIALTY 04/24/24 documented as of this encounter
--- OUTSIDE RECORDS SUMMARY | 2025-08-16 06:58 | XMS_ITS | Encounter Summary ---
Author Organization [facility] Address Count includes the [facility] [place] [address] Care Team Providers Care Wood Stainer Name Role Phone Rocío Lombardi MD Primary Care Provider + None, Provider Primary Care Provider Claudine schwartz Encounter Details Date Type Department Care Team (Late st Contact Info) Description 10/31/2023 [employer] Message [facility] Family and Sports Medicine - [place] [phone] [place], [facility] Provider Schedule Appointment: Annual Physical Social History Tobacco Use Types Packs/Day Years Used Date Smoking Tobacco: Former Cigarettes Smokeless Tobacco: Never Comments:USED MARIJUANA IN P AST. Cigs off and on. Alcohol Use Standard Drinks/Week Comments Yes 0 (1 standard drink = 0.6 oz pur e alcohol) occassional [facility] Utilities Answer Date Recorded In the past 12 months has [facility] [employer], gas, oil, or water [employer] threatened to shut off services in your [...] Sex Assigned at Male 10/21/2024 2:48 PM MANAGER HVAC Legal Sex Male 7:32 AM CDT Gender Identity Male 09/29/2022 5:25 PM MANAGER HVAC Sexual Orientation Straight 09/29/2022 5: 25 PM MANAGER HVAC documented as of this encounter Functional Status * Are you deaf or do you have serious difficulty hearing Answer Date of Assessment Author Status No 10/03/2023 12:42 PM MANAGER HVAC Effie Arias RN Active * Are you blind or do you have serious difficulty seeing, even when wearing glasses? Answer Date of Assessment Author Status No 10/03/2023 12:42 PM MANAGER HVAC Effie Arias RN Active * Do you have serious [...] from hospital General No Betty Zelaya LCSW documented as of this encounter Visit Diagnoses Not on filedocumented in this encounter Additional Health Concerns Infection Onset Date Last Indicated Resolved Time COVID-19 Rule Out 04/09/2024 04/09/2024 04/09/2024 11:06 PM CDT Assessment Noted Time PHQ-9 Depression Total Score: 0 09/30/20 22 10:11 AM MANAGER HVAC documented as of this encounter Care Teams Wood Stainer Relationship Specialty Start Date End Date Rocío Lombardi MD PCP - General FAMILY PRACTICE 04/08/20 04/09/24 None, Provider, PCP - General UNKNOWN PHYSICIAN SPECIALTY 04/24/24 documented as of this encounter
--- NOTE | 2025-08-16 07:24 | ED_ITS ---
HPI - Nausea/Vomiting/Diarrhea General Chief complaint: Nausea/Vomiting/Diarrhea Stated complaint: vomiting, abd pain Time Seen by Provider: 08/16/25 06:58 Source: patient Mode of arrival: ambulatory Limitations: no limitations History of Present Illness HPI Narrative: This is a 34-year-old male with history of cyclic vomiting syndrome and cannabinoid hyperemesis who presents the ED for nausea, vomiting, abdominal pain. Patient states that he last smoked marijuana a day ago and since yesterday he has been having the symptoms. They feel the same as his prior episodes. He states that he has tried quitting has not been successful. Denies any known sick contacts. Denies constipation, diarrhea, fevers, chills. Related Data Allergies Allergy/AdvReac Type Severity Reaction Status Date / Time No Known Allergies Allergy Verified 08/16/25 07:08 Review of Systems 2 Review of Systems: Gen.: Denies fevers or chills Eyes: Denies eye pain or visual change ENT: Denies congestion Respiratory: Denies shortness of breath or cough CV: Denies chest pain or palpitations GI: As per HPI denies burning, urgency, frequency or hematuria Musculoskeletal: Denies back pain or muscle pain Neuro: Denies numbness, tingling, weakness or focal weakness Skin: Denies rash Except as documented, all other systems reviewed and negative [facility] Past Medical History Medical History Cyclical vomiting Social History Social History Substance use type: marijuana Other substance usage details: daily Exam 2 Narrative: APPEARANCE: Moderate distress, nontoxic, resting in bed EYES: EOMI HEENT: Normocephalic, atraumatic, OMM RESPIRATORY: No respiratory distress Clear to auscultation bilaterally with no rhonchi wheezing or rales. CARDIOVASCULAR: Regular rate and rhythm without murmurs rubs or gallops. ABDOMINAL: Soft, ttp to the epigastrium, nondistended, no rebound or guarding MUSCULOSKELETAL: Moves all extremities. No clubbing, cyanosis or edema. NEURO: Awake and alert. Following commands, speech normal, no focal deficits SKIN:: Warm, dry. No rashes lesions or abrasions PSYCHIATRIC: Tearful Course Vital Signs Vital signs: Vital Signs Temperature 98.3 F 08/16/25 07:03 Pulse Rate 98 08/16/25 07:03 Respiratory Rate 18 08/16/25 07:03 Blood Pressure 156/112 H 08/16/25 07:03 Pulse Oximetry 99 08/16/25 07:03 Oxygen Delivery Room Air 08/16/25 07:03 Temperature 98.3 F 08/16/25 07:03 Pulse Rate 89 08/16/25 11:31 Respiratory Rate 19 08/16/25 11:31 Blood Pressure 163/104 H 08/16/25 11:30 Pulse Oximetry 98 08/16/25 11:30 Oxygen Delivery Room Air 08/16/25 07:03 MDM - Nausea/Vomiting/Diarrhea MDM Narrative Medical decision making narrative: 34-year-old male Presenting for nausea vomiting, abdominal pain. On initial evaluation patient was in moderate distress afebrile, hemodynamic stable. Differentials include but are not limited to: Gastritis, gastroenteritis, cyclic vomiting syndrome, cannabinoid hyperemesis, electrolyte abnormality, SBO. Notable exam findings: Diffuse tenderness to palpation I personally reviewed the patient's lab result. Notable lab findings: Leukocytosis at 12.4. Hyponatremic to 128. Hypokalemic to 3.1. UA consistent with dehydration. UDS positive for cannabinoids and opiates. Patient has extensive history of cyclic vomiting syndrome here at this ED. he does smoke marijuana and admits to smoking it yesterday states that he has been trying to quit. Given the extent of his hyponatremia and hypokalemia, patient was given 2 L NS bolus and started on maintenance fluids. BMP was rechecked today did have improvements of his sodium and potassium there were acceptable at this time. He was given Haldol for his symptoms and had near resolution of his abdominal pain, nausea, vomiting. Patient was deemed appropriate for discharge at this time. Patient was given a prescription for Zofran. Patient was advised follow-up with their PCP in the next week for re-evaluation. Patient was agreeable to this plan. Given strict return precautions. Medical Records Attestation: I reviewed the patient's medical records. Lab Data Attestation: I reviewed the patient's lab results. 08/16/25 07:07 08/16/25 11:03 Labs: Lab Results 08/16/25 08/16/25 Range/Units 07:07 11:03 WBC 12.4 H (4.5-10.0) K/mm3 RBC 6.00 (4.6-6.20) M/mm3 Hgb 17.4 (14.0-18.0) g/dL Hct 49.6 (42.0-52.0) % MCV 82.7 (80-100) fl MCH 29.0 (26-34) pg MCHC 35.1 (32-36) g/dl RDW 12.1 (11.5-14.5) % Plt Count 380 H (150-375) k/mm3 MPV 9.7 (7.4-10.4) fl Immature Gran % (Auto) 0.4 (0-0.5) % Neut % (Auto) 88.2 H (45.5-73.1) % Lymph % (Auto) 6.0 L (18.3-44.2) % [place] % (Auto) 5.2 (2.6-8.5) % Eos % (Auto) 0.0 (0-4.4) % Baso % (Auto) 0.2 (0.2-1.2) % Lymph # (Auto) 0.75 L (0.9-3.2) K/mm3 [place] # (Auto) 0.6 (0.1-0.6) K/mm3 Eos # (Auto) 0.0 (0-0.3) K/mm3 Baso # (Auto) 0.0 (0.0-0.1) K/mm3 Abs Immat Gran (auto) 0.05 H (0.00-0.031) K/mm3 Absolute Neuts (auto) 11.0 H (1.3-6.7) K/mm3 Absolute Nucleated RBC 0.000 (0.0-0.012) K/mm3 Nucleated RBC % 0.0 (0.0-0.2) % Sodium 128 L 132 L (137-145) mmol/L Potassium 3.1 L 3.3 L (3.4-5.0) mmol/L Chloride 86 L 92 L (98-107) mmol/L Carbon Dioxide 28 32 H (22-30) mmol/L Anion Gap 14 H 8 (4-12) mmol/L BUN 23 H 17 (9-20) mg/dL Creatinine 1.16 1.11 (0.7-1.3) mg/dL Estim Creat Clear Calc 85 88 ml/min Estimated GFR > 60 > 60 (59 - ) Glucose 126 H 106 (65-110) mg/dL Calcium 10.0 8.7 (8.4-10.2) mg/dL Total Bilirubin 1.3 (0.2-1.3) mg/dL AST 38 (17-59) U/L ALT 17 (6-50) U/L Alkaline Phosphatase 71 (38-126) U/L Total Protein 8.7 H (6.3-8.2) g/dL Albumin 5.1 (3.5-5.1) g/dL Lipase 92 (23-300) U/L Urine Color Yellow (Yellow) Urine Appearance Clear (Clear) Urine pH 5.5 (5.0-9.0) Ur Specific [place] 1.030 (1.001-1.035) Urine Protein 1+ H (Negative) mg/dL Urine Glucose (UA) Negative (Negative) mg/dL Urine Ketones 1+ H (Negative) mg/dL Ur Blood (Man) 1+ H (Negative) Urine Nitrate Negative (Negative) Urine Bilirubin Negative (Negative) Urine Urobilinogen 1.0 (<2.0) mg/dL Leukocyte Esterase Rfl Negative (Negative) HEBERT/UL Urine RBC 3-5 H (0-2) /hpf Urine WBC 0-5 (0-3) /hpf Ur Squamous Epith Cells None seen (Few) /hpf Urine Bacteria None seen /hpf Urine Casts 0-2 Urine Opiates Screen Positive A (Negative) Urine Methadone Screen Negative (Negative) Ur Barbiturates Screen Negative (Negative) Ur Phencyclidine Scrn Negative (Negative) Ur Amphetamine Screen Negative (Negative) U Benzodiazepines Scrn Negative (Negative) Urine Cocaine Screen Negative (Negative) U Cannabinoids Screen Positive A (Negative) Discharge Plan Discharge Clinical Impression: Cyclic vomiting syndrome, Acute hyponatremia, Acute hypokalemia Patient Disposition: Home Condition: Stable Instructions: Antibiotic Form, Cyclic Vomiting Syndrome (ED) Additional Instructions: Take Zofran as prescribed. Please stop using marijuana as this is likely the source of your cyclic vomiting syndrome. Follow-up with your PCP in the next week for re-evaluation. Return to the ED for any new or worsening symptoms. Patient Language: Mohawk Prescriptions: New ondansetron 4 mg tablet,disintegrating 4 mg PO Q8H PRN (Reason: nausea and vomiting) Qty: 14 0RF No Action ondansetron 4 mg tablet,disintegrating 4 mg PO Q8H PRN (Reason: nausea and vomiting) Qty: 10 0RF ondansetron 4 mg tablet,disintegrating 4 mg PO Q8H PRN (Reason: nausea and vomiting) Qty: 10 0RF metoclopramide HCl [Reglan] 10 mg tablet 10 mg PO Q6H PRN (Reason: nausea and vomiting) Qty: 14 0RF ondansetron 4 mg tablet,disintegrating 4 mg PO Q8H PRN (Reason: nausea and vomiting) Qty: 15 0RF Follow-up/Referrals: PHYSICIAN,GALLEY COOK [Primary Care Provider, Internal Medicine] Danny Eddy MD [Physician, Family Practice]
[2025-08-16] MEDS: SODIUM CHLORIDE 0.9% IV 1,000 ML 999 ML IV CONT ×2 (07:38→08:46)
[2025-08-16] MEDS: HALOPERIDOL LACTATE 5 MG/ML VIAL IV PUSH (07:38)
[2025-08-16 07:41] LABS: Hematocrit 49.6 % (42.0-52.0); Hemoglobin 17.4 g/dL (14.0-18.0); Immature Granulocyte Percent A 0.4 % (0-0.5); Lymphocytes Absolute Auto 0.75 K/mm3 (0.9-3.2); Mean Corpuscular HGB Conc 35.1 g/dl (32-36); Mean Corpuscular Hemoglobin 29.0 pg (26-34); Mean Corpuscular Volume 82.7 fl (80-100); Nucleated Red Blood Cells Absolute Auto 0.000 K/mm3 (0.0-0.012); Nucleated Red Blood Cells Perc 0.0 % (0.0-0.2); Platelet Count Result 380 k/mm3 (150-375); Red Blood Count 6.00 M/mm3 (4.6-6.20); White Blood Count 12.4 K/mm3 (4.5-10.0)
[2025-08-16 07:45] LABS: Add Urine Microscopic? YES; Appearance Urine Clear (Clear); Glucose Urine UA Negative (Negative); Leukocyte Esterase Ur Negative LEU/UL (Negative); Nitrate Urine Negative (Negative); Non Pathogenic Casts 0-2; Specific Grav Ur 1.030 (1.001-1.035)
[2025-08-16 08:00] LABS: Alanine Aminotransferase 17 U/L (6-50); Albumin Level 5.1 g/dL (3.5-5.1); Alkaline Phosphatase 71 U/L (38-126); Anion Gap 14 mmol/L (4-12); Aspartate Amino Transferase 38 U/L (17-59); Bilirubin,Total 1.3 mg/dL (0.2-1.3); Blood Urea Nitrogen 23 mg/dL (9-20); Calcium 10.0 mg/dL (8.4-10.2); Carbon Dioxide 28 mmol/L (22-30); Chloride 86 mmol/L (98-107); Estimated CRCL calculation 85 ml/min; Estimated Glomerular Filt Rate > 60; Glucose 126 mg/dL (65-110); Lipase 92 U/L (23-300); Potassium 3.1 mmol/L (3.4-5.0); Sodium 128 mmol/L (137-145); Total Protein 8.7 g/dL (6.3-8.2)
[2025-08-16 08:08] LABS: Cannabinoid Screen Urine Positive (Negative)
[2025-08-16] MEDS: SODIUM CHLORIDE 0.9% IV 1,000 ML 150 ML IV CONT (08:45)
[2025-08-16] MEDS: POTASSIUM CHLORIDE 20 MEQ ER TABLET 40 MEQ PO (08:46)
[2025-08-16 11:25] LABS: Anion Gap 8 mmol/L (4-12); Blood Urea Nitrogen 17 mg/dL (9-20); Calcium 8.7 mg/dL (8.4-10.2); Carbon Dioxide 32 mmol/L (22-30); Chloride 92 mmol/L (98-107); Estimated CRCL calculation 88 ml/min; Estimated Glomerular Filt Rate > 60; Glucose 106 mg/dL (65-110); Potassium 3.3 mmol/L (3.4-5.0); Sodium 132 mmol/L (137-145)
== END 2025-08-16 11:47 | disposition home or self-care (01) ==
PROVIDERS: Emergency Medicine; Emergency Provider Student in an Organized Health Care Education/Training Program
DX: R11.15 Cyclical vomiting syndrome unrelated to migraine (principal); E87.1 Hypo-osmolality and hyponatremia; E87.6 Hypokalemia
CPT/HCPCS: 36415; 80048; 80053; 80307; 81001; 83690; 85025; 96361; 96374; 99284; A9270; J1630; J7030

== ENCOUNTER 2025-09-14 05:57 | Emergency (ER) | payer SELFPAY ==
[2025-09-14 06:00] VITALS: BP 130/94; PULSE 115; RESP 20; TEMP 36.6; O2SAT 98
--- OUTSIDE RECORDS SUMMARY | 2025-09-14 06:00 | XMS_ITS | Encounter Summary ---
Author Organization [facility] Address [facility] [place] [address] Care Team Providers Care Continuous Washer Operator Name Role Phone Rocío Lombardi MD Primary Care Provider + None, Provider Primary Care Provider Claudine schwartz Encounter Details Date Type Department Care Team (Late st Contact Info) Description 10/31/2023 [employer] Message [facility] Family and Sports Medicine - [place] [phone] [place], [facility] Provider Schedule Appointment: Annual Physical Social History Tobacco Use Types Packs/Day Years Used Date Smoking Tobacco: Former Cigarettes Smokeless Tobacco: Never Comments:USED MARIJUANA IN P AST. Cigs off and on. Alcohol Use Standard Drinks/Week Comments Yes 0 (1 standard drink = 0.6 oz pur e alcohol) occassional [facility] Utilities Answer Date Recorded In the past 12 months has [facility] [employer], gas, oil, or water [employer] threatened to shut off services in your [...] place to sleep or slept in a penitentiary (including now)? No 10/03/2023 Sex and Gender Information Value Date Recorded Sex Assigned at Male 10/21/2024 2:48 PM GROCERY BUYER Legal Sex Male 7:32 AM CDT Gender Identity Male 09/29/2022 5:25 PM GROCERY BUYER Sexual Orientation Straight 09/29/2022 5: 25 PM GROCERY BUYER documented as of this encounter Functional Status * Are you deaf or do you have serious difficulty hearing Answer Date of Assessment Author Status No 10/03/2023 12:42 PM GROCERY BUYER Effie Arias RN Active * Are you blind or do you have serious difficulty seeing, even when wearing glasses? Answer Date of Assessment Author Status No 10/03/2023 12:42 PM GROCERY BUYER Effie Arias RN Active * Do you [...] Total Score: 0 09/30/20 22 10:11 AM GROCERY BUYER documented as of this encounter Care Teams Continuous Washer Operator Relationship Specialty Start Date End Date Rocío Lombardi MD PCP - General FAMILY PRACTICE 04/08/20 04/09/24 None, Provider, PCP - General UNKNOWN PHYSICIAN SPECIALTY 04/24/24 documented as of this encounter
--- OUTSIDE RECORDS SUMMARY | 2025-09-14 06:00 | XMS_ITS | Encounter Summary ---
Author Organization [facility] Address [facility] [place] [address] Care Team Providers Care Rolled Glass Crosscutter Name Role Phone Rocío Lombardi MD Primary Care Provider + None, Provider Primary Care Provider Kodaka lana Encounter Details Date Type Department Care Team (Late st Contact Info) Description 08/29/2022 [employer] Message [facility] Family and Sports Medicine - [place] [phone] [place], [facility] Provider Schedule Appointment: Annual Physical Due Social History Tobacco Use Types Packs/Day Years Used Date Smoking Tobacco: Never Smokeless Tobacco: Never Comments:USED MARIJUANA IN P AST Alcohol Use Standard Drinks/Week Comments Yes 0 (1 standard drink = 0.6 oz pur e alcohol) occassional Sex and Gender Information Value Date Recorded Sex Assigned at Male 10/21/2024 2:48 PM RADIATION / CHEMISTRY TECHNICIAN Legal Sex Male 7:32 AM CDT Gender Identity Male 09/29/2022 5:25 PM RADIATION / CHEMISTRY TECHNICIAN Sexual Orientation Straight 09/29/2022 5: 25 PM RADIATION / CHEMISTRY TECHNICIAN documented as of this encounter Functional Status [...] independent in ADLs upon discharge from hospital [facility] No Betty Zelaya, ANIMAL DAMAGE CONTROL AGENT documented as of this encounter Visit Diagnoses Not on filedocumented in this encounter Additional Health Concerns Infection Onset Date Last Indicated Resolved Time COVID-19 Rule Out 04/09/2024 04/09/2024 04/09/2024 11:06 PM CDT documented as of this encounter Care Teams Rolled Glass Crosscutter Relationship Specialty Start Date End Date Rocío Lombardi MD PCP - General FAMILY PRACTICE 04/08/20 04/09/24 None, Provider, PCP - General UNKNOWN PHYSICIAN SPECIALTY 04/24/24 documented as of this encounter
--- OUTSIDE RECORDS SUMMARY | 2025-09-14 06:00 | XMS_ITS | Clinical Summary ---
Author Organization [facility] Address [address] [place] [address] Care Team Providers Care Utility Worker Name Role Phone No, Physician Primary Care Provider [phone] Allergies Active Allergy Reactions Criticality Noted Date [...] (Take witih Reglan) 20 capsule 5 Active Active Problems Problem Noted Date [...] Encounters Date Type Department Care Team Description 09/03/2025 9:24 AM DIP FILLER - 09/03/2025 2:59 [address] [facility] Emergency Department [address] [place] [id number] Celso Max MD Abdominal pain of multiple sites (Primary Dx); Cannabinoid hyperemesis syndrome; Hypertension, unspecified type Discharge Disposition: Discharge to home or self care 08/13/2025 8:19 AM DIP FILLER - 08/13/2025 1:03 PM DIP FILLER Emergency [facility] Emergency Department [address] [place] [address] Cannabinoid hyperemesis syndrome (Primary Dx); Abdominal pain, unspecified abdominal location Discharge Disposition: Discharge to home or self care 07/25/2025 8:45 AM CDT - 07/25/2025 2:06 PM CDT Emergency [facility] Emergency Department [address] [place] [id number] Cannabis hyperemesis syndrome concurrent with and due [...] making you feel afraid or unsafe? Denies 09/03/2025 Sex and Gender Information Value Date Recorded Sex Assigned at Not on file Legal Sex Male 4:18 PM DIP FILLER Gender Identity Male 07/12/2021 12:07 AM CDT Sexual Orientation Not on file Last Filed Vital Signs Vital Sign Reading Time Taken Comments Blood Pressure 167/115 09/03/2025 2:58 PM DIP FILLER Pulse 90 09/03/2025 2:58 PM DIP FILLER Temperature 36.6 C (97.9 F) 09/03/2025 2:58 PM DIP FILLER Respiratory Rate 16 09/03/2025 2:58 PM DIP FILLER Oxygen Saturation 98% 09/03/2025 2:58 PM DIP FILLER Inhaled Oxygen Concentration - - Weight 77.1 kg (170 lb) 09/03/2025 9:31 AM DIP FILLER Height 182.9 cm (6') 08/13/2025 8:21 AM DIP FILLER Body Mass Index 23.06 08/13/2025 8:21 AM DIP FILLER Plan of Treatment Health Maintenance Due Date Last Done Comments Depression Screening 1988 Hepatitis C Screening 1988 DTaP/Tdap/Td Vaccine (3 - Tdap) 12/21/1999 03/09/1993, 04/17/1990 Varicella Vaccines (1 of 2 - 13+ 2-dose series) 2001 Hepatitis B Screening 2006 Regular Well Visit/Exam 18-64 2006 HPV Vaccines (1 - 3-dose SCDM series) 12/21/2015 Covid-19 Vaccine ( season) 2025 05/24/2021, 04/26/2021 Influenza Vaccine (#1) 2025 4, 11/08/2017, 10/29/2016, Additional history exists Pneumococcal vaccine <65 Aged Out No longer eligible based on patient's age to complete this topic Procedures Procedure Name Priority Date/Time Associated Diagnosis Comments POCT RAPID HIV ANTIBODY [facility] SCREENING-INNA ELIGIBLE Routine 09/03/2025 12:44 PM DIP FILLER URINALYSIS AND REFLEX TO MICROSCOPIC AND CULTURE STAT 09/03/2025 9:54 AM DIP FILLER EGFR STAT 09/03/2025 9:39 AM DIP FILLER LIPASE Add-On 09/03/2025 9:39 AM DIP FILLER DIFFERENTIAL AUTO STAT 09/03/2025 9:3 9 AM DIP FILLER COMPREHENSIVE METABOLIC PANEL STAT 09/03/2025 9:39 AM DIP FILLER CBC WITH AUTO DIFFERENTIAL STAT 09/03/2025 9:[address] ABDOMEN PELVIS W CONTRAST ED 08/13/2025 11:09 AM DIP FILLER EGFR STAT 08/13/2025 8:32 AM DIP FILLER DIFFERENTIAL AUTO STAT 08/13/2025 8:3 2 AM DIP FILLER LIPASE STAT 08/13/2025 8:32 AM DIP FILLER COMPREHENSIVE METABOLIC PANEL STAT 08/13/2025 8:32 AM DIP FILLER CBC WITH AUTO DIFFERENTIAL STAT 08/13/2025 8:32 AM DIP FILLER POCT RAPID HIV ANTIBODY [facility] SCREENING-INNA ELIGIBLE Routine 07/25/2025 1:49 PM CDT EGFR STAT 07/25/2025 8:31 AM CDT DIFFERENTIAL AUTO STAT 07/25/2025 8:3 1 AM CDT LIPASE STAT 07/25/2025 8:31 AM CDT COMPREHENSIVE METABOLIC PANEL STAT 07/25/2025 8:31 AM CDT CBC WITH AUTO DIFFERENTIAL STAT 07/25/2025 8:31 AM CDT from Last 3 Months Results * POCT Rapid HIV Antibody [facility] Screening-Inna Eligible (09/03/2025 12:44 PM DIP FILLER) Pathologist [facility] Rapid HIV, POC Negative Negative Lot Number [id number] QC Control Line Acceptable Blood 09/03/2025 12:4 4 PM DIP FILLER us Celso Max MD POINT OF CARE TEST ORD ERABLES Final Result * (ABNORMAL) Urinalysis reflex to microscopic and culture Urine (09/03/2025 9:54 AM DIP FILLER) Pathologist [facility] Color, ur Yellow Yellow Clarity, ur Turbid(A) Clear [facility] Specific gravity, ur 1.016 1.003 - 1.030 [facility] pH, urine 7.5 [facility] Comment: Interpretive Data U rine pH is affected by diet, medications, systemic acid-base disturbances, and renal tubular function. pH may affect urinary stone formation. For example, urine pH below 6.0 may help reduce the tendency for calcium phosphate stones and pH greater than 6.0 may reduce the tendency for uric acid stone formation. Source: Belford Zonoff Current Interpretive Data was last revised on 2017 Protein, ur ql Negative Negative [facility] Glucose, ur ql Negative Negative [facility] Ketones, ur Negative Negative [facility] Bilirubin, ur Negative Negative [facility] Blood, ur Negative Negative [facility] Urobilinogen, ur <2.0 <2.0 mg/dL [facility] Nitrite, ur Negative Negative [facility] Leukocyte esterase, ur Negative Negative [facility] UA reflex comment Reflex conditions for microscopic UA and culture not met. [facility] Urine 09/03/2025 9:54 AM DIP FILLER 09/03/2025 10:04 AM DIP FILLER Celso Max MD LAB MICROBIOLOGY - GEN ERAL ORDERABLES Final Result Performing Organization Address [facility] Co de Phone Number [address] Department [place] [address] * eGFR (09/03/2025 9:39 AM DIP FILLER) eGFR >90 >=60 mL/min/1. 73 m2 Comment: [...] interpretive data was last reviewed 2021. Blood 09/03/2025 9:39 AM DIP FILLER 09/03/2025 9:41 AM DIP FILLER Celso Max MD LAB BLOOD ORDERABLES F inal Result Performing Organization Address [facility] Co de Phone Number [facility] 2 [facility] Department [place] [address] * (ABNORMAL) Differential, auto (09/03/2025 9:39 AM DIP FILLER) Neutrophil abs 8.82(H) 1.50 - 6.50 K/cumm Imm gran abs 0.03 0.00 - 0.10 K/cumm [facility] Lymphocyte abs 0.63(L) 0.80 - 3.30 K/cumm [facility] Monocyte abs 0.56 0.20 - 0.80 K/cumm [facility] Eosinophil abs 0.05 0.00 - 0.50 K/cumm [facility] Basophil abs 0.05 0.00 - 0.10 K/cumm [facility] PW Neutrophil pct 87.0 % [facility] Comment: Interpretive Data Percent cell count reference ranges are not reported, since discordance with absolute values may lead to misinterpretation of CBC data. Current Interpretive Data was last revised on 2018. Imm gran pct 0.3 % [facility] Comment: Interpretive Data Percent cell count reference ranges are not reported, since discordance with absolute values may lead to misinterpretation of CBC data. Current Interpretive Data was last revised on 2018. Lymphocyte pct 6.2 % [facility] Comment: Interpretive Data Percent cell count reference ranges are not reported, since discordance with absolute values may lead to misinterpretation of CBC data. Current Interpretive Data was last revised on 2018. Monocyte pct 5.5 % [facility] Comment: Interpretive Data Percent cell count reference ranges are not reported, since discordance with absolute values may lead to misinterpretation of CBC data. Current Interpretive Data was last revised on 2018. Eosinophil pct 0.5 % [facility] Comment: Interpretive Data Percent cell count reference ranges are not reported, since discordance with absolute values may lead to misinterpretation of CBC data. Current Interpretive Data was last revised on 2018. Basophil pct 0.5 % [facility] Comment: Interpretive Data Percent cell count reference ranges are not reported, since discordance with absolute values may lead to misinterpretation of CBC data. Current Interpretive Data was last revised on 2018. Blood 09/03/2025 9:39 AM DIP FILLER 09/03/2025 9:41 AM DIP FILLER us Celso Max MD LAB BLOOD ORDERABLES F inal Result [facility] 2 [facility] Department [place] [address] * (ABNORMAL) CBC with auto differential (09/03/2025 9:39 AM DIP FILLER) WBC 10.14(H) 3.80 - 9.90 K/cumm Hgb 14.0 13.0 - 17.5 g/dL [facility] Hct 41.1 38.9 - 50.3 % [facility] Plt 274 150 - 400 K/cumm [facility] MPV 9.0(L) 9.1 - 12.3 fL [facility] RBC 4.80 4.30 - 5.80 M/cumm [facility] MCV 85.6 81.3 - 96.4 fL [facility] MCH 29.2 27.1 - 33.3 pg [facility] MCHC 34.1 32.3 - 35.7 g/dL [facility] RDW CV 13.0 11.1 - 14.9 % [facility] RDW SD 40.2 35.7 - 48.1 fL [facility] Blood Venous blood specimen / Unknown 09/03/2025 9:39 AM DIP FILLER 09/03/2025 9:41 AM DIP FILLER us Celso Max MD LAB BLOOD ORDERABLES F inal Result Performing Organization Address City/[facility]/ZIP Co de Phone Number [facility] 2 [facility] Department [place] [address] * Lipase (09/03/2025 9:39 AM DIP FILLER) Lipase 45 10 - 99 Units/L Blood 09/03/2025 9:39 AM DIP FILLER 09/03/2025 9:46 AM DIP FILLER Celso Max MD LAB BLOOD ORDERABLES F inal Result Performing Organization Address City/[facility]/ZIP Co de Phone Number [facility] 2 [facility] Department [place] [address] * Comprehensive metabolic panel (09/03/2025 9:39 AM DIP FILLER) Sodium 137 135 - 145 mmol/L Potassium, pl 4.0 3.3 - 4.9 mmol/L [facility] Chloride 101 97 - 110 mmol/L [facility] CO2 25 22 - 32 mmol/L [facility] Anion gap 11 2 - 15 mmol/L [facility] BUN 11 6 - 25 mg/dL [facility] Creatinine 0.87 0.80 - 1.30 mg/dL [facility] Glucose 117 70 - 199 mg/dL [facility] Comment: Interpretive Data Fasting glucose >/= 126 [...] of Diabetes Diabetes Care 202; 46: S19-S40. Calcium 9.5 8.5 - 10.3 mg/dL [facility] Bilirubin, total 0.3 0.1 - 1.2 mg/dL [facility] Protein, pl 7.2 6.5 - 8.5 g/dL [facility] Albumin 4.7 3.5 - 5.0 g/dL [facility] Alk phos 52 40 - 130 Units/L [facility] ALT 18 7 - 55 Units/L [facility] AST 24 10 - 50 Units/L [facility] Blood Venous blood specimen / Unknown 09/03/2025 9:39 AM DIP FILLER 09/03/2025 9:41 AM DIP FILLER us Celso Max MD LAB BLOOD ORDERABLES F inal Result [facility] [address] [place] [address] * CT Abdomen Pelvis W Contrast (08/13/2025 11:09 AM DIP FILLER) Anatomical Region Laterality Modality Body N/A Computed Tomogra phy 08/13/2025 11:2 6 AM DIP FILLER Impressions 08/13/2025 11:26 AM DIP FILLER 1. Somewhat limited exam as the majority [...] Tony Rodrigez M.D. Narrative 08/13/2025 11:26 AM DIP FILLER EXAMINATION: Computed tomography of the abdomen and [...] inal Result * eGFR (08/13/2025 8:32 AM DIP FILLER) Pathologist [facility] eGFR >90 >=60 mL/min/1. 73 m2 Comment: [...] last reviewed 2021. Blood 08/13/2025 8:32 AM DIP FILLER 08/13/2025 8:35 AM DIP FILLER us Dm Deluca MD LAB BLOOD ORDERABLES Marlyn norton Result [address] Department [place] [address] * (ABNORMAL) Differential, auto (08/13/2025 8:32 AM DIP FILLER) Pathologist [facility] Neutrophil abs 13.11(H) 1.50 - 6.50 K/cumm Imm gran abs 0.05 0.00 - 0.10 K/cumm [facility] Lymphocyte abs 0.85 0.80 - 3.30 K/cumm [facility] Monocyte abs 1.14(H) 0.20 - 0.80 K/cumm [facility] Eosinophil abs 0.00 0.00 - 0.50 K/cumm [facility] Basophil abs 0.02 0.00 - 0.10 K/cumm [facility] Neutrophil pct 86.5 % [facility] Comment: Interpretive Data Percent cell count reference ranges are not reported, since discordance with absolute values may lead to misinterpretation of CBC data. Current Interpretive Data was last revised on 2018. Imm gran pct 0.3 % [facility] Comment: Interpretive Data Percent cell count reference ranges are not reported, since discordance with absolute values may lead to misinterpretation of CBC data. Current Interpretive Data was last revised on 2018. Lymphocyte pct 5.6 % [facility] Comment: Interpretive Data Percent cell count reference ranges are not reported, since discordance with absolute values may lead to misinterpretation of CBC data. Current Interpretive Data was last revised on 2018. Monocyte pct 7.5 % [facility] Comment: Interpretive Data Percent cell count reference ranges are not reported, since discordance with absolute values may lead to misinterpretation of CBC data. Current Interpretive Data was last revised on 2018. Eosinophil pct 0.0 % [facility] Comment: Interpretive Data Percent cell count reference ranges are not reported, since discordance with absolute values may lead to misinterpretation of CBC data. Current Interpretive Data was last revised on 2018. Basophil pct 0.1 % [facility] Comment: Interpretive Data Percent cell count reference ranges are not reported, since discordance with absolute values may lead to misinterpretation of CBC data. Current Interpretive Data was last revised on 2018. Blood 08/13/2025 8:32 AM DIP FILLER 08/13/2025 8:35 AM DIP FILLER us Dm Deluca MD LAB BLOOD ORDERABLES Marlyn norton Result [facility] [address] [facility] Department [place] [address] * (ABNORMAL) CBC with auto differential (08/13/2025 8:32 AM DIP FILLER) WBC 15.17(H) 3.80 - 9.90 K/cumm Hgb 16.5 13.0 - 17.5 g/dL [facility] Hct 47.2 38.9 - 50.3 % [facility] Plt 367 150 - 400 K/cumm [facility] MPV 9.5 9.1 - 12.3 fL [facility] RBC 5.70 4.30 - 5.80 M/cumm [facility] MCV 82.8 81.3 - 96.4 fL [facility] MCH 28.9 27.1 - 33.3 pg [facility] MCHC 35.0 32.3 - 35.7 g/dL [facility] RDW CV 12.8 11.1 - 14.9 % [facility] RDW SD 38.1 35.7 - 48.1 fL [facility] NRBC abs 0.00 0.00 - 0.01 K/cumm [facility] Blood 08/13/2025 8:32 AM DIP FILLER 08/13/2025 8:35 AM DIP FILLER us Dm Deluca MD LAB BLOOD ORDERABLES Marlyn l Result Performing Organization Address City/[facility] Co de Phone Number [address] [place] [address] * Lipase (08/13/2025 8:32 AM DIP FILLER) [facility] Lipase 25 10 - 99 Units/L Blood 08/13/2025 8:32 AM DIP FILLER 08/13/2025 8:35 AM DIP FILLER Dm Deluca MD LAB BLOOD ORDERABLES Marlyn l Result Performing Organization Address City/[facility]/ZIP Co de Phone Number [address] of Laboratories [place], [place] [id number] * (ABNORMAL) Comprehensive metabolic panel (08/13/2025 8:32 AM DIP FILLER) [facility] Sodium 137 135 - 145 mmol/L Potassium, pl 4.2 3.3 - 4.9 mmol/L [facility] Chloride 94(L) 97 - 110 mmol/L [facility] CO2 26 22 - 32 mmol/L [facility] Anion gap 17(H) 2 - 15 mmol/L [facility] BUN 22 6 - 25 mg/dL [facility] Creatinine 1.05 0.80 - 1.30 mg/dL [facility] Glucose 118 70 - 199 mg/dL [facility] Comment: Interpretive Data Fasting glucose >/= [...] 2022. Calcium 10.8(H) 8.5 - 10.3 mg/dL [facility] Bilirubin, total 0.6 0.1 - 1.2 mg/dL [facility] Protein, pl 8.7(H) 6.5 - 8.5 g/dL [facility] Albumin 5.2(H) 3.5 - 5.0 g/dL [facility] Alk phos 69 40 - 130 Units/L [facility] ALT 10 7 - 55 Units/L [facility] AST 27 10 - 50 Units/L [facility] Blood 08/13/2025 8:32 AM DIP FILLER 08/13/2025 8:35 AM DIP FILLER us Dm Deluca MD LAB BLOOD ORDERABLES Marlyn norton Result [facility] [address] [facility] Department [place] [address] * POCT Rapid HIV Antibody Community Screening-Inna Eligible (07/25/2025 1:49 PM CDT) [facility] Rapid HIV, POC Negative Negative Lot Number [id number] QC Control Line Acceptable Blood 07/25/2025 1:49 PM CDT Dm Deluca MD POINT OF CARE TEST ORDERA BLES Final Result * eGFR (07/25/2025 8:31 AM CDT) eGFR >90 >=60 mL/min/1. 73 [...] MD LAB BLOOD ORDERABLES Marlyn l Result [address] Department [place] [address] * (ABNORMAL) Differential, auto (07/25/2025 8:31 AM CDT) Neutrophil abs 9.42(H) 1.50 - 6.50 K/cumm Imm gran abs 0.05 0.00 - 0.10 K/cumm [facility] Lymphocyte abs 1.17 0.80 - 3.30 K/cumm [facility] Monocyte abs 0.71 0.20 - 0.80 K/cumm [facility] Eosinophil abs 0.04 0.00 - 0.50 K/cumm [facility] Basophil abs 0.04 0.00 - 0.10 K/cumm [facility] Neutrophil pct 82.6 % [facility] Comment: Interpretive Data Percent cell count reference ranges are not reported, since discordance with absolute values may lead to misinterpretation of CBC data. Current Interpretive Data was last revised on 2018. Imm gran pct 0.4 % [facility] Comment: Interpretive Data Percent cell count reference ranges are not reported, since discordance with absolute values may lead to misinterpretation of CBC data. Current Interpretive Data was last revised on 2018. Lymphocyte pct 10.2 % [facility] Comment: Interpretive Data Percent cell count reference ranges are not reported, since discordance with absolute values may lead to misinterpretation of CBC data. Current Interpretive Data was last revised on 2018. Monocyte pct 6.2 % [facility] Comment: Interpretive Data Percent cell count reference ranges are not reported, since discordance with absolute values may lead to misinterpretation of CBC data. Current Interpretive Data was last revised on 2018. Eosinophil pct 0.3 % [facility] Comment: Interpretive Data Percent cell count reference ranges are not reported, since discordance with absolute values may lead to misinterpretation of CBC data. Current Interpretive Data was last revised on 2018. Basophil pct 0.3 % [facility] Comment: Interpretive Data Percent cell count reference ranges are not reported, since discordance with absolute values may lead to misinterpretation of CBC data. Current Interpretive Data was last revised on 2018. Blood 07/25/2025 8:31 AM CDT 07/25/2025 8:36 AM CDT us Dm Deluca MD LAB BLOOD ORDERABLES Marlyn norton Result [facility] [address] [facility] Department [place] [address] * (ABNORMAL) CBC with auto differential (07/25/2025 8:31 AM CDT) Pathologist [facility] WBC 11.43(H) 3.80 - 9.90 K/cumm Hgb 15.4 13.0 - 17.5 g/dL [facility] Hct 42.5 38.9 - 50.3 % [facility] Plt 349 150 - 400 K/cumm [facility] MPV 9.2 9.1 - 12.3 fL [facility] RBC 5.23 4.30 - 5.80 M/cumm [facility] MCV 81.3 81.3 - 96.4 fL [facility] MCH 29.4 27.1 - 33.3 pg [facility] MCHC 36.2(H) 32.3 - 35.7 g/dL [facility] RDW CV 12.2 11.1 - 14.9 % [facility] RDW SD 35.9 35.7 - 48.1 fL [facility] NRBC abs 0.00 0.00 - 0.01 K/cumm [facility] Blood Venous blood specimen / Unknown 07/25/2025 8:31 AM CDT 07/25/2025 8:36 AM CDT Dm Deluca MD LAB BLOOD ORDERABLES Marlyn l Result Performing Organization Address [facility] Co de Phone Number [address] [place], [place] [id number] * Lipase (07/25/2025 8:31 AM CDT) [facility] Lipase 60 10 - 99 Units/L Blood Venous blood specimen / Unknown 07/25/2025 8:31 AM CDT 07/25/2025 8:36 AM CDT Dm Deluca MD LAB BLOOD ORDERABLES Marlyn l Result Performing Organization Address City/[facility]/ZIP Co de Phone Number [address] [place], [place] [id number] * (ABNORMAL) Comprehensive metabolic panel (07/25/2025 8:31 AM CDT) Sodium 133(L) 135 - 145 mmol/L Potassium, pl 3.6 3.3 - 4.9 mmol/L [facility] Chloride 97 97 - 110 mmol/L [facility] CO2 21(L) 22 - 32 mmol/L [facility] Anion gap 15 2 - 15 mmol/L [facility] BUN 8 6 - 25 mg/dL [facility] Creatinine 0.93 0.80 - 1.30 mg/dL [facility] Glucose 132 70 - 199 mg/dL [facility] Comment: Interpretive Data Fasting glucose >/= [...] 2022. Calcium 9.8 8.5 - 10.3 mg/dL [facility] Bilirubin, total 0.4 0.1 - 1.2 mg/dL [facility] Protein, pl 7.5 6.5 - 8.5 g/dL [facility] Albumin 4.5 3.5 - 5.0 g/dL [facility] Alk phos 57 40 - 130 Units/L [facility] ALT 5(L) 7 - 55 Units/L [facility] AST 18 10 - 50 Units/L [facility] Blood 07/25/2025 8:31 AM CDT 07/25/2025 8:36 AM CDT us Dm Deluca MD LAB BLOOD ORDERABLES Marlyn l Result [facility] [address] [facility] Department [place] [address] from Last 3 Months Insurance IDPA Advance Directives For more information, please contact: [phone] * Full Code (Latest Code Status on File) Date Activated Date Inactivated Comments 01/17/2022 10:36 AM 01/19/2022 10:32 PM Care Teams Utility Worker Relationship Specialty Start Date End Date No, Physician PCP - General 09/03/25
--- OUTSIDE RECORDS SUMMARY | 2025-09-14 06:00 | XMS_ITS | Encounter Summary ---
Author Organization [facility] Address [facility] [place] [address] Care Team Providers Care Roll On Man Name Role Phone None, Provider Primary Care Provider Unavaila ble None, Provider Primary Care Provider Unavaila ble Rocío Lombardi MD Primary Care Provider None, Provider Primary Care Provider Unavaila ble Encounter Details Date Type Department Care Team (Late st Contact Info) Description 03/09/2019 Abstract [facility] CONVERSION [address] [place] [address] , Generic Conversion, Social History Tobacco Use Types Packs/Day Years Used Date Smoking Tobacco: Never Smokeless Tobacco: Never Comments:USED MARIJUANA IN P AST Alcohol Use Standard Drinks/Week Comments Yes 0 (1 standard drink = 0.6 oz pur e alcohol) occassional Sex and Gender Information Value Date Recorded Sex Assigned at Male 10/21/2024 2:48 PM SQUIRT MACHINE OPERATOR Legal Sex Male 7:32 AM CDT Gender Identity Male 09/29/2022 5:25 PM SQUIRT MACHINE OPERATOR Sexual Orientation Straight 09/29/2022 5: 25 PM SQUIRT MACHINE OPERATOR documented as of this encounter Plan of Treatment Not on file documented as of this encounter Visit Diagnoses Not on filedocumented in this encounter Additional Health Concerns Infection Onset Date Last Indicated Resolved Time COVID-19 Rule Out Comment:TESTED 7.13.04/13/2020 04/13/2020 04/13/2020 9:19 A M CDT COVID-19 Rule Out 10/02/2020 10/02/2020 10/02/2020 7:28 PM SQUIRT MACHINE OPERATOR COVID-19 Rule Out 11/09/2020 11/09/2020 11/10/2020 6:16 PM SQUIRT MACHINE OPERATOR COVID-19 Rule Out 11/23/2020 11/23/2020 11/24/2020 5:51 PM SQUIRT MACHINE OPERATOR COVID-19 Rule Out 12/29/2020 12/29/2020 12/29/2020 7:08 PM CDT COVID-19 Rule Out 04/09/2024 04/09/2024 04/09/2024 11:06 PM CDT documented as of this encounter Care Teams Roll On Man Relationship Specialty Start Date End Date None, Provider, PCP - General 01/16/19 03/18/19 None, ProviderMD PCP - General 03/19/19 04/07/20 Rocío Lombardi MD PCP - General FAMILY PRACTICE 04/08/20 04/09/24 None, ProviderMD PCP - General UNKNOWN PHYSICIAN SPECIALTY 04/24/24 documented as of this encounter
--- OUTSIDE RECORDS SUMMARY | 2025-09-14 06:00 | XMS_ITS | Clinical Summary ---
Author Organization [facility] Address [address] [place] [address] Care Team Providers Care Manager Women Name Role Phone None, Provider MD Primary Care Provider Unavaila ble Allergies Active Allergy Reactions Criticality Noted Date Comments Marijuana (Cannabis Sativa) Nausea and Vomiting Low 01/17/2022 Medications DULoxetine (CYMBALTA) 30 MG capsuleIndicati ons:Panic anxiety syndrome Take 1 capsule (30 mg total) by mouth daily. 60 capsule 4 2 Active famotidine (PEPCID) 20 MG tabletIndicatio ns:Cyclical vomiting, intractable,Sup erior mesenteric artery syndrome (HHS/HCC),Gastr oesophageal reflux disease, unspecified whether esophagitis present Take 1 tablet (20 mg total) by mouth 2 (two) times daily. 180 tablet 3 3 Active dicyclomine (BENTYL) 20 MG tablet Take 1 tablet (20 mg total) by mouth every 6 (six) hours. 120 tablet 3 Active pantoprazole EC (PROTONIX) 40 MG tablet Take 1 tablet (40 mg total) by mouth daily. 3 Active HYDROcodone-aniceto taminophen (NORCO) 5-325 MG tabletIndicatio ns:Acute Pain < 7 Day Supply Take 1 tablet by mouth every 6 (six) hours as needed for Pain. Indications: Acute Pain < 7 Day Supply 12 tablet 4 Active scopolamine (TRANSDERM-SCOP ) 1 MG/3DAYS patch Place 1 patch onto the skin every third day. 5 patch 4 Active pantoprazole EC (PROTONIX) 40 MG tablet Take 1 tablet (40 mg total) by mouth daily. 30 tablet 4 Active pantoprazole EC (PROTONIX) 40 MG tablet Take 1 tablet (40 mg total) by mouth daily. 30 tablet 5 Active promethazine (PHENERGAN) 25 MG tablet Take 1 tablet (25 mg total) by mouth every 6 (six) hours as needed for Nausea. 30 tablet 5 Active capsaicin (CAPZASIN-HP) 0.1 % cream Apply topically 3 (three) times daily as needed. Apply to abdomen for nausea and vomiting 42.5 g 5 Active promethazine (PHENERGAN) [address] 1 suppository (25 mg total) rectally every 6 (six) hours as needed for Nausea. 12 each 5 09/07/20 25 Active Problems Problem Noted Date Diagnosed Date Abdominal pain 04/10/2024 Intractable abdominal pain 04/09/2024 Financial difficulty 04/09/2024 Persistent vomiting 10/04/2023 Cyclical vomiting 10/03/2023 Generalized abdominal pain 10/30/2020 Overview (10/30/2020): Added automatically from request for surgery [id number] Panic anxiety syndrome 07/07/2020 Cyclical vomiting, intractable 11/03/2019 Resolved Problems Problem Noted Date Diagnosed Date Resolved Date Intractable nausea and vomiting 05/03/2021 09/30/2022 MARINA (acute kidney injury) 04/04/2021 Nausea and vomiting, intract ability of vomiting not specified, unspecified vomiting type 10/30/2020 09/30/2022 Overview (10/30/2020): Added automatically from request for surgery [id number] Abnormal CT scan, gastrointestinal tract 10/30/2020 09/30/2022 Overview (10/30/2020): Added automatically from request for surgery [id number] Hyponatremia 06/07/2020 09/30/2022 Cyclic vomiting syndrome 03/19/201905/2021 [...] Encounters Date Type Department Care Team Description 08/31/2025 9:57 AM CHARTER BUS DRIVER - 08/31/2025 3:40 PM CHARTER BUS DRIVER Emergency [facility] [place] [address] Javy Holguin PA Abdominal Pain; Vomiting Discharge Disposition: Home or Self Care (Routine Discharge) 08/31/2025 Travel 08/13/2025 Scan [facility] Scanned, [facility] 07/25/2025 Scan [facility] Scanned, [facility] 07/20/2025 8:49 AM CDT - 07/20/2025 11:33 AM CDT Emergency [facility] [place] [address] Jose Gudino MD Sanders, Heather N PA Vomiting Discharge Disposition: Home or Self Care (Routine Discharge) 07/20/2025 Travel 06/24/2025 8:38 AM CDT - 06/24/2025 11:30 AM CDT Emergency [facility] [place] [address] Dana Martinez PA Vomiting Discharge Disposition: Left Against Medical Advice 06/24/2025 Travel from Last 3 Months Immunizations Immunization [...] oz pur e alcohol) occassional [facility] Utilities Answer Date Recorded In the past 12 months has th e [employer], gas, oil, or water company threatened to [...] place to sleep or slept in a fpc (including now)? No 10/03/2023 Housing Stability Vital Sign Answer Leonardo e Recorded In the last 12 months, was t here a time when you were not able to pay the mortgage or rent on time? No 04/09/2024 In the past 12 months, how m any times have you moved where you were living? 1 04/09/2024 At any time in the past 12 m [facility], were you homeless or living in a fpc (including now)? No 04/09/2024 Sex and Gender Information Value Date Recorded Sex Assigned at Male 10/21/2024 2:48 PM CHARTER BUS DRIVER Legal Sex Male 7:32 AM CDT Gender Identity Male 09/29/2022 5:25 PM CHARTER BUS DRIVER Sexual Orientation Straight 09/29/2022 5: 25 PM CHARTER BUS DRIVER Last Filed Vital Signs Vital Sign Reading Time Taken Comments Blood Pressure 162/110 08/31/2025 2:30 PM CHARTER BUS DRIVER Pulse 99 08/31/2025 2:30 PM CHARTER BUS DRIVER Temperature 36.5 C (97.7 F) 08/31/2025 9:51 AM CHARTER BUS DRIVER Respiratory Rate 18 08/31/2025 2:30 PM CHARTER BUS DRIVER Oxygen Saturation 98% 08/31/2025 2:30 PM CHARTER BUS DRIVER Inhaled Oxygen Concentration - - Weight 77.1 kg (170 lb) 08/31/2025 9:51 AM CHARTER BUS DRIVER Height 182.9 cm (6') 08/31/2025 9:51 AM CHARTER BUS DRIVER Body Mass Index 23.06 08/31/2025 9:51 AM CHARTER BUS DRIVER Plan of Treatment Health Maintenance Due Date [...] 12/21/2015 Annual Physical 09/30/2023 09/30/2022 PHQ-2 (Physician [place]) 10/02/2024 COVID-19 Vaccine (2024-2 6 season) 2025 Influenza Adult (#1) 2025 [...] discharge planning Lifestyle No Maria R Campos, cashier host/hostess Procedure Name Priority Date/Time Associated Diagnosis Comments LIPASE Routine 08/31/2025 10:10 AM CHARTER BUS DRIVER COMPREHENSIVE METABOLIC PANEL STAT 08/31/2025 10:10 AM CHARTER BUS DRIVER HC CBC AUTO W/AUTO DIFF STAT 08/31/2025 10:10 AM CHARTER BUS DRIVER CT ABD+PEL W CON STAT 07/20/2025 10:3 [...] ABD KUB STAT 06/24/2025 8:47 AM CDT from Last 3 Months Results * LIPASE (08/31/2025 10:10 AM CHARTER BUS DRIVER) LIPASE 38 13 - 75 UNITS/L 08/31/2025 2:09 PM CHARTER BUS DRIVER [facility] BLOOD VENOUS BLOOD SPECIMEN / Unknown 08/31/2025 10:10 AM CHARTER BUS DRIVER [facility] Final Resu lt [facility] [address] [place] [address], * (ABNORMAL) COMPREHENSIVE METABOLIC PANEL (08/31/2025 10:10 AM CHARTER BUS DRIVER) GLUCOSE 142(H) 70 - 99 MG/DL 08/31/2025 12:54 PM CHARTER BUS DRIVER [facility] BUN 11 7 - 18 MG/DL 08/31/2025 12:54 PM CHARTER BUS DRIVER [facility] CREATININE S/P/B 0.87 0.7 - 1.3 MG/DL 08/31/2025 12:54 PM CHARTER BUS DRIVER [facility] SODIUM S/P/B 137 136 - 145 MMOL/L 08/31/2025 12:54 PM CHARTER BUS DRIVER [facility] POTASSIUM S/P/B 3.8 3.5 - 5.1 MMOL/L 08/31/2025 12:54 PM [facility] CHLORIDE S/P/B 106 97 - 115 MMOL/L 08/31/2025 12:54 PM [facility] CO2 21.9 21 - 32 MMOL/L 08/31/2025 12:54 PM [facility] CALCIUM S/P/B 9.6 8.5 - 10.1 MG/DL 08/31/2025 12:54 PM [facility] BILIRUBIN TOTAL S/P/B 0.3 0.2 - 1.2 MG/DL 08/31/2025 12:54 PM [facility] Comment: THIS ASSAY IS NOT RECOMMENDED FOR PATIENTS UNDERGOING TREATMENT WITH ELTROMBOPAG DUE TO THE POTENTIAL FOR FALSELY ELEVATED RESULTS. TOTAL PROTEIN S/P/B 7.6 6.4 - 8.2 G/DL 08/31/2025 12:54 PM [facility] ALBUMIN S/P/B 4.1 3.4 - 5.0 G/DL 08/31/2025 12:54 PM [facility] AST 33 15 - 37 U/L 08/31/2025 12:54 PM [facility] ALT 38 16 - 60 U/L 08/31/2025 12:54 PM [facility] ALKALINE PHOSPHATASE S/P/B 58 50 - 136 U/L 08/31/2025 12:54 PM [facility] ANION GAP 9.1 2 - 10 MMOL/L 08/31/2025 12:54 PM [facility] BUN CREATININE RATIO 12.6 6 - 26 08/31/2025 12:54 PM [facility] A/G RATIO 1.2 1.0 - 2.0 RATIO 08/31/2025 12:54 PM [facility] GFR ESTIMATE >90 >90 ML/MIN/1.7 3 M2 08/31/2025 12:54 PM [facility] Comment: NOTE: eGFR is not calculated for patients <18 years of age or gender unknown. This is an estimated GFR calculation using the new CKD EPI creatinine equation without race and so does not require a correction factor for race. This estimated GFR should not be used for calculating drug doses. BLOOD VENOUS BLOOD SPECIMEN / Unknown 08/31/2025 10:10 AM CHARTER BUS DRIVER us [facility] Final Resu lt [facility] [address] [place] [address], * (ABNORMAL) CBC W/DIFF (08/31/2025 10:10 AM CHARTER BUS DRIVER) WBC 15.96(H) 4.5 - 11.0 x10'3/uL 08/31/2025 10:27 AM [facility] RBC 4.98 4.70 - 6.10 x10'6/uL 08/31/2025 10:27 AM [facility] HGB 14.8 14.0 - 18.0 G/DL 08/31/2025 10:27 AM [facility] HCT 41.6(L) 43.0 - 54.0 % 08/31/2025 10:27 AM [facility] MCV 83.5 80.0 - 94.0 FL 08/31/2025 10:27 AM [facility] MCH 29.7 27.0 - 31.0 PG 08/31/2025 10:27 AM [facility] MCHC 35.6 32.0 - 36.0 G/DL 08/31/2025 10:27 AM [facility] RDW 13.2 11.5 - 14.5 % 08/31/2025 10:27 AM [facility] PLT 331 130 - 400 x10'3/uL 08/31/2025 10:27 AM [facility] MPV 9.3 9.3 - 12.2 FL 08/31/2025 10:27 AM [facility] DIFFERENTIAL TYPE MANUAL DIFFERENTIAL 08/31/2025 10:49 AM [facility] SEG NEUTROPHILS 91 % 10:49 AM [facility] LYMPHOCYTES 4 % 08/31/2025 10:49 AM [facility] MONOCYTES 4 % 08/31/2025 10:49 AM [facility] BASOPHILS 1 % 08/31/2025 10:49 AM [facility] ABS. NEUTROPHILS 14.52(H) 1.80 - 7.70 x10'3/uL 08/31/2025 10:49 AM [facility] ABS. LYMPHOCYTES 0.64(L) 1.00 - 4.80 x10'3/uL 08/31/2025 10:49 AM [facility] ABS. MONOCYTES 0.64 0.30 - 0.82 x10'3/uL 08/31/2025 10:49 AM [facility] ABS. BASOPHILS 0.16(H) 0.01 - 0.08 x10'3/uL 08/31/2025 10:49 AM [facility] RBC MORPHOLOGY RBC MORPHOLOGY APPEARS NORMAL. SLIDE REVIEWED. 08/31/2025 10:49 AM [facility] PLT EST. ADEQUATE 08/31/2025 10:49 AM [facility] BLOOD VENOUS BLOOD SPECIMEN / Unknown 08/31/2025 10:10 AM [facility] us [facility]avy [facility] Final Resu lt [facility] [address] [place] [address], * CT ABD+PEL W IV CON ONLY (07/20/2025 10:38 AM CDT) Anatomical Region Laterality Modality Abdomen Computed Tomogra phy 07/20/2025 10:3 7 AM CDT Impressions 07/20/2025 10:38 AM CDT IMPRESSION: 1. No acute findings Ordered By: SARAH CRAWFORD Interpreted By: Cayetano Arroyo MD, 07/20/2025 10:37 AM Narrative 07/20/2025 10:38 AM CDT [facility] [address] [place], [place] [address] CT ABDOMEN AND PELVIS WITH CONTRAST Exam [...] Procedure Note Cayetano Arroyo MD - 07/20/2025 [facility] [address] [place], [place] [address] CT ABDOMEN AND PELVIS WITH CONTRAST Exam [...] W REFLEX (SEPSIS) (07/20/2025 10:23 AM CDT) LACTIC ACID VENOUS 1.1 0.4 - 2.0 MMOL/L 07/20/2025 11:00 AM CDT [facility] 07/20/2025 10:2 3 AM CDT Sarah [facility] Final Resul t [facility] [address] [place] [address], [place] [phone] * (ABNORMAL) COMPREHENSIVE METABOLIC PANEL (07/20/2025 9:06 AM CDT) Only the most recent of2 resultswithin the time period is included. GLUCOSE 113(H) 70 - 99 MG/DL 07/20/2025 10:13 AM CDT [facility] BUN 14 7 - 18 MG/DL 07/20/2025 10:13 AM CDT [facility] CREATININE S/P/B 1.14 0.7 - 1.3 MG/DL 07/20/2025 10:13 AM CDT [facility] SODIUM S/P/B 138 136 - 145 MMOL/L 07/20/2025 10:13 AM CDT [facility] POTASSIUM S/P/B 3.6 3.5 - 5.1 MMOL/L 07/20/2025 10:13 AM CDT [facility] CHLORIDE S/P/B 104 97 - 115 MMOL/L 07/20/2025 10:13 AM CDT [facility] CO2 27.4 21 - 32 MMOL/L 07/20/2025 10:13 AM CDT [facility] CALCIUM S/P/B 9.9 8.5 - 10.1 MG/DL 07/20/2025 10:13 AM T [facility] BILIRUBIN TOTAL S/P/B 0.6 0.2 - 1.2 MG/DL 07/20/2025 10:13 AM T [facility] Comment: THIS ASSAY IS NOT RECOMMENDED FOR PATIENTS UNDERGOING TREATMENT WITH ELTROMBOPAG DUE TO THE POTENTIAL FOR FALSELY ELEVATED RESULTS. TOTAL PROTEIN S/P/B 8.0 6.4 - 8.2 G/DL 07/20/2025 10:13 AM CDT [facility] ALBUMIN S/P/B 4.3 3.4 - 5.0 G/DL 07/20/2025 10:13 AM T [facility] AST 20 15 - 37 U/L 07/20/2025 10:13 AM T [facility] ALT 22 16 - 60 U/L 07/20/2025 10:13 AM T [facility] ALKALINE PHOSPHATASE S/P/B 55 50 - 136 U/L 07/20/2025 10:[address] [facility] ANION GAP 6.6 2 - 10 MMOL/L 07/20/2025 10:13 AM T [facility] BUN CREATININE RATIO 12.3 6 - 26 07/20/2025 10:13 AM T [facility] A/G RATIO 1.2 1.0 - 2.0 RATIO 07/20/2025 10:13 AM T [facility] GFR ESTIMATE 85(L) >90 ML/MIN/1.7 3 M2 07/20/2025 10:13 AM T [facility] Comment: NOTE: eGFR is not calculated for patients <18 years of age or gender unknown. This is an estimated GFR calculation using the new CKD EPI creatinine equation without race and so does not require a correction factor for race. This estimated GFR should not be used for calculating drug doses. 07/20/2025 9:06 AM CDT [facility] Final Resul t [facility] [address] [place] [address], * (ABNORMAL) CBC W/DIFF AUTOMATED (07/20/2025 9:06 AM CDT) Only the most recent of2 resultswithin the time period is included. WBC 15.49(H) 4.5 - 11.0 x10'3/uL 07/20/2025 9:42 AM CDT [facility] RBC 5.50 4.70 - 6.10 x10'6/uL 07/20/2025 9:42 AM CDT [facility] HGB 16.1 14.0 - 18.0 G/DL 07/20/2025 9:42 AM CDT [facility] HCT 45.9 43.0 - 54.0 % 07/20/2025 9:42 AM CDT [facility] MCV 83.5 80.0 - 94.0 FL 07/20/2025 9:42 AM CDT [facility] MCH 29.3 27.0 - 31.0 PG 07/20/2025 9:42 AM CDT [facility] MCHC 35.1 32.0 - 36.0 G/DL 07/20/2025 9:42 AM CDT [facility] RDW 12.8 11.5 - 14.5 % 07/20/2025 9:42 AM CDT [facility] PLT 364 130 - 400 x10'3/uL 07/20/2025 9:42 AM CDT [facility] MPV 9.7 9.3 - 12.2 FL 07/20/2025 9:42 AM CDT [facility] DIFFERENTIAL TYPE AUTOMATED DIFFERENTIAL 07/20/2025 9:42 AM CDT [facility] NEUTROPHILS % 91.3 % 07/20/2025 9:42 AM CDT [facility] LYMPHOCYTES % 4.3 % 07/20/2025 9:42 AM CDT [facility] MONOCYTES % 3.8 % 07/20/2025 9:42 AM CDT [facility] EOSINOPHILS 0.0 % 07/20/2025 9:42 AM CDT [facility] BASOPHILS 0.2 % 07/20/2025 9:42 AM CDT [facility] IMMATURE GRANS % 0.4 % 07/20/20 9:42 AM CDT [facility] ABS. NEUTROPHILS 14.15(H) 1.80 - 7.70 x10'3/uL 07/20/2025 9:42 AM CDT [facility] ABS. LYMPHOCYTES 0.66(L) 1.00 - 4.80 x10'3/uL 07/20/2025 9:42 AM CDT [facility] ABS. MONOCYTES 0.59 0.30 - 0.82 x10'3/uL 07/20/2025 9:42 AM CDT [facility] ABS. EOSINOPHILS 0.00(L) 0.04 - 0.54 x10'3/uL 07/20/2025 9:42 AM CDT [facility] ABS. BASOPHILS 0.03 0.01 - 0.08 x10'3/uL 07/20/2025 9:42 AM CDT [facility] ABS. IMMATURE GRANULOCYTES 0.06 0.00 - 0.49 x10'3/uL 07/20/2025 9:42 AM CDT [facility] 07/20/2025 9:06 AM CDT [facility] Final Resul t Performing Organization Address City/[facility]/ZIP Co de Phone Number [facility] [address] [place] [phone], * LIPASE (07/20/2025 9:06 AM CDT) Only the most recent of2 resultswithin the time period is included. LIPASE 38 13 - 75 UNITS/L 07/20/2025 10:13 AM CDT [facility] 07/20/2025 9:06 AM CDT [facility] Final Resul t Performing Organization Address [facility] Co de Phone Number [facility] [address] [place] [phone], * (ABNORMAL) MAGNESIUM (06/24/2025 9:49 AM CDT) MAGNESIUM 2.5(H) 1.8 - 2.4 MG/DL 06/24/2025 10:25 AM CDT [facility] 06/24/2025 9:49 AM CDT Dana [facility] Final Result Performing Organization Address City/[facility]/ZIP Co de Phone Number [facility] [address] [place] [address], [place] [phone] * XR ABD KUB (06/24/2025 8:47 AM CDT) Anatomical Region Laterality Modality Abdomen Radiographic Bettina ging 06/24/2025 8:52 AM CDT Impressions 06/24/2025 8:54 AM CDT IMPRESSION: Normal bowel gas pattern with no evidence of bowel obstruction. Ordered By: DANA MARTINEZ Interpreted By: Mookie Chapman MD, 06/24/2025 8:52 AM Narrative 06/24/2025 8:54 AM CDT [address] [address] 06/24/2025, 8:39 AM. HISTORY: Abdominal pain and [...] Procedure Note Mookie Chapman MD - 06/24/[address] [address] 06/24/2025, 8:39 AM. HISTORY: Abdominal pain and [...] Chapman MD, 06/24/2025 8:52 AM Dana Martinez MT GENERAL IMAGING Final Result from Last 3 Months Advance Directives * [...] 11:15 PM 06/08/2020 9:16 PM Care Teams Manager Women Relationship Specialty Start Date End Date None, Provider, PCP - General UNKNOWN PHYSICIAN SPECIALTY 04/24/24
--- OUTSIDE RECORDS SUMMARY | 2025-09-14 06:00 | XMS_ITS | Encounter Summary ---
Author Organization [facility] Address [facility] [place] [address] Care Team Providers Care Elephant Keeper Name Role Phone Rocío Lombardi MD Primary Care Provider None, Provider Primary Care Provider Unavaila ble Encounter Details Date Type Department Care Team (Late st Contact Info) Description 11/09/2020 Prep for Procedure [facility] [place], [place] [address] Ten Flynn MD [address] [facility] [address] [place], [place] [id number] Social History Tobacco Use Types Packs/Day Years Used Date Smoking Tobacco: Never Smokeless Tobacco: Never Comments:USED MARIJUANA IN P AST Alcohol Use Standard Drinks/Week Comments Yes 0 (1 standard drink = 0.6 oz pur e alcohol) occassional Sex and Gender Information Value Date Recorded Sex Assigned at Male 10/21/2024 2:48 PM METER ENGINEER Legal Sex Male 7:32 AM CDT Gender Identity Male 09/29/2022 5:25 PM METER ENGINEER Sexual Orientation Straight 09/29/2022 5: 25 PM METER ENGINEER COVID-19 Exposure Response Date Recorded In the last month, have you been in contact with someone who was confirmed or suspected to have Coronavirus / COVID-19? No / Unsure 11/06/2020 1:13 PM METER ENGINEER documented as of this encounter Functional Status [...] PRE-SURGICAL/PRE-PROCEDURE CORONAVIRUS (COVID 19) (11/09/2020 11:48 AM METER ENGINEER) Pathologist [facility] CORONAVIRUS SARS COV 2 PCR (RESP) NOT DETECTED NOT DETECTED 11/10/2020 6:15 PM METER ENGINEER [facility] Comment: A Not Detected (negative) [...] providers and patients using the following websites: https://www.[employer].com/home/Covid-19/HCP/NAAT/fact-sheet2 https://www.[employer]Caps[employer] Tech/home/Covid-19/Patients/NAAT/ fact-sheet2 This test has been authorized by the FDA under an Emergency Use Authorization (EUA) for use by authorized laboratories. Due to the current public health emergency, [facility] is receiving a high volume of samples [...] about COVID-19 can be found at the [facility] website: www.[employer].Caps[employer] Tech/Covid19. Test performed at [facility] [address] [address] [place] [address] Director: BAM SMITH DO,MPH FIRST TEST NO 11/09/2020 12:26 PM [facility] EMPLOYED IN HEALTHCARE NO 11/09/2020 12:26 PM [facility] SYMPTOMATIC DEFINED BY CDC NO 11/09/2020 12:26 PM [facility] DATE OF SYMPTOM ONSET NO 11/09/2020 12:34 PM [facility] HOSPITALIZATION STATUS NO 11/09/2020 12:26 PM [facility] PATIENT IN ICU NO 11/09/2020 12:26 PM [facility] RESIDENT OF [facility] CARE NO 11/09/2020 12:26 PM [facility] NO 11/09/2020 12:34 PM [facility] PATIENT'S RACE WHITE OR 11/09/2020 12:26 PM [facility] ETHNICITY NONHISPANIC 11/09/2020 12:26 PM METER ENGINEER [facility] SOURCE (QST) NASOPHARYNGEAL SWAB 11/09/2020 12:26 PM METER ENGINEER [facility] NASOPHARYNGEAL SWAB / Unknown 11/09/2020 11:48 AM METER ENGINEER us Ten Flynn MD MICROBIOLOGY - GENERAL ORDERABLE S Final Result [facility] [address] [place] [address], [facility] [address] [place] [address], documented in this encounter Visit Diagnoses Diagnosis Abdominal pain- Primary Abdominal pain, unspecified site documented in this encounter Additional Health Concerns Infection Onset Date Last Indicated Resolved Time COVID-19 Rule Out 11/09/2020 11/09/2020 11/10/2020 6:16 PM METER ENGINEER COVID-19 Rule Out 11/23/2020 11/23/2020 11/24/2020 5:51 PM METER ENGINEER COVID-19 Rule Out 12/29/2020 12/29/2020 12/29/2020 7:08 PM CDT COVID-19 Rule Out 04/09/2024 04/09/2024 04/09/2024 11:06 PM CDT documented as of this encounter Care Teams Elephant Keeper Relationship Specialty Start Date End Date Rocío Lombardi MD PCP - General FAMILY PRACTICE 04/08/20 04/09/24 None, Provider, PCP - General UNKNOWN PHYSICIAN SPECIALTY 04/24/24 documented as of this encounter
--- OUTSIDE RECORDS SUMMARY | 2025-09-14 06:00 | XMS_ITS | Encounter Summary ---
Author Organization [facility] Address [facility] [place] [address] Care Team Providers Care Pier Runner Name Role Phone Rocío Lombardi MD Primary Care Provider [phone] None, Provider Primary Care Provider Unavaila ble Encounter Details Date Type Department Care Team (Late st Contact Info) Description 11/18/2020 Prep for Procedure [facility] [place], [place] [id number] Ten Flynn MD 3 [facility] [address] [place], [place] [id number] Social History Tobacco Use Types Packs/Day Years Used Date Smoking Tobacco: Never Smokeless Tobacco: Never Comments:USED MARIJUANA IN P AST Alcohol Use Standard Drinks/Week Comments Yes 0 (1 standard drink = 0.6 oz pur e alcohol) occassional Sex and Gender Information Value Date Recorded Sex Assigned at Male 10/21/2024 2:48 PM SOFTWARE SALES REPRESENTATIVE Legal Sex Male 7:32 AM CDT Gender Identity Male 09/29/2022 5:25 PM SOFTWARE SALES REPRESENTATIVE Sexual Orientation Straight 09/29/2022 5: 25 PM SOFTWARE SALES REPRESENTATIVE COVID-19 Exposure Response Date Recorded In the last month, have you been in contact with someone who was confirmed or suspected to have Coronavirus / COVID-19? No / Unsure 11/06/2020 1:13 PM SOFTWARE SALES REPRESENTATIVE documented as of this encounter Functional Status [...] PRE-SURGICAL/PRE-PROCEDURE CORONAVIRUS (COVID 19) (11/23/2020 10:45 AM SOFTWARE SALES REPRESENTATIVE) Pathologist [facility] [place] CORONAVIRUS SARS COV 2 PCR (RESP) NOT DETECTED NOT DETECTED 11/24/2020 5:51 PM SOFTWARE SALES REPRESENTATIVE [facility] Comment: A Not Detected (negative) test [...] providers and patients using the following websites: https://www.[employer]leep[employer].com/home/Covid-19/HCP/Quest[facility]/fact- sheet.html https://www.BleepBleeps.com/home/Covid-19/Patients/ Quest[employer]/fact-sheet.html This test has been authorized by the FDA under an Emergency Use Authorization (EUA) for use by authorized laboratories. Due to the current public health emergency, [facility] is receiving a high volume of samples [...] about COVID-19 can be found at the [facility] website: www.[employer].URX/Covid19. Test performed at [facility] [address] [place] [address] Director: BAM SMITH DO,MPH FIRST TEST NO 11/23/2020 12:[address] [facility] EMPLOYED IN HEALTHCARE NO 11/23/2020 12:30 PM SOFTWARE SALES REPRESENTATIVE [facility] SYMPTOMATIC DEFINED BY CDC NO 11/23/2020 12:30 PM SOFTWARE SALES REPRESENTATIVE [facility] DATE OF SYMPTOM ONSET NO 11/23/2020 12:43 PM SOFTWARE SALES REPRESENTATIVE [facility] HOSPITALIZATION STATUS NO 11/23/2020 12:30 PM SOFTWARE SALES REPRESENTATIVE [facility] PATIENT IN ICU NO 11/23/2020 12:30 PM SOFTWARE SALES REPRESENTATIVE [facility] RESIDENT OF [facility] CARE NO 11/23/2020 12:30 PM SOFTWARE SALES REPRESENTATIVE [facility] NO 11/23/2020 12:43 PM SOFTWARE SALES REPRESENTATIVE [facility] PATIENT'S RACE WHITE OR 11/23/2020 12:[address] [facility] ETHNICITY NONHISPANIC 11/23/2020 12:30 PM SOFTWARE SALES REPRESENTATIVE [facility] SOURCE (QST) NASOPHARYNGEAL SWAB 11/23/2020 12:30 PM SOFTWARE SALES REPRESENTATIVE [facility] NASOPHARYNGEAL SWAB / Unknown 11/23/2020 10:45 AM SOFTWARE SALES REPRESENTATIVE us Ten Flynn MD MICROBIOLOGY - GENERAL ORDERABLE S Final Result [facility] [address] [facility] [place] [address], [facility] [address] [place] [address], documented in this encounter Visit Diagnoses Diagnosis Vomiting- Primary Vomiting alone documented in this encounter Additional Health Concerns Infection Onset Date Last Indicated Resolved Time COVID-19 Rule Out 11/23/2020 11/23/2020 11/24/2020 5:51 PM SOFTWARE SALES REPRESENTATIVE COVID-19 Rule Out 12/29/2020 12/29/2020 12/29/2020 7:08 PM CDT COVID-19 Rule Out 04/09/2024 04/09/2024 04/09/2024 11:06 PM CDT documented as of this encounter Care Teams Pier Runner Relationship Specialty Start Date End Date Rocío Lombardi MD PCP - General FAMILY PRACTICE 04/08/20 04/09/24 None, Provider, PCP - General UNKNOWN PHYSICIAN SPECIALTY 04/24/24 documented as of this encounter
--- NOTE | 2025-09-14 06:09 | ED_ITS ---
HPI - Nausea/Vomiting/Diarrhea General Chief complaint: Nausea/Vomiting/Diarrhea Stated complaint: cyclic vomiting Time Seen by Provider: 09/14/25 06:06 History of Present Illness HPI Narrative: 34-year-old male with history of well documented cyclic vomiting and cannabinoid hyperemesis syndrome. States that he still actively smokes marijuana most recently yesterday. He has been having an episode of cyclic vomiting throughout the day today as well as abdominal pain and diarrhea. States this feels exactly the same as his previous episodes most recently last month. He states that he has been smoking more and under more stress on the holiday seasons and gets more flare ups during these times. Has had upper and lower endoscopies and CT scans without any findings otherwise. States this episode today feels like his traditional symptomatology. No traumatic injuries. No sick contacts. No fever chills. No chest pain shortness a breath. Review of the EMR patient has had good response to antiemetics such as droperidol/Haldol. Related Data Allergies Allergy/AdvReac Type Severity Reaction Status Date / Time No Known Allergies Allergy Verified 09/14/25 05:58 Review of Systems 2 Review of Systems: As reviewed above in HPI All systems reviewed & are unremarkable except as noted in HPI and below PMFSH Past Medical History Medical History Cyclical vomiting Social History Social History Substance use type: marijuana Other substance usage details: daily Exam 2 Narrative: GENERAL: Uncomfortable appearing but not any distress. Awake and answering questions HEAD: [Normocephalic, atraumatic.] EYES: [PERRLA and EOMI.] ENT: Nares clear, no rhinorrhea or epistaxis. Mucous membranes moist. NECK: Supple. CHEST: [Clear to auscultation. No respiratory distress.] HEART: [Regular rate and rhythm]. No murmur heard. [Normal peripheral pulses.] ABDOMEN: [Soft, nondistended], [nontender], [No rigidity or guarding] EXTREMITIES: Normal range of motion. [No edema.] SKIN: Warm, dry, no rash. NEURO: [No focal deficits]. Alert and oriented [x3.] PSYCH: [Normal mood and affect.] Course Vital Signs Vital signs: Vital Signs Temperature 36.6 C 09/14/25 06:00 Pulse Rate 115 H 09/14/25 06:00 Respiratory Rate 20 09/14/25 06:00 Blood Pressure 130/94 H 09/14/25 06:00 Pulse Oximetry 98 09/14/25 06:00 Oxygen Delivery Room Air 09/14/25 06:00 Temperature 36.6 C 09/14/25 06:00 Pulse Rate 80 09/14/25 07:26 Respiratory Rate 14 09/14/25 07:26 Blood Pressure 121/75 09/14/25 07:26 Pulse Oximetry 100 09/14/25 07:26 Oxygen Delivery Room Air 09/14/25 06:22 [facility] Narrative Medical decision making narrative: 34-year-old male with history of well documented cyclic vomiting and cannabinoid hyperemesis syndrome. States that he still actively smokes marijuana most recently yesterday. He has been having an episode of cyclic vomiting throughout the day today as well as abdominal pain and diarrhea. States this feels exactly the same as his previous episodes most recently last month. He states that he has been smoking more and under more stress on the holiday seasons and gets more flare ups during these times. Has had upper and lower endoscopies and CT scans without any findings otherwise. States this episode today feels like his traditional symptomatology. No traumatic injuries. No sick contacts. No fever chills. No chest pain shortness a breath. Review of the EMR patient has had good response to antiemetics such as droperidol/Haldol. Patient has a soft nontender nondistended abdomen. He is not in any distress but does appear uncomfortable. Mildly tachycardic but afebrile. Benign abdominal examination and well documented history of cyclic vomiting/cannabinoid hyperemesis. Will treat him symptomatically with droperidol and Pepcid as well as dextrose containing fluids. Basic laboratory studies ordered. Patient re- evaluated after treatment. Lab shows slight chronic leukocytosis but no anemia. Normal platelet count. Normal organ function. Vital signs all stable and normalized. Patient had symptomatic improvement after interventions. No emergent concerns raised. Patient is safe for discharge home at this time. Differential Diagnosis Differential Diagnosis: Gastritis, gastroenteritis, cannabinoid hyperemesis syndrome, cyclic vomiting syndrome, low suspicion intra-abdominal infection Lab Data [facility] Lab Attestation statement: I personally reviewed the patient's lab results. 09/14/25 06:13 09/14/25 06:13 Labs: Lab Results 09/14/25 Range/Units 06:13 WBC 14.8 H (4.5-10.0) K/mm3 RBC 5.28 (4.6-6.20) M/mm3 Hgb 15.7 (14.0-18.0) g/dL Hct 45.4 (42.0-52.0) % MCV 86.0 (80-100) fl MCH 29.7 (26-34) pg MCHC 34.6 (32-36) g/dl RDW 13.4 (11.5-14.5) % Plt Count 323 (150-375) k/mm3 MPV 8.5 (7.4-10.4) fl Immature Gran % (Auto) 0.2 (0-0.5) % Neut % (Auto) 87.7 H (45.5-73.1) % Lymph % (Auto) 8.2 L (18.3-44.2) % [place] % (Auto) 3.2 (2.6-8.5) % Eos % (Auto) 0.3 (0-4.4) % Baso % (Auto) 0.4 (0.2-1.2) % Lymph # (Auto) 1.21 (0.9-3.2) K/mm3 [place] # (Auto) 0.5 (0.1-0.6) K/mm3 Eos # (Auto) 0.1 (0-0.3) K/mm3 Baso # (Auto) 0.1 (0.0-0.1) K/mm3 Abs Immat Gran (auto) 0.03 (0.00-0.031) K/mm3 Absolute Neuts (auto) 12.9 H (1.3-6.7) K/mm3 Absolute Nucleated RBC 0.000 (0.0-0.012) K/mm3 Nucleated RBC % 0.0 (0.0-0.2) % Sodium 138 (137-145) mmol/L Potassium 4.2 (3.4-5.0) mmol/L Chloride 107 (98-107) mmol/L Carbon Dioxide 24 (22-30) mmol/L Anion Gap 7 (4-12) mmol/L BUN 10 D (9-20) mg/dL Creatinine 0.99 (0.7-1.3) mg/dL Estim Creat Clear Calc 94 ml/min Estimated GFR > 60 (59 - ) Glucose 121 H (65-110) mg/dL Calcium 9.9 (8.4-10.2) mg/dL Total Bilirubin 0.4 (0.2-1.3) mg/dL AST 38 (17-59) U/L ALT 27 (6-50) U/L Alkaline Phosphatase 76 (38-126) U/L Total Protein 8.1 (6.3-8.2) g/dL Albumin 4.8 (3.5-5.1) g/dL Lipase 98 (23-300) U/L Discharge Plan Discharge Clinical Impression: Cyclic vomiting syndrome Patient Disposition: Home Condition: Stable Instructions: Antibiotic Form, Cyclic Vomiting Syndrome (ED) Additional Instructions: Follow-up with your regular care providers. We have sent you some Reglan for symptom control. Return with any emergent concerns. Stop smoking marijuana. Patient Language: Emirati Prescriptions: New metoclopramide HCl [Reglan] 10 mg tablet 10 mg PO Q6H PRN (Reason: nausea and vomiting) Qty: 14 0RF No Action ondansetron 4 mg tablet,disintegrating 4 mg PO Q8H PRN (Reason: nausea and vomiting) Qty: 10 0RF ondansetron 4 mg tablet,disintegrating 4 mg PO Q8H PRN (Reason: nausea and vomiting) Qty: 10 0RF metoclopramide HCl [Reglan] 10 mg tablet 10 mg PO Q6H PRN (Reason: nausea and vomiting) Qty: 14 0RF ondansetron 4 mg tablet,disintegrating 4 mg PO Q8H PRN (Reason: nausea and vomiting) Qty: 15 0RF ondansetron 4 mg tablet,disintegrating 4 mg PO Q8H PRN (Reason: nausea and vomiting) Qty: 14 0RF Follow-up/Referrals: PHYSICIAN,NCR OPERATOR [Primary Care Provider, Internal Medicine] Time of Disposition: 06:57
[2025-09-14] MEDS: DEXTROSE 5%/LACTATED RINGERS 1,000 ML 1000 ML IV CONT (06:15)
[2025-09-14] MEDS: FAMOTIDINE 20 MG/2 ML VIAL IV PUSH (06:16)
[2025-09-14 06:18] LABS: Hematocrit 45.4 % (42.0-52.0); Hemoglobin 15.7 g/dL (14.0-18.0); Immature Granulocyte Percent A 0.2 % (0-0.5); Lymphocytes Absolute Auto 1.21 K/mm3 (0.9-3.2); Mean Corpuscular HGB Conc 34.6 g/dl (32-36); Mean Corpuscular Hemoglobin 29.7 pg (26-34); Mean Corpuscular Volume 86.0 fl (80-100); Nucleated Red Blood Cells Absolute Auto 0.000 K/mm3 (0.0-0.012); Nucleated Red Blood Cells Perc 0.0 % (0.0-0.2); Platelet Count Result 323 k/mm3 (150-375); Red Blood Count 5.28 M/mm3 (4.6-6.20); White Blood Count 14.8 K/mm3 (4.5-10.0)
[2025-09-14 06:22] VITALS: BP 137/80; PULSE 111; RESP 16; O2SAT 99
[2025-09-14 06:31] LABS: Alanine Aminotransferase 27 U/L (6-50); Albumin Level 4.8 g/dL (3.5-5.1); Alkaline Phosphatase 76 U/L (38-126); Anion Gap 7 mmol/L (4-12); Aspartate Amino Transferase 38 U/L (17-59); Bilirubin,Total 0.4 mg/dL (0.2-1.3); Blood Urea Nitrogen 10 mg/dL (9-20); Calcium 9.9 mg/dL (8.4-10.2); Carbon Dioxide 24 mmol/L (22-30); Chloride 107 mmol/L (98-107); Estimated CRCL calculation 94 ml/min; Estimated Glomerular Filt Rate > 60; Glucose 121 mg/dL (65-110); Lipase 98 U/L (23-300); Potassium 4.2 mmol/L (3.4-5.0); Sodium 138 mmol/L (137-145); Total Protein 8.1 g/dL (6.3-8.2)
[2025-09-14] MEDS: LACTATED RINGERS 1,000 ML 999 ML IV CONT (06:39)
[2025-09-14 06:44] VITALS: BP 137/80; PULSE 85; RESP 16; O2SAT 99
[2025-09-14 07:26] VITALS: BP 121/75; PULSE 80; RESP 14; O2SAT 100
== END 2025-09-14 07:36 | disposition home or self-care (01) ==
PROVIDERS: Emergency Provider Student in an Organized Health Care Education/Training Program
DX: R11.15 Cyclical vomiting syndrome unrelated to migraine (principal)
CPT/HCPCS: 36415; 80053; 83690; 85025; 96361; 96374; 96375; 99284; J1790; J7120; J7121